=== PATIENT | female | born 1950 ===

== ENCOUNTER 2020-07-09 08:21 | Outpatient (REF) | payer MEDICARE, SELFPAY ==
[2020-07-09 08:52] LABS: MANUAL DIFF FLAG NO
[2020-07-09 08:58] LABS: Basophils Absolute Auto 0.1 X10*3/uL (0.0-0.2); Basophils Percent Auto 0.5 % (0-2); Eosinophils Absolute Auto 0.1 X10*3/uL (0.0-0.4); Eosinophils Percent Auto 0.7 % (0-4); Hematocrit 39.2 % (37-47); Hemoglobin 12.9 g/dl (12.0-16.0); Imm Gran Abs Auto 0.09 X10*3/uL (0.00-0.03); Imm Gran Pct Auto 0.7 % (0.0-0.4); Lymphocytes Absolute Auto 1.2 X10*3/uL (1.2-4.9); Mean Corpuscular HGB Conc 32.9 g/dl (31.0-35.0); Mean Corpuscular Hemoglobin 29.6 pg (27.0-33.0); Mean Corpuscular Volume 89.9 fL (80-98); Mean Platelet Volume 9.3 fL (9.4-12.3); Monocytes Absolute Auto 0.7 X10*3/uL (0.1-1.2); Monocytes Percent Auto 5.2 % (2-11); Neutrophils Absolute Auto 11.4 X10*3/uL (2.0-8.3); Neutrophils Percent Auto 83.9 % (45-73); Platelet Count 329 X10*3/uL (160-400); Red Blood Count 4.36 X10*6/uL (4.20-5.50); Red Cell Distribution Width 14.4 % (11.0-16.0); White Blood Count 13.6 X10*3/uL (4.8-10.8)
[2020-07-09 09:47] LABS: Vitamin D 25-OH Total 31.8 ng/mL (>30)
== END 2020-07-09 08:22 | disposition home or self-care (01) ==
LOC: HO.LAB 08:21
PROVIDERS: PCP Pediatrics; Visit Provider Pediatrics
DX: E78.00 Pure hypercholesterolemia, unspecified (principal); I10 Essential (primary) hypertension; J44.9 Chronic obstructive pulmonary disease, unspecified; F17.291 Nicotine dependence, other tobacco product, in remission
CPT/HCPCS: 36415; 82306; 85025

== ENCOUNTER 2021-04-05 09:55 | Emergency (ER) | payer MEDICARE, SELFPAY ==
--- NOTE | ~2021-04-05 | XR_ITS ---
EXAMINATION: XR CHEST CLINICAL INFORMATION: Weakness and cough. COMPARISON: None TECHNIQUE: Frontal view of the chest was obtained. FINDINGS: The lungs are well-expanded and clear. The heart size and pulmonary vascularity is normal. There is mild dextroscoliosis of mid dorsal spine with spondylosis. XR/XR chest 1V IMPRESSION: Hyperexpanded lungs without acute process.
--- NOTE | ~2021-04-05 | CT_ITS ---
EXAMINATION: CT ANGIOGRAM OF THE CHEST WITH AND WITHOUT CONTRAST (CT PULMONARY ANGIOGRAM FOR PE).. CT renal with and without contrast. CLINICAL INFORMATION: Reason for Exam hematuria . SOB worse with inspiration. COMPARISON: None TECHNIQUE: Prior to contrast administration, noncontrast localization images were obtained. Subsequently, multidetector volumetric imaging was performed from the thoracic inlet to below the diaphragms following the administration of 80 mL Omnipaque 350 intravenous contrast. No contrast reaction reported Sagittal, coronal, and MIP oblique sagittal reformatted images were obtained on the CT workstation, uploaded to PACS, and reviewed. This CT examination was performed using dose optimization techniques as appropriate, variously including the following: *Automated exposure control *Adjustment of mA and/or kV according to patient size (this includes techniques or standardized protocols for targeted exams where dose is matched to indication/reason for exam; i.e. extremities or head) *Use of iterative reconstruction technique Total exam dose-length product 600 mGy-cm FINDINGS: QUALITY OF STUDY/CONTRAST BOLUS: Satisfactory. PULMONARY ARTERIES: No central or segmental pulmonary emboli. THORACIC AORTA: No aneurysm or dissection. There is mild dystrophic calcification. LUNG: There is centrilobular emphysema with no acute pneumonic consolidation a few scattered densities in the right lower lobe. A 7 mm groundglass density right lower lobe anteriorly image 251/15, 7 mm nodule right lower lobe axial image 252/15, 6 mm nodule right lower lobe axial image 258/15:3 mm nodule right middle lobe axial image 285/15:4 mm nodule left lower lobe axial image 314/15. There are linear atelectatic changes anterobasal segment left lower lobe. There is no consolidation. PLEURA: There is minimal bilateral apical pleural thickening. MEDIASTINUM: The thyroid lobes are symmetrical. Central trachea and the bronchi widely patent. Heart size and the great vessels are normal caliber. There is dense mitral valve calcification No evidence of septal bowing or right heart strain. CHEST WALL/AXILLA: No axillary or internal mammary lymphadenopathy. OSSEOUS STRUCTURES: No lytic or sclerotic process seen. UPPER ABDOMEN: No reflux of contrast into the hepatic veins to suggest elevated right heart pressures. CTA RENAL WITHOUT AND WITH CONTRAST. There are no radiopaque gallstones. There is a punctate 2 mm radiopaque calculi upper/ midpole right left kidney axial image 22/7. Liver, biliary tract and gallbladder: The liver is homogeneous in density, normal size, contour with small punctate nonenhancing lesions measuring 5 mm likely small cysts. There is no intrahepatic ductal dilatation. Spleen: There are punctate calcification small cyst in the spleen. There is no splenomegaly. Pancreas: Unremarkable. Adrenal glands: Unremarkable. Kidneys and ureters: Both kidneys nephrograms are normal size, shape and cortical thickness. There is a 1.5 cm upper pole right renal cyst. No enhancing renal mass or hydronephrosis seen. Lymphovascular structures: There are atherosclerotic changes of abdominal aorta without aneurysmal dilatation. The aortic branches are patent. No abnormal size lymph nodes seen. GI tract: There is scattered stool and gas seen in the colon without any significant distention. The small bowel loops are normal caliber. Appendix is not included in the [id number]. No free fluid or free air seen. Abdominal wall: Unremarkable. Osseous structures: There is vacuum disc phenomena and degenerative disc changes L5-S1 disc level. CT/CT angio chest PE protocol Impression: Centrilobular emphysema with multiple nodules in the right lower lobe. No acute pneumonic consolidation or effusion seen. Lingular atelectasis. Recommend CT chest follow-up in 6 months as per Fleischner guidelines. VTE: negative 2 mm nonobstructive radiopaque calculi upper/mid pole left kidney. Nonenhancing 1.5 cm cyst upper pole right kidney There is no enhancing renal mass, cyst or hydronephrosis. Punctate nonenhancing densities in liver likely small cysts.
[2021-04-05 09:59] VITALS: BP 210/84; PULSE 89; RESP 18; TEMP 36.7; O2SAT 92; BMI 20.7
--- NOTE | 2021-04-05 10:06 | ECG_ITS ---
Test Reason : weakness Blood Pressure : / mmHG Vent. Rate : 082 BPM Atrial Rate : 082 BPM P-R Int : 152 ms QRS Dur : 086 ms QT Int : 378 ms P-R-T Axes : 069 065 069 degrees QTc Int : 441 ms Normal sinus rhythm Possible Left atrial enlargement Nonspecific ST abnormality Abnormal ECG When compared with ECG of 20-SEP-2017 15:28, Premature atrial complexes are no longer Present Referred By: Generic ED Physician Electronically Signed By:Mello Jones
[2021-04-05 10:15] LABS: MANUAL DIFF FLAG NO
[2021-04-05 10:17] LABS: Basophils Absolute Auto 0.1 X10*3/uL (0.0-0.2); Basophils Percent Auto 0.5 % (0-2); Eosinophils Absolute Auto 0.2 X10*3/uL (0.0-0.4); Eosinophils Percent Auto 1.5 % (0-4); Hematocrit 41.6 % (37.0-47.0); Hemoglobin 13.8 g/dl (12.0-16.0); Imm Gran Abs Auto 0.05 X10*3/uL (0.00-0.03); Imm Gran Pct Auto 0.5 % (0.0-0.4); Lymphocytes Percent Auto 9.7 % (20-40); Mean Corpuscular HGB Conc 33.2 g/dl (31.0-35.0); Mean Corpuscular Hemoglobin 29.2 pg (27.0-33.0); Mean Corpuscular Volume 87.9 fL (80.0-98.0); Monocytes Percent Auto 9.5 % (2-11); Neutrophils Absolute Auto 8.2 x10*3/uL (2.0-8.3); Neutrophils Percent Auto 78.3 % (45-73); Platelet Count 347 X10*3/uL (160-400); Red Blood Count 4.73 X10*6/uL (4.20-5.50); Red Cell Distribution Width 14.3 % (11.0-16.0); White Blood Count 10.4 X10*3/uL (4.8-10.8)
[2021-04-05 10:40] LABS: Anion Gap 14 (12-20); Blood Urea Nitrogen 12 mg/dL (9-16); Calcium 10.1 mg/dL (8.4-10.2); Carbon Dioxide 32 mmol/L (22-29); Chloride 96 mmol/L (96-108); Creatinine Clr Calc Pharmacy 58.1; Estimated Glomerular Filt Rate > 60; Glucose Random 111 mg/dL (60-115); Sodium 138 mmol/L (135-145)
[2021-04-05 10:41] LABS: Troponin-I High Sensitivity 5.2 ng/L (<3.5-17.0)
--- NOTE | 2021-04-05 11:07 | ED_ITS ---
HPI - General Adult General Chief complaint: Weakness Stated complaint: DIFF BREATHING Time Seen by Provider: 04/05/21 10:44 Source: patient Mode of arrival: ambulatory Limitations: no limitations History of Present Illness HPI narrative: 70-year-old female past medical history significant for COPD, HTN presents to the emergency department with complaints of severe shortness of breath, fatigue, decreased appetite and productive cough x1 month but progressively worsening over the past week. Patient tells me that she has become more short of breath over the past week to the point where she feels fatigued after ambulating to her bathroom which is on the 2nd floor. She tells me that she also feels short of breath of with walking normal distances which is not usual for her. She tells me she is a current daily smoker, does not use oxygen. She is vaccinated against COVID-19. She denies chest pain, fevers, chills, nausea, vomiting, abdominal pain. Patient tells me she has a nebulizer at home but she rarely uses it. Onset (ago): month(s) (1) Severity: severe Pain Consistency: constant Relieving factors: movement Exacerbating factors: immobilization Associated symptoms: cough (productive of thick yellow sputum) Treatments prior to arrival: none Related Data Previous Rx's Medication Instructions Recorded cefuroxime axetil 250 mg tablet 250 mg PO BID 7 Days #14 tab 04/05/21 Allergies Allergy/AdvReac Type Severity Reaction Status Date / Time milk [MILK] Allergy Intermediate DIARRHEA Unverified 01/12/20 15:35 Review of Systems Review of Systems: Constitutional : No Fever, No Chills ENT/Mouth : No sore throat, No Rhinorrhea, No Swallowing Difficulty Eyes: No Eye Pain, No Swelling, No Redness Cardiovascular : No Chest Pain, + SOB, No Orthopnea, no Edema Respiratory : + Cough, + Sputum, No Wheezing, + dyspnea Gastrointestinal : No Nausea, No Vomiting, No Diarrhea, No abdominal Pain, No Hematochezia, No Melena Genitourinary : No Dysuria, No Urinary Frequency, No Hematuria Musculoskeletal : No joint pain, No Myalgias Skin : No Skin Lesions, No rash Neuro : No Weakness, No Numbness, No Dizziness, No Headache Psych : No Anxiety/Panic, No Depression All other systems reviewed and are negative Yes all other systems are reviewed and are negative [facility] Past Medical History Attestation statement: The following information was validated with the patient. Source: old records reviewed and nursing notes reviewed Medical History COPD (chronic obstructive pulmonary disease) HTN (hypertension) Osteoporosis Social History Social History Alcohol intake: unknown Patient Tobacco Use Status: Tobacco use Unknown Use of substances other than those prescribed or required for medical reasons: Unknown Advance Directives: Yes Advance Directives Information Provided: Yes Advance Directives on File: No Physical Exam Vital Signs: Vital Signs: Last Vital Signs Temp 98.1 F 04/05/21 09:59 Pulse 82 04/05/21 16:43 Resp 16 04/05/21 16:43 BP 186/63 H 04/05/21 16:43 Pulse Ox 92 04/05/21 17:02 BMI result Body Mass Index 20.7 Vital signs are stable, however patient noted to be slightly hypertensive, likely secondary to anxiety. Appearance: Alert.? Oriented X3.? No acute distress.? Head: Normocephalic, atraumatic, no step-offs or deformities Eyes: Pupils equal, round and reactive to light.? ENT: Pharynx normal.? Neck: Normal inspection.? Neck supple.? CVS: Normal heart rate and rhythm.? Pulses normal.? Respiratory: No respiratory distress.? + scattered rales, and diminished lung sounds.? Abdomen: Soft and nontender.? Skin: Skin warm and dry.? Normal skin color.? Normal skin turgor.? Extremities: No lower extremity edema.? No calf ttp. 5/5 strength to bilateral upper and lower extremities Back: No midline tenderness, no C-spine tenderness, full range of motion, no CVA tenderness bilaterally Neuro: Oriented X 3.? No motor deficit.? No sensory deficit. Course Reevaluation(s) Reevaluation #1: Chest x-ray shows hyperexpanded lungs, without acute process. Labs show no acute infection, no anemia. BNP is slightly elevated. EKG within normal limits At this time patient will be given a DuoNeb. Reevaluation #2: CT shows emphysema, multiple nodules in the right lower lobe, no consolidation or effusion. It shows lingular atelectasis. Recommendation for age CT chest follow-up in 6 months. 2 mm nonobstructive stone in left kidney. And a 1.5 cm cyst in the upper pole of the right kidney. There is also punctate nonenhancing densities in the liver likely small cysts, all of these findings were discussed with the patient and her son. I have advised them to follow-up with their PCP, and Urology. At this time patient does not want to speak to case management or PT for possible need for home services/short-term rehab. Patient declined this offer and states she just wants to go home. Patient is safe for discharge home, Ceftin 250 mg p.o. b.i.d. for 7 days has been sent to her pharmacy to treat for UTI. I have discussed this case with Dr. Doan who will be seeing patient outpatient for hematuria. Time: 17:06 Reevaluation #3: Patient is ambulatory O2 was 96% for the majority that time, it dropped down to 92% after walking a full lab from the emergency department. Patient is safe for discharge home. Time: 17:07 Medical Decision Making [facility] Narrative Medical decision making narrative: 1100 70-year-old female past medical history of hypertension, COPD presents to the emergency department with shortness of breath progressively worsening x1 week, but has been present for months. Patient also reports associated weakness, productive cough of thick yellow sputum, and anorexia. Patient lives at home by herself. Patient is vaccinated against COVID. Patient is a current daily smoker. Does not use home oxygen. Upon physical examination patient appears well, she is ambulating without any issues. S1-S2 appreciated free of murmurs. Rales are appreciated throughout as well as diminished lung sounds. Abdomen soft nontender nondistended. No focal neuro deficits. No lower extremity edema. Plan is to obtain basic labs, chest x-ray, COVID, EKG. Medical Records Medical records reviewed: Yes I reviewed the patient's medical records. Lab Data Lab results reviewed: Yes I reviewed the patient's lab results. Result diagrams: 04/05/21 10:12 04/05/21 10:12 Labs: Lab Results 04/05/21 04/05/21 04/05/21 Range/Units 10:12 10:12 10:12 WBC 10.4 (4.8-10.8) X10*3/uL RBC 4.73 (4.20-5.50) X10*6/uL Hgb 13.8 (12.0-16.0) g/dl Hct 41.6 (37.0-47.0) % MCV 87.9 (80.0-98.0) fL MCH 29.2 (27.0-33.0) pg MCHC 33.2 (31.0-35.0) g/dl RDW 14.3 (11.0-16.0) % Plt Count 347 (160-400) X10*3/uL MPV 9.0 L (9.4-12.3) fL Immature Gran % (Auto) 0.5 H (0.0-0.4) % Neut % (Auto) 78.3 H (45-73) % Lymph % (Auto) 9.7 L (20-40) % [place] % (Auto) 9.5 (2-11) % Eos % (Auto) 1.5 (0-4) % Baso % (Auto) 0.5 (0-2) % Lymph # (Auto) 1.0 L (1.2-4.9) X10*3/uL [place] # (Auto) 1.0 (0.1-1.2) X10*3/uL Eos # (Auto) 0.2 (0.0-0.4) X10*3/uL Baso # (Auto) 0.1 (0.0-0.2) X10*3/uL Abs Immat Gran (auto) 0.05 H (0.00-0.03) X10*3/uL Absolute Neuts (auto) 8.2 (2.0-8.3) x10*3/uL Absolute Nucleated RBC 0.000 (0.0-0.012) X10*3/uL Nucleated RBC % (auto) 0.0 (0.0-0.2) /100WBC Sodium 138 (135-145) mmol/L Potassium 4.0 (3.3-5.1) mmol/L Chloride 96 (96-108) mmol/L Carbon Dioxide 32 H (22-29) mmol/L Anion Gap 14 (12-20) BUN 12 (9-16) mg/dL Creatinine 0.66 (0.5-1.4) mg/dL Estim Creat Clear Calc 58.1 Estimated GFR > 60 Random Glucose 111 (60-115) mg/dL Calcium 10.1 (8.4-10.2) mg/dL Troponin I High Sens 5.2 (<3.5-17.0) ng/L B-Natriuretic Peptide 169 H (<100) pg/mL Urine Color Urine Appearance Urine pH (5.0-8.0) Ur Specific Hydes (1.005-1.025) Urine Protein (NEG-TRACE) MG/DL Urine Glucose (UA) (NEG) MG/DL Urine Ketones (NEG) MG/DL Urine Blood (NEG) Urine Nitrite (NEG) Ur Leukocyte Esterase (NEG) Urine RBC (0) /HPF Urine WBC (0-4) /HPF Ur Squamous Epith Cells /LPF Urine Bacteria /LPF COVID-19 (MYLES) (Negative) COVID-19 Clin Com 04/05/21 04/05/21 Range/Units 12:18 12:18 WBC (4.8-10.8) X10*3/uL RBC (4.20-5.50) X10*6/uL Hgb (12.0-16.0) g/dl Hct (37.0-47.0) % MCV (80.0-98.0) fL MCH (27.0-33.0) pg MCHC (31.0-35.0) g/dl RDW (11.0-16.0) % Plt Count (160-400) X10*3/uL MPV (9.4-12.3) fL Immature Gran % (Auto) (0.0-0.4) % Neut % (Auto) (45-73) % Lymph % (Auto) (20-40) % [place] % (Auto) (2-11) % Eos % (Auto) (0-4) % Baso % (Auto) (0-2) % Lymph # (Auto) (1.2-4.9) X10*3/uL [place] # (Auto) (0.1-1.2) X10*3/uL Eos # (Auto) (0.0-0.4) X10*3/uL Baso # (Auto) (0.0-0.2) X10*3/uL Abs Immat Gran (auto) (0.00-0.03) X10*3/uL Absolute Neuts (auto) (2.0-8.3) x10*3/uL Absolute Nucleated RBC (0.0-0.012) X10*3/uL Nucleated RBC % (auto) (0.0-0.2) /100WBC Sodium (135-145) mmol/L Potassium (3.3-5.1) mmol/L Chloride (96-108) mmol/L Carbon Dioxide (22-29) mmol/L Anion Gap (12-20) BUN (9-16) mg/dL Creatinine (0.5-1.4) mg/dL Estim Creat Clear Calc Estimated GFR Random Glucose (60-115) mg/dL Calcium (8.4-10.2) mg/dL Troponin I High Sens (<3.5-17.0) ng/L B-Natriuretic Peptide (<100) pg/mL Urine Color RED Urine Appearance CLOUDY Urine pH 7.0 (5.0-8.0) Ur Specific Hydes 1.015 (1.005-1.025) Urine Protein 2+ H (NEG-TRACE) MG/DL Urine Glucose (UA) NEG (NEG) MG/DL Urine Ketones NEG (NEG) MG/DL Urine Blood 3+ H (NEG) Urine Nitrite NEG (NEG) Ur Leukocyte Esterase 2+ H (NEG) Urine RBC TNTC H (0) /HPF Urine WBC 5-9 H (0-4) /HPF Ur Squamous Epith Cells NONE /LPF Urine Bacteria 4+ /LPF COVID-19 (MYLES) Negative (Negative) COVID-19 Clin Com See Note Imaging Data Chest x-ray: Attestation: I personally reviewed and interpreted this imaging study as follows: Radiologist's impression: FINDINGS: The lungs are well-expanded and clear. The heart size and pulmonary vascularity is normal. There is mild dextroscoliosis of mid dorsal spine with spondylosis. XR/XR chest 1V IMPRESSION: Hyperexpanded lungs without acute process. ECG Data Attestation: I personally reviewed and interpreted this ECG as follows: Prior ECG tracings: available for review Interpretation: Ventricular rate of 82, ME normal QRS normal, QT/QTC normal. EKG shows normal sinus rhythm with possible left atrial enlargement, there are some ST depressions noted in the lateral leads. No ST elevations. No acute ischemia. No acute changes when compared to EKG from September 20, 2017. Critical Care Time Critical Care Time Critical Care Time: No Discharge Plan Discharge Clinical Impression: Emphysema lung, Kidney calculi, Lung nodule, Urinary tract infection, Hemat uria, Shortness of breath Patient Disposition: Home, Self-Care Instructions: Kidney Stones (ED), Emphysema (ED), Urinary Tract Infection in Older Adults (ED) Additional Instructions: Take your medications as prescribed. If you are prescribed an antibiotic today it is important that you take it to its entirety, do not skip any doses or stop it early. Please stop smoking, this is making your symptoms worse. Offered you Case Management and Physical therapy to evaluate if you are in need of more services or short-term rehab however you declined this offer. There are nodules in the right lower lobe of the lung, require CT follow up in 6 months Follow-up with your primary care provider this week. Please follow up with Urology. Return to the emergency department with new or worsening symptoms. Such as chest pain, shortness of breath, nausea, vomiting, fevers, chills, abdominal pain. In case of emergency call 911 Prescriptions: New cefuroxime axetil 250 mg tablet 250 mg PO BID 7 Days Qty: 14 RF: 0 Referrals: Lyn French MD [Primary Care Provider] - 2 days Topher Doan MD [Physician] - 2 days
[2021-04-05 11:33] LABS: B Type Natriuretic Peptide 169 pg/mL (<100)
[2021-04-05] MEDS: Albuterol/Iprat 2.5/0.5MG 3 ML AMPUL.NEB INHALE (12:20)
[2021-04-05 12:21] VITALS: PULSE 73; RESP 16; O2SAT 96
[2021-04-05 12:44] LABS: Appearance Urine CLOUDY; Color Urine RED; Glucose Urine UA NEG (NEG); Leukocyte Esterase Urine 2+ (NEG); Nitrite Urine NEG (NEG); Specific Gravity - Urine 1.015 (1.005-1.025); UACC Culture Trigger YES; Urine Blood 3+ (NEG); Urine Ketones NEG (NEG); Urine Protein 2+ MG/DL (NEG-TRACE)
[2021-04-05 12:47] LABS: COVID-19 Test Negative (Negative)
[2021-04-05 12:48] LABS: Bacteria Urine 4+ /LPF; RBC Urine TNTC /HPF (0)
[2021-04-05 12:51] LABS: UACC CULT YES
[2021-04-05] MEDS: iohexoL 350 MG/ML 100 ML INFUS..BTL IV (14:59)
[2021-04-05 16:43] VITALS: BP 186/63; PULSE 82; RESP 16; O2SAT 94
[2021-04-05 17:02] VITALS: O2SAT 92
== END 2021-04-05 17:21 | disposition home or self-care (01) ==
PROVIDERS: Physician Assistant; Emergency Provider Emergency Medicine; PCP Pediatrics
DX: J43.9 Emphysema, unspecified (principal); N20.0 Calculus of kidney; R06.02 Shortness of breath; N39.0 Urinary tract infection, site not specified; R05.9 Cough, unspecified; R31.9 Hematuria, unspecified; I10 Essential (primary) hypertension; Z20.822 Contact with and (suspected) exposure to COVID-19; Z79.899 Other long term (current) drug therapy
CPT/HCPCS: 36415; 71045; 71275; 74178; 80048; 81001; 83880; 84484; 85025; 87086; 87635; 93005; 94640; 99285; Q9967

== ENCOUNTER 2021-04-09 08:44 | Emergency (ER) | payer MEDICARE, SELFPAY ==
[2021-04-09 09:17] VITALS: BP 99/54; PULSE 88; RESP 18; TEMP 36.6; O2SAT 95; BMI 20.7
--- NOTE | 2021-04-09 09:50 | ECG_ITS ---
Test Reason : weakness Blood Pressure : / mmHG Vent. Rate : 080 BPM Atrial Rate : 080 BPM P-R Int : 148 ms QRS Dur : 082 ms QT Int : 384 ms P-R-T Axes : 069 069 076 degrees QTc Int : 442 ms Sinus rhythm with frequent , and consecutive Premature ventricular complexes Nonspecific ST abnormality Abnormal ECG When compared with ECG of 05-APR-2021 12:11, Premature ventricular complexes are now Present Referred By: Tracey White Electronically Signed By:CAREY CRAWLEY MD
--- NOTE | 2021-04-09 09:52 | ED.WEAKNESS ---
HPI - Weakness General Chief complaint: Weakness Stated complaint: UTI Time Seen by Provider: 04/09/21 09:17 Source: patient and family Mode of arrival: wheelchair Limitations: no limitations History of Present Illness HPI Narrative: Patient comes emergency room complaining of weakness. Patient was seen here 4 days ago, diagnosed with a UTI, given cefuroxime p.o.. In her previous visit patient was offered case management/PT eval for possible short-term rehab, but patient and family declined. Today, patient's family is requesting an evaluation as he would like to have the patient sent short-term rehab if the patient does not meet any criteria for admission. Patient denies pain, no chest pain, no shortness of breath. Patient states that she feels very fatigued, denies hematuria or dysuria, no URI symptoms Related Data Home Medications Medication Instructions Recorded Confirmed albuterol sulfate 90 mcg/actuation 2 inh INHALATION Q4H PRN 04/09/21 04/09/21 aerosol inhaler alendronate 70 mg tablet 70 mg PO SA 04/09/21 04/09/21 atorvastatin 40 mg tablet 40 mg PO BEDTIME 04/09/21 04/09/21 cefuroxime axetil 250 mg tablet 1 tab PO BID 04/09/21 04/09/21 fluticasone furoate 200 1 puff PO DAILY 04/09/21 04/09/21 mcg-vilanterol 25 mcg/dose inhalation powder (Breo Ellipta) lisinopril 20 1 tab PO DAILY 04/09/21 04/09/21 mg-hydrochlorothiazide 25 mg tablet naproxen 500 mg tablet 1 tab PO BID PRN 04/09/21 04/09/21 umeclidinium 62.5 mcg/actuation 1 puff PO DAILY 04/09/21 04/09/21 blister powder for inhalation (Incruse Ellipta) Allergies Allergy/AdvReac Type Severity Reaction Status Date / Time milk [MILK] Allergy Intermediate DIARRHEA Unverified 01/12/20 15:35 Review of Systems Review of Systems: Constitutional : No Weight loss, No Fever, No Chills, No Night Sweats, complaining of fatigue, weakness ENT/Mouth : No Hearing loss, No Ear Pain, No Nasal Congestion, No Sinus Pain, No Hoarseness, No sore throat, No Rhinorrhea, No Swallowing Difficulty Eyes: No Eye Pain, No Swelling, No Redness, No Foreign Body, No Discharge, No Vision Changes Cardiovascular : No Chest Pain, No SOB, No Dyspnea on Exertion, No Orthopnea, No Edema, No Palpitations Respiratory : Chronic cough at baseline, No Sputum, No Wheezing, No Smoke Exposure, No Dyspnea Gastrointestinal : No Nausea, No Vomiting, No Diarrhea, No Constipation, No abdominal Pain, No Hematochezia, No Melena Genitourinary : no irregular bleeding, No Dysuria, No Urinary Frequency, No Hematuria, No Urinary Incontinence, No Urgency, No Flank Pain, No Urinary Flow Changes, No Hesitancy Musculoskeletal : No joint pain, No Myalgias, No Joint Swelling Skin : No Skin Lesions, No rash Neuro : No Weakness, No Numbness, No Paresthesias, No Loss of Consciousness, No Dizziness, No Headache Psych : No Anxiety/Panic, No Depression, No SI/HI/AH/VH, No Social Issues, Heme/Lymph: No Bruising, No Bleeding,No Lymphadenopathy Endocrine : No Polyuria, No Polydipsia, No Temperature Intolerance [facility] Past Medical History Medical History COPD (chronic obstructive pulmonary disease) HTN (hypertension) Osteoporosis Social History Social History Alcohol intake: unknown Patient Tobacco Use Status: Tobacco use Unknown Advance Directives: No Advance Directives Information Provided: No Physical Exam Vital Signs: Vital Signs: Last Vital Signs Temp 98.2 F 04/09/21 11:20 Pulse 73 04/09/21 11:20 Resp 18 04/09/21 11:20 BP 139/55 L 04/09/21 11:20 Pulse Ox 95 04/09/21 11:20 BMI result Body Mass Index 20.7 Const: Other: Appearance: Alert. Oriented X3. No acute distress. Seems to be weak Eyes: Pupils equal, round and reactive to light. ENT: Pharynx normal. Neck: Normal inspection. Neck supple. No lymph nodes noted. No crepitus CVS: Normal heart rate and rhythm. Pulses normal. Normal S1 and S2 Respiratory: No respiratory distress. Breath sounds normal. No Wheezing. No rales Abdomen: Soft and nontender. No rigidity. No distention. Skin: Skin warm and dry. Normal skin color. Normal skin turgor. Extremities: No lower extremity edema. No Lacerations. No Rash Neuro: Oriented X 3. No motor deficit. No sensory deficit. Moving all extermities. No slurred speech. Course Course Course Narrative: Patient has mild hyponatremia, mild UTI with +1 esterase. Discussed the patient with our hospitalist, patient is not septic, at this time, in-patient treatment recommended. We will get a Physical therapy and Case Management evaluation. Family wishes to have the patient go to short-term rehab due to deconditioning physician obstervation started at 14:07, vitals stable MDM - Weakness Lab Data Result diagrams: 04/09/21 10:59 04/09/21 10:59 Labs: Lab Results 04/09/21 04/09/21 04/09/21 Range/Units 10:59 10:59 10:59 WBC 11.1 H (4.8-10.8) X10*3/uL RBC 4.51 (4.20-5.50) X10*6/uL Hgb 13.3 (12.0-16.0) g/dl Hct 40.0 (37.0-47.0) % MCV 88.7 (80.0-98.0) fL MCH 29.5 (27.0-33.0) pg MCHC 33.3 (31.0-35.0) g/dl RDW 14.1 (11.0-16.0) % Plt Count 195 D (160-400) X10*3/uL MPV 9.9 (9.4-12.3) fL Immature Gran % (Auto) 0.5 H (0.0-0.4) % Neut % (Auto) 81.8 H (45-73) % Lymph % (Auto) 10.1 L (20-40) % [place] % (Auto) 6.6 (2-11) % Eos % (Auto) 0.6 (0-4) % Baso % (Auto) 0.4 (0-2) % Lymph # (Auto) 1.1 L (1.2-4.9) X10*3/uL [place] # (Auto) 0.7 (0.1-1.2) X10*3/uL Eos # (Auto) 0.1 (0.0-0.4) X10*3/uL Baso # (Auto) 0.0 (0.0-0.2) X10*3/uL Abs Immat Gran (auto) 0.06 H (0.00-0.03) X10*3/uL Absolute Neuts (auto) 9.0 H (2.0-8.3) x10*3/uL Absolute Nucleated RBC 0.000 (0.0-0.012) X10*3/uL Nucleated RBC % (auto) 0.0 (0.0-0.2) /100WBC Smear Tech's Comments VERIFIED Sodium 130 L (135-145) mmol/L Potassium 3.6 (3.3-5.1) mmol/L Chloride 91 L (96-108) mmol/L Carbon Dioxide 25 (22-29) mmol/L Anion Gap 18 (12-20) BUN 11 (9-16) mg/dL Creatinine 0.59 (0.5-1.4) mg/dL Estim Creat Clear Calc 65.0 Estimated GFR > 60 Random Glucose 110 (60-115) mg/dL Lactic Acid (0.5-2.0) mmol/L Calcium 9.6 (8.4-10.2) mg/dL Total Bilirubin 0.5 (0.0-1.0) mg/dL Direct Bilirubin < 0.2 (0.0-0.5) mg/dL AST 25 (5-31) U/L ALT 14 (0-31) U/L Alkaline Phosphatase 101 (39-117) U/L Troponin I High Sens 11.1 D (<3.5-17.0) ng/L Total Protein 6.7 (6.5-8.0) g/dL Albumin 3.8 (3.5-5.0) g/dL Urine Color Urine Appearance Urine pH (5.0-8.0) Ur Specific [place] (1.005-1.025) Urine Protein (NEG-TRACE) MG/DL Urine Glucose (UA) (NEG) MG/DL Urine Ketones (NEG) MG/DL Urine Blood (NEG) Urine Nitrite (NEG) Ur Leukocyte Esterase (NEG) Urine RBC (0) /HPF Urine WBC (0-4) /HPF Ur Squamous Epith Cells /LPF Urine Bacteria /LPF COVID-19 (MYLES) (Negative) COVID-19 Clin Com 04/09/21 04/09/21 04/09/21 Range/Units 10:59 11:16 12:49 WBC (4.8-10.8) X10*3/uL RBC (4.20-5.50) X10*6/uL Hgb (12.0-16.0) g/dl Hct (37.0-47.0) % MCV (80.0-98.0) fL MCH (27.0-33.0) pg MCHC (31.0-35.0) g/dl RDW (11.0-16.0) % Plt Count (160-400) X10*3/uL MPV (9.4-12.3) fL Immature Gran % (Auto) (0.0-0.4) % Neut % (Auto) (45-73) % Lymph % (Auto) (20-40) % [place] % (Auto) (2-11) % Eos % (Auto) (0-4) % Baso % (Auto) (0-2) % Lymph # (Auto) (1.2-4.9) X10*3/uL [place] # (Auto) (0.1-1.2) X10*3/uL Eos # (Auto) (0.0-0.4) X10*3/uL Baso # (Auto) (0.0-0.2) X10*3/uL Abs Immat Gran (auto) (0.00-0.03) X10*3/uL Absolute Neuts (auto) (2.0-8.3) x10*3/uL Absolute Nucleated RBC (0.0-0.012) X10*3/uL Nucleated RBC % (auto) (0.0-0.2) /100WBC Smear Tech's Comments Sodium (135-145) mmol/L Potassium (3.3-5.1) mmol/L Chloride (96-108) mmol/L Carbon Dioxide (22-29) mmol/L Anion Gap (12-20) BUN (9-16) mg/dL Creatinine (0.5-1.4) mg/dL Estim Creat Clear Calc Estimated GFR Random Glucose (60-115) mg/dL Lactic Acid 1.3 (0.5-2.0) mmol/L Calcium (8.4-10.2) mg/dL Total Bilirubin (0.0-1.0) mg/dL Direct Bilirubin (0.0-0.5) mg/dL AST (5-31) U/L ALT (0-31) U/L Alkaline Phosphatase (39-117) U/L Troponin I High Sens (<3.5-17.0) ng/L Total Protein (6.5-8.0) g/dL Albumin (3.5-5.0) g/dL Urine Color RED Urine Appearance CLOUDY Urine pH 6.0 (5.0-8.0) Ur Specific [place] 1.015 (1.005-1.025) Urine Protein 1+ H (NEG-TRACE) MG/DL Urine Glucose (UA) NEG (NEG) MG/DL Urine Ketones NEG (NEG) MG/DL Urine Blood 3+ H (NEG) Urine Nitrite NEG (NEG) Ur Leukocyte Esterase 1+ H (NEG) Urine RBC TNTC H (0) /HPF Urine WBC 10-14 H (0-4) /HPF Ur Squamous Epith Cells TRACE /LPF Urine Bacteria NONE /LPF COVID-19 (MYLES) Negative (Negative) COVID-19 Clin Com See Note Discharge Plan Discharge Clinical Impression: Acute UTI, Generalized weakness Prescriptions: No Action atorvastatin 40 mg tablet 40 mg PO BEDTIME RF: 0 cefuroxime axetil 250 mg tablet 1 tab PO BID RF: 0 alendronate 70 mg tablet 70 mg PO SA RF: 0 lisinopril-hydrochlorothiazide 20-25 mg tablet 1 tab PO DAILY RF: 0 albuterol sulfate 90 mcg/actuation HFA aerosol inhaler 2 inh inhalation Q4H PRN (Reason: Wheezing) RF: 0 naproxen 500 mg tablet 1 tab PO BID PRN (Reason: pain) RF: 0 Incruse Ellipta 62.5 mcg/actuation blister with device 1 puff PO DAILY RF: 0 Breo Ellipta 200-25 mcg/dose blister with device 1 puff PO DAILY RF: 0
[2021-04-09 11:09] LABS: Basophils Percent Auto 0.4 % (0-2); Eosinophils Absolute Auto 0.1 X10*3/uL (0.0-0.4); Eosinophils Percent Auto 0.6 % (0-4); Hemoglobin 13.3 g/dl (12.0-16.0); Imm Gran Abs Auto 0.06 X10*3/uL (0.00-0.03); Imm Gran Pct Auto 0.5 % (0.0-0.4); Lymphocytes Absolute Auto 1.1 X10*3/uL (1.2-4.9); Lymphocytes Percent Auto 10.1 % (20-40); MANUAL DIFF FLAG SCAN; Mean Corpuscular HGB Conc 33.3 g/dl (31.0-35.0); Mean Corpuscular Hemoglobin 29.5 pg (27.0-33.0); Mean Corpuscular Volume 88.7 fL (80.0-98.0); Mean Platelet Volume 9.9 fL (9.4-12.3); Monocytes Absolute Auto 0.7 X10*3/uL (0.1-1.2); Monocytes Percent Auto 6.6 % (2-11); Neutrophils Percent Auto 81.8 % (45-73); PLT CLUMP 1; Red Blood Count 4.51 X10*6/uL (4.20-5.50); Red Cell Distribution Width 14.1 % (11.0-16.0); SCAN SMEAR FLAG 1
[2021-04-09 11:10] LABS: Platelet Count 195 X10*3/uL (160-400); White Blood Count 11.1 X10*3/uL (4.8-10.8)
[2021-04-09 11:20] VITALS: BP 139/55; PULSE 73; RESP 18; TEMP 36.8; O2SAT 95
[2021-04-09 11:22] LABS: COVID-19 Test Negative (Negative)
[2021-04-09 11:26] LABS: SLIDE REVIEW VERIFIED
[2021-04-09 11:28] LABS: Alanine Aminotransferase 14 U/L (0-31); Albumin Level 3.8 g/dL (3.5-5.0); Alkaline Phosphatase 101 U/L (39-117); Anion Gap 18 (12-20); Aspartate Amino Transferase 25 U/L (5-31); Bilirubin Direct < 0.2 mg/dL (0.0-0.5); Bilirubin Total 0.5 mg/dL (0.0-1.0); Blood Urea Nitrogen 11 mg/dL (9-16); Calcium 9.6 mg/dL (8.4-10.2); Carbon Dioxide 25 mmol/L (22-29); Chloride 91 mmol/L (96-108); Estimated Glomerular Filt Rate > 60; Glucose Random 110 mg/dL (60-115); Potassium 3.6 mmol/L (3.3-5.1); Sodium 130 mmol/L (135-145); Total Protein 6.7 g/dL (6.5-8.0)
[2021-04-09 11:31] LABS: Troponin-I High Sensitivity 11.1 ng/L (<3.5-17.0)
[2021-04-09 11:38] LABS: Lactic Acid 1.3 mmol/L (0.5-2.0)
[2021-04-09 13:07] LABS: Appearance Urine CLOUDY; Color Urine RED; Glucose Urine UA NEG (NEG); Leukocyte Esterase Urine 1+ (NEG); Nitrite Urine NEG (NEG); Specific Gravity - Urine 1.015 (1.005-1.025); UACC Culture Trigger YES; Urine Blood 3+ (NEG); Urine Ketones NEG (NEG); Urine Protein 1+ MG/DL (NEG-TRACE)
[2021-04-09 13:10] LABS: RBC Urine TNTC /HPF (0)
[2021-04-09 13:11] LABS: Squamous Epithelial Cell Urine TRACE /LPF
[2021-04-09] MEDS: levoFLOXacin/D5W 500 MG/100 ML PIGGYBACK 100 MG IV (14:04)
--- NOTE | 2021-04-09 14:05 | PHA.MEDREC ---
Pharmacy Consult ? Medication Reconciliation Pharmacy has completed the medication reconciliation. Thanks Dane
--- NOTE | 2021-04-09 14:10 | MHC.CM.ED ---
Received case management consult from Dr White. Patient came to the ER on 04/05 due to weakness. Found to have an UTI. Short term rehab was offered at that time. Patient declined and went home. Patient returned to the ER today due to increased weakness. Patient still has UTI. Physical therapy eval is pending. Met with patient and son Néstor in regards to discharge planning. Patient lives with a roommate, uses a cane for mobility at times and has a home health aide weekly from [facility]. PCP verified. Copy of HCP obtained from [facility]. Patient has received 2 Moderna vaccines. List of facilities provided from [facility] to patient and Néstor, for all facilities within 15 miles of patient's home that are contracted with [facility]. [facility] is first choice. Referral made via [employer]. Continue to monitor for d/c needs.
[2021-04-09 14:28] VITALS: BP 148/55; PULSE 76; RESP 16; TEMP 36.6; O2SAT 95
[2021-04-09 15:30] LABS: Influenza A PCR NEGATIVE (Negative); Influenza B PCR NEGATIVE (Negative); Resp Syncy Virus RNA Qual PCR NEGATIVE (Negative); SARS COV2 PCR INHOUSE NEGATIVE (Negative)
--- NOTE | 2021-04-09 15:46 | MHC.CM.ED ---
[facility] is willing to offer a bed. They are in the process of obtaining insurance auth. Patient and son aware. Continue to monitor for d/c needs.
--- NOTE | 2021-04-09 17:09 | MHC.CM.ED ---
Reyes zaragoza requested contact information for [facility]. Given Aleisha at [facility] [phone]. Auth still pending. Will remain in ED overnight. Expect D/C tomorrow. CM to follow for d/c needs.
--- NOTE | 2021-04-10 00:56 | PC.NURSE ---
pt sleeping comfortably in room will continue to monitor
[2021-04-10 05:49] VITALS: BP 103/62; PULSE 81; RESP 16; TEMP 36.7; O2SAT 94
[2021-04-10 09:01] VITALS: BP 161/63; PULSE 77; RESP 18; O2SAT 94
[2021-04-10] MEDS: Nicotine 21 MG PATCH.TD24 TRANSDERMA (09:03)
--- NOTE | 2021-04-10 09:05 | PC.NURSE ---
pt resting comfortably in the stretcher alert and oriented x3, pt denies any pain at this time, pt is a smoker and smokes about 1/2 pack a day, requested and received nicotine patch. vs stable, pt aware of plan to go to rehab, food diet ordered and awaiting laila
--- NOTE | 2021-04-10 09:56 | MHC.CM.ED ---
Patient remains in ER. Waiting for ins auth so patient can go to [facility] for STR. Continue to monitor for d/c needs.
[2021-04-10 10:06] VITALS: BP 142/69; PULSE 80; RESP 16; O2SAT 94
--- NOTE | 2021-04-10 11:27 | MHC.CM.ED ---
Insurance auth has been obtained by Jodee Rosen. Patient can leave at 1pm. [facility] BLS booked. Med nec with chart. Patient, Fauzia Palm RN and Dr Soto aware. Continue to monitor for d/c needs/
[2021-04-10 12:16] VITALS: BP 129/62; PULSE 95; RESP 18; TEMP 36.5; O2SAT 96
== END 2021-04-10 13:23 | disposition skilled nursing facility (03) ==
PROVIDERS: Emergency Provider Emergency Medicine; PCP Pediatrics
DX: N39.0 Urinary tract infection, site not specified (principal); R53.1 Weakness; Z20.822 Contact with and (suspected) exposure to COVID-19; Z87.440 Personal history of urinary (tract) infections; I10 Essential (primary) hypertension
CPT/HCPCS: 0241U; 36415; 80048; 80076; 81001; 81003; 83605; 84484; 85025; 87040; 87086; 87635; 93005; 96365; 97162; 99285; J1956

== ENCOUNTER → 2021-05-10 13:28 | Outpatient (BNVA) | payer MEDICARE, SELFPAY | PROVIDERS: PCP Pediatrics; Visit Provider Internal Medicine Pulmonary Disease | DX: J44.9 Chronic obstructive pulmonary disease, unspecified (principal); R91.8 Other nonspecific abnormal finding of lung field; Z79.899 Other long term (current) drug therapy | CPT/HCPCS: 94618; 99202 ==

== ENCOUNTER 2021-07-22 07:14 | Outpatient (REF) | payer MEDICARE, SELFPAY ==
--- NOTE | ~2021-07-22 | CT_ITS ---
EXAMINATION: CT CHEST SCREENING CLINICAL INFORMATION: Nicotine dependence. COMPARISON: CTA chest 04/05/2021. TECHNIQUE: Multidetector volumetric CT imaging of the chest is performed without contrast using low dose technique. Additional 2D coronal and sagittal reformatted images and axial 3D maximum intensity projection (MIP) images are generated on the CT workstation. This CT examination was performed using dose optimization techniques as appropriate, variously including the following: *Automated exposure control *Adjustment of mA and/or kV according to patient size (this includes techniques or standardized protocols for targeted exams where dose is matched to indication/reason for exam; i.e. extremities or head) *Use of iterative reconstruction technique DLP: 39 mGy-cm FINDINGS: LUNGS: There is centrilobular emphysema with anterior segment right upper lobe atelectasis. There is a right lower lobe 7 mm nodule axial image 274/6, a 5 mm nodule right lower lobe axial image 277/6, 3 mm nodule right middle lobe axial image 276/6, two 3 mm subpleural nodules left lower lobe axial image 34/4, a 4 mm nodule left lower lobe subpleural-based axial image 338/6. MEDIASTINUM: The thyroid lobes are symmetric and normal. The central trachea and the bronchi widely patent. Heart size and the great vessels are normal caliber. No pericardial effusion seen. There are small shotty lymph nodes in the precarinal space measuring 6 mm. PLEURA: There is no pleural effusion. No pleural mass or thickening. AXILLA: No lymphadenopathy. UPPER ABDOMEN: Visualized liver, adrenal glands, pancreas and gallbladder appears unremarkable. There is a 6 mm hypodensity in the spleen, question cyst. OSSEOUS STRUCTURES: Unremarkable. CT/CT lung screening IMPRESSION: Diffuse emphysema with multiple pulmonary nodules essentially stable. Ground-glass attenuation seen in the previous study has improved. There is atelectatic changes in the anterior segment of the right upper lobe, stable. Atelectatic changes in the lingular segment has improved. ASSESSMENT: Lung-RADS category 2: Benign RECOMMENDATION: Low-dose annual CT chest.
== END 2021-07-22 07:15 | disposition home or self-care (01) ==
LOC: HO.CT 07:14
PROVIDERS: Visit Provider Physician Assistant Medical
DX: F17.210 Nicotine dependence, cigarettes, uncomplicated (principal)
CPT/HCPCS: 71271

== ENCOUNTER 2021-08-01 07:53 | Outpatient (REF) | payer OTHER, SELFPAY ==
--- NOTE | 2021-08-01 10:18 | PFT_ITS ---
INDICATION: Dyspnea. SPIROMETRY: FEV1 to FVC of 65% with an FEV1 of 0.95 L, which is 49% predicted, FVC of 1.47 L, which is 67% predicted. No significant response to bronchodilators noted. Maximum voluntary ventilation 45% predicted. LUNG VOLUMES: Total lung capacity 80% predicted. DIFFUSION CAPACITY: DLCO 37% predicted. COMPARISONS: None available. INTERPRETATION: There is an obstructive ventilatory defect consistent with severe COPD. No significant response to bronchodilators noted. Severe decrease in maximum voluntary ventilation secondary to likely deconditioning. Lung volumes are low normal. No evidence of any hyperinflation or air trapping. The patient does have a severe diffusion impairment likely secondary to emphysema and no other parenchymal lung conditions. Pulmonary vascular conditions should also be considered. Clinical correlation warranted. MD ABHIJEET De Souza/MODNikko / [id number]
== END 2021-08-01 07:54 | disposition home or self-care (01) ==
LOC: HO.RESP 07:53
PROVIDERS: PCP Pediatrics; Visit Provider Internal Medicine Pulmonary Disease
DX: R06.00 Dyspnea, unspecified (principal); J44.9 Chronic obstructive pulmonary disease, unspecified
CPT/HCPCS: 94060; 94727; 94729

== ENCOUNTER 2021-08-27 08:16 | Outpatient (REF) | payer OTHER, SELFPAY ==
--- NOTE | ~2021-08-27 | CT_ITS ---
EXAMINATION: CT CHEST WITHOUT CONTRAST CLINICAL INFORMATION: Follow-up pulmonary nodule. COMPARISON: Previous chest CT, most recent June 2021. TECHNIQUE: Multidetector volumetric CT imaging of the chest was done. Axial MIP volume rendering provided. Sagittal and coronal reformatted images were obtained. This CT examination was performed using dose optimization techniques as appropriate, variously including the following: *Automated exposure control *Adjustment of mA and/or kV according to patient size (this includes techniques or standardized protocols for targeted exams where dose is matched to indication/reason for exam; i.e. extremities or head) *Use of iterative reconstruction technique DLP: 103 mGy-cm. FINDINGS: LUNGS: There is evidence of emphysema. There is biapical pleural parenchymal scarring. There is a new heterogeneous 4 mm right middle lobe nodule axial image 261 series 5 and adjacent focal bronchiectasis or cystic change. There is new increased ground-glass attenuation and increased linear markings seen in the peripheral or subpleural right upper lobe adjacent to the minor fissure, for example axial image 227 series 5. Pulmonary nodules otherwise appear unchanged. Largest pulmonary nodules are a ground-glass attenuation nodule in the right lower lobe measuring 6 x 9 mm axial image 302 series 5., 7 mm right lower lobe nodule axial image 308 series 5, and 6 mm peripheral or subpleural left lower lobe nodule axial image 333 series 5. The 6 x 9 mm ground-glass attenuation right lower lobe nodule may be gradually increasing in size compared to remote older exams and attention on follow-up is recommended. MEDIASTINUM: There is severe atherosclerotic disease. There is dense calcification right brachiocephalic artery. Heart does not appear enlarged. There is mild coronary artery calcification. There is no pericardial effusion. There are no enlarged hilar or mediastinal nodes. PLEURA: There is no pleural effusion. No pleural mass or thickening. AXILLA: No lymphadenopathy. UPPER ABDOMEN: There is a small low-attenuation lesion in the spleen that is stable. There is a small stone in the upper pole of the left kidney. OSSEOUS STRUCTURES: Scoliosis and degenerative changes of the spine. Multiple thoracic vertebral body compression fractures that appear unchanged. CT/CT chest wo con IMPRESSION: Emphysema. New heterogeneous right middle lobe nodule and adjacent focal bronchiectasis or cystic change. New increased interstitial markings and peripheral or subpleural right lower lobe adjacent to the minor fissure. Chest CT follow-up recommended. Otherwise pulmonary nodules are stable. Fleischner guidelines were followed.
== END 2021-08-27 08:17 | disposition home or self-care (01) ==
LOC: HO.CT 08:16
PROVIDERS: PCP Pediatrics; Visit Provider Internal Medicine Pulmonary Disease
DX: R91.8 Other nonspecific abnormal finding of lung field (principal)
CPT/HCPCS: 71250

== ENCOUNTER → 2021-09-09 09:48 | Outpatient (BNVA) | payer OTHER, SELFPAY | PROVIDERS: PCP Pediatrics; Visit Provider Internal Medicine Pulmonary Disease | DX: J44.9 Chronic obstructive pulmonary disease, unspecified (principal); R91.8 Other nonspecific abnormal finding of lung field; R06.00 Dyspnea, unspecified | CPT/HCPCS: 99212 ==

== ENCOUNTER 2022-01-02 17:44 | Inpatient (IN) | payer OTHER, SELFPAY ==
--- NOTE | ~2022-01-02 | XR_ITS ---
EXAMINATION: XR CHEST CLINICAL INFORMATION: Weakness and SOB COMPARISON: CT chest 09/13/2021 TECHNIQUE: Frontal view of the chest was obtained. FINDINGS: The lungs are well-expanded with increased interstitial markings likely chronic changes. No consolidation or pleural effusion seen. The heart size enlarged with prominent vascularity is within normal limits. No bony abnormality seen. XR/XR chest 1V IMPRESSION: No acute cardiopulmonary process seen. Bilateral increased perihilar fine interstitial markings likely chronic changes. Patient has known pulmonary nodules bilaterally on the previous CT chest exam 08/28/2021.
--- NOTE | ~2022-01-02 | CT_ITS ---
EXAMINATION: CT head/brain wo IV con CLINICAL INFORMATION: Reason for Exam weakness, ams COMPARISON: CT head without contrast 06/15/2014 TECHNIQUE: Contiguous axial imaging was performed from the skull base to vertex without intravenous contrast. Sagittal and coronal reformatted images were obtained. This CT examination was performed using dose optimization techniques as appropriate, variously including the following: * Automated exposure control * Adjustment of mA and/or kV according to patient size (this includes techniques or standardized protocols for targeted exams where dose is matched to indication/reason for exam; i.e. extremities or head) Use of iterative reconstruction technique DLP: 586 mGy-cm FINDINGS: No acute osseous or soft tissue abnormality. Fixation hardware along the right anterior maxillary sinus. The mastoid air cells and visualized portions of the paranasal sinuses are well aerated. There is no evidence of acute intracranial hemorrhage or territorial infarction. No abnormal mass effect or midline shift is seen. . No extra-axial fluid collections are identified. No hydrocephalus. Proportional prominence of the ventricles and sulcal spaces is consistent with moderate volume loss. Patchy periventricular and deep white matter hypoattenuation is consistent with moderate small vessel ischemic changes, progressed since 2014. There are new small chronic infarcts in the right superior parietal lobe and right anterior frontal lobe as well as lacunar infarcts involving the centrum semiovale bilaterally. CT/CT head/brain wo IV con IMPRESSION: 1. No acute intracranial abnormality including hemorrhage, mass effect, hydrocephalus, or acute territorial edematous infarction. 2. Progressive moderate white matter microangiopathy, new chronic lacunar infarcts in the centrum semiovale, and new chronic infarcts involving the right superior parietal and anterior frontal lobes since CT from 2014.
--- NOTE | 2022-01-02 17:55 | ECG_ITS ---
Test Reason : Weakness Blood Pressure : / mmHG Vent. Rate : 075 BPM Atrial Rate : 075 BPM P-R Int : 152 ms QRS Dur : 132 ms QT Int : 408 ms P-R-T Axes : 085 006 091 degrees QTc Int : 455 ms Normal sinus rhythm Left bundle branch block Abnormal ECG When compared with ECG of 09-APR-2021 10:07, Premature ventricular complexes are no longer Present Left bundle branch block is now Present Referred By: Sly Strickland Electronically Signed By:ABDELRAHMAN BORREGO
--- NOTE | 2022-01-02 17:57 | ED.GENADULT ---
HPI - General Adult General Chief complaint: Weakness Stated complaint: WEAKNESS Time Seen by Provider: 01/02/22 17:54 Source: patient and EMS Mode of arrival: EMS Limitations: no limitations History of Present Illness HPI narrative: 71-year-old female past medical history significant for COPD, HTN presents to the emergency department with generalized weakness, confusion according to family since Thursday, 5 days ago. According to patient's daughter patient has been having increased confusion, she tells me at baseline patient is a little bit confused however over the past 5 days patient has been far more confused than her baseline. Daughter also notes that patient has been sleeping all day long, has been very fatigued, weak, is having difficulties taking care of herself at home. She reports that patient could not walk therefore patient had to come in by ambulance she tells me she cannot carry this patient in. She reports that this is not patient's baseline. Related Data Home Medications Medication Instructions Recorded Confirmed albuterol sulfate 90 mcg/actuation 2 inh inhalation Q4H PRN Wheezing 04/09/21 04/09/21 aerosol inhaler alendronate 70 mg tablet 70 mg PO SA 04/09/21 04/09/21 atorvastatin 40 mg tablet 40 mg PO BEDTIME 04/09/21 04/09/21 cefuroxime axetil 250 mg tablet 1 tab PO BID 04/09/21 04/09/21 fluticasone furoate 200 1 puff PO DAILY 04/09/21 04/09/21 mcg-vilanterol 25 mcg/dose inhalation powder (Breo Ellipta) lisinopril 20 1 tab PO DAILY 04/09/21 04/09/21 mg-hydrochlorothiazide 25 mg tablet naproxen 500 mg tablet 1 tab PO BID PRN pain 04/09/21 04/09/21 umeclidinium 62.5 mcg/actuation 1 puff PO DAILY 04/09/21 04/09/21 blister powder for inhalation (Incruse Ellipta) Previous Rx's Medication Instructions Recorded ipratropium 0.5 mg-albuterol 3 mg 3 ml inhalation Q4-6H PRN wheezing 05/10/21 (2.5 mg base)/3 mL nebulization 30 days #270 mL soln nicotine 14 mg/24 hr daily 1 patch transdermal DAILY 28 days 05/10/21 transdermal patch #28 ea furosemide 20 mg tablet (Lasix) 10 mg PO QAM 30 days #15 tabs 09/09/21 Allergies Allergy/AdvReac Type Severity Reaction Status Date / Time milk [MILK] Allergy Intermediate DIARRHEA Verified 09/09/21 09:49 Review of Systems Review of Systems: Constitutional : No Weight loss, No Fever, No Chills, + Fatigue, + Malaise ENT/Mouth : No sore throat, No Rhinorrhea Eyes: No Eye Pain, No Swelling, No Redness Cardiovascular : No Chest Pain, + SOB (baseline due to COPD), No Dyspnea on Exertion, No Orthopnea, No Edema, No Palpitations Respiratory : No Cough, No Sputum, No Wheezing Gastrointestinal : No Nausea, No Vomiting, No Diarrhea, No Constipation, No abdominal Pain, No Hematochezia, No Melena Genitourinary : No Dysuria, No Urinary Frequency, No Hematuria, Musculoskeletal : No joint pain, No Myalgias, No Joint Swelling Skin : No Skin Lesions, No rash Neuro : + Weakness,+ confusion, No Numbness, No Dizziness, No Headache Psych : No Anxiety/Panic, No Depression All other systems reviewed and are negative Yes all other systems are reviewed and are negative [facility] Past Medical History Attestation statement: The following information was validated with the patient. Source: old records reviewed and nursing notes reviewed Medical History COPD (chronic obstructive pulmonary disease) HTN (hypertension) Osteoporosis Social History Social History Alcohol intake: unknown Patient Tobacco Use Status: Current everyday Tobacco user Advance Directives: Yes Advance Directives on File: Yes Advance Directives Date on File: 04/09/21 Physical Exam ED Vital Signs: Vital Signs - 24 hr 01/02/22 17:58 Temperature 98.1 F Pulse Rate 82 Respiratory Rate 16 Blood Pressure 150/56 H Pulse Oximetry 93 Oxygen Delivery Method Room Air BMI result Body Mass Index 20.2 VSS Appearance: Alert.? Oriented X3.? No acute distress.? Head: Normocephalic, atraumatic, no step-offs or deformities Eyes: Pupils equal, round and reactive to light.? ENT: Pharynx normal.? Neck: Normal inspection.? Neck supple.? CVS: Normal heart rate and rhythm.? Pulses normal.? Respiratory: No respiratory distress.? Mild, diffuse crackles appreciated bilaterally. Abdomen: Soft and nontender.? Skin: Skin warm and dry.? Normal skin color.? Normal skin turgor.? Extremities: No lower extremity edema.? No calf ttp. 5/5 strength to bilateral upper and lower extremities Back: No midline tenderness, no C-spine tenderness, full range of motion, no CVA tenderness bilaterally Neuro: Oriented X 3.? No motor deficit.? No sensory deficit. CN 2-12 intact Course Reevaluation(s) Reevaluation #1: Patient with slight leukocytosis, and a normocytic anemia, chemistry with no acute electrolyte abnormalities requiring intervention, troponin negative EKG nonischemic, covid negative. CXR not acute findings. Patient's leukocytosis likely secondary to UTI, I do not suspect sepsis. Patient refusing straight cath and tells nursing that she wants to pee on her own. Will continue to wait for urine prior to initiating antibiotics. Time: 19:58 Reevaluation #2: Urine concerning for infection. Antibiotics administered. CT of the head and brain showing progressive moderate white matter microangiopathy and new lacunar infarcts no changes on exam. No focal neuro deficits. Due to the findings on CT, altered mental status, weakness and UTI patient will be admitted to the hospitalist team for further evaluation and treatment. Time: 23:14 Medical Decision Making [facility] Narrative Medical decision making narrative: 18:00 71 y/o F with a PMHx of COPD and HTN presenting with generalized weakness, concern for UTI. PE benign however, global weakness appreciated. Plan to obtain basic labs, UA, CXR, COVID-19 test. Suspect UTI vs. viral syndrome, will rule out pneumonia, electrolyte derangment, low likelihood of PE, ACS due to patient's H&P. Medical Records Medical records reviewed: Yes I reviewed the patient's medical records. Lab Data Result diagrams: 01/02/22 18:17 01/02/22 18:17 Labs: Lab Results 01/02/22 01/02/22 01/02/22 Range/Units 18:17 18:17 18:17 WBC 13.0 H (4.8-10.8) X10*3/uL RBC 3.78 L (4.20-5.50) X10*6/uL Hgb 10.7 L (12.0-16.0) g/dl Hct 32.1 L (37.0-47.0) % MCV 84.9 (80.0-98.0) fL MCH 28.3 (27.0-33.0) pg MCHC 33.3 (31.0-35.0) g/dl RDW 14.6 (11.0-16.0) % Plt Count 382 D (160-400) X10*3/uL MPV 9.4 (9.4-12.3) fL Immature Gran % (Auto) 0.7 H (0.0-0.4) % Neut % (Auto) 76.6 H (45-73) % Lymph % (Auto) 10.0 L (20-40) % [place] % (Auto) 11.3 H (2-11) % Eos % (Auto) 1.1 (0-4) % Baso % (Auto) 0.3 (0-2) % Lymph # (Auto) 1.3 (1.2-4.9) X10*3/uL [place] # (Auto) 1.5 H (0.1-1.2) X10*3/uL Eos # (Auto) 0.1 (0.0-0.4) X10*3/uL Baso # (Auto) 0.0 (0.0-0.2) X10*3/uL Abs Immat Gran (auto) 0.09 H (0.00-0.03) X10*3/uL Absolute Neuts (auto) 9.9 H (2.0-8.3) x10*3/uL Absolute Nucleated RBC 0.000 (0.0-0.012) X10*3/uL Nucleated RBC % (auto) 0.0 (0.0-0.2) /100WBC Sodium 138 (135-145) mmol/L Potassium 3.5 (3.3-5.1) mmol/L Chloride 99 (96-108) mmol/L Carbon Dioxide 26 (22-29) mmol/L Anion Gap 17 (12-20) BUN 18 H D (9-16) mg/dL Creatinine 0.71 (0.5-1.4) mg/dL Estim Creat Clear Calc 53.2 Estimated GFR > 60 Random Glucose 112 (60-115) mg/dL Lactic Acid (0.5-2.0) mmol/L Calcium 9.5 (8.4-10.2) mg/dL Magnesium 1.8 (1.6-2.6) mg/dL Total Bilirubin 0.3 (0.0-1.0) mg/dL AST 15 (5-31) U/L ALT 12 (0-31) U/L Alkaline Phosphatase 117 (39-117) U/L Troponin I High Sens 8.3 (<3.5-17.0) ng/L Total Protein 6.8 (6.5-8.0) g/dL Albumin 4.0 (3.5-5.0) g/dL Urine Color Urine Appearance Urine pH (5.0-9.0) Ur Specific [place] (1.005-1.025) Urine Protein (Neg-Trace) mg/dL Urine Glucose (UA) (Negative) mg/dL Urine Ketones (Negative) mg/dL Urine Blood (Negative) Urine Nitrite (Negative) Ur Leukocyte Esterase (Negative) Urine RBC (0-2) /HPF Urine WBC (0-5) /HPF Ur Squamous Epith Cells (0-2) /HPF Urine Bacteria (None Seen) Hyaline Casts (0-2) /LPF COVID-19 (MYLES) (Negative) COVID-19 Clin Com 01/02/22 01/02/22 01/02/22 Range/Units 18:17 20:14 22:07 WBC (4.8-10.8) X10*3/uL RBC (4.20-5.50) X10*6/uL Hgb (12.0-16.0) g/dl Hct (37.0-47.0) % MCV (80.0-98.0) fL MCH (27.0-33.0) pg MCHC (31.0-35.0) g/dl RDW (11.0-16.0) % Plt Count (160-400) X10*3/uL MPV (9.4-12.3) fL Immature Gran % (Auto) (0.0-0.4) % Neut % (Auto) (45-73) % Lymph % (Auto) (20-40) % [place] % (Auto) (2-11) % Eos % (Auto) (0-4) % Baso % (Auto) (0-2) % Lymph # (Auto) (1.2-4.9) X10*3/uL [place] # (Auto) (0.1-1.2) X10*3/uL Eos # (Auto) (0.0-0.4) X10*3/uL Baso # (Auto) (0.0-0.2) X10*3/uL Abs Immat Gran (auto) (0.00-0.03) X10*3/uL Absolute Neuts (auto) (2.0-8.3) x10*3/uL Absolute Nucleated RBC (0.0-0.012) X10*3/uL Nucleated RBC % (auto) (0.0-0.2) /100WBC Sodium (135-145) mmol/L Potassium (3.3-5.1) mmol/L Chloride (96-108) mmol/L Carbon Dioxide (22-29) mmol/L Anion Gap (12-20) BUN (9-16) mg/dL Creatinine (0.5-1.4) mg/dL Estim Creat Clear Calc Estimated GFR Random Glucose (60-115) mg/dL Lactic Acid 1.9 (0.5-2.0) mmol/L Calcium (8.4-10.2) mg/dL Magnesium (1.6-2.6) mg/dL Total Bilirubin (0.0-1.0) mg/dL AST (5-31) U/L ALT (0-31) U/L Alkaline Phosphatase (39-117) U/L Troponin I High Sens (<3.5-17.0) ng/L Total Protein (6.5-8.0) g/dL Albumin (3.5-5.0) g/dL Urine Color Yellow Urine Appearance Clear Urine pH 6.0 (5.0-9.0) Ur Specific [place] <= 1.005 (1.005-1.025) Urine Protein Negative (Neg-Trace) mg/dL Urine Glucose (UA) Negative (Negative) mg/dL Urine Ketones Negative (Negative) mg/dL Urine Blood Negative (Negative) Urine Nitrite Negative (Negative) Ur Leukocyte Esterase Small (1+) H (Negative) Urine RBC 0-2 (0-2) /HPF Urine WBC 6-10 H (0-5) /HPF Ur Squamous Epith Cells 3-5 (0-2) /HPF Urine Bacteria 4+ (None Seen) Hyaline Casts 0-2 (0-2) /LPF COVID-19 (MYLES) Negative (Negative) COVID-19 Clin Com See Note Critical Care Time Critical Care Time Critical Care Time: No Discharge Plan Discharge Clinical Impression: Weakness, Urinary tract infection, Lacunar infarction Patient Disposition: Admitted As Inpatient Prescriptions: No Action atorvastatin 40 mg tablet 40 mg PO BEDTIME cefuroxime axetil 250 mg tablet 1 tab PO BID alendronate 70 mg tablet 70 mg PO SA lisinopril-hydrochlorothiazide 20-25 mg tablet 1 tab PO DAILY albuterol sulfate 90 mcg/actuation HFA aerosol inhaler 2 inh inhalation Q4H PRN (Reason: Wheezing) naproxen 500 mg tablet 1 tab PO BID PRN (Reason: pain) Incruse Ellipta 62.5 mcg/actuation blister with device 1 puff PO DAILY Breo Ellipta 200-25 mcg/dose blister with device 1 puff PO DAILY ipratropium-albuterol 0.5 mg-3 mg(2.5 mg base)/3 mL solution for nebulization 3 ml inhalation Q4-6H PRN (Reason: wheezing) 30 Days Qty: 270 6RF nicotine 14 mg/24 hr patch 24 hour 1 patch transdermal DAILY 28 Days Qty: 28 1RF furosemide [Lasix] 20 mg tablet 10 mg PO QAM 30 Days Qty: 15 6RF
[2022-01-02 17:58] VITALS: BP 149/88; BP 150/56; PULSE 80; PULSE 82; RESP 16; TEMP 36.7; O2SAT 93; O2SAT 96; BMI 20.2
[2022-01-02 18:33] LABS: MANUAL DIFF FLAG NO
[2022-01-02 18:36] LABS: Basophils Percent Auto 0.3 % (0-2); Eosinophils Absolute Auto 0.1 X10*3/uL (0.0-0.4); Eosinophils Percent Auto 1.1 % (0-4); Hematocrit 32.1 % (37.0-47.0); Hemoglobin 10.7 g/dl (12.0-16.0); Imm Gran Abs Auto 0.09 X10*3/uL (0.00-0.03); Imm Gran Pct Auto 0.7 % (0.0-0.4); Lymphocytes Absolute Auto 1.3 X10*3/uL (1.2-4.9); Mean Corpuscular HGB Conc 33.3 g/dl (31.0-35.0); Mean Corpuscular Hemoglobin 28.3 pg (27.0-33.0); Mean Corpuscular Volume 84.9 fL (80.0-98.0); Mean Platelet Volume 9.4 fL (9.4-12.3); Monocytes Absolute Auto 1.5 X10*3/uL (0.1-1.2); Monocytes Percent Auto 11.3 % (2-11); Neutrophils Absolute Auto 9.9 x10*3/uL (2.0-8.3); Neutrophils Percent Auto 76.6 % (45-73); Platelet Count 382 X10*3/uL (160-400); Red Blood Count 3.78 X10*6/uL (4.20-5.50); Red Cell Distribution Width 14.6 % (11.0-16.0)
[2022-01-02 18:51] LABS: COVID-19 Test Negative (Negative)
[2022-01-02 18:57] LABS: Alanine Aminotransferase 12 U/L (0-31); Alkaline Phosphatase 117 U/L (39-117); Anion Gap 17 (12-20); Aspartate Amino Transferase 15 U/L (5-31); Bilirubin Total 0.3 mg/dL (0.0-1.0); Blood Urea Nitrogen 18 mg/dL (9-16); Calcium 9.5 mg/dL (8.4-10.2); Carbon Dioxide 26 mmol/L (22-29); Chloride 99 mmol/L (96-108); Creatinine Clr Calc Pharmacy 53.2; Estimated Glomerular Filt Rate > 60; Glucose Random 112 mg/dL (60-115); Magnesium 1.8 mg/dL (1.6-2.6); Potassium 3.5 mmol/L (3.3-5.1); Sodium 138 mmol/L (135-145); Total Protein 6.8 g/dL (6.5-8.0)
[2022-01-02 19:01] LABS: Troponin-I High Sensitivity 8.3 ng/L (<3.5-17.0)
[2022-01-02 20:42] LABS: Lactic Acid 1.9 mmol/L (0.5-2.0)
[2022-01-02 22:15] LABS: Appearance Urine Clear; Color Urine Yellow; Glucose Urine UA Negative (Negative); Leukocyte Esterase Urine Small (1+) (Negative); Nitrite Urine Negative (Negative); Specific Gravity - Urine <= 1.005 (1.005-1.025); Urine Blood Negative (Negative); Urine Ketones Negative (Negative); Urine Protein Negative (Neg-Trace)
[2022-01-02 22:46] LABS: Bacteria Urine 4+ (None Seen); Hyaline Casts Urine 0-2 /LPF (0-2); RBC Urine 0-2 /HPF (0-2); UACC Culture Trigger YES
[2022-01-02] MEDS: cefTRIAXone sodium 1 GM in 0.9 % Sodium Chloride 50 ML IV (23:43)
--- NOTE | 2022-01-02 23:44 | PM.IMHP ---
History of Present Illness Date of Service: 01/02/22 Chief Complaint: weakness and confusion 71-year-old female with past medical history of COPD, hypertension who presents to the hospital brought in by her family with concerns of increased weakness and confusion for the past few days. Patient herself is alert, oriented x3, but does report that she has been feeling significantly weak, has had low appetite, chills, has been coughing, and is generally not doing too well for the past 5 days. She does report that she might have forgetfulness but otherwise denies any headache, no change in vision, no weakness numbness or tingling in her extremities. Reports urinary frequency and dysuria with no urgency. Denies any chest pain, no abdominal pain, no nausea or vomiting, no diarrhea constipation, and no lower extremity edema. On arrival to the ED patient hemodynamically stable with no significant abnormal vitals Labs are significant for WBC count of 13, hemoglobin of 10.7, hematocrit 32.1, UA that is positive for leukocyte Estrace, WBC, and trace epithelial cells, Chest x-ray shows no acute cardiopulmonary process, Head CT shows no acute intracranial abnormality but progressive moderate white matter microangiopathy with new chronic lacunar infarcts in the centrum semiovale and new chronic infarct involving the right superior parietal and frontal lobes since 2015 Patient will be admitted for further management Review of Systems Review of Systems: Yes all other systems are reviewed and are negative [facility] Medical History (Updated 01/03/22 @ 06:59 by Dinah Michel MD) COPD (chronic obstructive pulmonary disease) HTN (hypertension) Osteoporosis Family History (Updated 01/03/22 @ 06:55 by Dinah Michel MD) Other No family history of coronary artery disease Surgical History (Updated 01/03/22 @ 06:56 by Dinah Michel MD) No pertinent past surgical history Social History (Updated 01/03/22 @ 06:56 by Dinah Michel MD) Alcohol intake: unknown Patient Tobacco Use Status: Former Tobacco user Use of substances other than those prescribed or required for medical reasons: No Advance Directives: Yes Advance Directives on File: Yes Advance Directives Date on File: 04/09/21 Meds Allergies Allergy/AdvReac Type Severity Reaction Status Date / Time milk [MILK] Allergy Intermediate DIARRHEA Verified 09/09/21 09:49 Active Medications: Current Medications Pharmacy Consult (Consult Rx Perform Med Rec) 1 each MISCELLANE ONCE PRN PRN Reason: Consult order Home Medications Medication Instructions Recorded Confirmed Last Taken Type albuterol sulfate 90 mcg/actuation 2 inh inhalation Q4H PRN Wheezing 04/09/21 01/03/22 Unknown History aerosol inhaler alendronate 70 mg tablet 70 mg PO SA 04/09/21 01/03/22 04/06/21 History atorvastatin 40 mg tablet 40 mg PO BEDTIME 04/09/21 01/03/22 04/08/21 History cefuroxime axetil 250 mg tablet 1 tab PO BID 04/09/21 04/09/21 04/09/21 History fluticasone furoate 200 1 puff PO DAILY 04/09/21 01/03/22 04/09/21 History mcg-vilanterol 25 mcg/dose inhalation powder (Breo Ellipta) lisinopril 20 1 tab PO DAILY 04/09/21 01/03/22 04/09/21 History mg-hydrochlorothiazide 25 mg tablet naproxen 500 mg tablet 1 tab PO BID PRN pain 04/09/21 04/09/21 04/09/21 History umeclidinium 62.5 mcg/actuation 1 puff PO DAILY 04/09/21 01/03/22 04/09/21 History blister powder for inhalation (Incruse Ellipta) amlodipine 10 mg tablet 1 tab PO DAILY 01/03/22 01/03/22 Unknown History aspirin 81 mg tablet,delayed 1 tab PO DAILY 01/03/22 01/03/22 Unknown History release clopidogrel 75 mg tablet 1 tab PO DAILY 01/03/22 01/03/22 Unknown History Physical Exam Vital Signs and Narrative: Vital Signs: Last Vital Signs Temp 98.1 F 01/02/22 17:58 Pulse 82 01/02/22 17:58 Resp 16 01/02/22 17:58 BP 150/56 H 01/02/22 17:58 Pulse Ox 93 01/02/22 17:58 O2 Del Method 01/02/22 17:58 BMI result Body Mass Index 20.2 Const: General: cooperative and no acute distress Orientation/consciousness: patient oriented x3 Eyes: General: appearance normal, both eyes and all related structures Pupils: Equal, round and reactive pupils present Resp: Effort & Inspection: normal respiratory effort Auscultation: clear to auscultation bilaterally Cardio: Rate: regular rate Rhythm: regular rhythm GI: Palpation (GI): Soft to palpation Auscultation: normal bowel sounds Skin: General skin exam: no rashes or lesions noted Neuro: Other: No neurological deficits General: patient oriented x3 Cranial nerves: Yes Equal, round and reactive pupils present Cognition (Neuro): normal cognition Extrem: General: Yes normal to inspection and Yes no pedal edema Results Labs CBC and Chem 7: 01/02/22 18:17 01/02/22 18:17 Labs: Laboratory Results - last 24 hr 01/02/22 01/02/22 01/02/22 18:17 18:17 18:17 MCV 84.9 MCH 28.3 MCHC 33.3 RDW 14.6 Plt Count 382 D MPV 9.4 Immature Gran % (Auto) 0.7 H Neut % (Auto) 76.6 H Lymph % (Auto) 10.0 L [place] % (Auto) 11.3 H Eos % (Auto) 1.1 Baso % (Auto) 0.3 Lymph # (Auto) 1.3 [place] # (Auto) 1.5 H Eos # (Auto) 0.1 Baso # (Auto) 0.0 Abs Immat Gran (auto) 0.09 H Absolute Neuts (auto) 9.9 H Absolute Nucleated RBC 0.000 Nucleated RBC % (auto) 0.0 Anion Gap 17 Estim Creat Clear Calc 53.2 Estimated GFR > 60 Random Glucose 112 Lactic Acid Calcium 9.5 Magnesium 1.8 Total Bilirubin 0.3 AST 15 ALT 12 Alkaline Phosphatase 117 Total Protein 6.8 Albumin 4.0 Urine Color Urine Appearance Urine pH Ur Specific [place] Urine Protein Urine Glucose (UA) Urine Ketones Urine Blood Urine Nitrite Ur Leukocyte Esterase Urine RBC Urine WBC Ur Squamous Epith Cells Urine Bacteria Hyaline Casts COVID-19 (MYLES) Negative COVID-19 Clin Com See Note 01/02/22 01/02/22 20:14 22:07 MCV MCH MCHC RDW Plt Count MPV Immature Gran % (Auto) Neut % (Auto) Lymph % (Auto) [place] % (Auto) Eos % (Auto) Baso % (Auto) Lymph # (Auto) [place] # (Auto) Eos # (Auto) Baso # (Auto) Abs Immat Gran (auto) Absolute Neuts (auto) Absolute Nucleated RBC Nucleated RBC % (auto) Anion Gap Estim Creat Clear Calc Estimated GFR Random Glucose Lactic Acid 1.9 Calcium Magnesium Total Bilirubin AST ALT Alkaline Phosphatase Total Protein Albumin Urine Color Yellow Urine Appearance Clear Urine pH 6.0 Ur Specific [place] <= 1.005 Urine Protein Negative Urine Glucose (UA) Negative Urine Ketones Negative Urine Blood Negative Urine Nitrite Negative Ur Leukocyte Esterase Small (1+) H Urine RBC 0-2 Urine WBC 6-10 H Ur Squamous Epith Cells 3-5 Urine Bacteria 4+ Hyaline Casts 0-2 COVID-19 (MYLES) COVID-19 Clin Com Imaging Radiologist's Impressions: Impressions Chest X-Ray 01/02/22 18:32 IMPRESSION: No acute cardiopulmonary process seen. Bilateral increased perihilar fine interstitial markings likely chronic changes. Patient has known pulmonary nodules bilaterally on the previous CT chest exam 08/28/2021. Head CT 01/02/22 20:31 IMPRESSION: 1. No acute intracranial abnormality including hemorrhage, mass effect, hydrocephalus, or acute territorial edematous infarction. 2. Progressive moderate white matter microangiopathy, new chronic lacunar infarcts in the centrum semiovale, and new chronic infarcts involving the right superior parietal and anterior frontal lobes since CT from 2014. Assessment and Plan (1) Urinary tract infection: Qualifiers: Urinary tract infection type: acute cystitis Hematuria presence: without hematuria Qualified Code(s): N30.00 - Acute cystitis without hematuria Status: Acute (2) Encephalopathy: Status: Acute (3) Lacunar infarction: Status: Acute (4) COPD (chronic obstructive pulmonary disease): Qualifiers: COPD type: emphysema Emphysema type: unspecified Qualified Code(s): J43.9 - Emphysema, unspecified Status: Acute (5) Weakness: Status: Acute Plan 71-year-old female with past medical history of COPD and hypertension presents to the hospital with weakness found to have acute UTI # acute UTI - likely the reason for her weakness and encephalopathy - will treat with IV antibiotic - follow culture # encephalopathy - head CT shows old infarcts but are new from 2014 - acute encephalopathy likely secondary to metabolic reasons due to acute UTI - will treat UTI with IV antibiotic - at this time patient alert and oriented x3 # CVA - not acute, but new from 2014 - patient has no neurological symptoms - will obtain neurology consult for any further recommendation - continue atorvastatin 40 mg as well as home aspirin # hypertension - stable - will continue her home antihypertensives DVT prophylaxis: Heparin subQ Given her encephalopathy, and acute UTI needing IV antibiotics patient will be admitted and will require minimum 2 night hospital stay for further med Quality Stroke Does the patient have a stroke diagnosis?: No VTE Prior VTE?: No VTE Risk Level:: Medical - moderate - high VTE Device Contraindication: Treatment Not Indicated VTE Drug Contraindication: N/A - Med Ordered
[2022-01-03] MEDS: Heparin Sodium,Porcine 5,000 UNIT/ML VIAL 5000 UNIT SUBCUT ×3 (00:16→23:23)
[2022-01-03 00:21] VITALS: BP 165/64; PULSE 86; RESP 18; TEMP 36.9; O2SAT 93
[2022-01-03] MEDS: Lactated Ringers 1,000 ML 80 ML IVCONT ×2 (00:22→13:44)
[2022-01-03 04:00] VITALS: BP 147/60; PULSE 83; RESP 16; TEMP 36.2; O2SAT 96
[2022-01-03 07:01] LABS: MANUAL DIFF FLAG NO
[2022-01-03 07:07] LABS: Hemoglobin 9.9 g/dl (12.0-16.0); Mean Corpuscular Hemoglobin 27.8 pg (27.0-33.0); Mean Corpuscular Volume 84.3 fL (80.0-98.0); Red Blood Count 3.56 X10*6/uL (4.20-5.50); White Blood Count 10.9 X10*3/uL (4.8-10.8)
[2022-01-03 07:08] LABS: Basophils Percent Auto 0.4 % (0-2); Eosinophils Absolute Auto 0.1 X10*3/uL (0.0-0.4); Eosinophils Percent Auto 1.1 % (0-4); Imm Gran Abs Auto 0.05 X10*3/uL (0.00-0.03); Imm Gran Pct Auto 0.5 % (0.0-0.4); Lymphocytes Percent Auto 9.1 % (20-40); Mean Platelet Volume 9.6 fL (9.4-12.3); Monocytes Absolute Auto 1.1 X10*3/uL (0.1-1.2); Monocytes Percent Auto 9.7 % (2-11); Neutrophils Absolute Auto 8.6 x10*3/uL (2.0-8.3); Neutrophils Percent Auto 79.2 % (45-73); Platelet Count 383 X10*3/uL (160-400); Red Cell Distribution Width 14.5 % (11.0-16.0)
[2022-01-03 07:15] VITALS: BP 128/81; PULSE 74; RESP 14
--- NOTE | 2022-01-03 07:34 | PHA.MEDREC ---
Pharmacy Consult ? Medication Reconciliation RN has completed the medication reconciliation, pharmacy reviewed.
[2022-01-03 07:44] LABS: Anion Gap 18 (12-20); Blood Urea Nitrogen 9 mg/dL (9-16); Calcium 8.6 mg/dL (8.4-10.2); Carbon Dioxide 26 mmol/L (22-29); Chloride 102 mmol/L (96-108); Creatinine Clr Calc Pharmacy 71.3; Estimated Glomerular Filt Rate > 60; Glucose Random 105 mg/dL (60-115); Potassium 3.5 mmol/L (3.3-5.1); Sodium 142 mmol/L (135-145)
[2022-01-03] MEDS: Fluticasone/Vilanterol 200/25 BLST.W.DEV 1 PUFF INHALE (08:26)
[2022-01-03] MEDS: Clopidogrel Bisulfate 75 MG TABLET PO (08:42)
[2022-01-03] MEDS: lisinopriL 10 MG TABLET 30 MG PO (08:42)
[2022-01-03] MEDS: Furosemide 20 MG TABLET 10 MG PO (08:42)
[2022-01-03] MEDS: amLODIPine Besylate 10 MG TABLET PO (08:43)
[2022-01-03] MEDS: Aspirin Enteric Coated 81 MG TABLET.DR PO (08:44)
--- NOTE | 2022-01-03 09:49 | PC.NURSE ---
Pt is A&Ox4, LCA, NSR on monitor at this time, ambulatory with steady gait independently. Denies any pain at this time, pt aware of plan for neuro consult today, denies dizziness or weakness at this time, ate breakfast without difficulty. Call bates within reach, awaiting bed assignment. Will continue to monitor.
--- NOTE | 2022-01-03 11:49 | P.CNNE_ITS ---
History of Present Illness Data of Consult Service Date: 01/03/22 Primary Care Provider: Lyn French MD HPI Reason for consult: Confused 71 years old woman with underlying history of COPD was brought to hospital with lethargy confusion and forgetfulness. She said that this was going on for few days but was not sure. There was no focal weakness or difficulty with speaking or language. There was no pain or headache. Review of Systems Review of Systems: No recent cold or flu-like illness diarrhea or start of new medicine [facility] Past Medical History Medical History (Updated 01/03/22 @ 11:51 by Pratima Soliz MD) COPD (chronic obstructive pulmonary disease) HTN (hypertension) Osteoporosis Family History Family History (Updated 01/03/22 @ 06:55 by Dinah Michel MD) Other No family history of coronary artery disease Surgical History Surgical History (Updated 01/03/22 @ 06:56 by Dinah Michel MD) No pertinent past surgical history Social History Social History (Updated 01/03/22 @ 06:56 by Dinah Michel MD) Alcohol intake: unknown Patient Tobacco Use Status: Former Tobacco user Use of substances other than those prescribed or required for medical reasons: No Advance Directives: Yes Advance Directives on File: Yes Advance Directives Date on File: 04/09/21 Meds Allergies Allergy/AdvReac Type Severity Reaction Status Date / Time milk [MILK] Allergy Intermediate DIARRHEA Verified 09/09/21 09:49 Active Medications: Current Medications Acetaminophen (Acetaminophen 325 Mg Tablet) 650 mg PO Q6H PRN PRN Reason: Pain, Mild (Pain Scale 1-3) Albuterol Sulfate (Albuterol Sulfate 90 Mcg 8 Gm Inhaler) 2 puff INHALE Q4H PRN PRN Reason: Wheezing Albuterol/Ipratropium (Albuterol/Iprat 2.5/0.5mg 3 Ml Ampul.Neb) 3 ml INHALE Q4H PRN PRN Reason: wheezing Amlodipine Besylate (Amlodipine Besylate 10 Mg Tablet) 10 mg PO DAILY [facility]; Protocol Last Admin: 01/03/22 08:43 Dose: 10 mg Aspirin (Aspirin Enteric Coated 81 Mg Tablet.) 81 mg PO DAILY [facility] Last Admin: 01/03/22 08:44 Dose: 81 mg Atorvastatin Calcium (Atorvastatin Calcium 40 Mg Tablet) 40 mg PO BEDTIME [facility] Clopidogrel Bisulfate (Clopidogrel Bisulfate 75 Mg Tablet) 75 mg PO DAILY [facility] Last Admin: 01/03/22 08:42 Dose: 75 mg Docusate Sodium (Docusate Sodium 100 Mg Capsule) 100 mg PO DAILY PRN PRN Reason: Constipation Fluticasone/Vilanterol (Fluticasone/Vilanterol 200/25 Blst.W.Dev) 1 puff INHALE DAILY [facility] Last Admin: 01/03/22 08:26 Dose: 1 puff Furosemide (Furosemide 20 Mg Tablet) 10 mg PO DAILY [facility]; Protocol Last Admin: 01/03/22 08:42 Dose: 10 mg Heparin Sodium (Porcine) (Heparin Sodium,Porcine 5,000 Unit/Ml Vial) 5,000 unit SUBCUT Q12H [facility] Last Admin: 01/03/22 00:16 Dose: 5,000 unit Ceftriaxone Sodium 1 gm/ (Sodium Chloride) 50 mls @ 100 mls/hr IV Q24H [facility] Lactated Ringer's (Lr) 1,000 mls @ 80 mls/hr IVCONT .[id number] [facility] Last Admin: 01/03/22 00:22 Dose: 80 mls/hr Lisinopril (Lisinopril 10 Mg Tablet) 30 mg PO DAILY [facility]; Protocol Last Admin: 01/03/22 08:42 Dose: 30 mg Ondansetron HCl (Ondansetron Hcl 4 Mg/2 Ml Vial) 4 mg IVPUSH Q8H PRN PRN Reason: Nausea and Vomiting Pharmacy Consult (Consult Rx Perform Med Rec) 1 each MISCELLANE ONCE PRN PRN Reason: Consult order Sodium Chloride (0.9 % Sodium Chloride Flush 3 Ml Syringe) 3 ml IVFLUSH QSHIFT [facility] Last Admin: 01/03/22 07:36 Dose: Not Given Home Medications Medication Instructions Recorded Confirmed Last Taken Type albuterol sulfate 90 mcg/actuation 2 inh inhalation Q4H PRN Wheezing 04/09/21 01/03/22 Unknown History aerosol inhaler alendronate 70 mg tablet 70 mg PO SA@0900 04/09/21 01/03/22 04/06/21 History atorvastatin 40 mg tablet 40 mg PO BEDTIME 04/09/21 01/03/22 04/08/21 History fluticasone furoate 200 1 puff PO DAILY 1201/03/22 04/09/21 History mcg-vilanterol 25 mcg/dose inhalation powder (Breo Ellipta) umeclidinium 62.5 mcg/actuation 1 puff PO DAILY 04/09/21 01/03/22 04/09/21 History blister powder for inhalation (Incruse Ellipta) amlodipine 10 mg tablet 1 tab PO DAILY 01/03/22 01/03/22 Unknown History aspirin 81 mg tablet,delayed 1 tab PO DAILY 01/03/22 01/03/22 Unknown History release clopidogrel 75 mg tablet 1 tab PO DAILY 01/03/22 01/03/22 Unknown History lisinopril 30 mg tablet 1 tab PO DAILY 01/03/22 01/03/22 Unknown History Physical Exam Vital Signs: Vital Signs: Last Vital Signs Temp 97.2 F 01/03/22 04:00 Pulse 74 01/03/22 07:15 Resp 14 01/03/22 07:15 BP 128/81 01/03/22 07:15 Pulse Ox 96 01/03/22 04:00 O2 Del Method 01/03/22 07:15 BMI result Body Mass Index 20.2 Neuro: Other: She was alert and awake with normal spontaneity of speech fluency comprehension and affect. She had little bit difficulty understanding commands of examination but she was able to follow commands. Face was symmetrical. Visual beauchamp are full to threat. There was no pronator drift. [id number] testing was okay. Deep tendon reflexes were absent with flexor plantars. Affect was normal. Results Labs CBC & Chem 7: 01/03/22 06:00 01/03/22 06:00 Labs: Short CBC 01/02/22 01/03/22 Range/Units 18:17 06:00 WBC 13.0 H 10.9 H (4.8-10.8) X10*3/uL Hgb 10.7 L 9.9 L (12.0-16.0) g/dl Hct 32.1 L 30.0 L (37.0-47.0) % Plt Count 382 D 383 (160-400) X10*3/uL BMP 01/02/22 01/03/22 18:17 06:00 Sodium 138 142 Potassium 3.5 3.5 Chloride 99 102 Carbon Dioxide 26 26 BUN 18 H D 9 Creatinine 0.71 0.53 Calcium 9.5 8.6 D Liver Function 01/02/22 Range/Units 18:17 Total Bilirubin 0.3 (0.0-1.0) mg/dL AST 15 (5-31) U/L ALT 12 (0-31) U/L Alkaline Phosphatase 117 (39-117) U/L Albumin 4.0 (3.5-5.0) g/dL Urine 01/02/22 Range/Units 22:07 Urine Color Yellow Urine Appearance Clear Urine pH 6.0 (5.0-9.0) Ur Specific [place] <= 1.005 (1.005-1.025) Urine Protein Negative (Neg-Trace) mg/dL Urine Glucose (UA) Negative (Negative) mg/dL Head CT revealed moderately severe diffuse cerebral and cerebellar atrophy and moderately severe chronic microvascular ischemic changes. Assessment and Plan (1) Encephalopathy: Status: Acute 71 years old woman with underlying Alzheimer plus vascular dementia with ence phalopathy probably related to mild UTI and electrolyte abnormalities. There is no obvious indication of a focal lesion such as seizure stroke. Mainstay of management is hydration and treatment of UTI. As far as vascular disease is concerned, anti-platelet agent blood pressure control and statin is the main treatment. (2) Multifactorial dementia: Status: Acute Procedures Date of Service Date of Service: 01/03/22
--- NOTE | 2022-01-03 13:37 | HO.PM.IMPN ---
Subjective Subjective Date of Service: 01/03/22 Interval History: the patient was seen and evaluated this morning Laying in bed, feels comfortable Denies any fever, chills or shortness of breath No reported other overnight events. Systemic review: No fever, chills or weakness No chest pain, palpitation No shortness of breath or coughing No abdominal pain, nausea or vomiting No urinary symptoms No any rash or wounds Physical Exam Vital Signs: Vital Signs: Last Vital Signs Temp 97.2 F 01/03/22 04:00 Pulse 74 01/03/22 07:15 Resp 14 01/03/22 07:15 BP 128/81 01/03/22 07:15 Pulse Ox 96 01/03/22 04:00 O2 Del Method 01/03/22 07:15 BMI result Body Mass Index 20.2 Const: Other: Constitutional : Alert, oriented, not in distress Neck : Normal inspection, Supple Cardiovascular : RRR, no JVP, no lower extremity edema Respiratory : fair bilateral air entry, no crackles, wheezes or rhonchi Gastrointestinal: soft, lax, Normal bowel sounds, Non tender Skin : Warm, Dry Neurological : Alert & oriented x3, No focal deficit , CN 2-12 within normal Objective Data Active Medications Acetaminophen (Acetaminophen 325 Mg Tablet) 650 mg PO Q6H PRN PRN Reason: Pain, Mild (Pain Scale 1-3) Albuterol Sulfate (Albuterol Sulfate 90 Mcg 8 Gm Inhaler) 2 puff INHALE Q4H PRN PRN Reason: Wheezing Albuterol/Ipratropium (Albuterol/Iprat 2.5/0.5mg 3 Ml Ampul.Neb) 3 ml INHALE Q4H PRN PRN Reason: wheezing Amlodipine Besylate (Amlodipine Besylate 10 Mg Tablet) 10 mg PO DAILY [facility]; Protocol Last Admin: 01/03/22 08:43 Dose: 10 mg Documented By: SHANI Aspirin (Aspirin Enteric Coated 81 Mg Tablet.) 81 mg PO DAILY [facility] Last Admin: 01/03/22 08:44 Dose: 81 mg Documented By: SHANI Atorvastatin Calcium (Atorvastatin Calcium 40 Mg Tablet) 40 mg PO BEDTIME [facility] Clopidogrel Bisulfate (Clopidogrel Bisulfate 75 Mg Tablet) 75 mg PO DAILY [facility] Last Admin: 01/03/22 08:42 Dose: 75 mg Documented By: SHANI Docusate Sodium (Docusate Sodium 100 Mg Capsule) 100 mg PO DAILY PRN PRN Reason: Constipation Fluticasone/Vilanterol (Fluticasone/Vilanterol 200/25 Blst.W.Dev) 1 puff INHALE DAILY [facility] Last Admin: 01/03/22 08:26 Dose: 1 puff Documented By: BHARATHRICCarol Furosemide (Furosemide 20 Mg Tablet) 10 mg PO DAILY [facility]; Protocol Last Admin: 01/03/22 08:42 Dose: 10 mg Documented By: SHANI Heparin Sodium (Porcine) (Heparin Sodium,Porcine 5,000 Unit/Ml Vial) 5,000 unit SUBCUT Q12H [facility] Last Admin: 01/03/22 00:16 Dose: 5,000 unit Documented By: SUSIE Ceftriaxone Sodium 1 gm/ (Sodium Chloride) 50 mls @ 100 mls/hr IV Q24H [facility] Lactated Ringer's (Lr) 1,000 mls @ 80 mls/hr IVCONT .[id number] [facility] Last Infusion: 01/03/22 13:26 Dose: 0 mls/hr Documented By: FRANKI Lisinopril (Lisinopril 10 Mg Tablet) 30 mg PO DAILY [facility]; Protocol Last Admin: 01/03/22 08:42 Dose: 30 mg Documented By: SHANI Ondansetron HCl (Ondansetron Hcl 4 Mg/2 Ml Vial) 4 mg IVPUSH Q8H PRN PRN Reason: Nausea and Vomiting Pharmacy Consult (Consult Rx Perform Med Rec) 1 each MISCELLANE ONCE PRN PRN Reason: Consult order Sodium Chloride (0.9 % Sodium Chloride Flush 3 Ml Syringe) 3 ml IVFLUSH QSHIFT [facility] Last Admin: 01/03/22 07:36 Dose: Not Given Documented By: SHANI Non-Admin Reason: IV Running Labs CBC & Chem 7: 01/03/22 06:00 01/03/22 06:00 Labs: Laboratory Results - last 24 hr 01/02/22 01/02/22 01/02/22 18:17 18:17 18:17 MCV 84.9 MCH 28.3 MCHC 33.3 RDW 14.6 Plt Count 382 D MPV 9.4 Immature Gran % (Auto) 0.7 H Neut % (Auto) 76.6 H Lymph % (Auto) 10.0 L [place] % (Auto) 11.3 H Eos % (Auto) 1.1 Baso % (Auto) 0.3 Lymph # (Auto) 1.3 [place] # (Auto) 1.5 H Eos # (Auto) 0.1 Baso # (Auto) 0.0 Abs Immat Gran (auto) 0.09 H Absolute Neuts (auto) 9.9 H Absolute Nucleated RBC 0.000 Nucleated RBC % (auto) 0.0 Anion Gap 17 Estim Creat Clear Calc 53.2 Estimated GFR > 60 Random Glucose 112 Lactic Acid Calcium 9.5 Magnesium 1.8 Total Bilirubin 0.3 AST 15 ALT 12 Alkaline Phosphatase 117 Total Protein 6.8 Albumin 4.0 Urine Color Urine Appearance Urine pH Ur Specific [place] Urine Protein Urine Glucose (UA) Urine Ketones Urine Blood Urine Nitrite Ur Leukocyte Esterase Urine RBC Urine WBC Ur Squamous Epith Cells Urine Bacteria Hyaline Casts COVID-19 (MYLES) Negative COVID-19 Clin Com See Note 01/02/22 01/02/22 01/03/22 20:14 22:07 06:00 MCV 84.3 MCH 27.8 MCHC 33.0 RDW 14.5 Plt Count 383 MPV 9.6 Immature Gran % (Auto) 0.5 H Neut % (Auto) 79.2 H Lymph % (Auto) 9.1 L [place] % (Auto) 9.7 Eos % (Auto) 1.1 Baso % (Auto) 0.4 Lymph # (Auto) 1.0 L [place] # (Auto) 1.1 Eos # (Auto) 0.1 Baso # (Auto) 0.0 Abs Immat Gran (auto) 0.05 H Absolute Neuts (auto) 8.6 H Absolute Nucleated RBC 0.000 Nucleated RBC % (auto) 0.0 Anion Gap Estim Creat Clear Calc Estimated GFR Random Glucose Lactic Acid 1.9 Calcium Magnesium Total Bilirubin AST ALT Alkaline Phosphatase Total Protein Albumin Urine Color Yellow Urine Appearance Clear Urine pH 6.0 Ur Specific [place] <= 1.005 Urine Protein Negative Urine Glucose (UA) Negative Urine Ketones Negative Urine Blood Negative Urine Nitrite Negative Ur Leukocyte Esterase Small (1+) H Urine RBC 0-2 Urine WBC 6-10 H Ur Squamous Epith Cells 3-5 Urine Bacteria 4+ Hyaline Casts 0-2 COVID-19 (MYLES) COVID-19 Clin Com 01/03/22 06:00 MCV MCH MCHC RDW Plt Count MPV Immature Gran % (Auto) Neut % (Auto) Lymph % (Auto) [place] % (Auto) Eos % (Auto) Baso % (Auto) Lymph # (Auto) [place] # (Auto) Eos # (Auto) Baso # (Auto) Abs Immat Gran (auto) Absolute Neuts (auto) Absolute Nucleated RBC Nucleated RBC % (auto) Anion Gap 18 Estim Creat Clear Calc 71.3 Estimated GFR > 60 Random Glucose 105 Lactic Acid Calcium 8.6 D Magnesium Total Bilirubin AST ALT Alkaline Phosphatase Total Protein Albumin Urine Color Urine Appearance Urine pH Ur Specific [place] Urine Protein Urine Glucose (UA) Urine Ketones Urine Blood Urine Nitrite Ur Leukocyte Esterase Urine RBC Urine WBC Ur Squamous Epith Cells Urine Bacteria Hyaline Casts COVID-19 (MYLES) COVID-19 Clin Com Assessment and Plan (1) Multifactorial dementia: Status: Acute (2) Encephalopathy: Status: Acute (3) Urinary tract infection: Status: Acute Plan 71-year-old female with past medical history of COPD and hypertension presents to the hospital with weakness found to have acute UTI # acute UTI Possible reason for increased weakness pending urine cultures continue IV antibiotics # toxic metabolic encephalopathy Head CT revealed moderately severe diffuse cerebral and cerebellar atrophy and moderately severe chronic microvascular ischemic changes Seems to be improving Secondary to underlying Alzheimer and vascular dementia worsened with urine infection Treat UTI and control blood pressures # history of CVA no neurological deficits Neurology input appreciated, continue statin, aspirin and blood pressure management continue atorvastatin 40 mg as well as home aspirin # hypertension stable continue her home antihypertensives DVT prophylaxis: Heparin subQ The patient will need overnight hospital stay for treatment of encephalopathy, and acute UTI needing IV antibiotics pending final cultures and safe discharge plan. Quality Stroke Does the patient have a stroke diagnosis?: No VTE Prior VTE?: No VTE Risk Level:: Medical - moderate - high VTE Device Contraindication: Treatment Not Indicated VTE Drug Contraindication: N/A - Med Ordered
[2022-01-03 16:00] VITALS: BP 116/68; PULSE 89; RESP 16; TEMP 36.2; O2SAT 98
[2022-01-03 20:00] VITALS: BP 150/59; PULSE 74; RESP 16; TEMP 36.6; O2SAT 98
[2022-01-03] MEDS: 0.9 % Sodium Chloride Flush 3 ML SYRINGE IVFLUSH (20:41)
[2022-01-03] MEDS: Atorvastatin Calcium 40 MG TABLET PO (20:41)
[2022-01-03] MEDS: cefTRIAXone sodium 1 GM in 0.9 % Sodium Chloride 50 ML IV (23:23)
[2022-01-03 23:39] VITALS: BP 138/60; PULSE 72; RESP 18; O2SAT 98
[2022-01-04 04:00] VITALS: BP 133/70; PULSE 84; RESP 14; O2SAT 98
[2022-01-04] MEDS: Lactated Ringers 1,000 ML 80 ML IVCONT (04:47)
[2022-01-04 07:19] LABS: Hematocrit 31.4 % (37.0-47.0); Hemoglobin 10.2 g/dl (12.0-16.0); Mean Corpuscular HGB Conc 32.5 g/dl (31.0-35.0); Mean Corpuscular Hemoglobin 27.7 pg (27.0-33.0); Mean Corpuscular Volume 85.3 fL (80.0-98.0); Mean Platelet Volume 9.3 fL (9.4-12.3); Platelet Count 418 X10*3/uL (160-400); Red Blood Count 3.68 X10*6/uL (4.20-5.50); Red Cell Distribution Width 14.6 % (11.0-16.0)
[2022-01-04 07:54] LABS: Anion Gap 18 (12-20); Blood Urea Nitrogen 14 mg/dL (9-16); Calcium 9.1 mg/dL (8.4-10.2); Carbon Dioxide 28 mmol/L (22-29); Chloride 99 mmol/L (96-108); Creatinine Clr Calc Pharmacy 66.3; Estimated Glomerular Filt Rate > 60; Glucose Random 93 mg/dL (60-115); Potassium 3.5 mmol/L (3.3-5.1); Sodium 141 mmol/L (135-145)
[2022-01-04 08:44] VITALS: BP 127/51; PULSE 76; RESP 16; O2SAT 96
[2022-01-04] MEDS: Fluticasone/Vilanterol 200/25 BLST.W.DEV 1 PUFF INHALE (09:27)
[2022-01-04 09:31] VITALS: PULSE 82; RESP 17; O2SAT 91
[2022-01-04] MEDS: Furosemide 20 MG TABLET 10 MG PO (09:42)
[2022-01-04] MEDS: Clopidogrel Bisulfate 75 MG TABLET PO (09:42)
[2022-01-04] MEDS: lisinopriL 10 MG TABLET 30 MG PO (09:42)
[2022-01-04] MEDS: Aspirin Enteric Coated 81 MG TABLET.DR PO (09:44)
[2022-01-04] MEDS: amLODIPine Besylate 10 MG TABLET PO (10:00)
--- NOTE | 2022-01-04 10:34 | PM.DS ---
DS: Providers Provider Date of Service: 01/04/22 Date of admission: 01/02/22 23:42 Primary care physician: Lyn French MD Consults: 01/03/22 06:54 Consult to Neurology Routine Consulting Provider: [facility] Reason for consultation: new chronic infarcts seen on head ct Has provider been notified: No DS: Diagnosis Discharge Diagnosis (1) Multifactorial dementia: Status: Acute (2) Encephalopathy: Status: Acute (3) Urinary tract infection: Status: Acute (4) Weakness: Status: Acute DS: Summary Hospital Course Hospital Course: Admission note HPI 71-year-old female with past medical history of COPD, hypertension who presents to the hospital brought in by her family with concerns of increased weakness and confusion for the past few days.? Patient herself is alert, oriented x3, but does report that she has been feeling significantly weak, has had low appetite, chills, has been coughing, and is generally not doing too well for the past 5 days.? She does report that she might have forgetfulness but otherwise denies any headache, no change in vision, no weakness numbness or tingling in her extremities.? Reports urinary frequency and dysuria with no urgency.? Denies any chest pain, no abdominal pain, no nausea or vomiting, no diarrhea constipation, and no lower extremity edema.? On arrival to the ED patient hemodynamically stable with no significant abnormal vitals Labs are significant for WBC count of 13, hemoglobin of 10.7, hematocrit 32.1, UA that is positive for leukocyte Estrace, WBC, and trace epithelial cells, Chest x-ray shows no acute cardiopulmonary process, Head CT shows no acute intracranial abnormality but progressive moderate white matter microangiopathy with new chronic lacunar infarcts in the centrum semiovale and new chronic infarct involving the right superior parietal and frontal lobes since 2015.Patient will be admitted for further management. Hospital course The patient was admitted to the hospital for evaluation of increased weakness and confusion. Found to have an evidence of urine tract infection on urinalysis. Started IV antibiotic of ceftriaxone with improvement of her weakness and mental status and increase her oral intake. Urine culture remain negative. To finish 1 week of antibiotics with addition of Ceftin at time of discharge. Family reported that the patient still having memory issues and mild confusion on occasions. CT scan of the head was consistent with a new chronic infarcts. Evaluated by neurologist who believes her multifocal dementia is a result of Alzheimer plus vascular dementia with encephalopathy probably related to UTI. No evidence of seizure activity noted. Recommended antiplatelet agent and blood pressure control with continuation of statin. Good blood pressure control Continue aspirin, atorvastatin Continue antibiotic for 5 more days To follow-up with Neurology as outpatient Time Spent with Patient Time attestation: Total time spent providing and/or coordinating discharge services: Discharge coordination time: Greater than 30 minutes Quality: Safe Use of Opioids Does Pt have an Active Cancer Diagnosis on the Problem List?: No Quality: Stroke Does the patient have a stroke diagnosis?: No Physical Exam Vital Signs: Vital Signs: Last Vital Signs Temp 97.8 F 01/03/22 20:00 Pulse 82 01/04/22 09:31 Resp 17 01/04/22 09:31 BP 127/51 L 01/04/22 08:44 Pulse Ox 96 01/04/22 08:44 O2 Del Method 01/04/22 08:44 BMI result Body Mass Index 20.2 Const: Other: Constitutional : Alert, interactive, not in distress Neck : Normal inspection, Supple Cardiovascular : RRR, no JVP, no lower extremity edema Respiratory : fair bilateral air entry, no crackles, wheezes or rhonchi Gastrointestinal: soft, lax, Normal bowel sounds, Non tender Skin : Warm, Dry Neurological : Alert & oriented x3, No focal deficit DS: Data Data Completed and Pending Labs on day of discharge: Laboratory Results - last 24 hr 01/04/22 01/04/22 06:13 06:13 WBC 11.0 H RBC 3.68 L Hgb 10.2 L Hct 31.4 L MCV 85.3 MCH 27.7 MCHC 32.5 RDW 14.6 Plt Count 418 H MPV 9.3 L Absolute Nucleated RBC 0.000 Nucleated RBC % (auto) 0.0 Sodium 141 Potassium 3.5 Chloride 99 Carbon Dioxide 28 Anion Gap 18 BUN 14 D Creatinine 0.57 Estim Creat Clear Calc 66.3 Estimated GFR > 60 Random Glucose 93 Calcium 9.1 Preliminary micro results at discharge 01/02/22 20:14 Blood Culture - Preliminary Blood - Venous No growth after 24 hours. 01/02/22 20:14 Blood Culture - Preliminary Blood - Venous No growth after [address] scan - head: Radiologist's impression: ITS Impressions Chest X-Ray 01/02/22 18:32 IMPRESSION: No acute cardiopulmonary process seen. Bilateral increased perihilar fine interstitial markings likely chronic changes. Patient has known pulmonary nodules bilaterally on the previous CT chest exam 08/28/2021. Head CT 01/02/22 20:31 IMPRESSION: 1. No acute intracranial abnormality including hemorrhage, mass effect, hydrocephalus, or acute territorial edematous infarction. 2. Progressive moderate white matter microangiopathy, new chronic lacunar infarcts in the centrum semiovale, and new chronic infarcts involving the right superior parietal and anterior frontal lobes since CT from 2014. Discharge Plan Discharge Patient Disposition: Home, Self-Care Discharge Diagnosis: Urinary tract infection Weakness Referrals: Lyn French MD [Primary Care Provider] - 1 Week Discharge Medications: New cefuroxime axetil 500 mg tablet 500 mg PO BID Qty: 10 0RF Continued atorvastatin 40 mg tablet 40 mg PO BEDTIME alendronate 70 mg tablet 70 mg PO SA@0900 albuterol sulfate 90 mcg/actuation HFA aerosol inhaler 2 inh inhalation Q4H PRN (Reason: Wheezing) Incruse Ellipta 62.5 mcg/actuation blister with device 1 puff PO DAILY fluticasone furoate-vilanterol [Breo Ellipta] 200-25 mcg/dose blister with device 1 puff PO DAILY clopidogrel 75 mg tablet 1 tab PO DAILY amlodipine 10 mg tablet 1 tab PO DAILY aspirin 81 mg tablet,delayed release (DR/EC) 1 tab PO DAILY lisinopril 30 mg tablet 1 tab PO DAILY ipratropium-albuterol 0.5 mg-3 mg(2.5 mg base)/3 mL solution for nebulization 3 ml inhalation Q4-6H PRN (Reason: wheezing) 30 Days Qty: 270 6RF furosemide [Lasix] 20 mg tablet 10 mg PO QAM 30 Days Qty: 15 6RF Discharge Orders: Discharge Order (Routine); Ordered 01/04/22 Ordered By: Radha Miguel Diet: Advance to usual diet Activity on Discharge: As tolerated Stand Alone Forms: Patient Portal Discharge page Care Plan Goals: Read below Health Concerns: Read below Plan of Treatment: Read below Assessment: You were admitted to the hospital for evaluation of weakness and confusion. Found to have an evidence of urine infection treated with IV antibiotics. Evaluated by neurologist for CT scan of the brain showing an evidence of chronic infarcts to the pain who believes that you multifactorial dementia. Good blood pressure control Continue aspirin, atorvastatin Continue antibiotic for 5 more days To follow-up with Neurology as outpatient
--- NOTE | 2022-01-04 11:27 | PC.NURSE ---
Pt alert and oriented to self, time ,place and situation. Dtr at bedside, lungs CTA on auscultation, slight fine crackle to left lower base- clears on cough. No edema noted, skin appears to be intact. Viet CP, SOB. Abd soft and nontender. Denies pain. NSR on tele monitor. Plan for home d/c. Orders placed, IV removed, catheter intact.
== END 2022-01-04 11:56 | disposition home or self-care (01) | DRG 689 ==
LOC: HO.ED 23:15 → HO.EDOVER 23:54
PROVIDERS: Physician Assistant; Admitting Provider Internal Medicine; Emergency Provider Internal Medicine; PCP Pediatrics; Visit Provider Student in an Organized Health Care Education/Training Program
DX: N39.0 Urinary tract infection, site not specified (principal); G92.8 Other toxic encephalopathy; J44.9 Chronic obstructive pulmonary disease, unspecified; I10 Essential (primary) hypertension; G30.9 Alzheimer's disease, unspecified; F02.80 Dementia in other diseases classified elsewhere, unspecified severity, without behavioral disturbance, psychotic disturbance, mood disturbance, and anxiety; D64.9 Anemia, unspecified; F01.50 Vascular dementia, unspecified severity, without behavioral disturbance, psychotic disturbance, mood disturbance, and anxiety; M81.0 Age-related osteoporosis without current pathological fracture; Z20.822 Contact with and (suspected) exposure to COVID-19; Z86.73 Personal history of transient ischemic attack (TIA), and cerebral infarction without residual deficits; Z79.891 Long term (current) use of opiate analgesic; Z79.82 Long term (current) use of aspirin; Z79.51 Long term (current) use of inhaled steroids; Z79.899 Other long term (current) drug therapy
CPT/HCPCS: 36415; 70450; 71045; 80048; 80053; 81001; 83605; 83735; 84484; 85025; 85027; 87040; 87086; 87635; 93005; 99285; J0696

== ENCOUNTER → 2022-01-14 09:04 | Outpatient (BNVA) | payer OTHER, SELFPAY | PROVIDERS: PCP Pediatrics; Visit Provider Internal Medicine Pulmonary Disease | DX: R91.8 Other nonspecific abnormal finding of lung field (principal); J43.9 Emphysema, unspecified; R06.00 Dyspnea, unspecified | CPT/HCPCS: 99212 ==

== ENCOUNTER 2022-01-21 08:30 | Outpatient (REF) | payer OTHER, SELFPAY ==
--- NOTE | ~2022-01-21 | CT_ITS ---
EXAMINATION: CT ANGIOGRAM NECK CLINICAL INFORMATION: Cerebral infarction. COMPARISON: CT head from 01/02/2022. CT chest from 12/09/2019. TECHNIQUE: Initial noncontrast commercial accountant imaging of the neck was performed. Test bolus sequences followed by intravenous administration 70 mL of Omnipaque 350. Helical imaging was performed in the axial plane from the aortic arch to the skull base. The data was processed at the interventional radiology technologist's workstation for generation of MIP sequences. Angled MIPs and volume rendered reformatted images were also generated at an offline 3D workstation. Stenoses are assessed in accordance with NASCET criteria unless otherwise indicated. This CT examination was performed using dose optimization techniques as appropriate, variously including the following: *Automated exposure control. *Adjustment of mA and/or kV according to patient size (this includes techniques or standardized protocols for targeted exams where dose is matched to indication/reason for exam; i.e. extremities or head). *Use of iterative reconstruction technique. DLP: 821 mGy-cm FINDINGS: CT Neck: Multinodular thyroid gland. The largest nodule measures up to 0.9 cm in the right thyroid lobe (no follow-up imaging recommended based on current guidelines at the time of examination). The remaining cervical soft tissues are within normal limits. Moderate multilevel degenerative spondyloarthropathy of the cervical spine. Prior malleable plate and screw fixation of the right orbital floor. Bilateral lens extractions. CT Upper Chest: Moderate underlying centrilobular emphysema. Scattered irregular airspace opacities along with peripheral tree-in-bud opacities in the left upper lobe. The visualized upper mediastinum are within normal limits. Neck CTA: Aortic Arch: Normal contour and caliber with moderate calcific atherosclerotic disease. Classic 3 vessel branching pattern of the aortic arch. Great Vessel Origins: Heavy irregular calcific atherosclerotic disease of the brachiocephalic artery appears to cause moderate to high-grade stenosis; however, quantification is limited due to the degree of irregularity and beam hardening related to dense contrast bolus in the right brachiocephalic vein. Reconstitution of opacification of the right subclavian artery and proximal right common carotid artery. No significant stenosis of the origins of the left common carotid artery or left subclavian artery. Right Common Carotid Artery: As noted above, there is heavy calcific atherosclerotic disease of the right brachiocephalic artery extending to the origin of the right common carotid artery. Endarterectomy changes of the distal common carotid artery and carotid bulb. Cervical Right Internal Carotid Artery: Normal opacification without focal stenosis or occlusion. Left Common Carotid Artery: Multifocal moderate calcific atherosclerotic disease. Heavy irregular calcific atherosclerotic disease of the distal common carotid artery and carotid bulb appears to cause moderate to high-grade stenosis (greater than 80%). However, quantification is limited due to degree of calcific irregularity. Cervical Left Internal Carotid Artery: Reconstitution of the proximal left ICA without additional flow-limiting stenoses. Normal opacification without focal stenosis or occlusion. Cervical Right Vertebral Artery: Co-dominant. Normal opacification without focal stenosis or occlusion. Cervical Left Vertebral Artery: Co-dominant. Normal opacification without focal stenosis or occlusion. Limited evaluation of the intracranial structures is notable for a 0.15 cm saccular aneurysm projecting posteriorly from the proximal A2 segment of the right anterior cerebral artery. No demonstrated additional significant abnormalities of the major intracranial vasculature on limited evaluation. CT/CT angio neck IMPRESSION: 1. 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 There appears to be moderate to severe stenosis of the right brachiocephalic artery associated with this change. However, quantification of stenosis is limited secondary to the bulky irregular nature of calcification. Reconstitution of the proximal right subclavian and common carotid arteries. 2. Similarly, there is heavy, irregular calcific atherosclerotic disease of the distal left common carotid artery and carotid bulb. There appears to be associated greater than 80% stenosis. However, quantification of stenosis is limited secondary to the bulky irregular nature of calcification. 3. Endarterectomy changes of the right carotid bulb. 4. There is a 0.15 cm saccular aneurysm projecting from the proximal A2 segment of the right TOM. 5. Moderate emphysema. Multifocal irregular airspace opacities throughout the left upper lung suggestive of an infectious/inflammatory process. This may be better characterized with dedicated chest imaging.
[2022-01-21] MEDS: iohexoL 350 MG/ML 100 ML INFUS..BTL 70 ML IV (09:10)
== END 2022-01-21 08:31 | disposition home or self-care (01) ==
LOC: HO.CT 08:30
PROVIDERS: PCP Pediatrics; Visit Provider Psychiatry & Neurology Neurology
DX: I63.9 Cerebral infarction, unspecified (principal)
CPT/HCPCS: 70498; Q9967

== ENCOUNTER → 2022-07-04 08:42 | Outpatient (BNVA) | payer OTHER, SELFPAY | PROVIDERS: PCP Pediatrics; Visit Provider Internal Medicine Pulmonary Disease | DX: J43.9 Emphysema, unspecified (principal); R91.8 Other nonspecific abnormal finding of lung field | CPT/HCPCS: 99212 ==

== ENCOUNTER 2022-07-24 10:25 | Outpatient (REF) | payer OTHER, SELFPAY ==
--- NOTE | ~2022-07-24 | CT_ITS ---
EXAMINATION: CT CHEST WITHOUT CONTRAST CLINICAL INFORMATION: Nonspecific abnormal finding of lung beauchamp. COMPARISON: CT chest 01/21/2022. TECHNIQUE: Multidetector volumetric CT imaging of the chest was done. Axial MIP volume rendering provided. Sagittal and coronal reformatted images were obtained. This CT examination was performed using dose optimization techniques as appropriate, variously including the following: *Automated exposure control *Adjustment of mA and/or kV according to patient size (this includes techniques or standardized protocols for targeted exams where dose is matched to indication/reason for exam; i.e. 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 LUNGS: There is centrilobular emphysema without acute pneumonic process. There are scattered pulmonary nodules with largest pulmonary nodule left lower lobe subpleural-based measures 6 mm on axial image 439/7, 3 mm right middle lobe nodule axial image 391/7, 6 mm nodule right lower lobe axial image 391/7, subpleural left upper lobe 3 mm nodule axial image 263, 3 mm nodule left upper lobe adjacent to major fissure image 253/7 and a 2 mm subpleural nodule left lower lobe axial image 363/7. There are focal atelectatic changes right upper lobe. Prominent subpleural interstitial thickening seen. No focal consolidation or mass seen. MEDIASTINUM: Heart size and the great vessels are normal. There is a hypodense nodule left thyroid lobe. The central trachea and the bronchi are widely patent. There are small shotty lymph nodes in the mediastinum measuring 7 mm and less. No pericardial effusion seen. CORONARY ARTERY CALCIFICATION: Mild coronary artery calcifications are present. PLEURA: There is no pleural effusion. No pleural mass or thickening. AXILLA: Small shotty lymph nodes are seen in the axilla with maximum measurement of 6-7 mm. The chest wall is unremarkable. UPPER ABDOMEN: Visualized liver, spleen, pancreas and bilateral adrenal glands are unremarkable. OSSEOUS STRUCTURES: There is a compression deformity T7 vertebra of indeterminate age. CT/CT chest wo IV con IMPRESSION: Diffuse centrilobular emphysema with chronic atelectasis/scarring right middle lobe. There are multiple pulmonary nodules largest measuring 6 mm in bilateral lower lobes. There are some subpleural nodules. There are prominent subpleural interstitial markings but no consolidation. No bronchiectasis. Fleischner guidelines were followed.
== END 2022-07-24 10:26 | disposition home or self-care (01) ==
LOC: HO.CT 10:25
PROVIDERS: PCP Pediatrics; Visit Provider Internal Medicine Pulmonary Disease
DX: R91.8 Other nonspecific abnormal finding of lung field (principal)
CPT/HCPCS: 71250

== ENCOUNTER 2022-08-04 08:47 | Outpatient (REF) | payer OTHER, SELFPAY ==
[2022-08-04 17:07] LABS: Urine Cytology See Pathology rpt
== END 2022-08-04 08:48 | disposition home or self-care (01) ==
LOC: HO.LAB 08:47
PROVIDERS: PCP Pediatrics; Visit Provider Urology
DX: R31.9 Hematuria, unspecified (principal); N39.0 Urinary tract infection, site not specified
CPT/HCPCS: 51701; 51798; 87086; 87088; 87186; 88112; 99202

== ENCOUNTER 2022-09-03 09:14 | Inpatient (IN) | payer OTHER, SELFPAY ==
[2022-09-03] VITALS (11 sets, daily range): BP systolic 94–165; BP diastolic 42–74; PULSE 75–88; RESP 16–27; TEMP 36–36.9; O2SAT 92–98; BMI 26.2; BMI 26.7
--- NOTE | ~2022-09-03 | XR_ITS ---
EXAMINATION: XR CHEST CLINICAL INFORMATION: Weakness COMPARISON: CT chest 07/24/2022 TECHNIQUE: 2 views of the chest were obtained. FINDINGS: Again seen are changes of emphysema with hyperinflation compression fracture involving T7. No other significant abnormality is noted involving the heart, lungs, mediastinum, bony thorax or soft tissues. XR/XR chest 2V IMPRESSION: No acute intrathoracic disease. Emphysema.
--- NOTE | ~2022-09-03 | CT_ITS ---
EXAMINATION: CT HEAD WITHOUT CONTRAST CLINICAL INFORMATION: Confusion and pain. COMPARISON: CT head 01/02/2022 TECHNIQUE: Contiguous axial imaging was performed from the skull base to vertex without intravenous administration of contrast. This CT examination was performed using dose optimization techniques as appropriate, variously including the following: *Automated exposure control *Adjustment of mA and/or kV according to patient size (this includes techniques or standardized protocols for targeted exams where dose is matched to indication/reason for exam; i.e. extremities or head) *Use of iterative reconstruction technique DLP: 568 mGy-cm FINDINGS: There are a few small chronic cortical infarcts involving the right cerebral hemisphere that remain grossly unchanged when compared to prior imaging from 01/02/2022. Scattered chronic small vessel ischemic changes are visualized within the periventricular white matter. Wilson-white matter differentiation is otherwise preserved and there is no evidence of acute territorial infarct. There is no acute hemorrhage or abnormal extra-axial collection. Lateral and third ventricles are normal. No hydrocephalus. The calvarium and skull base are intact. Mastoid air cells and middle ear cavities are well aerated. No active paranasal sinus disease. CT/CT head/brain wo IV con IMPRESSION: There are a few small chronic cortical infarcts involving the right cerebral hemisphere that remain grossly unchanged when compared to prior imaging from 01/02/2022. Scattered chronic small vessel ischemic changes are also visualized within the periventricular white matter. No evidence of acute territorial infarct or hemorrhage.
--- NOTE | 2022-09-03 09:30 | PC.NURSE ---
pt is alert and oriented, skin pale and dry, respirations even and unlabored, ls clear, pt reports feeling a little weakener then usual and came back positive for a uti on a home test but denies urinary symptoms. daughter reports that the pt has hx of dementia but has been more confused then her usual, vs stable at this time
--- NOTE | 2022-09-03 10:07 | ECG_ITS ---
Test Reason : weakness Blood Pressure : / mmHG Vent. Rate : 072 BPM Atrial Rate : 072 BPM P-R Int : 142 ms QRS Dur : 122 ms QT Int : 402 ms P-R-T Axes : 070 010 097 degrees QTc Int : 440 ms Normal sinus rhythm with sinus arrhythmia Left bundle branch block Abnormal ECG When compared with ECG of 02-JAN-2022 19:05, No significant change was found Referred By: Minna Quintana Electronically Signed By:CHRISTIANO HOWELL
--- NOTE | 2022-09-03 10:08 | ED_ITS ---
HPI - Female Genitourinary General Chief complaint: Urogenital-Female Stated complaint: Weakness, poss UTI per EMS Time Seen by Provider: 09/03/22 10:08 Source: patient, family (patient's daughter) and EMS Mode of arrival: EMS Limitations: no limitations and other (patient has dementia at baseline) History of Present Illness HPI Narrative: Patient is a 71 year old assigned female at with a history of recurrent UTIs, plavix use, vascular dementia, and alzheimers presenting to the emergency department today with weakness and persistent confusion. Patient states that she feels more weak lately. Patient's daughter states that the patient has been consistently confused and they have been battling recurrent UTIs for months. Patient denies any dizziness, lightheadedness, abdominal pain, nausea, vomiting, fever, chills, blurry vision, double vision, loss of vision, chest pain, difficulty breathing, shortness of breath, back pain, night sweats, pain with urination, increased urinary frequency, increased urinary urgency, blood in her urine or stool, syncope or a near syncopal episode, recent trauma or falls, bowel incontinence, bladder incontinence, bowel retention, bladder retention, or any other complaints at this time. Patient's daughter states that they recently changed the patient's plavix dose to every other day. Exacerbating factors: none Relieving factors: none Associated symptoms: weakness Related Data Home Medications Medication Instructions Recorded Confirmed albuterol sulfate 90 mcg/actuation 2 inh inhalation Q4H PRN Wheezing 04/09/21 09/03/22 aerosol inhaler alendronate 70 mg tablet 70 mg PO SA@0900 04/09/21 09/03/22 fluticasone furoate 200 1 puff PO BEDTIME 04/09/21 09/03/22 mcg-vilanterol 25 mcg/dose inhalation powder (Breo Ellipta) umeclidinium 62.5 mcg/actuation 1 puff PO DAILY 04/09/21 09/03/22 blister powder for inhalation (Incruse Ellipta) amlodipine 10 mg tablet 1 tab PO DAILY 01/03/22 09/03/22 aspirin 81 mg tablet,delayed 1 tab PO DAILY 01/03/22 09/03/22 release clopidogrel 75 mg tablet 1 tab PO Q OTHER DAY 01/03/22 09/03/22 cholecalciferol (vitamin D3) 50 50 mcg PO BID 08/04/22 09/03/22 mcg (2,000 unit) capsule ferrous sulfate 325 mg (65 mg 325 mg PO BID 08/04/22 09/03/22 iron) tablet (FeroSul) lisinopril 40 mg tablet 40 mg PO DAILY 08/04/22 09/03/22 atorvastatin 40 mg tablet 40 mg PO BID 09/03/22 09/03/22 Previous Rx's Medication Instructions Recorded ipratropium 0.5 mg-albuterol 3 mg 3 ml inhalation Q4-6H PRN wheezing 05/10/21 (2.5 mg base)/3 mL nebulization 30 days #270 mL soln Allergies Allergy/AdvReac Type Severity Reaction Status Date / Time milk [MILK] Allergy Intermediate DIARRHEA Verified 09/03/22 09:25 Review of Systems Constitutional: Constitutional: Reports no additional constitutional complaints, Denies chills, Denies fever(s), Denies night sweats and Reports weakness Eyes: Eyes: Reports no additional eye complaints, Denies blurry vision, Denies change in vision, Denies diplopia, Denies eye discharge, Denies loss of vision and Denies eye pain ENT: Denies dizziness Cardiovascular: Cardiovascular: Reports no additional cardiovascular complaints, Denies chest pain, Denies lightheadedness, Denies Loss of Consciousness and Denies dyspnea Respiratory: Respiratory: Reports no additional respiratory complaints and Denies dyspnea Gastrointestinal: Gastrointestinal: Reports no additional gastrointestinal complaints, Denies abdominal pain, Denies melena, Denies hematochezia, Denies change in bowel habits and Denies change in stool character Genitourinary: Genitourinary: Denies hematuria, Denies urinary frequency, Denies dysuria, Denies urinary incontinence, Denies urinary hesitancy and Denies urinary urgency Musculoskeletal: Musculoskeletal: Reports no additional musculoskeletal complaints, Denies numbness and Denies tingling Neurologic: Reports confusion (chronic for the patient), Denies dizziness, Denies loss of vision, Denies numbness, Denies tingling and Reports weakness Psychiatric: Psychiatric: Reports no additional psychiatric complaints and Reports confusion (chronic for the patient) Endocrine: Endocrine: Reports no additional endocrine complaints Hematologic/Lymphatic: Hematologic/Lymphatic: Reports no additional hematologic/lymphatic complaints Allergic/Immunologic: Allergic/Immunologic: Reports no additional allergic/immunologic complaints PMFSH Past Medical History Attestation statement: The following information was validated with the patient. (all information validated with the patient's daughter) Source: old records reviewed, obtained from family (patient's daughter) and nursing notes reviewed Medical History COPD (chronic obstructive pulmonary disease) HTN (hypertension) Lacunar infarction Multifactorial dementia Osteoporosis Surgical History No pertinent past surgical history Family History Family History Other No family history of coronary artery disease Social History Social History Alcohol intake: unknown Patient Tobacco Use Status: Former Tobacco user Smoked in Last 30 Days: No Use of substances other than those prescribed or required for medical reasons: No Advance Directives: Yes Advance Directives on File: Yes Advance Directives Date on File: 04/09/21 Physical Exam Vital Signs: Vital Signs: Last Vital Signs Temp 98 F 09/03/22 14:08 Pulse 77 09/03/22 14:08 Resp 20 09/03/22 14:08 BP 141/56 H 09/03/22 14:08 Pulse Ox 92 09/03/22 14:08 O2 Del Method Room Air 09/03/22 14:08 BMI result Body Mass Index 26.2 Const: General: confusion (chronic for the patient) Nutritional Appearance: well nourished Orientation/consciousness: patient oriented x3 and confusion (chronic for the patient) Limitations: no limitations HEENT: Head: Yes normal to inspection and Yes atraumatic Ears: hearing grossly normal bilaterally and external ears normal General nose exam: Normal external nose present, no nasal discharge noted and no epistaxis Face and sinus: Yes normal facial exam, No abrasion and No laceration Mouth: Normal oral and palatal mucosa present, no drooling and no muffled voice Eyes: General: appearance normal, both eyes and all related structures Periorbital: periorbital findings normal Eyelids: Yes eyelids normal Conjunctivae: conjunctivae normal Pupils: Equal, round and reactive pupils present EOM: EOMs intact bilaterally Neck: Neck: Yes normal visual inspection, Yes full ROM and Yes no lymphaden opathy Chest: Chest palpation & inspection: normal inspection of the chest Resp: Effort & Inspection: normal respiratory effort Auscultation: clear to auscultation bilaterally and diminished lung sounds Cardio: Rhythm: regular rhythm Heart sounds: S1 normal heart sound present and S2 normal heart sound present GI: Inspection: Yes normal to inspection Palpation (GI): Soft to palpation, not firm, nontender and no guarding Rectal Exam - Female: No tenderness Skin: Other: pale Neuro: General: patient oriented x3 and confusion (chronic for the patient) Cranial nerves: Yes CN's II-XII intact bilaterally and Yes Equal, round and reactive pupils present Cognition (Neuro): normal cognition Motor exam (neuro): 5/5 motor strength present throughout Sensory Exam: Normal double simultaneous stimulation for sensation Coordination: [id number] test normal Extrem: General: Yes normal to inspection, Yes full ROM and Yes capillary refill normal Psych: Appearance: grossly normal Mental Status: mental status grossly normal Affect: normal affect Attitude: cooperative Thought process: Normal thought process present Thought content: Normal thought content present Insight: Good insight present (Psych) Medications Administered Discontinued Medications Generic Name Dose Route Start Last Admin Trade Name Freq PRN Reason Stop Dose Admin Ceftriaxone Sodium 1 gm/ 50 mls @ 100 mls/hr 09/03/22 12:40 09/03/22 13:35 Sodium Chloride IV 09/03/22 13:09 Infused ONCE ONE Infusion Medical Decision Making Medical Decision Making [facility] Narrative: Patient is a 71 year old assigned female at with a history of recurrent UTIs, COPD, vascular dementia, alzheimers, and anti-coagulant use presenting to the emergency department today with weakness and chronic confusion. Patient's physical exam showed a pale and intermittently confused individual. Patient's blood work showed a hgb of 7.7 and a chronic leukocytosis. Patient's urine showed an acute UTI. Patient's EKG was unremarkable. Patient's chest x-ray and head CT showed no acute process. Patient's clinical presentation is not consistent with sepsis (@1400). I spoke with the hospitalist who agreed to admission. I explained my physical exam findings as well as all test results to the patient and the patient's daughter. I answered all questions asked by the patient and the patient's daughter. Patient was given IV antibiotics and a unit of RBCs while in the department. Patient and the patient's daughter verbalized agreement and understanding with this treatment plan and admission. Differential Diagnosis Differential Diagnoses: The differential diagnosis associated with the presentation includes anemia, urinary tract infection Consult Healthcare Provider Management of the patient was discussed with: Hospitalist (agreed to admission) Lab Data MDM Lab Attestation statement: I reviewed the patient's lab results. 09/03/22 10:33 09/03/22 10:33 Labs: Lab Results 09/03/22 09/03/22 09/03/22 Range/Units 10:28 10:28 10:33 WBC 14.1 H (4.8-10.8) X10*3/uL RBC 2.56 L D (4.20-5.50) X10*6/uL Hgb 7.7 L D (12.0-16.0) g/dl Hct 24.8 L D (37.0-47.0) % MCV 96.9 (80.0-98.0) fL MCH 30.1 (27.0-33.0) pg MCHC 31.0 (31.0-35.0) g/dl RDW 17.2 H (11.0-16.0) % Plt Count 332 (160-400) X10*3/uL MPV 9.6 (9.4-12.3) fL Immature Gran % (Auto) 0.9 H (0.0-0.4) % Neut % (Auto) 82.0 H (45-73) % Lymph % (Auto) 7.4 L (20-40) % [place] % (Auto) 8.3 (2-11) % Eos % (Auto) 1.1 (0-4) % Baso % (Auto) 0.3 (0-2) % Lymph # (Auto) 1.0 L (1.2-4.9) X10*3/uL [place] # (Auto) 1.2 (0.1-1.2) X10*3/uL Eos # (Auto) 0.2 (0.0-0.4) X10*3/uL Baso # (Auto) 0.0 (0.0-0.2) X10*3/uL Abs Immat Gran (auto) 0.12 H (0.00-0.03) X10*3/uL Absolute Neuts (auto) 11.5 H (2.0-8.3) x10*3/uL Absolute Nucleated RBC 0.000 (0.0-0.012) X10*3/uL Nucleated RBC % (auto) 0.0 (0.0-0.2) /100WBC Sodium (135-145) mmol/L Potassium (3.3-5.1) mmol/L Chloride (96-108) mmol/L Carbon Dioxide (22-29) mmol/L Anion Gap (12-20) BUN (9-16) mg/dL Creatinine (0.5-1.4) mg/dL Estim Creat Clear Calc Estimated GFR Random Glucose (60-115) mg/dL Calcium (8.4-10.2) mg/dL Magnesium (1.6-2.6) mg/dL Iron (30-160) mcg/dL TIBC (228-428) mcg/dL % Saturation (15-50) % Unsat Iron Binding ug/dL Ferritin (10-250) ng/mL Total Bilirubin (0.0-1.0) mg/dL AST (5-31) U/L ALT (0-31) U/L Alkaline Phosphatase (39-117) U/L Lactate Dehydrogenase (122-220) U/L Troponin I High Sens (<3.5-17.0) ng/L Total Protein (6.5-8.0) g/dL Albumin (3.5-5.0) g/dL Vitamin B12 (200-900) pg/mL Urine Color Yellow Urine Appearance Clear Urine pH 6.0 (5.0-9.0) Ur Specific [place] 1.010 (1.005-1.025) Urine Protein Negative (Neg-Trace) mg/dL Urine Glucose (UA) Negative (Negative) mg/dL Urine Ketones Negative (Negative) mg/dL Urine Blood Negative (Negative) Urine Nitrite Positive H (Negative) Ur Leukocyte Esterase Small (1+) H (Negative) Urine RBC 0-2 (0-2) /HPF Urine WBC 11-20 H (0-5) /HPF Ur Squamous Epith Cells 0-2 (0-2) /HPF Urine Bacteria 4+ (None Seen) Hyaline Casts 0-2 (0-2) /LPF COVID-19 (MYLES) Negative (Negative) COVID-19 Clin Com See Note Blood Type Antibody Screen Crossmatch 0509/03/22 09/03/22 Range/Units 10:33 10:33 12:31 WBC (4.8-10.8) X10*3/uL RBC (4.20-5.50) X10*6/uL Hgb (12.0-16.0) g/dl Hct (37.0-47.0) % MCV (80.0-98.0) fL MCH (27.0-33.0) pg MCHC (31.0-35.0) g/dl RDW (11.0-16.0) % Plt Count (160-400) X10*3/uL MPV (9.4-12.3) fL Immature Gran % (Auto) (0.0-0.4) % Neut % (Auto) (45-73) % Lymph % (Auto) (20-40) % [place] % (Auto) (2-11) % Eos % (Auto) (0-4) % Baso % (Auto) (0-2) % Lymph # (Auto) (1.2-4.9) X10*3/uL [place] # (Auto) (0.1-1.2) X10*3/uL Eos # (Auto) (0.0-0.4) X10*3/uL Baso # (Auto) (0.0-0.2) X10*3/uL Abs Immat Gran (auto) (0.00-0.03) X10*3/uL Absolute Neuts (auto) (2.0-8.3) x10*3/uL Absolute Nucleated RBC (0.0-0.012) X10*3/uL Nucleated RBC % (auto) (0.0-0.2) /100WBC Sodium 141 (135-145) mmol/L Potassium 4.5 D (3.3-5.1) mmol/L Chloride 106 (96-108) mmol/L Carbon Dioxide 28 (22-29) mmol/L Anion Gap 12 (12-20) BUN 13 (9-16) mg/dL Creatinine 0.62 (0.5-1.4) mg/dL Estim Creat Clear Calc 68.7 Estimated GFR > 60 Random Glucose 112 (60-115) mg/dL Calcium 9.4 (8.4-10.2) mg/dL Magnesium 1.6 (1.6-2.6) mg/dL Iron 66 (30-160) mcg/dL TIBC 290 (228-428) mcg/dL % Saturation 23 (15-50) % Unsat Iron Binding 224 ug/dL Ferritin 50 (10-250) ng/mL Total Bilirubin 0.3 (0.0-1.0) mg/dL AST 16 (5-31) U/L ALT 16 (0-31) U/L Alkaline Phosphatase 98 (39-117) U/L Lactate Dehydrogenase 197 (122-220) U/L Troponin I High Sens < 2.7 (<3.5-17.0) ng/L Total Protein 5.8 L (6.5-8.0) g/dL Albumin 3.8 (3.5-5.0) g/dL Vitamin B12 304 (200-900) pg/mL Urine Color Urine Appearance Urine pH (5.0-9.0) Ur Specific [place] (1.005-1.025) Urine Protein (Neg-Trace) mg/dL Urine Glucose (UA) (Negative) mg/dL Urine Ketones (Negative) mg/dL Urine Blood (Negative) Urine Nitrite (Negative) Ur Leukocyte Esterase (Negative) Urine RBC (0-2) /HPF Urine WBC (0-5) /HPF Ur Squamous Epith Cells (0-2) /HPF Urine Bacteria (None Seen) Hyaline Casts (0-2) /LPF COVID-19 (MYLES) (Negative) COVID-19 Clin Com Blood Type Antibody Screen Crossmatch 09/03/22 Range/Units 13:47 WBC (4.8-10.8) X10*3/uL RBC (4.20-5.50) X10*6/uL Hgb (12.0-16.0) g/dl Hct (37.0-47.0) % MCV (80.0-98.0) fL MCH (27.0-33.0) pg MCHC (31.0-35.0) g/dl RDW (11.0-16.0) % Plt Count (160-400) X10*3/uL MPV (9.4-12.3) fL Immature Gran % (Auto) (0.0-0.4) % Neut % (Auto) (45-73) % Lymph % (Auto) (20-40) % [place] % (Auto) (2-11) % Eos % (Auto) (0-4) % Baso % (Auto) (0-2) % Lymph # (Auto) (1.2-4.9) X10*3/uL [place] # (Auto) (0.1-1.2) X10*3/uL Eos # (Auto) (0.0-0.4) X10*3/uL Baso # (Auto) (0.0-0.2) X10*3/uL Abs Immat Gran (auto) (0.00-0.03) X10*3/uL Absolute Neuts (auto) (2.0-8.3) x10*3/uL Absolute Nucleated RBC (0.0-0.012) X10*3/uL Nucleated RBC % (auto) (0.0-0.2) /100WBC Sodium (135-145) mmol/L Potassium (3.3-5.1) mmol/L Chloride (96-108) mmol/L Carbon Dioxide (22-29) mmol/L Anion Gap (12-20) BUN (9-16) mg/dL Creatinine (0.5-1.4) mg/dL Estim Creat Clear Calc Estimated GFR Random Glucose (60-115) mg/dL Calcium (8.4-10.2) mg/dL Magnesium (1.6-2.6) mg/dL Iron (30-160) mcg/dL TIBC (228-428) mcg/dL % Saturation (15-50) % Unsat Iron Binding ug/dL Ferritin (10-250) ng/mL Total Bilirubin (0.0-1.0) mg/dL AST (5-31) U/L ALT (0-31) U/L Alkaline Phosphatase (39-117) U/L Lactate Dehydrogenase (122-220) U/L Troponin I High Sens (<3.5-17.0) ng/L Total Protein (6.5-8.0) g/dL Albumin (3.5-5.0) g/dL Vitamin B12 (200-900) pg/mL Urine Color Urine Appearance Urine pH (5.0-9.0) Ur Specific [place] (1.005-1.025) Urine Protein (Neg-Trace) mg/dL Urine Glucose (UA) (Negative) mg/dL Urine Ketones (Negative) mg/dL Urine Blood (Negative) Urine Nitrite (Negative) Ur Leukocyte Esterase (Negative) Urine RBC (0-2) /HPF Urine WBC (0-5) /HPF Ur Squamous Epith Cells (0-2) /HPF Urine Bacteria (None Seen) Hyaline Casts (0-2) /LPF COVID-19 (MYLES) (Negative) COVID-19 Clin Com Blood Type O Positive Antibody Screen NEGATIVE Crossmatch See Detail Independent Interpretation I performed an independent interpretation of an: EKG, Plain X-Ray and CT Scan Interpretation: Vent. Rate: 072 BPM ? ? Atrial Rate: 072 BPM P-R Int: 142 ms? QRS Dur: 122 ms QT Int: 402 ms ? ? ? P-R-T Axes: 070 010 097 degrees QTc Int: 440 ms ? Normal sinus rhythm with sinus arrhythmia Left bundle branch block Abnormal ECG When compared with ECG of 02-JAN-2022 19:05, No significant change was found DD/ [id number] My interpretation is in agreement with the radiologist's impression of this imaging study. EXAMINATION: XR CHEST CLINICAL INFORMATION: Weakness COMPARISON: CT chest 07/24/2022 TECHNIQUE: 2 views of the chest were obtained. FINDINGS: Again seen are changes of emphysema with hyperinflation compression fracture involving T7. No other significant abnormality is noted involving the heart, lungs, mediastinum, bony thorax or soft tissues. XR/XR chest 2V IMPRESSION: No acute intrathoracic disease. Emphysema. ? Dictated By: Demond Fonseca MD Signed By: Electronically signed by Demond Fonseca MD 09/03/22 1143 EXAMINATION: CT HEAD WITHOUT CONTRAST CLINICAL INFORMATION: Confusion and pain.? COMPARISON: CT head 01/02/2022 TECHNIQUE: Contiguous axial imaging was performed from the skull base to vertex without intravenous administration of contrast. This CT examination was performed using dose optimization techniques as appropriate, variously including the following: *Automated exposure control *Adjustment of mA and/or kV according to patient size (this includes techniques or standardized protocols for targeted exams where dose is matched to indication/reason for exam; i.e. extremities or head) *Use of iterative reconstruction technique DLP: 568 mGy-cm FINDINGS: There are a few small chronic cortical infarcts involving the right cerebral hemisphere that remain grossly unchanged when compared to prior imaging from 01/02/2022. Scattered chronic small vessel ischemic changes are visualized within the periventricular white matter. Wilson-white matter differentiation is otherwise preserved and there is no evidence of acute territorial infarct. There is no acute hemorrhage or abnormal extra-axial collection. Lateral and third ventricles are normal. No hydrocephalus. The calvarium and skull base are intact. Mastoid air cells and middle ear cavities are well aerated. No active paranasal sinus disease. ? CT/CT head/brain wo IV con IMPRESSION: There are a few small chronic cortical infarcts involving the right cerebral hemisphere that remain grossly unchanged when compared to prior imaging from 01/02/2022. Scattered chronic small vessel ischemic changes are also visualized within the periventricular white matter. No evidence of acute territorial infarct or hemorrhage. Dictated By: Mu Tavarez MD Signed By: Electronically signed by Mu Tavarez MD 09/03/22 1120 Independent Historian Clinical information obtained from an independent historian. History obtained from or confirmed by: EMS and Other (patient's daughter) Critical Care Time Critical Care Time Critical Care Time: Yes Total Critical Care Time: 45 Attestation: I spent 45 minutes of Critical Care Time with this patient. This does not include time spent on separately reported billable procedures. Discharge Plan Discharge Clinical Impression: Recurrent UTI, Symptomatic anemia Patient Disposition: Admitted As Inpatient Interventions: Admission Worksheet (ED) Last Done: 09/03/22 15:02
[2022-09-03 10:38] LABS: MANUAL DIFF FLAG NO
[2022-09-03 10:43] LABS: Appearance Urine Clear; Color Urine Yellow; Glucose Urine UA Negative (Negative); Leukocyte Esterase Urine Small (1+) (Negative); Nitrite Urine Positive (Negative); UMIC TRIGGER UACC YES; Urine Blood Negative (Negative); Urine Ketones Negative (Negative); Urine Protein Negative (Neg-Trace)
[2022-09-03 10:48] LABS: Bacteria Urine 4+ (None Seen); Hyaline Casts Urine 0-2 /LPF (0-2); RBC Urine 0-2 /HPF (0-2); Squamous Epithelial Cell Urine 0-2 /HPF (0-2); UACC Culture Trigger YES
[2022-09-03 10:52] LABS: Hemoglobin 7.7 g/dl (12.0-16.0); Mean Corpuscular Volume 96.9 fL (80.0-98.0); Red Cell Distribution Width 17.2 % (11.0-16.0)
[2022-09-03 10:56] LABS: Basophils Percent Auto 0.3 % (0-2); Eosinophils Absolute Auto 0.2 X10*3/uL (0.0-0.4); Eosinophils Percent Auto 1.1 % (0-4); Hematocrit 24.8 % (37.0-47.0); Imm Gran Abs Auto 0.12 X10*3/uL (0.00-0.03); Imm Gran Pct Auto 0.9 % (0.0-0.4); Lymphocytes Percent Auto 7.4 % (20-40); Mean Corpuscular Hemoglobin 30.1 pg (27.0-33.0); Mean Platelet Volume 9.6 fL (9.4-12.3); Monocytes Absolute Auto 1.2 X10*3/uL (0.1-1.2); Monocytes Percent Auto 8.3 % (2-11); Neutrophils Absolute Auto 11.5 x10*3/uL (2.0-8.3); Platelet Count 332 X10*3/uL (160-400); Red Blood Count 2.56 X10*6/uL (4.20-5.50)
[2022-09-03 10:58] LABS: COVID-19 Test Negative (Negative); IDNOW Serial# BCCEAD1C
[2022-09-03 10:59] LABS: Alanine Aminotransferase 16 U/L (0-31); Albumin Level 3.8 g/dL (3.5-5.0); Alkaline Phosphatase 98 U/L (39-117); Anion Gap 12 (12-20); Aspartate Amino Transferase 16 U/L (5-31); Bilirubin Total 0.3 mg/dL (0.0-1.0); Blood Urea Nitrogen 13 mg/dL (9-16); Calcium 9.4 mg/dL (8.4-10.2); Carbon Dioxide 28 mmol/L (22-29); Chloride 106 mmol/L (96-108); Creatinine Clr Calc Pharmacy 68.7; Estimated Glomerular Filt Rate > 60; Glucose Random 112 mg/dL (60-115); Magnesium 1.6 mg/dL (1.6-2.6); Potassium 4.5 mmol/L (3.3-5.1); Sodium 141 mmol/L (135-145); Total Protein 5.8 g/dL (6.5-8.0); White Blood Count 14.1 X10*3/uL (4.8-10.8)
[2022-09-03 11:08] LABS: Troponin-I High Sensitivity < 2.7 ng/L (<3.5-17.0)
[2022-09-03] MEDS: cefTRIAXone sodium 1 GM in 0.9 % Sodium Chloride 50 ML IV (13:02)
[2022-09-03 13:24] LABS: Vitamin B12 304 pg/mL (200-900)
--- NOTE | 2022-09-03 13:32 | PHA.MEDREC ---
Pharmacy Consult ? Medication Reconciliation Pharmacy has completed the medication reconciliation. Daughter with patient at bedside. Both daughter and pt able to confirm doses and medications. Daughter noted she is on high dose statin (atorvastatin 40mg BID) due to recent stroke. Plavix was also recently changed to every other day.
--- NOTE | 2022-09-03 13:45 | P.HPHOSP_ITS ---
History of Present Illness Date of Service: 09/03/22 Attending physician on admission: Aroldo Rishabhamerico Chief Complaint: fatigue, weakness 71-year-old female with history of COPD, hypertension, osteoporosis, recurrent UTI, unspecified dementia, and history of stroke on Plavix presents to the ED earlier today with her daughter for evaluation of fatigue and weakness. According to the daughter, the patient has had recurrent UTI ongoing for about 4 months and has been following with Dr. Santiago, her only symptoms being fatigue and weakness. Last months had positive urine culture growing Klebsiella and was treated with bactrim which she completed. She has been treated with four courses of antibitoics in last 4 months for UTI. No fevers, chills, nausea, vomiting, abdominal pain, flank pain, dysuria, hematuria, increased urinary frequency, or urgency. On arrival, vitals within normal limits. Leukocytosis of 14.1. H/H 7.7/24.8% (05/05/22 from [facility] H/H 11.8/37.5%). MCV normal. Iron studies within normal limits, LDH normal, vitamin B12 level normal. Patient denies any melena, hematochezia, easy bruising, epistaxis, vaginal bleeding, hematuria. Renal function normal, electrolyte levels normal. UA with 1+ leukocytes, nitrate positive, negative blood, positive urinary sediment, 4+ bacteria. In the ED, treated with IV ceftriaxone Review of Systems Review of Systems: General: No fevers, malaise, unintentional weight loss. +fatigue, +generalized weaknes HEENT: No blurred vision, diplopia. No sore throat, nasal congestion, rhinorrhea, sinus pain, ear pain Cardiovascular: No chest pain, palpitations, or leg edema Respiratory: No shortness of breath, wheezing, cough GI: No abdominal pain, nausea, vomiting, diarrhea, constipation, melena, hematochezia : No dysuria, hematuria, increased urinary frequency, decreased urinary output MSK: No myalgia, back pain Neuro: No headaches, weakness, paresthesias Skin: No rashes or lesions [facility] Medical History COPD (chronic obstructive pulmonary disease) HTN (hypertension) Lacunar infarction Multifactorial dementia Osteoporosis Family History Other No family history of coronary artery disease Surgical History No pertinent past surgical history Social History Alcohol intake: unknown Patient Tobacco Use Status: Former Tobacco user Smoked in Last 30 Days: No Use of substances other than those prescribed or required for medical reasons: No Advance Directives: Yes Advance Directives on File: Yes Advance Directives Date on File: 04/09/21 Meds Allergies Allergy/AdvReac Type Severity Reaction Status Date / Time milk [MILK] Allergy Intermediate DIARRHEA Verified 09/03/22 09:25 Active Medications: Current Medications Acetaminophen (Acetaminophen 325 Mg Tablet) 650 mg PO Q6H PRN PRN Reason: Pain, Mild (Pain Scale 1-3) Albuterol Sulfate (Albuterol Sulfate 90 Mcg 8 Gm Inhaler) 2 puff INHALE Q4H PRN PRN Reason: Wheezing Docusate Sodium (Docusate Sodium 100 Mg Capsule) 100 mg PO DAILY PRN PRN Reason: Constipation Ondansetron HCl (Ondansetron Hcl 4 Mg/2 Ml Vial) 4 mg IVPUSH Q8H PRN PRN Reason: Nausea and Vomiting Pharmacy Consult (Consult Rx Perform Med Rec) 1 each MISCELLANE ONCE PRN PRN Reason: Consult order Sodium Chloride (0.9 % Sodium Chloride Flush 3 Ml Syringe) 3 ml IVFLUSH [facility] Medications Medication Instructions Recorded Confirmed Last Taken Type albuterol sulfate 90 mcg/actuation 2 inh inhalation Q4H PRN Wheezing 04/09/21 09/03/22 Unknown History aerosol inhaler alendronate 70 mg tablet 70 mg PO SA@0900 04/09/21 09/03/22 08/30/22 History fluticasone furoate 200 1 puff PO BEDTIME 04/09/21 09/03/22 04/09/21 History mcg-vilanterol 25 mcg/dose inhalation powder (Breo Ellipta) umeclidinium 62.5 mcg/actuation 1 puff PO DAILY 04/09/21 09/03/22 09/03/22 History blister powder for inhalation (Incruse Ellipta) amlodipine 10 mg tablet 1 tab PO DAILY 01/03/22 09/03/22 09/03/22 History aspirin 81 mg tablet,delayed 1 tab PO DAILY 01/03/22 09/03/22 09/03/22 History release clopidogrel 75 mg tablet 1 tab PO Q OTHER DAY 01/03/22 09/03/22 09/03/22 History cholecalciferol (vitamin D3) 50 50 mcg PO BID 08/04/22 09/03/22 09/03/22 History mcg (2,000 unit) capsule ferrous sulfate 325 mg (65 mg 325 mg PO BID 08/04/22 09/03/22 09/03/22 History iron) tablet (FeroSul) lisinopril 40 mg tablet 40 mg PO DAILY 08/04/22 09/03/22 09/03/22 History atorvastatin 40 mg tablet 40 mg PO BID 09/03/22 09/03/22 09/03/22 History Physical Exam Vital Signs and Narrative: Vital Signs: Last Vital Signs Temp 98.0 F 09/03/22 12:51 Pulse 78 09/03/22 12:51 Resp 27 H 09/03/22 12:51 BP 94/70 09/03/22 12:51 Pulse Ox 94 09/03/22 12:51 O2 Del Method Room Air 09/03/22 12:51 BMI result Body Mass Index 26.2 Constitutional - Awake and Alert, No apparent distress, pallor Eyes - PERRLA, EOMI Cardiovascular - S1S2, RRR, No edema Respiratory - Normal lung expansion, Normal respiratory effort, No respiratory distress, CTA bilaterally Gastrointestinal - NT / ND; +BS; No rebound or guarding Extremities - no calf tenderness bilaterally, no swelling Skin - Warm/Dry Neurological - Alert & oriented x3, CN II-XII in tact, 5/5 strength BUE and BLE Psychological - Appropriate affect Results Labs 09/03/22 10:33 09/03/22 10:33 Labs: Laboratory Results - last 24 hr 09/03/22 09/03/22 09/03/22 10:28 10:28 10:33 MCV 96.9 MCH 30.1 MCHC 31.0 RDW 17.2 H Plt Count 332 MPV 9.6 Immature Gran % (Auto) 0.9 H Neut % (Auto) 82.0 H Lymph % (Auto) 7.4 L [place] % (Auto) 8.3 Eos % (Auto) 1.1 Baso % (Auto) 0.3 Lymph # (Auto) 1.0 L [place] # (Auto) 1.2 Eos # (Auto) 0.2 Baso # (Auto) 0.0 Abs Immat Gran (auto) 0.12 H Absolute Neuts (auto) 11.5 H Absolute Nucleated RBC 0.000 Nucleated RBC % (auto) 0.0 Anion Gap Estim Creat Clear Calc Estimated GFR Random Glucose Calcium Magnesium Total Bilirubin AST ALT Alkaline Phosphatase Troponin I High Sens Total Protein Albumin Vitamin B12 Urine Color Yellow Urine Appearance Clear Urine pH 6.0 Ur Specific [place] 1.010 Urine Protein Negative Urine Glucose (UA) Negative Urine Ketones Negative Urine Blood Negative Urine Nitrite Positive H Ur Leukocyte Esterase Small (1+) H Urine RBC 0-2 Urine WBC 11-20 H Ur Squamous Epith Cells 0-2 Urine Bacteria 4+ Hyaline Casts 0-2 COVID-19 (MYLES) Negative COVID-19 Clin Com See Note Crossmatch 09/03/22 09/03/22 09/03/22 10:33 10:33 12:31 MCV MCH MCHC RDW Plt Count MPV Immature Gran % (Auto) Neut % (Auto) Lymph % (Auto) [place] % (Auto) Eos % (Auto) Baso % (Auto) Lymph # (Auto) [place] # (Auto) Eos # (Auto) Baso # (Auto) Abs Immat Gran (auto) Absolute Neuts (auto) Absolute Nucleated RBC Nucleated RBC % (auto) Anion Gap 12 Estim Creat Clear Calc 68.7 Estimated GFR > 60 Random Glucose 112 Calcium 9.4 Magnesium 1.6 Total Bilirubin 0.3 AST 16 ALT 16 Alkaline Phosphatase 98 Troponin I High Sens < 2.7 Total Protein 5.8 L Albumin 3.8 Vitamin B12 304 Urine Color Urine Appearance Urine pH Ur Specific [place] Urine Protein Urine Glucose (UA) Urine Ketones Urine Blood Urine Nitrite Ur Leukocyte Esterase Urine RBC Urine WBC Ur Squamous Epith Cells Urine Bacteria Hyaline Casts COVID-19 (MYLES) COVID-19 Clin Com Crossmatch 09/03/22 12:31 MCV MCH MCHC RDW Plt Count MPV Immature Gran % (Auto) Neut % (Auto) Lymph % (Auto) [place] % (Auto) Eos % (Auto) Baso % (Auto) Lymph # (Auto) [place] # (Auto) Eos # (Auto) Baso # (Auto) Abs Immat Gran (auto) Absolute Neuts (auto) Absolute Nucleated RBC Nucleated RBC % (auto) Anion Gap Estim Creat Clear Calc Estimated GFR Random Glucose Calcium Magnesium Total Bilirubin AST ALT Alkaline Phosphatase Troponin I High Sens Total Protein Albumin Vitamin B12 Urine Color Urine Appearance Urine pH Ur Specific [place] Urine Protein Urine Glucose (UA) Urine Ketones Urine Blood Urine Nitrite Ur Leukocyte Esterase Urine RBC Urine WBC Ur Squamous Epith Cells Urine Bacteria Hyaline Casts COVID-19 (MYLES) COVID-19 Clin Com Crossmatch See Detail Imaging Radiologist's Impressions: Impressions Head CT 09/03/22 10:44 IMPRESSION: There are a few small chronic cortical infarcts involving the right cerebral hemisphere that remain grossly unchanged when compared to prior imaging from 01/02/2022. Scattered chronic small vessel ischemic changes are also visualized within the periventricular white matter. No evidence of acute territorial infarct or hemorrhage. Chest X-Ray 09/03/22 10:51 IMPRESSION: No acute intrathoracic disease. Emphysema. Assessment and Plan (1) Recurrent UTI: Status: Acute (2) Symptomatic anemia: Status: Acute Plan 71-year-old female with history of COPD, hypertension, osteoporosis, recurrent UTI, unspecified dementia, and history of stroke on Plavix to be admitted for UTI #Acute UTI -failed outpt antibiotics, hx recurrent UTI -IV ceftriaxone (initiated 09/03) -No sepsis -follow UC/BC #Acute symptomatic normocytic anemia -unspecified type -Iron studies, LDH, vitamin B12 normal. Folic acid level pending -denies any bleeding. Stool occult blood pending -transfused 1 unit in ED -will likely need outpatient hematology follow-up -monitor on telemetry # COPD -without acute exacerbation -continue home inhalers, albuterol p.r.n. # HTN-reasonably controlled -cotninue home meds #Unspecified dementia -mentation baseline DVT prophylaxis- SCPs for now until GI bleed ruled out Full code Patient requires inpatient stay at least 2 midnights for management of acute UTI having failed outpatient antibiotics requiring IV antibiotics Time Spent With Patient Time: Total time managing care of this patient today ____ minutes. Quality Stroke Does the patient have a stroke diagnosis?: No VTE Prior VTE?: No VTE Risk Level:: Medical - moderate - high VTE Device Contraindication: N/A - Device Ordered VTE Drug Contraindication: Treatment Not Indicated
[2022-09-03 13:55] LABS: Iron 66 mcg/dL (30-160); Lactate Dehydrogenase 197 U/L (122-220); Percent Iron Saturation 23 % (15-50); Total Iron Binding Capacity 290 mcg/dL (228-428); Unsaturated Iron Binding 224 ug/dL
[2022-09-03 14:06] LABS: Ferritin 50 ng/mL (10-250)
--- NOTE | 2022-09-03 15:01 | PC.NURSE ---
report given to Jacquelyn strong
[2022-09-03 15:37] LABS: Folate 6.8 ng/mL (> or = 4.0)
[2022-09-03] MEDS: Atorvastatin Calcium 40 MG TABLET PO (20:15)
[2022-09-03] MEDS: Cholecalciferol (Vitamin D3) 25 MCG TABLET 50 MCG PO (20:15)
[2022-09-03] MEDS: Ferrous Sulfate 324 MG TABLET.DR PO (20:15)
--- NOTE | 2022-09-04 02:12 | PC.NURSE ---
Pt seen on bed alert and oriented with on going RBC transfusion, no complaints presented, VS WNL, transfusion completed at 1934, no post BT reaction noted ,vitals remained WNL, needs met, use of callbell encouraged.
[2022-09-04 04:00] VITALS: BP 126/70; PULSE 62; RESP 16; TEMP 36; O2SAT 97
[2022-09-04 06:28] LABS: MANUAL DIFF FLAG NO
[2022-09-04 06:35] LABS: Basophils Percent Auto 0.3 % (0-2); Eosinophils Absolute Auto 0.3 X10*3/uL (0.0-0.4); Eosinophils Percent Auto 2.2 % (0-4); Hematocrit 29.9 % (37.0-47.0); Hemoglobin 9.4 g/dl (12.0-16.0); Imm Gran Abs Auto 0.13 X10*3/uL (0.00-0.03); Imm Gran Pct Auto 1.1 % (0.0-0.4); Lymphocytes Absolute Auto 1.2 X10*3/uL (1.2-4.9); Lymphocytes Percent Auto 10.4 % (20-40); Mean Corpuscular HGB Conc 31.4 g/dl (31.0-35.0); Mean Corpuscular Hemoglobin 29.8 pg (27.0-33.0); Mean Corpuscular Volume 94.9 fL (80.0-98.0); Mean Platelet Volume 9.8 fL (9.4-12.3); Monocytes Absolute Auto 0.8 X10*3/uL (0.1-1.2); Monocytes Percent Auto 7.2 % (2-11); NRBC Pct Auto 0.3 /100WBC (0.0-0.2); Neutrophils Percent Auto 78.8 % (45-73); Platelet Count 318 X10*3/uL (160-400); Red Blood Count 3.15 X10*6/uL (4.20-5.50); Red Cell Distribution Width 17.3 % (11.0-16.0); White Blood Count 11.5 X10*3/uL (4.8-10.8)
[2022-09-04 06:55] LABS: Anion Gap 11 (12-20); Blood Urea Nitrogen 12 mg/dL (9-16); Calcium 9.1 mg/dL (8.4-10.2); Carbon Dioxide 28 mmol/L (22-29); Chloride 109 mmol/L (96-108); Creatinine Clr Calc Pharmacy 79.5; Estimated Glomerular Filt Rate > 60; Glucose Random 86 mg/dL (60-115); Potassium 4.7 mmol/L (3.3-5.1); Sodium 143 mmol/L (135-145)
[2022-09-04 07:39] VITALS: BP 140/84; PULSE 82; RESP 16; TEMP 37; O2SAT 94
[2022-09-04] MEDS: lisinopriL 40 MG TABLET PO (08:10)
[2022-09-04] MEDS: 0.9 % Sodium Chloride Flush 3 ML SYRINGE IVFLUSH (08:10)
[2022-09-04] MEDS: Ferrous Sulfate 324 MG TABLET.DR PO (08:10)
[2022-09-04] MEDS: Atorvastatin Calcium 40 MG TABLET PO (08:10)
[2022-09-04] MEDS: Cholecalciferol (Vitamin D3) 25 MCG TABLET 50 MCG PO (08:10)
[2022-09-04] MEDS: amLODIPine Besylate 10 MG TABLET PO (08:10)
--- NOTE | 2022-09-04 08:52 | P.DS_ITS ---
DS: Providers Provider Date of Service: 09/04/22 Date of admission: 09/03/22 14:34 Primary care physician: Unknown Physician DS: Diagnosis Discharge Diagnosis (1) Recurrent UTI: Status: Acute (2) Symptomatic anemia: Status: Acute DS: Summary Hospital Course Hospital Course: from initial hpi: 71-year-old female with history of COPD, hypertension, osteoporosis, recurrent UTI, unspecified dementia, and history of stroke on Plavix presents to the ED earlier today with her daughter for evaluation of fatigue and weakness.? According to the daughter, the patient has had recurrent UTI ongoing for about 4 months and has been following with Dr. Santiago, her only symptoms being fatigue and weakness. Last months had positive urine culture growing Klebsiella and was treated with bactrim which she completed. She has been treated with four courses of antibitoics in last 4 months for UTI.? No fevers, chills, nausea, vomiting, abdominal pain, flank pain, dysuria, hematuria, increased urinary frequency, or urgency.? On arrival, vitals within normal limits.? Leukocytosis of 14.1.? H/H 7.7/24.8% (05/05/22 from [facility] H/H 11.8/37.5%).? MCV normal.? Iron studies within normal limits, LDH normal, vitamin B12 level normal.? Patient denies any melena, hematochezia, easy bruising, epistaxis, vaginal bleeding, hematuria.? Renal function normal, electrolyte levels normal.? UA with 1+ leukocytes, nitrate positive, negative blood, positive urinary sediment, 4+ bacteria.? In the ED, treated with IV ceftriaxone hospital course: Patient was admitted for weakness due to acute urinary tract infection and symptomatic normocytic anemia. For her UTI she should with IV ceftriaxone, cultures are pending, she is feeling much better will be transitioned to p.o. Ceftin and antibiotics should be adjusted accordingly based on urine culture results. For her anemia iron studies, LDH, B12, folic acid were within normal limits. She was transfused 1 unit and hemoglobin improved appropriately. She will be referred to Hematology as outpatient. For COPD she remained stable on home inhalers. For hypertension she was continued on amlodipine. For history of CVA she will continue on Plavix, statin. For osteoporosis she will continue on alendronate. Patient is feeling much better will be discharged home. Time Spent with Patient Time attestation: Total time managing care of this patient today ____ minutes. Discharge coordination time: Greater than 30 minutes Quality: Safe Use of Opioids Does Pt have an Active Cancer Diagnosis on the Problem List?: No Quality: Stroke Does the patient have a stroke diagnosis?: No Physical Exam Vital Signs: Vital Signs: Last Vital Signs Temp 98.6 F 09/04/22 07:39 Pulse 82 09/04/22 07:39 Resp 16 09/04/22 07:39 BP 140/84 H 09/04/22 07:39 Pulse Ox 94 09/04/22 07:39 O2 Del Method Room Air 09/04/22 07:39 BMI result Body Mass Index 26.7 General: AO X 3, no acute distress Resp: CTA bilateral, no accessory muscles used CVS: S1,S2,RRR GI: soft, non tender, non distended Neuro: motor grossly intact, alert Psych: appropriate affect, appropriate insight DS: Data Data Completed and Pending Labs on day of discharge: Laboratory Results - last 24 hr 09/03/22 09/03/22 09/03/22 10:28 10:28 10:33 WBC 14.1 H RBC 2.56 L D Hgb 7.7 L D Hct 24.8 L D MCV 96.9 MCH 30.1 MCHC 31.0 RDW 17.2 H Plt Count 332 MPV 9.6 Immature Gran % (Auto) 0.9 H Neut % (Auto) 82.0 H Lymph % (Auto) 7.4 L [place] % (Auto) 8.3 Eos % (Auto) 1.1 Baso % (Auto) 0.3 Lymph # (Auto) 1.0 L [place] # (Auto) 1.2 Eos # (Auto) 0.2 Baso # (Auto) 0.0 Abs Immat Gran (auto) 0.12 H Absolute Neuts (auto) 11.5 H Absolute Nucleated RBC 0.000 Nucleated RBC % (auto) 0.0 Sodium Potassium Chloride Carbon Dioxide Anion Gap BUN Creatinine Estim Creat Clear Calc Estimated GFR Random Glucose Calcium Magnesium Iron TIBC % Saturation Unsat Iron Binding Ferritin Total Bilirubin AST ALT Alkaline Phosphatase Lactate Dehydrogenase Troponin I High Sens Total Protein Albumin Vitamin B12 Folate Urine Color Yellow Urine Appearance Clear Urine pH 6.0 Ur Specific [place] 1.010 Urine Protein Negative Urine Glucose (UA) Negative Urine Ketones Negative Urine Blood Negative Urine Nitrite Positive H Ur Leukocyte Esterase Small (1+) H Urine RBC 0-2 Urine WBC 11-20 H Ur Squamous Epith Cells 0-2 Urine Bacteria 4+ Hyaline Casts 0-2 COVID-19 (MYLES) Negative COVID-19 Clin Com See Note Blood Type Antibody Screen Crossmatch 09/03/22 09/03/22 09/03/22 10:33 10:33 12:31 WBC RBC Hgb Hct MCV MCH MCHC RDW Plt Count MPV Immature Gran % (Auto) Neut % (Auto) Lymph % (Auto) [place] % (Auto) Eos % (Auto) Baso % (Auto) Lymph # (Auto) [place] # (Auto) Eos # (Auto) Baso # (Auto) Abs Immat Gran (auto) Absolute Neuts (auto) Absolute Nucleated RBC Nucleated RBC % (auto) Sodium 141 Potassium 4.5 D Chloride 106 Carbon Dioxide 28 Anion Gap 12 BUN 13 Creatinine 0.62 Estim Creat Clear Calc 68.7 Estimated GFR > 60 Random Glucose 112 Calcium 9.4 Magnesium 1.6 Iron 66 TIBC 290 % Saturation 23 Unsat Iron Binding 224 Ferritin 50 Total Bilirubin 0.3 AST 16 ALT 16 Alkaline Phosphatase 98 Lactate Dehydrogenase 197 Troponin I High Sens < 2.7 Total Protein 5.8 L Albumin 3.8 Vitamin B12 304 Folate 6.8 Urine Color Urine Appearance Urine pH Ur Specific [place] Urine Protein Urine Glucose (UA) Urine Ketones Urine Blood Urine Nitrite Ur Leukocyte Esterase Urine RBC Urine WBC Ur Squamous Epith Cells Urine Bacteria Hyaline Casts COVID-19 (MYLES) COVID-19 Clin Com Blood Type Antibody Screen Crossmatch 09/03/22 09/04/22 09/04/22 13:47 05:19 05:19 WBC 11.5 H RBC 3.15 L D Hgb 9.4 L D Hct 29.9 L D MCV 94.9 MCH 29.8 MCHC 31.4 RDW 17.3 H Plt Count 318 MPV 9.8 Immature Gran % (Auto) 1.1 H Neut % (Auto) 78.8 H Lymph % (Auto) 10.4 L [place] % (Auto) 7.2 Eos % (Auto) 2.2 Baso % (Auto) 0.3 Lymph # (Auto) 1.2 [place] # (Auto) 0.8 Eos # (Auto) 0.3 Baso # (Auto) 0.0 Abs Immat Gran (auto) 0.13 H Absolute Neuts (auto) 9.0 H Absolute Nucleated RBC 0.030 H Nucleated RBC % (auto) 0.3 H Sodium 143 Potassium 4.7 Chloride 109 H Carbon Dioxide 28 Anion Gap 11 L BUN 12 Creatinine 0.54 Estim Creat Clear Calc 79.5 Estimated GFR > 60 Random Glucose 86 Calcium 9.1 Magnesium Iron TIBC % Saturation Unsat Iron Binding Ferritin Total Bilirubin AST ALT Alkaline Phosphatase Lactate Dehydrogenase Troponin I High Sens Total Protein Albumin Vitamin B12 Folate Urine Color Urine Appearance Urine pH Ur Specific [place] Urine Protein Urine Glucose (UA) Urine Ketones Urine Blood Urine Nitrite Ur Leukocyte Esterase Urine RBC Urine WBC Ur Squamous Epith Cells Urine Bacteria Hyaline Casts COVID-19 (MYLES) COVID-19 Clin Com Blood Type O Positive Antibody Screen NEGATIVE Crossmatch See Detail Discharge Plan Discharge Anticipated Discharge Date/Time: 09/04/22 08:49 Patient Disposition: Home Health Service Discharge Diagnosis: anemia, uti Referrals: Roseanna Gonzales MD [Physician] - 1 Week (anemia) Physician,Danielle J [Primary Care Provider] - 1 Week Discharge Medications: New cefuroxime axetil 250 mg tablet 250 mg PO Q12H Qty: 10 0RF Continued alendronate 70 mg tablet 70 mg PO SA@0900 albuterol sulfate 90 mcg/actuation HFA aerosol inhaler 2 inh inhalation Q4H PRN (Reason: Wheezing) Incruse Ellipta 62.5 mcg/actuation blister with device 1 puff PO DAILY fluticasone furoate-vilanterol [Breo Ellipta] 200-25 mcg/dose blister with device 1 puff PO BEDTIME clopidogrel 75 mg tablet 1 tab PO Q OTHER DAY amlodipine 10 mg tablet 1 tab PO DAILY aspirin 81 mg tablet,delayed release (DR/EC) 1 tab PO DAILY atorvastatin 40 mg tablet 40 mg PO BID lisinopril 40 mg tablet 40 mg PO DAILY ferrous sulfate [FeroSul] 325 mg (65 mg iron) tablet 325 mg PO BID cholecalciferol (vitamin D3) 50 mcg (2,000 unit) capsule 50 mcg PO BID ipratropium-albuterol 0.5 mg-3 mg(2.5 mg base)/3 mL solution for nebulization 3 ml inhalation Q4-6H PRN (Reason: wheezing) 30 Days Qty: 270 6RF Discharge Orders: Discharge Order (Routine); Ordered 09/04/22 Ordered By: Aroldo Casarez Diet: Advance to usual diet Activity on Discharge: As tolerated Stand Alone Forms: Patient Portal Discharge page Care Plan Goals: recovery Health Concerns: anemia, uti Plan of Treatment: ceftin, hematology follow up Assessment: see above
--- NOTE | 2022-09-04 09:28 | W.MHC.F2F ---
Service Date Service Date: 09/04/22 Encounter Date of encounter: 09/04/22 Reasons for Services Signs and symptoms assessed: weakness Reason for [facility]: medication management, medication treatment and teach disease management Homebound: Leaving the home is medically contraindicated at this time without the asist of a device and/or another person due th the listed conditions above and below. Reason homebound: unsteady gait / fall risk Certification: Based on the above findings, I certify that this patient is confined to the home and needs intermittent [facility] care, physical therapy and/or speech therapy, or continues to need occupational therapy. The patient is under my care, and I have initiated the establishment of the plan of care. The patient will be followed by a physician who will periodically review the plan of care. Time Spent With Patient Time: Total time managing care of this patient today ____ minutes.
--- NOTE | 2022-09-04 10:32 | MHC.CM.PN ---
Addendum entered by Justina Govea 09/04/22 11:01: [facility] HAS ACCEPTED REFERRAL AND [facility] AT [facility] HAS PROVIDED INSURANCE AUTH Original Note: PT REPORTS SHE LIVES ALONE AND HAS MOW AND A JEWELRY MAKER THAT ASSISTS WITH CLEANING. COOKING, SHOPPING, AND RIDES SHE SAYS SHE HAS A TUB BENCH, GRAB BARS, TOILET RISER, CANE, WALKER, AND ROLLATOR HER HCP IS ON FILE SHE IS COVID VAX AND BOOSTED PCP: SWEETIE BRUCE IMM DELIVERED PT WILL DC HOME TODAY WITH RESUMPTION OF SERVICES AND [facility] REFERRALS OUT CM SPOKE WITH PTS DAUGHTER, RAMON [phone] WHO REPORTS HER , WHO IS ALSO THE PTS JEWELRY MAKER, WILL BE IN TO TRANSPORT PT
== END 2022-09-04 11:25 | disposition home health service (06) | DRG 690 ==
LOC: HO.ED 10:08 → HO.EDOVER 13:47 → HO.S3 14:03
PROVIDERS: Physician Assistant Medical; Admitting Provider Physician Assistant; Emergency Provider Emergency Medicine Emergency Medical Services; PCP Pediatrics; Visit Provider Internal Medicine
DX: N39.0 Urinary tract infection, site not specified (principal); G30.9 Alzheimer's disease, unspecified; F02.80 Dementia in other diseases classified elsewhere, unspecified severity, without behavioral disturbance, psychotic disturbance, mood disturbance, and anxiety; F01.50 Vascular dementia, unspecified severity, without behavioral disturbance, psychotic disturbance, mood disturbance, and anxiety; Z87.891 Personal history of nicotine dependence; M81.0 Age-related osteoporosis without current pathological fracture; Z86.73 Personal history of transient ischemic attack (TIA), and cerebral infarction without residual deficits; J44.9 Chronic obstructive pulmonary disease, unspecified; D64.9 Anemia, unspecified; Z20.822 Contact with and (suspected) exposure to COVID-19; Z87.440 Personal history of urinary (tract) infections; Z79.02 Long term (current) use of antithrombotics/antiplatelets; Z79.82 Long term (current) use of aspirin; Z79.899 Other long term (current) drug therapy
CPT/HCPCS: 36415; 70450; 71046; 80048; 80053; 81001; 82607; 82728; 82746; 83540; 83615; 83735; 84484; 85025; 86850; 86900; 86901; 86923; 87086; 87088; 87186; 87635; 93005; 99285; J0696; P9016

== ENCOUNTER → 2022-09-24 09:45 | Outpatient (BNV) | payer OTHER, SELFPAY | PROVIDERS: PCP Pediatrics; Visit Provider Internal Medicine | DX: C34.11 Malignant neoplasm of upper lobe, right bronchus or lung (principal); C79.51 Secondary malignant neoplasm of bone | CPT/HCPCS: 99204; 99212; 99213; 99214; 99215 ==

== ENCOUNTER 2022-10-01 07:45 | Outpatient (REF) | payer OTHER, SELFPAY ==
--- NOTE | ~2022-10-01 | CT_ITS ---
EXAMINATION: CT ABDOMEN AND PELVIS WITHOUT AND WITH CONTRAST CLINICAL INFORMATION: Hematuria COMPARISON: Previous CT of the kidneys March 2021 TECHNIQUE: Multidetector volumetric imaging was performed of the abdomen and pelvis before and after the IV administration of 85 mL of Omnipaque 350 intravenous contrast. Sagittal and coronal reformatted images were obtained on the technologist's workstation. This CT examination was performed using dose optimization techniques as appropriate, variously including the following: *Automated exposure control *Adjustment of mA and/or kV according to patient size (this includes techniques or standardized protocols for targeted exams where dose is matched to indication/reason for exam; i.e. extremities or head) *Use of iterative reconstruction technique DLP: 470 mGy-cm FINDINGS: LUNG BASES: 4 mm peripheral left lower lobe nodule axial image 5 series 8 is stable. LIVER, GALLBLADDER, AND BILIARY TREE: The liver is normal in size, shape, and attenuation. Small stable calcification in the right lobe. Small peripheral 5 x 10 mm low-attenuation lesion in the peripheral posterior segment of the right lobe axial image 25 series 8 probably representing a cyst. Normal gallbladder. No biliary duct dilatation. PANCREAS: Unremarkable SPLEEN: Stable small calcifications and subcentimeter low-attenuation lesion probably representing a cyst. ADRENAL GLANDS: Unremarkable KIDNEYS AND URETERS: Small 3 mm stone in the upper pole of the left kidney. 1.5 x 2 cm cyst in the upper pole of the right kidney. The kidneys are otherwise normal. No hydronephrosis. The collecting systems are normal. Both ureters are slightly dilated down to the bladder. No focal stricture is seen. There is diffusely wall irregularity of both ureters question of small filling defects seen in both ureters, for example coronal reconstructed image 60 and both ureters and coronal reconstructed image 50 in the left distal ureter. Process such as malacoplakia should be considered. Correlation with retrograde exam and urinalysis recommended. BLADDER: Unremarkable GASTROINTESTINAL TRACT: Diverticulosis of the colon. No evidence of diverticulitis. Duodenal diverticulum adjacent to the head of the pancreas. The small and large bowel are otherwise unremarkable. The appendix is unremarkable. ABDOMINAL WALL: No significant hernia is appreciated. LYMPH NODES: Normal VASCULAR: Severe atherosclerotic disease. No aneurysm. PELVIC VISCERA: Unremarkable OSSEOUS STRUCTURES: Degenerative changes of the spine and hip joints. Mild old-appearing L3 vertebral body compression fracture. CT/CT abdomen pelvis wo/w IV con IMPRESSION: Mild bilateral ureteral dilatation. Diffuse irregularity of the kumar of both ureters and question small filling defects. Diffuse process such as malacoplakia should be considered. No focal mass or stricture is seen. Correlation with retrograde exam recommended. Small left renal stone. Mild diverticulosis of the colon. Other stable left lower lobe, liver and spleen findings. Fleischner guidelines were followed.
[2022-10-01] MEDS: iohexoL 350 MG/ML 100 ML INFUS..BTL 85 ML IV (08:19)
== END 2022-10-01 07:46 | disposition home or self-care (01) ==
LOC: HO.CT 07:45
PROVIDERS: PCP Pediatrics; Visit Provider Urology
DX: R31.9 Hematuria, unspecified (principal)
CPT/HCPCS: 74178; Q9967

== ENCOUNTER 2022-10-06 11:09 | Outpatient (REF) | payer OTHER, SELFPAY | END 2022-10-06 11:10 | disposition home or self-care (01) | LOC: HO.LAB 11:09 | PROVIDERS: PCP Pediatrics; Visit Provider Urology | DX: N39.0 Urinary tract infection, site not specified (principal); N32.89 Other specified disorders of bladder; N20.0 Calculus of kidney; R19.7 Diarrhea, unspecified; Z79.899 Other long term (current) drug therapy | CPT/HCPCS: 52000; 88121; 99212 ==

== ENCOUNTER → 2022-11-12 13:47 | Outpatient (BNVA) | payer OTHER, SELFPAY | PROVIDERS: PCP Pediatrics; Visit Provider Nurse Practitioner Family ==

== ENCOUNTER 2022-11-17 07:20 | Day surgery (SDC) | payer OTHER, SELFPAY ==
--- NOTE | 2022-11-14 14:03 | HO.ANESPROP2 ---
Documented by User: Jennifer Patton NP 11/14/22 14:04 HPI - Anesthesia Eval Consult details Narrative: 72yo F for Upper Endoscopy and Colonoscopy [facility] Active Problems Active Problems: All Active Problems (Updated 11/12/22 @ 19:16 by Marilyn Hayes [facility]) Anemia (Acute) Bladder wall thickening (Acute) Complicated UTI (urinary tract infection) (Acute) Normocytic anemia (Chronic) Symptomatic anemia (Acute) Recurrent UTI (Acute) COPD (chronic obstructive pulmonary disease) (Acute) Dyspnea on exertion (Acute) Pulmonary nodules (Acute) Past Medical History Medical History (Updated 11/12/22 @ 19:16 by Marilyn Hayes [facility]) Anemia COPD (chronic obstructive pulmonary disease) HTN (hypertension) Lacunar infarction Multifactorial dementia Osteoporosis Family History Family History Other No family history of coronary artery disease Surgical History Surgical History No pertinent past surgical history Social History Social History Household Members: None Housing: Apartment Do you presently have visiting nurse or other home services: No Alcohol intake: unknown Patient Tobacco Use Status: Former Tobacco user e-Cigarette/Vaping Use: Former Use Second Hand Smoke Exposure: No Advance Directives: No Advance Directives Information Provided: Yes Advance Directives Date on File: 04/09/21 service: No Current occupational status: retired Meds Allergies Allergy/AdvReac Type Severity Reaction Status Date / Time milk [MILK] Allergy Intermediate DIARRHEA Verified 11/12/22 14:06 Home Medications Medication Instructions Recorded Confirmed Last Taken Type albuterol sulfate 90 mcg/actuation 2 inh inhalation Q4H PRN Wheezing 04/09/21 10/29/22 Unknown History aerosol inhaler alendronate 70 mg tablet 70 mg PO SA@0900 04/09/21 10/29/22 08/30/22 History fluticasone furoate 200 1 puff PO BEDTIME 04/09/21 10/29/22 04/09/21 History mcg-vilanterol 25 mcg/dose inhalation powder (Breo Ellipta) umeclidinium 62.5 mcg/actuation 1 puff PO DAILY 1210/29/22 09/03/22 History blister powder for inhalation (Incruse Ellipta) amlodipine 10 mg tablet 1 tab PO DAILY 01/03/22 10/29/22 09/03/22 History aspirin 81 mg tablet,delayed 1 tab PO DAILY 01/03/22 10/29/22 09/03/22 History release clopidogrel 75 mg tablet 1 tab PO Q OTHER DAY 01/03/22 10/29/22 09/03/22 History cholecalciferol (vitamin D3) 50 50 mcg PO BID 08/04/22 10/29/22 09/03/22 History mcg (2,000 unit) capsule ferrous sulfate 325 mg (65 mg 325 mg PO BID 08/04/22 10/29/22 09/03/22 History iron) tablet (FeroSul) lisinopril 40 mg tablet 40 mg PO DAILY 08/04/22 10/29/22 09/03/22 History atorvastatin 40 mg tablet 40 mg PO BID 09/03/22 10/29/22 09/03/22 History Exam Exam Date and Time: November 14, 2022 1403 Pertinent Lab Results Pertinent Lab Results: Laboratory Tests 09/04/22 10/29/22 05:19 08:30 WBC 10.1 Hgb 10.5 L Hct 34.1 L Plt Count 319 Sodium 143 Potassium 4.7 Chloride 109 H Carbon Dioxide 28 BUN 12 Creatinine 0.54 Narrative Narrative: EKG 08/2022 Vent. Rate : 072 BPM ? ? Atrial Rate : 072 BPM ?? P-R Int : 142 ms? QRS Dur : 122 ms ? ? QT Int : 402 ms ? ? ? P-R-T Axes : 070 010 097 degrees ?? QTc Int : 440 ms ? Normal sinus rhythm with sinus arrhythmia Left bundle branch block Abnormal ECG When compared with ECG of 02-JAN-2022 19:05, No significant change was found Assessment and Plan Assessment Anesthesia Assessment: Chart Reviewed Documented by User: Ben Haile MD 11/17/22 07:37 [facility] Past Medical History Medical History (Updated 11/12/22 @ 19:16 by Marilyn Hayes [facility]) Anemia COPD (chronic obstructive pulmonary disease) HTN (hypertension) Lacunar infarction Multifactorial dementia Osteoporosis Family History Family History Other No family history of coronary artery disease Family history of problems with anesthesia: No Surgical History Surgical History No pertinent past surgical history History of Problems with Anesthesia: No Social History Social History Household Members: None Housing: Apartment Do you presently have visiting nurse or other home services: No Alcohol intake: unknown Patient Tobacco Use Status: Former Tobacco user e-Cigarette/Vaping Use: Former Use Second Hand Smoke Exposure: No Advance Directives: No Advance Directives Information Provided: Yes Advance Directives Date on File: 04/09/21 service: No Current occupational status: retired Meds Allergies Allergy/AdvReac Type Severity Reaction Status Date / Time milk [MILK] Allergy Intermediate DIARRHEA Verified 11/12/22 14:06 Home Medications Medication Instructions Recorded Confirmed Last Taken Type albuterol sulfate 90 mcg/actuation 2 inh inhalation Q4H PRN Wheezing 04/09/21 10/29/22 Unknown History aerosol inhaler alendronate 70 mg tablet 70 mg PO SA@0900 04/09/21 10/29/22 08/30/22 History fluticasone furoate 200 1 puff PO BEDTIME 04/09/21 10/29/22 04/09/21 History mcg-vilanterol 25 mcg/dose inhalation powder (Breo Ellipta) umeclidinium 62.5 mcg/actuation 1 puff PO DAILY 04/09/21 10/29/22 09/03/22 History blister powder for inhalation (Incruse Ellipta) amlodipine 10 mg tablet 1 tab PO DAILY 01/03/22 10/29/22 09/03/22 History aspirin 81 mg tablet,delayed 1 tab PO DAILY 01/03/22 10/29/22 09/03/22 History release clopidogrel 75 mg tablet 1 tab PO Q OTHER DAY 01/03/22 10/29/22 09/03/22 History cholecalciferol (vitamin D3) 50 50 mcg PO BID 08/04/22 10/29/22 09/03/22 History mcg (2,000 unit) capsule ferrous sulfate 325 mg (65 mg 325 mg PO BID 08/04/22 10/29/22 09/03/22 History iron) tablet (FeroSul) lisinopril 40 mg tablet 40 mg PO DAILY 08/04/22 10/29/22 09/03/22 History atorvastatin 40 mg tablet 40 mg PO BID 09/03/22 10/29/22 09/03/22 History Exam Airway Mallampati Class: II TM Dist: >3cm Neck ROM: Limited Heart: rrr Lungs: diminished bs Assessment and Plan Assessment Anesthesia Assessment: Anesthesia Plan Discussed Final Anesthetic Review Family History of Problems with Anesthesia: No History of Problems with Anesthesia: No NPO: Yes ASA Class: IV Final Preanesthetic Review: No Changes in Pt Med Stat, Meds/Allgs Chart Reviewed, Consent Obtained/Reviewed and Anes Risks/Benef Reviewed Patient Risk: High Procedure Risk: Intermediate Anesthetic Plan Anesthetic Plan: MAC: and Agree w/ Assess. and Plan Disposition: Standard PACU
--- NOTE | 2022-11-17 08:28 | MHC.SHP ---
Pre-Procedural Eval Section A Date of Service: 11/17/22 The patient is an INPATIENT: No Changes since office visit: Yes Patient answered all questions; No Cold of Flu in the past 2 weeks, No New Medical Problems and No Changes in Medication The History & Physical has been completed within 30 days and I have reviewed it.: Yes Section B Chief Complaint: Anemia, unspecified, Encounter for screening Allergies: Allergies Allergy/AdvReac Type Severity Reaction Status Date / Time milk [MILK] Allergy Intermediate DIARRHEA Verified 11/12/22 14:06 Plan I have reviewed the history and physical and performed a pertinent physical examination on my patient. No changes have occurred unless specified. Time Spent With Patient Time: Total time managing care of this patient today ____ minutes.
[2022-11-17 08:46] VITALS: BMI 26.6
[2022-11-17 09:09] VITALS: BP 152/54; PULSE 71; RESP 16; TEMP 36.9; O2SAT 97
--- NOTE | 2022-11-17 09:23 | ECG_ITS ---
Test Reason : PREOP Blood Pressure : / mmHG Vent. Rate : 071 BPM Atrial Rate : 071 BPM P-R Int : 160 ms QRS Dur : 126 ms QT Int : 436 ms P-R-T Axes : 070 -15 092 degrees QTc Int : 473 ms Normal sinus rhythm Left bundle branch block Abnormal ECG When compared with ECG of 03-SEP-2022 10:56, No significant change was found Referred By: Caren Roe Electronically Signed By:CAREY CRAWLEY MD
--- NOTE | 2022-11-17 09:46 | PC.NURSE ---
MD BURRIS AWARE FO PATIENT NEEDING AN ENEMA. LEFT LATERAL POSITION [facility]IZABETH WELL. AWARE OG PLAN OF CARE.
--- NOTE | 2022-11-17 09:52 | PC.NURSE ---
CLEAR OUTPUT AFTER ENEMA
[2022-11-17] MEDS: Lactated Ringers 1,000 ML 100 ML IVCONT (10:01)
--- NOTE | 2022-11-17 10:05 | P.OP_ITS ---
Operative Note Operative Note Date of Service: 11/17/22 Narrative: FLEXIBLE TRANSORAL UPPER GASTROINTESTINAL ENDOSCOPY WITH BIOPSIES AND COLONOSCOPY TILL CECUM WITH SNARE POLYPECTOMY, SUBMUCOSAL INJECTION AND HEMOCLIP PLACEMENT Pre-op diagnosis: Screening, anemia Post-op diagnosis: esophagitis, gastritis, gastric ulcer, colon polyps, cecal AVM, diverticulosis,? Endoscopist:? Liat Kimball MD Anesthesia:?MAC UPPER ENDOSCOPY Consent: Indications for the procedure and potential complications of bleeding, perforation, reaction to medications and missed diagnosis were discussed with the patient and informed consent was obtained. Instrument: Olympus GIF H 190 mid size upper endoscope Monitoring: Vital signs and clinical assessment, continuous EKG monitoring, Pulse oximetry, Carbon Dioxide monitoring and blood pressure monitoring were done throughout the procedure. Procedure: The patient was placed in the left lateral decubitis position and pre-procedure medications were administered and a bite block was placed. The endoscope was inserted into the mouth and advanced under direct vision to the third part of duodenum. A careful inspection was made as the upper endoscope was withdrawn including a retroflexed examination of the proximal stomach; Findings and interventions are described below. Findings: Larynx: Normal Esophagus: GE junction at 36 cms. Focal esophagitis at GE junction with a single 1 cms erosion. No Gamble's. Stomach: A 6-7 mm superficial ulcer in the antrum - biopsied. Mild gastric erythema. Biopsies were obtained. Grade 2 flap valve on retroflexed examination of the cardia. Duodenum: Normal bulb and descending duodenum. biopsies were obtained from 3rd part of the duodenum to check for celiac sprue Intervention: Biopsies as noted above COLONOSCOPY PROCEDURE NOTE Consent: Indications for the procedure and potential complications of bleeding, perforation, reaction to medications and missed diagnosis were discussed with the patient and informed consent was obtained. Instrument: Olympus PCF H 190 L variable stiffness pediatric colonoscope Monitoring: Vital signs and clinical assessment, intermittent blood pressure monitoring, continuous EKG monitoring, Pulse oximetry and Carbon Dioxide monitoring were done throughout the procedure. Colon withdrawl time was 25 minutes. Procedure: The patient was placed in the left lateral decubitis position and pre-procedure medications were administered. After a digital rectal examination of the ano-rectum, the video colonoscope was inserted into the rectum and advanced through the colon to the cecum. The colonoscope was slowly withdrawn in a retrograde panoramic fashion and the colon mucosa was carefully examined including a retroflexed view of the rectum. Findings and interventions are described below. Procedure Difficulty: : Without difficulty Findings: Terminal Ileum: Not evaluated Cecum: A 2.5 x 3 cms flat polyp - raised with 6 cc of [place] and removed piecemeal with a hot snare. Margin of the polypectomy site was treated with APC and closed with 1 hemoclip A 7-8 mm non-bleeding AVM - ablated with APC. Ascending Colon: Normal Transverse Colon: Normal Descending Colon: Normal Sigmoid Colon: Moderate diverticulosis Rectum: A 10-12 mm sessile polyp - removed with a hot snare. Ano-rectum: Normal Colon preparation: Good after some irrigation Impression and Post Procedure Diagnosis: Endoscopy Findings: ESOPHAGUS: Focal esophagitis at GE junction with a single 1 cms erosion. No Gamble's. STOMACH: A 6-7 mm superficial ulcer in the antrum - biopsied. Mild gastric erythema. Biopsies were obtained. DUODENUM: Normal - biopsies obtained to check for celiac sprue. Colonoscopy Findings: One large and one medium sized polyps removed Moderate diverticulosis seen in the sigmoid colon Plan: Await pathology results Patient has an appointment on 12/10/22 in the [facility] with Marilyn Hayes FNP- [facility] . Repeat Colonoscopy interval based on path results - in 1 year to check polypectomy site if cecal polyp is adenomatous and 10 years if polyps are hyperplastic. Above findings were reviewed with the patient and colon polyps and PUD handouts were given in the discharge area Patient advised to start Famotidine 20 mg twice daily for esophagitis and small gastric ulcer.
[2022-11-17 11:05] VITALS: BP 93/43; PULSE 96; RESP 16; TEMP 36.8; O2SAT 100
[2022-11-17 11:12] VITALS: BP 92/39; PULSE 94; RESP 21; O2SAT 97
[2022-11-17 11:23] VITALS: BP 112/55; PULSE 85; RESP 21; TEMP 36.8; O2SAT 97
== END 2022-11-17 12:13 | disposition home or self-care (01) ==
PROVIDERS: PCP Pediatrics; Visit Provider Internal Medicine Gastroenterology
PROC: (CPT 45380; principal; 2022-11-17 09:20)
DX: Z12.11 Encounter for screening for malignant neoplasm of colon (principal); D12.0 Benign neoplasm of cecum; K62.1 Rectal polyp; K20.90 Esophagitis, unspecified without bleeding; K29.70 Gastritis, unspecified, without bleeding; K25.9 Gastric ulcer, unspecified as acute or chronic, without hemorrhage or perforation; Q27.33 Arteriovenous malformation of digestive system vessel; K57.30 Diverticulosis of large intestine without perforation or abscess without bleeding; D64.9 Anemia, unspecified; I10 Essential (primary) hypertension; J44.9 Chronic obstructive pulmonary disease, unspecified; F01.50 Vascular dementia, unspecified severity, without behavioral disturbance, psychotic disturbance, mood disturbance, and anxiety; Z87.891 Personal history of nicotine dependence; Z87.440 Personal history of urinary (tract) infections; Z79.82 Long term (current) use of aspirin; Z79.899 Other long term (current) drug therapy
CPT/HCPCS: 45380; 45385; 43239; 88305; 88342; 93005; J2370; J2371

== ENCOUNTER → 2022-11-17 07:20 | Outpatient (BNV) | payer OTHER, SELFPAY | PROVIDERS: PCP Pediatrics; Visit Provider Internal Medicine Gastroenterology | DX: Z12.11 Encounter for screening for malignant neoplasm of colon (principal); K29.90 Gastroduodenitis, unspecified, without bleeding; K29.70 Gastritis, unspecified, without bleeding; Q27.33 Arteriovenous malformation of digestive system vessel; K25.9 Gastric ulcer, unspecified as acute or chronic, without hemorrhage or perforation; K57.30 Diverticulosis of large intestine without perforation or abscess without bleeding; D12.0 Benign neoplasm of cecum; D12.8 Benign neoplasm of rectum | CPT/HCPCS: 43239; 45381; 45385; 45388 ==

== ENCOUNTER → 2022-11-17 09:23 | Outpatient (BNV) | payer OTHER, SELFPAY | PROVIDERS: PCP Pediatrics; Visit Provider Internal Medicine Cardiovascular Disease | DX: Z01.810 Encounter for preprocedural cardiovascular examination (principal) | CPT/HCPCS: 93010 ==

== ENCOUNTER 2022-12-04 10:51 | Outpatient (REF) | payer OTHER, SELFPAY | END 2022-12-04 10:52 | disposition home or self-care (01) | LOC: HO.LAB 10:51 | PROVIDERS: PCP Pediatrics; Visit Provider Urology | DX: N39.0 Urinary tract infection, site not specified (principal); N20.0 Calculus of kidney; N32.89 Other specified disorders of bladder; N18.30 Chronic kidney disease, stage 3 unspecified; Z87.448 Personal history of other diseases of urinary system | CPT/HCPCS: 87086; 99212 ==

== ENCOUNTER 2022-12-04 10:51 | Outpatient (AMB) | payer OTHER, SELFPAY ==
--- NOTE | 2022-12-04 07:27 | A.OFFVIS_ITS ---
Intake Intake Visit Reasons: 8w follow up Intake Note: Patient presents today for a 8 week follow-up Recurrent UTI's: Meds- None Allergies to Antibiotic- No Known Allergies Blood Thinner- Aspirin Manager Nursing Home Required: No Accompanied by: Self / Same As Patient Allergies milk [MILK] Allergy (Intermediate, Verified 12/04/22 11:00) DIARRHEA HPI HPI Comments History of Present Illness Details Clarissa is a 71-year old female who presents to the office for recurrent UTI's. 12/04/2022-- Clarissa is a 72-year-old female who presents today to the office for a follow up on recurrent urinary tract infections. She is here with her son. She was last seen on 10/06/2022 and had office cysto performed which noted Significant bladder wall thickening, Diverticuli and Cellule changes. No bladder lesions visualized.?Patient has had recurrent ur inary tract infections. Her last culture was done on 09/03/2022 which showed positive corynebacterium and Klebsiella. She denies constipation. Her son states she has had some cognifive changes and he is concerned she may have another UTI. Review of chart:? OV--08/04/2022--Clarissa is a 71-year old female who presents to the office as a new patient evaluation for recurrent UTIs. Patient is here with her son in [facility].? States having recurrent UTI within a week of the previous one. The patient was admitted for UTI in March 2021 and developed a stroke. Since that time she has had frequent episodes of UTI symptoms.? Denies constipation and denies urine leakage. Occasional diarrhoea she states is due to dietary habits. (lactose intolerant) Evaluation: Bladder scan 66 mL. ? UA leuks 2+, blood trace Renal CT scan results reviewed--04/05/21--? 2 mm left kidney stone and a nonenhancing 1.5 cm cyst. Urine culture results reviewed?01/02/2022--? > 100,000 cfu/ml mixed bacterial sam. Plan: Complicated UTI. Abd/pelvis CAT scan was ordered. Urine for culture and cytology was ordered. Sched Cysto OV-10/06/22-- The patient denies urinary leakage and does not uses a pad. CAT scan results reviewed-- 10/01/22--notes some mild bilateral ureteral dilation with diffuse irregularity of the kumar of both ureters. Differential dig include malacoplakia and there is left renal stone a 3 mm in the upper pole and a 1.5 x 2 cm cyst in the upper pole of the right kidney. Urine culture results reviewed-- collected 09/03/22-- Positive for Klebsiella ozaenae and Corynebacterium species. Evaluation today-- Blood: negative, leukocytes: negative. Cystoscopy findings-- 10/06/22-Significant bladder wall thickening, Diverticuli and Cellule changes. No bladder lesions visualized.? Plan: Repeat urine culture was ordered. urine Bladder cancer FISH test. Empirically Bactrim DS for 10 days was ordered. Discussed to consume OTC probiotics while on Abx. Follow-up after 8 weeks. 12/04/22- Evaluation- UA - leuk 2+ Plan: 10/01/22 CT B/L hydro with diffuse irregularity of both ureters left renal stone FU repeat CAT scan was ordered. Urine culture was ordered. We will start on antibiotic, ceftin bid. [facility] Medical History Anemia BBB (bundle branch block) COPD (chronic obstructive pulmonary disease) DVT (deep venous thrombosis) HTN (hypertension) Lacunar infarction Multifactorial dementia Osteoporosis Surgical History History of esophagogastroduodenoscopy (EGD) Hx of colonoscopy No pertinent past surgical history Family History Other No family history of coronary artery disease Social History Household Members: None Housing: Apartment Do you presently have visiting nurse or other home services: No Alcohol intake: unknown Patient Tobacco Use Status: Former Tobacco user e-Cigarette/Vaping Use: Former Use Second Hand Smoke Exposure: No Advance Directives Date on File: 04/09/21 service: No Current occupational status: retired Review of Systems Const All systems reviewed & are unremarkable except as noted in HPI and below Reports no additional complaints Eyes Reports no additional complaints ENT Reports no additional complaints Card Denies dyspnea Resp Denies cough and Denies dyspnea GI Reports no additional complaints Reports no additional complaints Musc Reports no additional complaints Skin/Breast Denies rash and Denies unusual bruising Neuro Reports no additional complaints Psych Reports no additional complaints Endo Reports no additional complaints Negro/Lymph Reports no additional complaints Aller/Immun Reports no additional complaints Physical Exam Const General: cooperative, healthy appearing and no acute distress Orientation/consciousness: patient oriented x3 HEENT Head: Yes normal to inspection, Yes normocephalic and Yes atraumatic Eyes Conjunctivae: conjunctivae normal Neck Neck: Yes normal visual inspection and Yes trachea midline Chest Chest palpation & inspection: normal inspection of the chest Resp Effort & Inspection: normal respiratory effort Cardio Rate: regular rate GI Inspection: Yes normal to inspection Neuro General: patient oriented x3 Psych Appearance: grossly normal Results AMB Urinalysis, Automated UA Leukoctes 500 Evy/uL Last Edit by ZO Frankel on 12/04/22 11:33 UA Nitrite Negative Last Edit by ZO Frankel on 12/04/22 11:33 UA Urobilinogen 0.2 mg/dL Last Edit by ZO Frankel on 12/04/22 11:3 3 UA Protein 0 mg/dL Last Edit by ZO Frankel on 12/04/22 11:33 UA pH 6.0 Last Edit by ZO Frankel on 12/04/22 11:33 UA Blood 10 Dennis/uL Last Edit by Casey Dodson George on 12/04/22 11:33 UA Specific [place] 1.010 Last Edit by ZO Frankel on 12/04/22 11: 33 UA Ketone Negative Last Edit by ZO Frankel on 12/04/22 11:33 UA Bilirubin 0 mg/dL Last Edit by ZO Frankel on 12/04/22 11:33 UA Glucose 0 mg/dL Last Edit by Casey Dodson George on 12/04/22 11:33 Results Reviewed Results Reviewed: Laboratory Last Values Urine pH (Auto) 6.0 12/04/22 11:01 Specific [place] (Auto) 1.010 12/04/22 11:01 Urine Protein (Auto) 0 mg/dL 12/04/22 11:01 Glucose (UA)(Auto) 0 mg/dL 12/04/22 11:01 Urine Ketones (Auto) Negative 12/04/22 11:01 Urine Blood (Auto) 10 Dennis/uL 12/04/22 11:01 Urine Nitrite (Auto) Negative 12/04/22 11:01 Urine Bilirubin (Auto) 0 mg/dL 12/04/22 11:01 Urine Urobilinogen (Auto) 0.2 mg/dL 12/04/22 11:01 Leukocyte Esterase (Auto) 500 Evy/uL 12/04/22 11:01 Date of Service: 10/01/22 Procedure(s): CT abdomen pelvis wo/w IV con EXAMINATION: CT ABDOMEN AND PELVIS WITHOUT AND WITH CONTRAST? CLINICAL INFORMATION: Hematuria? COMPARISON: Previous CT of the kidneys March 2021 FINDINGS: LUNG BASES: 4 mm peripheral left lower lobe nodule axial image 5 series 8 is stable.? LIVER, GALLBLADDER, AND BILIARY TREE: The liver is normal in size, shape, and attenuation. Small stable calcification in the right lobe. Small peripheral 5 x 10 mm low-attenuation lesion in the peripheral posterior segment of the right lobe axial image 25 series 8 probably representing a cyst. Normal gallbladder. No biliary duct dilatation. PANCREAS: Unremarkable? SPLEEN: Stable small calcifications and subcentimeter low-attenuation lesion probably representing a cyst.? ADRENAL GLANDS: Unremarkable? KIDNEYS AND URETERS: Small 3 mm stone in the upper pole of the left kidney. 1.5 x 2 cm cyst in the upper pole of the right kidney. The kidneys are otherwise normal. No hydronephrosis. The collecting systems are normal. Both ureters are slightly dilated down to the bladder. No focal stricture is seen. There is diffusely wall irregularity of both ureters question of small filling defects seen in both ureters, for example coronal reconstructed image 60 and both ureters and coronal reconstructed image 50 in the left distal ureter. Process such as malacoplakia should be considered. Correlation with retrograde exam and urinalysis recommended. BLADDER: Unremarkable? GASTROINTESTINAL TRACT: Diverticulosis of the colon. No evidence of diverticulitis. Duodenal diverticulum adjacent to the head of the pancreas. The small and large bowel are otherwise unremarkable. The appendix is unremarkable.? ABDOMINAL WALL: No significant hernia is appreciated.? LYMPH NODES: Normal VASCULAR: Severe atherosclerotic disease. No aneurysm. PELVIC VISCERA: Unremarkable? OSSEOUS STRUCTURES: Degenerative changes of the spine and hip joints. Mild old-appearing L3 vertebral body compression fracture. IMPRESSION: Mild bilateral ureteral dilatation. Diffuse irregularity of the kumar of both ureters and question small filling defects. Diffuse process such as malacoplakia should be considered. No focal mass or stricture is seen. Correlation with retrograde exam recommended. Small left renal stone. Mild diverticulosis of the colon. Other stable left lower lobe, liver and spleen findings. Fleischner guidelines were followed. Urine Culture Final 09/06/22 Organism 1 Klebsiella ozaenae Quant > 100,000 cfu/mL Organism 2 Corynebacterium species Quant 10,000 to 50,000 cfu/mL Sus N/A Susceptibility not routinely performed on this isolate. [facility] RX --------- --- Ampicillin >=32 R Ceftriaxone <=0.25 S Gentamicin <=1 S Levofloxacin >=8 R Nitrofurantoin >=512 R Trimethoprim/Sulfamethoxazole <=20 S Assessment & Plan Assessment & Plan (1) Complicated UTI (urinary tract infection): Code(s): N39.0 - Urinary tract infection, site not specified (2) Kidney calculi: Code(s): N20.0 - Calculus of kidney (3) Bladder wall thickening: Code(s): N32.89 - Other specified disorders of bladder (4) H/O pyelonephritis: Code(s): Z87.448 - Personal history of other diseases of urinary system (5) Hydronephrosis: Code(s): N13.30 - Unspecified hydronephrosis Orders: Orders CT urogram 12/04/22 N39.0 - Urinary tract infection, site not specified, N12 - Tubulo-interstitial nephritis, not specified as acute or chronic Urine Culture 12/04/22 N39.0 - Urinary tract infection, site not specified AMB Urinalysis Automated 12/04/22 Z13.9 - Encounter for screening, unspecified AMB Post Void Residual by ultrasound 12/04/22 N39.8 - Other specified disorders of urinary system Medications: New cefuroxime axetil 500 mg PO BID 14 tabs 0RF 7 days Patient Instructions: The patient had an opportunity to ask questions regarding treatment plan. All questions were answered. Imaging, Laboratory studies and physical exam results were discussed and reviewed in detail. No major barriers to understanding were identified. The patient expressed understanding and agreement with the above treatment plan.? ? ? The patient is aware they should contact our office by phone for worsening of their current condition or the appearance of new symptoms. Compliance is encouraged with any medications and followup testing that is ordered.? ? ? It is a privilege to be allowed the opportunity to participate in the urologic care of your patient. If you have any questions or concerns regarding treatment for the above conditions please do not hesitate to contact me. The office telephone contact is [phone].? ? ? This note is constructed in part using voice recognition software. While every effort has been made to ensure accuracy cafeteria or lunchroom checker errors may have been included.? ? ? Yours sincerely,? ? ? Narciso Aguilera MD? Coding Level of Care Code Est Pt Level 4 (39843) Diagnoses Complicated UTI (urinary tract infection) N39.0 Kidney calculi N20.0 Bladder wall thickening N32.89 H/O pyelonephritis Z87.448 Hydronephrosis N13.30
== END 2022-12-04 11:53 | disposition home or self-care (01) ==
PROVIDERS: PCP Pediatrics; Visit Provider Urology
DX: N39.0 Urinary tract infection, site not specified (principal); N20.0 Calculus of kidney; N32.89 Other specified disorders of bladder; Z87.448 Personal history of other diseases of urinary system; N13.30 Unspecified hydronephrosis
CPT/HCPCS: 99214

== ENCOUNTER 2022-12-10 13:12 | Outpatient (AMB) | payer OTHER, SELFPAY ==
--- NOTE | 2022-12-10 13:26 | A.OFFVIS_ITS ---
Intake Vital Signs 12/10/22 13:35 Height 5 ft 1 in Weight 141 lb 1.533 oz BMI 26.7 BP 167/72 H Blood Pressure Location Lt brachial Position Sitting Pulse 79 Intake Visit Reasons: s/p egd/colon- Jigar Intake Note: Clarissa presents in office as a est.patient for a post-op for EGD /COLO pt got it done 11.17.22 PT CC: pt reports having RLQP, diarrhea pt denies any other GI Issues Digital Account Supervisor Required: No Accompanied by: Daughter Allergies milk [MILK] Allergy (Intermediate, Verified 12/04/22 11:00) DIARRHEA HPI s/p egd/colon- Jigar HPI Details LAST VISIT: Anemia On p.o. iron. Patient seen Hematology. Never had a colonoscopy in the past. Patient will go for upper endoscopy and colonoscopy. Screen for colon cancer Patient denies any GI, cardiac or respiratory symptoms.? Denies any issues with anesthesia in the past.? Denies any history of sleep apnea.? No history infectious diseases in the past or present.? On Plavix and aspirin. Should stop taking Plavix 5 days before the procedure.? No family or personal history of colon cancer or polyps.? Patient denies melena, hematochezia, unintentional weight loss or ribbon like stools.? Discussed at length the pre-procedure,? prep, diet & medications as well as what to expect prior, during and after the procedure.?? Stressed the importance of good bowel prep. ?Recommended the use of Vaseline or Calmoseptine OTC & baby wipes with bowel movements to promote comfort.? ?Patient verbalizes understanding and agrees to plan of care.? She was given the opportunity to ask questions and all questions answered.? We will see her after the procedure.? COLONOSCOPY AND UPPER ENDOSCOPY Findings: Larynx:? Normal Esophagus:?GE junction at 36 cms.? Focal esophagitis at GE junction with a single 1 cms erosion. No Gamble's. Stomach:?A 6-7 mm superficial ulcer in the antrum - biopsied. Mild gastric erythema. Biopsies were obtained. Grade 2 flap? valve on retroflexed examination of the cardia. Duodenum:?Normal bulb and descending duodenum. ?biopsies were obtained from 3rd part of the duodenum to check for celiac sprue Intervention:?Biopsies as noted above COLONOSCOPY PROCEDURE NOTE Consent:?Indications for the procedure and potential complications of bleeding, perforation, reaction to medications and missed diagnosis were discussed with the patient and informed consent was obtained. Instrument:?Olympus PCF H 190 L variable stiffness pediatric colonoscope Monitoring:?Vital signs and clinical assessment, intermittent blood pressure monitoring, continuous EKG monitoring, Pulse oximetry and Carbon Dioxide monitoring were done throughout the procedure. Colon withdrawl time was 25 minutes. Procedure:?The patient was placed in the left lateral decubitis position and pre-procedure medications were administered. After a digital rectal examination of the ano-rectum, the video colonoscope was inserted into the rectum and advanced through the colon to the cecum. The colonoscope was slowly withdrawn in a retrograde panoramic fashion and the colon mucosa was carefully examined including a retroflexed view of the rectum. Findings and interventions are described below. Procedure Difficulty:?: Without difficulty Findings: Terminal Ileum: Not evaluated Cecum:? A 2.5 x 3 cms flat polyp - raised with 6 cc of [place] and removed? piecemeal with a hot snare. ?Margin of the polypectomy site was? treated with APC and closed with 1 hemoclip A 7-8 mm non-bleeding AVM - ablated with APC. Ascending Colon:??Normal Transverse Colon:??Normal Descending Colon:? Normal Sigmoid Colon:??Moderate diverticulosis Rectum:??A 10-12 mm sessile polyp - removed with a hot snare. Ano-rectum:??Normal Colon preparation:? Good? after some irrigation Impression and Post Procedure Diagnosis: Endoscopy Findings: ESOPHAGUS: Focal esophagitis at GE junction with a single 1 cms erosion. No Gamble's. STOMACH: A 6-7 mm superficial ulcer in the antrum - biopsied. Mild gastric erythema. Biopsies were obtained. DUODENUM:? Normal - biopsies obtained to check for celiac sprue. Colonoscopy Findings: One large and one medium sized polyps removed Moderate diverticulosis seen in the sigmoid colon Plan: Repeat Colonoscopy interval based on path results - in 1 year to check kendall ypectomy site if cecal polyp is adenomatous and 10 years if polyps are hyperplastic. Above findings were reviewed with the patient and colon polyps and PUD handouts were given in the discharge area Patient advised to start Famotidine 20 mg twice daily for esophagitis and small gastric ulcer. PATHOLOGY RESULTS: Diagnosis A.? Small bowel, biopsy:? Small bowel mucosa with preserved villi and no specific change; no evidence of celiac disease. B.? Gastric antrum, biopsy:? Gastric antral mucosa with focal minimal chronic inactive inflammation; negative for H pylori, intestinal metaplasia and dysplasia. C.? Gastric ulcer, biopsy:? Erosive gastritis with minimal chronic inactive inflammation; negative for H pylori, intestinal metaplasia and dysplasia. D.? Colon, cecal polyp:? Tubular adenoma; negative for high-grade dysplasia or carcinoma. E.? Colon, rectal polyp:? Hyperplastic polyp. ? PFSH Medical History (Updated 12/30/22 @ 21:04 by Marilyn Hayes, [facility]) Anemia BBB (bundle branch block) COPD (chronic obstructive pulmonary disease) DVT (deep venous thrombosis) Gastritis HTN (hypertension) Lacunar infarction Multifactorial dementia Osteoporosis Tubular adenoma Surgical History History of esophagogastroduodenoscopy (EGD) Hx of colonoscopy No pertinent past surgical history Family History Other No family history of coronary artery disease Social History Household Members: None Housing: Apartment Do you presently have visiting nurse or other home services: No Alcohol intake: unknown Patient Tobacco Use Status: Former Tobacco user e-Cigarette/Vaping Use: Former Use Second Hand Smoke Exposure: No Advance Directives Date on File: 04/09/21 service: No Current occupational status: retired Review of Systems Const Denies weight gain and Denies weight loss ENT Reports no additional complaints, Denies dysphagia and Denies odynophagia Card Reports no additional complaints Resp Reports no additional complaints GI Reports abdominal pain (RLQ), Denies belching, Denies melena, Reports bloating, Denies change in bowel habits, Denies dysphagia, Denies excessive flatus, Denies dyspepsia, Reports heartburn, Denies diarrhea, Denies loose stools, Denies nausea, Denies odynophagia and Denies vomiting Reports no additional complaints Musc Reports no additional complaints Neuro Reports no additional complaints Psych Reports no additional complaints Endo Reports no additional complaints Physical Exam Vital Signs: Last Vital Signs Pulse 79 12/10/22 13:35 BP 167/72 H 12/10/22 13:35 BMI result Body Mass Index 26.7 Const General: healthy appearing, no acute distress and well developed Nutritional Appearance: well nourished Orientation/consciousness: patient oriented x3 HEENT Head: Yes normal to inspection, Yes normocephalic and Yes atraumatic Face and sinus: Yes normal facial exam Mouth: Normal oral and palatal mucosa present Throat: Yes posterior oropharynx normal, Yes tonsils normal and Yes uvula midline Eyes General: appearance normal, both eyes and all related structures Neck Neck: Yes normal visual inspection, Yes full ROM and Yes trachea midline Thyroid: Thyroid normal Resp Effort & Inspection: normal respiratory effort, able to speak in complete sentences, no tracheal deviation and symmetric chest movement Auscultation: clear to auscultation bilaterally Cardio Rate: regular rate Heart sounds: S1 normal heart sound present and S2 normal heart sound present GI Inspection: Yes normal to inspection and No distended Palpation (GI): Soft to palpation, not firm, nontender and No hepatosplenomegaly present Auscultation: normal bowel sounds General: Yes no CVA tenderness Back/Spine/Pelvis Back: no CVA tenderness Skin General skin exam: elasticity normal, turgor normal and dry skin Neuro General: patient oriented x3 Psych Appearance: grossly normal Mental Status: mental status grossly normal Speech and movement: Normal speech and movement present Assessment & Plan Assessment & Plan (1) Status post colonoscopy: Code(s): Z98.890 - Other specified postprocedural states Plan: Patient denies any ill effects from the prep, anesthesia or procedure itself. Tubular adenoma found in cecum, recommendation was made for patient to return for colorectal screening in 1 year to recheck polypectomy site. (2) Gastritis: Code(s): K29.70 - Gastritis, unspecified, without bleeding Plan: Erosive gastritis found. Patient can continue taking famotidine twice a day. Patient was encouraged to avoid dietary triggers as well as NSAIDs. (3) Tubular adenoma: Code(s): D36.9 - Benign neoplasm, unspecified site Plan: Tubular adenoma found in the cecum. Patient will return in 1 year is structural defect any size. Patient denies any melena, hematochezia, unintentional weight loss or ribbon like stools. I will see patient in 4 months, sooner on as needed basis. Will discussed with patient possibility of her getting off Fosamax due to irritation. Patient will be sent for upper endoscopy is same time when she goes for colonoscopy. Patient is agreeable to this plan and verbalizes understanding of instructions. She was given the opportunity to ask questions and all questions answered. Thank you for allowing me to participate in her care Medications: Changed From famotidine 20 mg PO .bid 30 days 60 tabs 3RF K20.90 - Esophagitis, unspecified without bleeding To famotidine 20 mg PO BID 60 tabs 3RF 30 days K20.90 - Esophagitis, unspecified without bleeding Coding Level of Care Code Est Pt Level 4 (27766) Diagnoses Status post colonoscopy Z98.890 Gastritis K29.70 Tubular adenoma D36.9 Time Spent (min) 35 Comment 20 minutes spent with patient and additional 15 minutes spent reviewing her records
[2022-12-10 13:35] VITALS: BP 167/72; PULSE 79; BMI 26.7
== END 2022-12-10 14:11 | disposition home or self-care (01) ==
PROVIDERS: PCP Pediatrics; Visit Provider Nurse Practitioner Family
DX: Z98.890 Other specified postprocedural states (principal); K29.70 Gastritis, unspecified, without bleeding; D36.9 Benign neoplasm, unspecified site
CPT/HCPCS: 99214

== ENCOUNTER → 2022-12-10 13:12 | Outpatient (BNVA) | payer OTHER, SELFPAY | PROVIDERS: PCP Pediatrics; Visit Provider Nurse Practitioner Family | DX: K29.70 Gastritis, unspecified, without bleeding (principal); D36.9 Benign neoplasm, unspecified site; Z98.890 Other specified postprocedural states | CPT/HCPCS: 99212 ==

== ENCOUNTER 2023-01-26 09:17 | Outpatient (REF) | payer OTHER, SELFPAY ==
--- NOTE | ~2023-01-26 | CT_ITS ---
EXAMINATION: CT ABDOMEN AND PELVIS WITHOUT AND WITH CONTRAST CLINICAL INFORMATION: Urinary tract infection. COMPARISON: Prior CT examinations of the abdomen and pelvis, most recently 10/06/2022. TECHNIQUE: Noncontrast CT of the abdomen and pelvis is performed followed by split bolus contrast-enhanced images using 85 mL Omnipaque 350 contrast.? Postcontrast imaging is performed during the combined nephrogram and excretion phase. Sagittal and coronal reformatted images were obtained on the technologist's workstation for both the precontrast and postcontrast phases. This CT examination was performed using dose optimization techniques as appropriate, variously including the following: *Automated exposure control *Adjustment of mA and/or kV according to patient size (this includes techniques or standardized protocols for targeted exams where dose is matched to indication/reason for exam; i.e. extremities or head) *Use of iterative reconstruction technique DLP: 502 mGy-cm FINDINGS: LUNG BASES: The visualized lung bases are unremarkable. There are coarse mitral annular calcifications. LIVER, GALLBLADDER, AND BILIARY TREE: The liver is normal in size, shape, and attenuation. A benign, calcified granuloma is redemonstrated within the right hepatic lobe. Within the bilateral hepatic lobes, there are 4 stable low-attenuation probable cysts or benign hemangiomas, too small to fully characterize with CT. These are similar to prior CT examinations including 04/05/2021, and they are of doubtful clinical significance. No new focal hepatic lesion or biliary ductal dilatation is present. The gallbladder is unremarkable, with no evidence of radiopaque gallstones, gallbladder wall thickening or obvious pericholecystic inflammatory change. PANCREAS: Unremarkable. SPLEEN: A small benign, calcified granuloma and tiny low-attenuation probable cysts are redemonstrated. No acute or suspicious finding. ADRENAL GLANDS: Unremarkable. KIDNEYS AND URETERS: The kidneys are normal in size, shape, and attenuation. No bilateral hydronephroureter or urinary calculus is seen. There is again nodularity of the bilateral urinary collecting structures, particularly the renal pelves and ureters. No perinephric stranding. BLADDER: Unremarkable. GASTROINTESTINAL TRACT: There is moderate diverticulosis, without acute diverticulitis. No bowel obstruction, free intraperitoneal air or abscess is seen. There is no focal bowel wall thickening. The vermiform appendix is unremarkable. ABDOMINAL WALL: No significant hernia is appreciated. LYMPH NODES: Normal. VASCULAR: There is diffuse aortoiliac atherosclerotic calcification. No abdominal aortic aneurysm or dissection is seen. PELVIC VISCERA: The uterus and adnexa are unremarkable. OSSEUS STRUCTURES: There is a mild L3 upper endplate compression deformity, stable from 10/01/2022. At L5-S1, there is marked degenerative disc disease, with vacuum disc phenomenon. No acute or aggressive osseous finding is noted. CT/CT urogram IMPRESSION: 1. No urinary calculus or obstruction is seen. There is again diffuse nodularity of the urinary collecting structures, raising the possibility of etiologies including ureteritis cystica, malacoplakia, leukoplakia and Mckeon-Dawood syndrome. A multifocal transitional cell carcinoma is a less likely differential possibility. Recommend Urology evaluation and management, with consideration for cystoscopy/ureteroscopy. 2. There is moderate diverticulosis, without acute diverticulitis. 3. A stable mild L3 upper endplate compression fracture is seen. There is marked degenerative disc disease at L5-S1. No acute or aggressive osseous finding is noted.
[2023-01-26] MEDS: iohexoL 350 MG/ML 75 ML INFUS..BTL 85 ML IV (10:26)
[2023-01-27 08:27] LABS: Creatinine POC 0.5 mg/dL (0.5-1.4); GFR POC > 60
== END 2023-01-26 09:18 | disposition home or self-care (01) ==
LOC: HO.CT 09:17
PROVIDERS: PCP Pediatrics; Visit Provider Urology
DX: N39.0 Urinary tract infection, site not specified (principal); N12 Tubulo-interstitial nephritis, not specified as acute or chronic
CPT/HCPCS: 74178; 82565; Q9967

== ENCOUNTER 2023-02-09 10:15 | Outpatient (AMB) | payer OTHER, SELFPAY ==
--- NOTE | 2023-02-09 10:16 | A.OFFVIS_ITS ---
Intake Intake Visit Reasons: 2m/CT Intake Note: Patient presents today via phone for a follow-up on Recurrent UTI's, CT Scan Results: CT Completed on 01/26/2023 Meds- None Allergies to Antibiotic- No Known Allergies Blood Thinner- Aspirin Round Up Ring Hand Required: No Accompanied by: Son Allergies milk [MILK] Allergy (Intermediate, Verified 02/09/23 10:17) DIARRHEA Medication List - Last Reconciled 02/09/23 by Narciso Aguilera MD albuterol sulfate 90 mcg/actuation 2 inhalations inhalation Q4H PRN alendronate 70 mg PO SA@0900 amlodipine 1 tab PO DAILY aspirin 1 tab PO DAILY atorvastatin 40 mg PO BID cephalexin 250 mg PO DAILY cholecalciferol (vitamin D3) 50 mcg PO BID clopidogrel 1 tab PO Q OTHER DAY famotidine 20 mg PO BID 30 days ferrous sulfate (FeroSul) 325 mg PO BID fluticasone furoate-vilanterol 200-25 mcg/dose (Breo Ellipta) 1 puff PO BEDTIME ipratropium-albuterol 0.5 mg-3 mg(2.5 mg base)/3 mL 3 mL inhalation Q4-6H PRN 30 days lisinopril 40 mg PO DAILY umeclidinium 62.5 mcg/actuation (Incruse Ellipta) 1 puff PO DAILY HPI HPI Comments History of Present Illness Details Clarissa is a 72-year-old female who presents today via Tele-health visit for a follow-up. 02/09/23? She is followed today for CT results. She was last seen by me on 12/04/22 for bladder wall thickening, recurrent UTI's, and inflammatory changes in the upper tracts. Urine culture was ordered and she was empirically started on Ceftin. Urine c/s came back >100,000 mixed bacteria. I reviewed the urogram CT results from 01/26/2023 revealed No urinary calculus or obstruction is seen. There is again diffuse nodularity of the urinary collecting structures. Previous Left 3mm kidney stone not visualized, no hydronephrosis. In discussion with the patient and her son was also present during the visit. She states that since she completed the Ceftin 500 mg BID for seven day, she has not had any urinary tract infection symptoms including any changes in the mental status. Review of charts: Last visit: 12/04/2022--Evaluation- UA - leuk 2+ 10/06/2022 - office cysto performed whic h noted Significant bladder wall thickening, Diverticuli and Cellule changes. No bladder lesions visualized. Urine culture was done on 09/03/2022 - showed positive corynebacterium and Klebsiella. 02/09/23: Plan: Will start a low dose antibiotic suppressive therapy; keflex 250 mg daily. Follow-up in 6 months; renal US prior. [facility] Medical History Tubular adenoma Gastritis BBB (bundle branch block) DVT (deep venous thrombosis) Anemia Multifactorial dementia Lacunar infarction Osteoporosis HTN (hypertension) COPD (chronic obstructive pulmonary disease) Surgical History History of esophagogastroduodenoscopy (EGD) Hx of colonoscopy No pertinent past surgical history Family History Other No family history of coronary artery disease Social History Household Members: None Housing: Apartment Do you presently have visiting nurse or other home services: No Alcohol intake: unknown Patient Tobacco Use Status: Former Tobacco user e-Cigarette/Vaping Use: Former Use Second Hand Smoke Exposure: No Advance Directives Date on File: 04/09/21 service: No Current occupational status: retired Review of Systems Const All systems reviewed & are unremarkable except as noted in HPI and below Reports no additional complaints Eyes Reports no additional complaints ENT Reports no additional complaints Card Denies dyspnea Resp Denies cough and Denies dyspnea GI Reports no additional complaints Reports no additional complaints Musc Reports no additional complaints Skin/Breast Denies rash and Denies unusual bruising Neuro Reports no additional complaints Psych Reports no additional complaints Endo Reports no additional complaints Negro/Lymph Reports no additional complaints Aller/Immun Reports no additional complaints Results Reviewed Results Reviewed: Date of Service: 01/26/23 EXAMINATION: CT ABDOMEN AND PELVIS WITHOUT AND WITH CONTRAST?? CLINICAL INFORMATION: Urinary tract infection.?? COMPARISON: Prior CT examinations of the abdomen and pelvis, most recently 10/06/2022.? ?? FINDINGS: LUNG BASES: The visualized lung bases are unremarkable. There are coarse mitral annular calcifications. LIVER, GALLBLADDER, AND BILIARY TREE: The liver is normal in size, shape, and attenuation. A benign, calcified granuloma is redemonstrated within the right hepatic lobe. Within the bilateral hepatic lobes, there are 4 stable low-attenuation probable cysts or benign hemangiomas, too small to fully characterize with CT. These are similar to prior CT examinations including 04/05/2021, and they are of doubtful clinical significance. No new focal hepatic lesion or biliary ductal dilatation is present. The gallbladder is unremarkable, with no evidence of radiopaque gallstones, gallbladder wall thickening or obvious pericholecystic inflammatory change.?? PANCREAS: Unremarkable.?? SPLEEN: A small benign, calcified granuloma and tiny low-attenuation probable cysts are redemonstrated. No acute or suspicious finding.?? ADRENAL GLANDS: Unremarkable.?? KIDNEYS AND URETERS: The kidneys are normal in size, shape, and attenuation. No bilateral hydronephroureter or urinary calculus is seen. There is again nodularity of the bilateral urinary collecting structures, particularly the renal pelves and ureters. No perinephric stranding.? ? BLADDER: Unremarkable.?? GASTROINTESTINAL TRACT: There is moderate diverticulosis, without acute diverticulitis. No bowel obstruction, free intraperitoneal air or abscess is seen. There is no focal bowel wall thickening. The vermiform appendix is unremarkable.?? ABDOMINAL WALL: No significant hernia is appreciated.?? LYMPH NODES: Normal. VASCULAR: There is diffuse aortoiliac atherosclerotic calcification. No abdominal aortic aneurysm or dissection is seen. PELVIC VISCERA: The uterus and adnexa are unremarkable.?? OSSEUS STRUCTURES: There is a mild L3 upper endplate compression deformity, stable from 10/01/2022. At L5-S1, there is marked degenerative disc disease, with vacuum disc phenomenon. No acute or aggressive osseous finding is noted.?? IMPRESSION: 1. No urinary calculus or obstruction is seen. There is again diffuse nodularity of the urinary collecting structures, raising the possibility of etiologies including ureteritis cystica, malacoplakia, leukoplakia and Mckeon-Dawood syndrome. A multifocal transitional cell carcinoma is a less likely differential possibility. Recommend Urology evaluation and management, with consideration for cystoscopy/ureteroscopy. ? 2. There is moderate diverticulosis, without acute diverticulitis. 3. A stable mild L3 upper endplate compression fracture is seen. There is marked degenerative disc disease at L5-S1. No acute or aggressive osseous finding is noted. Assessment & Plan Assessment & Plan (1) Complicated UTI (urinary tract infection): Code(s): N39.0 - Urinary tract infection, site not specified (2) Kidney calculi: Code(s): N20.0 - Calculus of kidney (3) Bladder wall thickening: Code(s): N32.89 - Other specified disorders of bladder (4) H/O pyelonephritis: Code(s): Z87.448 - Personal history of other diseases of urinary system Plan Will start a low dose antibiotic suppressive therapy; keflex 250 mg daily. Follow-up in 6 months; renal US prior. Medications: New cephalexin 250 mg PO DAILY 90 caps 1RF recurrent UTI's Patient Instructions: The patient had an opportunity to ask questions regarding treatment plan. All questions were answered. Imaging, Laboratory studies and physical exam results were discussed and reviewed in detail. No major barriers to understanding were identified. The patient expressed understanding and agreement with the above treatment plan.? ? ? The patient is aware they should contact our office by phone for worsening of their current condition or the appearance of new symptoms. Compliance is encouraged with any medications and followup testing that is ordered.? ? ? It is a privilege to be allowed the opportunity to participate in the urologic care of your patient. If you have any questions or concerns regarding treatment for the above conditions please do not hesitate to contact me. The office telephone contact is [phone].? ? ? This note is constructed in part using voice recognition software. While every effort has been made to ensure accuracy flat bed knitter errors may have been included.? ? ? Yours sincerely,? ? ? Narciso Aguilera MD? Telehealth Telehealth Location of provider rendering services: practice address Location of patient: address on file Patient Identification confirmed using: Name, : Yes Telehealth method: voice only Patient verbally consented to treatment: Yes Patient verbally consented to billing insurance company: Yes Patient informed of any privacy concerns related to visit: Yes Minutes spent on Phone/Video with Pt.: 20 Coding Level of Care Code Tele Est Pt Level 4 (57956) Diagnoses Complicated UTI (urinary tract infection) N39.0 Kidney calculi N20.0 Bladder wall thickening N32.89 H/O pyelonephritis Z87.448
== END 2023-02-09 11:22 | disposition home or self-care (01) ==
LOC: HO.HUSH 10:15
PROVIDERS: PCP Pediatrics; Visit Provider Urology
DX: N39.0 Urinary tract infection, site not specified (principal); N20.0 Calculus of kidney; N32.89 Other specified disorders of bladder; Z87.448 Personal history of other diseases of urinary system
CPT/HCPCS: 99442

== ENCOUNTER → 2023-02-09 10:15 | Outpatient (BNVA) | payer OTHER, SELFPAY | PROVIDERS: PCP Pediatrics; Visit Provider Urology ==

== ENCOUNTER 2023-03-11 09:58 | Outpatient (AMB) | payer OTHER, SELFPAY ==
--- NOTE | 2023-03-11 10:05 | A.OFFVIS_ITS ---
Intake Vital Signs 03/11/23 10:07 Height 5 ft 1 in Weight 136 lb 10.986 oz BMI 25.8 Intake Visit Reasons: 4 month fu Intake Note: Clarissa presents in the office as a 4 month follow up. CC: She states that she is not having any concerns today. Allergies milk [MILK] Allergy (Intermediate, Verified 03/11/23 10:08) DIARRHEA HPI 4 month fu HPI Details LAST VISIT: Status post colonoscopy Patient denies any ill effects from the prep, anesthesia or procedure itself. Tubular adenoma found in cecum, recommendation was made for patient to return for colorectal screening in 1 year to recheck polypectomy site. Gastritis Erosive gastritis found. Patient can continue taking famotidine twice a day. Patient was encouraged to avoid dietary triggers as well as NSAIDs. Tubular adenoma Tubular adenoma found in the cecum. Patient will return in 1 year is structural defect any size. Patient denies any melena, hematochezia, unintentional weight loss or ribbon like stools. I will see patient in 4 months, sooner on as needed basis. Will discussed with patient possibility of her getting off Fosamax due to irritation. Patient will be sent for upper endoscopy is same time when she goes for colonoscopy. Patient is agreeable to this plan and verbalizes understanding of instructions. She was given the opportunity to ask questions and all questions answered. ? Thank you for allowing me to participate in her care Plan Medications Changed From famotidine 20 mg PO .bid 30 days 60 tabs 3RF K20.90 - Esophagitis, unspecified without bleeding To famotidine 20 mg PO BID 60 tabs 3RF 30 days K20.90 - Esophagitis, unspecified without bleeding TODAY'S VISIT: Patient is here today for follow-up. Patient is accompanied by her son. Patient reports that she has been feeling well, denies any melena, hematochezia, unintentional weight loss or ribbon like stools. Patient denies any dyspepsia, dysphagia or odynophagia. Currently patient is taking famotidine twice a day and needs refills. Patient will be due to go for colonoscopy in October. Patient had large polyp that will need surveillance due to biopsy showing tubular adenoma. Patient denies any abdominal pain or discomfort. Patient reports to be feeling fairly well, denies any other GI concerning symptoms. [facility] Medical History Tubular adenoma Gastritis BBB (bundle branch block) DVT (deep venous thrombosis) Anemia Multifactorial dementia Lacunar infarction Osteoporosis HTN (hypertension) COPD (chronic obstructive pulmonary disease) Surgical History History of esophagogastroduodenoscopy (EGD) Hx of colonoscopy No pertinent past surgical history Family History Other No family history of coronary artery disease Household Members: None Housing: Apartment Do you presently have visiting nurse or other home services: No Alcohol intake: unknown Patient Tobacco Use Status: Former Tobacco user e-Cigarette/Vaping Use: Former Use Second Hand Smoke Exposure: No Advance Directives Date on File: 04/09/21 service: No Current occupational status: retired Review of Systems Const Denies weight gain and Denies weight loss ENT Reports no additional complaints, Denies dysphagia and Denies odynophagia Card Reports no additional complaints Resp Reports no additional complaints GI Denies abdominal pain, Denies belching, Denies melena, Denies bloating, Denies change in bowel habits, Denies dysphagia, Denies excessive flatus, Denies dyspepsia, Denies heartburn, Denies diarrhea, Denies loose stools, Denies nausea, Denies odynophagia and Denies vomiting Musc Reports no additional complaints Neuro Reports no additional complaints Psych Reports no additional complaints Endo Reports no additional complaints Physical Exam Vital Signs: BMI result Body Mass Index 25.8 Const General: healthy appearing, no acute distress and well developed Nutritional Appearance: well nourished Orientation/consciousness: patient oriented x3 HEENT Head: Yes normal to inspection, Yes normocephalic and Yes atraumatic Face and sinus: Yes normal facial exam Mouth: Normal oral and palatal mucosa present Throat: Yes posterior oropharynx normal, Yes tonsils normal and Yes uvula midline Eyes General: appearance normal, both eyes and all related structures Neck Neck: Yes normal visual inspection, Yes full ROM and Yes trachea midline Thyroid: Thyroid normal Resp Effort & Inspection: normal respiratory effort, able to speak in complete sentences, no tracheal deviation and symmetric chest movement Auscultation: clear to auscultation bilaterally Cardio Jugular venous distension: no JVD Rate: regular rate Heart sounds: S1 normal heart sound present and S2 normal heart sound present GI Inspection: Yes normal to inspection and No distended Palpation (GI): Soft to palpation, not firm, nontender and No hepatosplenomegaly present Auscultation: normal bowel sounds General: Yes no CVA tenderness Back/Spine/Pelvis Back: no CVA tenderness Skin General skin exam: elasticity normal, turgor normal and dry skin Neuro General: patient oriented x3 Psych Appearance: grossly normal Mental Status: mental status grossly normal Affect: normal affect Assessment & Plan Assessment & Plan (1) Gastritis: Code(s): K29.70 - Gastritis, unspecified, without bleeding Qualifiers: Gastritis type: other gastritis Chronicity: chronic Gastritis bleeding: without bleeding Qualified Code(s): K29.50 - Unspecified chronic gastritis without bleeding (2) Esophagitis: Code(s): K20.90 - Esophagitis, unspecified without bleeding Plan Patient will continue famotidine twice a day. Discussed with patient avoiding dietary triggers in late night snacking. Patient will return to the office in 6 months, sooner on as needed basis. Patient will be due to go for colonoscopy after October of 2023. Both patient and her son are agreeable to plan of care and verbalizes understanding of instructions. There were given the opportunity to ask questions and all questions answered. Thank you for allowing me to participate in her care Medications: New Bifidobacterium infantis (Align) 4 mg PO QDAY 90 caps 3RF Refilled famotidine 20 mg PO BID 60 tabs 3RF 30 days K20.90 - Esophagitis, unspecified without bleeding Coding Level of Care Code Est Pt Level 3 (38759) Diagnoses Other chronic gastritis without hemorrhage K29.50 Gastritis type: other gastritis Chronicity: chronic Gastritis bleeding: without bleeding Esophagitis K20.90 Time Spent (min) 25 Comment 15 minutes spent with patient and additional 10 minutes spent reviewing her records
[2023-03-11 10:07] VITALS: BMI 25.8
== END 2023-03-11 10:47 | disposition home or self-care (01) ==
PROVIDERS: PCP Pediatrics; Visit Provider Nurse Practitioner Family
DX: K29.50 Unspecified chronic gastritis without bleeding (principal); K20.90 Esophagitis, unspecified without bleeding
CPT/HCPCS: 99213

== ENCOUNTER → 2023-03-11 09:58 | Outpatient (BNVA) | payer OTHER, SELFPAY | PROVIDERS: PCP Pediatrics; Visit Provider Nurse Practitioner Family | DX: K29.50 Unspecified chronic gastritis without bleeding (principal); K20.90 Esophagitis, unspecified without bleeding | CPT/HCPCS: 99212 ==

== ENCOUNTER 2023-05-14 12:27 | Emergency (ER) | payer OTHER, SELFPAY ==
[2023-05-14] VITALS (8 sets, daily range): BP systolic 130–149; BP diastolic 61–94; PULSE 82–101; RESP 16–18; TEMP 36.2–36.9; O2SAT 92–95; BMI 27.7
--- NOTE | ~2023-05-14 | CT_ITS ---
EXAMINATION: CT CHEST WITHOUT CONTRAST CLINICAL INFORMATION: Right-sided pleural effusion after fall COMPARISON: CT chest 07/24/2022, CT urogram 01/26/2023, CT abdomen pelvis 10/01/2022 TECHNIQUE: Multidetector volumetric CT imaging of the chest was done. Axial MIP volume rendering provided. Sagittal and coronal reformatted images were obtained. This CT examination was performed using dose optimization techniques as appropriate, variously including the following: *Automated exposure control *Adjustment of mA and/or kV according to patient size (this includes techniques or standardized protocols for targeted exams where dose is matched to indication/reason for exam; i.e. extremities or head) *Use of iterative reconstruction technique DLP: 204 mGy-cm FINDINGS: LUNGS AND PLEURA: Emphysematous changes are present. A small to moderate-sized right pleural effusion is present along with right middle lobe and right lower lobe atelectasis/collapse. The effusion measures slightly higher than water density at 20 to 25 Hounsfield units and could have a component of hemorrhage. Multiple pulmonary nodular densities are seen including: * Right upper lobe 8 mm (5:93) * 2 adjacent left upper lobe 4 mm nodules (5:147) * 3 mm lingular nodule (5:184) * 4 mm lingular nodule (5:250) * 3 mm subpleural left lower lobe nodule (5:252) * 5 mm left lower lobe subpleural nodule (5:309) These are all essentially unchanged when compared to 07/24/2022 study. Foster images of all have been saved. MEDIASTINUM: The thyroid is enlarged. Some nodular densities are present in the anterior trachea, possibly mucous (for example 5:54). Some mediastinal lymph nodes are present which are increased in size when compared to the prior study. For example, a right pretracheal lymph node had measured 6 mm in short axis dimension and now measures 1.3 cm (3:17 compare prior 3:24). A preaortic anterior mediastinal lymph node had measured 0.3 cm and now measures 0.9 cm (3:17 compare prior 3:24). There are multiple small right anterior paracardiac lymph nodes seen which were not noted previously. A tiny pericardial effusion is again noted. CORONARY ARTERY CALCIFICATION: None visualized on this study. AXILLA: No lymphadenopathy. UPPER ABDOMEN: There is a 1.7 cm hypodensity seen in the right lobe of the liver that was not present previously (3:44) there is partial visualization of an additional 0.9 cm hepatic hypodensity not seen previously (3:55). There is a 5 mm right lobe of the liver hypodensity seen which was seen previously (3:47 compare prior 8:14). There is a subcapsular calcified granuloma seen present previously (3:4 3) Splenic hypodensities are again seen. The adrenal glands appear normal. OSSEOUS STRUCTURES: Unremarkable. CT/CT chest wo IV con IMPRESSION: 1. Small to moderate-sized right pleural effusion with right middle lobe and right lower lobe atelectasis/collapse. Hemorrhage could be playing a part) is slightly increased in attenuation. No rib fractures are seen. 2. Multiple pulmonary nodules are present, the largest measuring 8 mm in the right upper lobe. These are unchanged when compared to 07/24/2022. 3. Mediastinal lymph nodes have increased in size when compared to the prior study. 4. New hepatic hypodensities. MRI is recommended for further evaluation to exclude metastatic disease. 5. Other incidental findings as described above. Fleischner guidelines were followed.
--- NOTE | ~2023-05-14 | CT_ITS ---
EXAMINATION: CT brain and CT cervical spine without contrast. CLINICAL INDICATIONS: Fall on Coumadin. Neck pain. COMPARISON: CT brain 09/03/2022. TECHNIQUE: 5 mm thin axial and reformatted 2 mm thin sagittal and coronal images of brain were obtained. Subsequently axial 3 mm thin and reformatted 2 mm thin sagittal and coronal images of cervical spine were obtained. DLP [id number]. FINDINGS: Brain: There is no acute intra-axial, extra-axial bleed, masses or midline shift. There is no acute infarct in evolution. There is old right frontal parafalcine and old infarct unchanged to previous study. The borwning to white matter difference is maintained. The lateral ventricles are symmetrical but enlarged bone windows reveal no calvarial abnormality. There is no scalp soft tissue abnormality. Bilateral paranasal sinuses and mastoid air cells. Cervical spine: On sagittal reconstructed images there is mild straightening of cervical lordosis. The vertebral heights and alignment is normal. There is grade 1 anterolisthesis C3 over C4 and C4-C5. The craniovertebral junction and the C1-C2 alignment is normal. No visible acute fracture, dislocation or subluxation seen. The craniovertebral junction and the C1-C2 alignment is normal. There is moderate bilateral C3-4, moderate bilateral C4-5 facet joint arthropathy and hypertrophy there is posterior spondylosis C4-5 disc level. There is surgical grant in bilateral neck from previous intervention. There is a small to moderate right pleural effusion. CT/CT head/brain wo IV con IMPRESSION: No acute intracranial process seen. Grade 1 anterolisthesis C3 over C4 and C4 over C5. There is no acute fracture or dislocation. There is moderate right pleural effusion.
--- NOTE | ~2023-05-14 | XR_ITS ---
EXAMINATION: XR KNEE, RIGHT CLINICAL INFORMATION: Right knee pain COMPARISON: None available. TECHNIQUE: Four views of the right knee. FINDINGS: No fracture or joint effusion. Alignment is anatomic. Joint spaces are maintained. Marked vascular calcifications are seen. No abnormal soft tissue calcification. XR/XR knee RT 4V IMPRESSION: 1. No evidence of an acute injury. 2. Marked vascular calcifications.
--- NOTE | ~2023-05-14 | CT_ITS ---
EXAMINATION: CT brain and CT cervical spine without contrast. CLINICAL INDICATIONS: Fall on Coumadin. Neck pain. COMPARISON: CT brain 09/03/2022. TECHNIQUE: 5 mm thin axial and reformatted 2 mm thin sagittal and coronal images of brain were obtained. Subsequently axial 3 mm thin and reformatted 2 mm thin sagittal and coronal images of cervical spine were obtained. DLP 1260. FINDINGS: Brain: There is no acute intra-axial, extra-axial bleed, masses or midline shift. There is no acute infarct in evolution. There is old right frontal parafalcine and old infarct unchanged to previous study. The browning to white matter difference is maintained. The lateral ventricles are symmetrical but enlarged bone windows reveal no calvarial abnormality. There is no scalp soft tissue abnormality. Bilateral paranasal sinuses and mastoid air cells. Cervical spine: On sagittal reconstructed images there is mild straightening of cervical lordosis. The vertebral heights and alignment is normal. There is grade 1 anterolisthesis C3 over C4 and C4-C5. The craniovertebral junction and the C1-C2 alignment is normal. No visible acute fracture, dislocation or subluxation seen. The craniovertebral junction and the C1-C2 alignment is normal. There is moderate bilateral C3-4, moderate bilateral C4-5 facet joint arthropathy and hypertrophy there is posterior spondylosis C4-5 disc level. There is surgical grant in bilateral neck from previous intervention. There is a small to moderate right pleural effusion. CT/CT cervical spine wo IV con IMPRESSION: No acute intracranial process seen. Grade 1 anterolisthesis C3 over C4 and C4 over C5. There is no acute fracture or dislocation. There is moderate right pleural effusion.
--- NOTE | ~2023-05-14 | CT_ITS ---
EXAMINATION: CT of the right lower leg with contrast INDICATION: t knee pain s/p fall COMPARISON: Radiograph dated 05/14/2023 TECHNIQUE: Multidetector volumetric imaging was obtained through the right tibia and fibula following intravenous administration of 85 mL Omnipaque 350. Multiplanar reformatted images in coronal and sagittal orientations were submitted. This CT examination was performed using dose optimization techniques as appropriate, variously including the following: *Automated exposure control *Adjustment of mA and/or kV according to patient size (this includes techniques or standardized protocols for targeted exams where dose is matched to indication/reason for exam; i.e. extremities or head) *Use of iterative reconstruction technique DLP: 1260 mGy-cm FINDINGS: Wound is suspected in the skin at the anteromedial aspect of the tibial plateau, measuring approximately 4.5 x 3 cm in area. There is abnormal contour of the surrounding soft tissues with possible additional extension of the wound laterally and inferiorly. There is surrounding subcutaneous fat stranding, most pronounced in the prepatellar and superficial infrapatellar soft tissues. No appreciable peripheral enhancing fluid collections are identified. The fat stranding does not extend deep to the superficial fascia overlying the calf musculature. There is mild generalized atrophy and fatty replacement of the calf musculature. Distally, there is subtle is edema and mild soft tissue swelling at the calf more circumferentially. No fluid collections are identified. No significant surfacing is gas. No appreciable deep fluid collections are findings of fasciitis. Intramuscular fascial planes are unremarkable. Bones are osteopenic. Chondrocalcinosis is present at the knee joint. No acute osseous findings at the knee. No joint effusion or Tracy's cyst. No CT findings of osteomyelitis are identified at the tibia and fibula no fractures or stress reactions. There is chondrocalcinosis at the talocrural joint. Talocrural joint otherwise appears well-preserved. No effusion. CT/CT lower leg RT w IV con IMPRESSION: 1. Wound at the anteromedial aspect of the tibial plateau. Surrounding subcutaneous fat stranding may correspond to soft tissue swelling or cellulitis. No abscess. No CT findings of osteomyelitis. 2. Mild circumferential soft tissue swelling in the distal calf. No deep fluid collections or findings of fasciitis. 3. Chondrocalcinosis at the knee and talocrural joints. No fractures.
--- NOTE | ~2023-05-14 | XR_ITS ---
EXAMINATION: XR CHEST CLINICAL INFORMATION: post pleural tap COMPARISON: CT chest May 09, 2023. Chest x-ray September 03, 2022 TECHNIQUE: Frontal portable view of the chest was obtained. 9:27 PM FINDINGS: No pneumothorax. Dense right lung base due to basilar atelectasis and right pleural effusion. Left lung normally aerated. No pulmonary vascular congestion. XR/XR chest 1V IMPRESSION: No pneumothorax. Dense right lung base due to atelectasis and right pleural effusion.
--- NOTE | 2023-05-14 12:39 | ED.GENADULT ---
HPI - General Adult General Chief complaint: Fall Stated complaint: AMS FROM LONG TERM,?UTI PER EMS Time Seen by Provider: 05/14/23 12:35 Source: EMS Mode of arrival: EMS Limitations: no limitations History of Present Illness HPI narrative: 72 yr old female with a past medical history of COPD, anemia, pulmonary nodules, HLD, GERD, HTN, afib & DVT on Coumadin, tubular adenoma presenting status post fall. Patient reports she fell after tripping over an exercise machine. She endorses a head strike but denies LOC, dizziness or vision changes. Additionally, she fell onto her right knee and it is painful. Denies numbness, tingling, cp, sob, headache, vision changes, dizziness, weakness, preceding sx to fall ( CP, sob, dizziness) GCS-15, NIHSS-0 Related Data Home Medications Medication Instructions Recorded Confirmed albuterol sulfate 90 mcg/actuation 2 inh inhalation Q4H PRN Wheezing 04/09/21 02/09/23 aerosol inhaler alendronate 70 mg tablet 70 mg PO SA@0900 04/09/21 02/09/23 fluticasone furoate 200 1 puff PO BEDTIME 04/09/21 02/09/23 mcg-vilanterol 25 mcg/dose inhalation powder (Breo Ellipta) umeclidinium 62.5 mcg/actuation 1 puff PO DAILY 04/09/21 02/09/23 blister powder for inhalation (Incruse Ellipta) amlodipine 10 mg tablet 1 tab PO DAILY 01/03/22 02/09/23 aspirin 81 mg tablet,delayed 1 tab PO DAILY 01/03/22 02/09/23 release clopidogrel 75 mg tablet 1 tab PO Q OTHER DAY 01/03/22 02/09/23 cholecalciferol (vitamin D3) 50 50 mcg PO BID 08/04/22 02/09/23 mcg (2,000 unit) capsule ferrous sulfate 325 mg (65 mg 325 mg PO BID 08/04/22 02/09/23 iron) tablet (FeroSul) lisinopril 40 mg tablet 40 mg PO DAILY 08/04/22 02/09/23 atorvastatin 40 mg tablet 40 mg PO BID 09/03/22 02/09/23 cephalexin 250 mg capsule 250 mg PO DAILY recurrent UTI's 03/11/23 geriatric [id number] 1 tab PO DAILY 03/11/23 Previous Rx's Medication Instructions Recorded ipratropium 0.5 mg-albuterol 3 mg 3 ml inhalation Q4-6H PRN wheezing 05/10/21 (2.5 mg base)/3 mL nebulization 30 days #270 mL soln Bifidobacterium infantis 4 mg 4 mg PO QDAY #90 caps 03/11/23 capsule (Align) famotidine 20 mg tablet 20 mg PO BID 30 days #60 tabs 03/11/23 Allergies Allergy/AdvReac Type Severity Reaction Status Date / Time milk [MILK] Allergy Intermediate DIARRHEA Verified 03/11/23 10:08 Review of Systems Review of Systems: Constitutional : No Weight loss, No Fever, No Chills, No Fatigue, No Malaise ENT/Mouth : No sore throat, No Rhinorrhea Eyes: No Eye Pain, No Swelling, No Redness Cardiovascular : No Chest Pain, No SOB, No Dyspnea on Exertion, No Orthopnea, No Edema, No Palpitations Respiratory : No Cough, No Sputum, No Wheezing Gastrointestinal : No Nausea, No Vomiting, No Diarrhea, No Constipation, No abdominal Pain, No Hematochezia, No Melena Genitourinary : No Dysuria, No Urinary Frequency, No Hematuria, Musculoskeletal : No joint pain, No Myalgias, No Joint Swelling Skin : No Skin Lesions, No rash Neuro : No Weakness, No Numbness, No Dizziness, No Headache Psych : No Anxiety/Panic, No Depression Heme/Lymph: No Bruising, No Bleeding,No Lymphadenopathy Endocrine : No Polyuria, No Polydipsia All other systems reviewed and are negative Yes all other systems are reviewed and are negative PMFSH Past Medical History Attestation statement: The following information was validated with the patient. Source: old records reviewed and nursing notes reviewed Onset Date is defined in the Problem List Problems that require an onset date and time if occurred within 24 hrs of arrival to the ED Aortic Dissection and Rupture; Neurologic impairment; Cardiopulmonary Arrest; Endotracheal Intubation; Insertion or Replacement of Mechanical Circulatory Assist Device Medical History Tubular adenoma Gastritis BBB (bundle branch block) DVT (deep venous thrombosis) Anemia Multifactorial dementia Lacunar infarction Osteoporosis HTN (hypertension) COPD (chronic obstructive pulmonary disease) Surgical History History of esophagogastroduodenoscopy (EGD) Hx of colonoscopy No pertinent past surgical history Family History Family History Other No family history of coronary artery disease Social History Social History Household Members: None Housing: Apartment Do you presently have visiting nurse or other home services: No Alcohol intake: current Alcohol intake frequency: does not drink Patient Tobacco Use Status: Former Tobacco user Smoked in Last 30 Days: No e-Cigarette/Vaping Use: Former Use Second Hand Smoke Exposure: No Use of substances other than those prescribed or required for medical reasons: No Advance Directives: Yes Advance Directives on File: Yes Advance Directives Date on File: 04/09/21 service: No Current occupational status: retired Physical Exam ED Vital Signs: Vital Signs - 24 hr 05/14/23 12:39 05/14/23 12:41 05/14/23 12:41 Temperature 98.4 F Pulse Rate 82 85 Respiratory Rate 16 Blood Pressure 149/61 H Pulse Oximetry 92 95 95 Oxygen Delivery Method Room Air Room Air Oxygen Flow Rate 05/14/23 14:00 05/14/23 16:00 05/14/23 17:44 Temperature 97.1 F Pulse Rate 89 Respiratory Rate 16 16 16 Blood Pressure 140/62 H Pulse Oximetry 93 Oxygen Delivery Method Room Air Oxygen Flow Rate 05/14/23 21:30 05/14/23 21:59 05/15/23 00:44 Temperature 97.7 F 98.2 F Pulse Rate 101 H 87 82 Respiratory Rate 16 18 22 H Blood Pressure 143/63 H 156/60 H Pulse Oximetry 92 97 Oxygen Delivery Method Room Air Room Air Nasal Cannula Oxygen Flow Rate 2 BMI result Body Mass Index 27.7 vss Appearance: Alert.? Oriented X3.? No acute distress.? Head: Normocephalic, atraumatic, no step-offs or deformities Eyes: Pupils equal, round and reactive to light.? Neck: Normal inspection.? Neck supple.? CVS: Normal heart rate and rhythm.? Pulses normal.? Respiratory: No respiratory distress.? Breath sounds normal.? Abdomen: Soft and nontender.? Skin: Skin warm and dry.? Normal skin color.? Normal skin turgor.? Extremities: No lower extremity edema.? No calf ttp. 5/5 strength to bilateral upper and lower extremities Full ROM to b/l knees R knee w/ significant bruisiding and contusion. 2+ DP,at, popliteal pulses. Back: No midline tenderness, no C-spine tenderness, full range of motion, no CVA tenderness bilaterally Neuro: Oriented X 3.? No motor deficit.? No sensory deficit. CN 2-12 intact Course Course Course Narrative: Discuss this case with my attending who recommends Harshal wrap, ortho and PCP follow-up if needed. Agrees with my diagnosis and treatment plan. Reevaluation(s) Reevaluation #1: CBC wnl. Chemistry unremarkable. Trop and EKG pending. Xray knee no evidence of acute injury. Marked vascular calcifications. CT head/ cervical spine and ct of lower extreity pending. Confirmed w/ patients PCP not on coumadin Time: 16:13 Reevaluation #2: Wound at the anterior medial distal aspect of tibial plateau. Surrounding subcutaneous fat stranding. Mild circumferential soft tissue swelling in the distal calf no deep fluid collections or fasciitis. Costal calcinosis at the knee and talocrural joints. No fractures. Ct cervical spine grade 1 anterolisthesisis no acute ich. Moderate right pleural effusion no shortness of breath or traumatic injuries on exam, patient is saturating 100% on room air. She has not on Coumadin correction from initial HPI patient is on Plavix and clopidogrel. CT chest ordered after speaking to my attending about pleural effusion noted on ct Sign out to Jerod BOYER Time: 16:42 Reevaluation #3: Patient left the ED before chest CT scan results came back. Chest CT shows hemorrhage. Patient's number was called and spoke with her daughter. She was near daughter. They were informed for patient to return back to the ED immediately due to concerning CT scan showing hemorrhage in lungs and she will need chest tube. Daughter states she will bring patient back to the ER. Time: 19:53 Additional Reevaluation(s): Patient has signed consent for possible chest tube versus pigtail versus thoracocentesis. Dr. Ronquillo performed bedside diagnositc thoracocentesis and there was no blood just clear serosanguous fluid withtout any pus. Ultrasound was than used for thoracocentesis and 825ml was drainged. Sample sent. Consultations Consultation #1: Patient is on aspirin and Plavix, pharmacy states patient is not on Coumadin. Patient's CBC with leukocytosis, likely reactive secondary to acute trauma/fall. Chemistry no acute findings requiring intervention.Coags unremarkable again unlikely patient is on Coumadin. X-ray no evidence of an acute injury. Marked vascular calcifications. CT head, cervical spine and lower extremity pending. Time: 16:01 Consultation #2: Pleural white blood cell count only 2.4. Rest of results can be follow-up with patient's primary care provider who she states is affiliated with [facility]. Patient waited for daughter to fiber picker at 03:30 for discharge. Time: 02:05 Medications Administered Discontinued Medications Generic Name Dose Route Start Last Admin Trade Name Freq PRN Reason Stop Dose Admin Iohexol 100 ml 05/14/23 14:59 05/14/23 14:59 Iohexol 350 Mg/Ml 100 Ml Infus..Btl IV 05/14/23 15:00 85 ml ONCE ONE Administration Lidocaine HCl 5 ml 05/14/23 20:44 05/14/23 21:02 Lidocaine Hcl 1 % Mpf 5 Ml Vial INFILTRATI 05/14/23 20:45 5 ml ONCE ONE Administration Lidocaine HCl 5 ml 05/14/23 20:44 05/14/23 21:02 Lidocaine Hcl 1 % Mpf 5 Ml Vial INFILTRATI 05/14/23 20:45 5 ml ONCE ONE Administration Morphine Sulfate 15 mg 05/14/23 16:13 05/14/23 16:27 Morphine Sulfate Immed Release 15 Mg Tablet PO 05/14/23 16:14 15 mg ONCE ONE Administration Procedures Procedure Narrative Procedure Narrative: Right thoracentesis: Using aseptic technique patient had a diagnostic and therapeutic thoracentesis of the right side 800 cc of yellowish color fluid was drained sent further analysis patient repeat x-rays showed expanded lung Medical Decision Making Medical Decision Making MDM Narrative: 72 yr old female with a past medical history of COPD, anemia, pulmonary nodules, HLD, GERD, HTN, DVT, tubular adenoma presenting status post fall w/ right knee PE significant for hematoma inferior to the right knee with edema. Full ROM and 5/5 strength of the right knee. Most likely hematoma secondary to mechanical fall. Unlikely LE fracture, dislocation, neurovascular compromise, threat to limb. Unlikely traumatic injury to head, neck, chest, abdomen or pelvis. I do not suspect stroke, posterior stroke. Plan at this time imaging labs. Differential Diagnosis Differential Diagnoses: The differential diagnosis associated with the presentation includes Most likely hematoma secondary to mechanical fall. Unlikely LE fracture, dislocation, neurovascular compromise, threat to limb. Unlikely traumatic injury to head, neck, chest, abdomen or pelvis. I do not suspect stroke, posterior stroke. Admission/Observation Consideration of admission/observation: Escalation of care including admission/observation considered Lab Data MDM Lab Attestation statement: I reviewed the patient's lab results. CBC significant for leukocytosis 12.5 with a shift PT and INR unremarkable CMP significant for an elevated alk tiffany 141 05/14/23 12:52 05/14/23 12:52 Labs: Lab Results 05/14/23 05/14/23 Range/Units 12:52 22:13 WBC 12.5 H (4.8-10.8) X10*3/uL RBC 4.47 (4.20-5.50) X10*6/uL Hgb 12.5 (12.0-16.0) g/dl Hct 39.4 (37.0-47.0) % MCV 88.1 (80.0-98.0) fL MCH 28.0 (27.0-33.0) pg MCHC 31.7 (31.0-35.0) g/dl RDW 15.3 (11.0-16.0) % Plt Count 310 (160-400) X10*3/uL MPV 9.1 L (9.4-12.3) fL Immature Gran % (Auto) 0.3 (0.0-0.4) % Neut % (Auto) 83.4 H (45-73) % Lymph % (Auto) 6.6 L (20-40) % [place] % (Auto) 7.1 (2-11) % Eos % (Auto) 2.3 (0-4) % Baso % (Auto) 0.3 (0-2) % Lymph # (Auto) 0.8 L (1.2-4.9) X10*3/uL [place] # (Auto) 0.9 (0.1-1.2) X10*3/uL Eos # (Auto) 0.3 (0.0-0.4) X10*3/uL Baso # (Auto) 0.0 (0.0-0.2) X10*3/uL Abs Immat Gran (auto) 0.04 H (0.00-0.03) X10*3/uL Absolute Neuts (auto) 10.4 H (2.0-8.3) x10*3/uL Absolute Nucleated RBC 0.000 (0.0-0.012) X10*3/uL Nucleated RBC % (auto) 0.0 (0.0-0.2) /100WBC PT 11.4 (11.1-13.3) SEC INR 0.9 (0.9-1.1) Sodium 142 (135-145) mmol/L Potassium 3.8 (3.3-5.1) mmol/L Chloride 106 (96-108) mmol/L Carbon Dioxide 25 (22-29) mmol/L Anion Gap 15 (12-20) BUN 16 (9-16) mg/dL Creatinine 0.72 (0.5-1.4) mg/dL Estim Creat Clear Calc 59.8 Estimated GFR > 60 Random Glucose 102 (60-115) mg/dL Calcium 9.6 (8.4-10.2) mg/dL Total Bilirubin 0.3 (0.0-1.0) mg/dL AST 20 (5-31) U/L ALT 19 (0-31) U/L Alkaline Phosphatase 141 H (39-117) U/L Total Creatine Kinase 71 (26-140) U/L Troponin I High Sens < 2.7 (<3.5-17.0) ng/L Total Protein 6.9 (6.5-8.0) g/dL Albumin 3.9 (3.5-5.0) g/dL Pleural WBC 2.498 X10*3/uL Pleural RBC 0.005 X10*6/uL Pleural Neutrophils 3 % Pleural Lymphocytes 74 % Pleural Monocytes 3 % Pleural Other Cells 20 % Independent Interpretation I performed an independent interpretation of an: Plain X-Ray (XR/XR knee RT 4V IMPRESSION: 1. No evidence of an acute injury. 2. Marked vascular calcifications. ) Radiology Impression Discussion of test interpretation with radiology: I have reviewed the radiologist's reading. Radiologist Impression: XR/XR knee RT 4V IMPRESSION: 1. No evidence of an acute injury. 2. Marked vascular calcifications. Independent Historian Clinical information obtained from an independent historian. History obtained from or confirmed by: EMS External Record Review External record reviewed: Inpatient record and Outpatient record Critical Care Time Critical Care Time Critical Care Time: Yes Total Critical Care Time: 35 Attestation: I attest to this time spent taking care of the patient, obtaining history, physical, reviewing labs, imaging, speaking to my attending, speaking to specialist. Discharge Plan Discharge Clinical Impression: Contusion of knee, Fall, Concussion, Pleural effusion Patient Disposition: Home, Self-Care Instructions: Concussion (ED), Contusion in Adults (ED), Fall Prevention (ED) Additional Instructions: Take your medications as prescribed. If you were prescribed antibiotics today, it is important that you take your medication to their entirety, do not skip any doses, do not finish them early. Follow-up with your primary care provider this week. Return to the emergency department with new or worsening symptoms. Such as fevers, chills, chest pain, shortness of breath, nausea, vomiting, dizziness, headache, vision changes, lethargy In case of emergency call 911'. Your primary care provider will be able to follow-up with pleural fluid samples that were sent. Wear HARSHAL wrap as instructed not to tight Look out for signs and symptoms of compartment syndrome as discussed: inability to feel leg, severe pain, numbness and tingling, discoloration, inability to feel temperature. CT/CT lower leg RT w IV con IMPRESSION: 1. Wound at the anteromedial aspect of the tibial plateau. Surrounding subcutaneous fat stranding may correspond to soft tissue swelling or cellulitis. No abscess. No CT findings of osteomyelitis. 2. Mild circumferential soft tissue swelling in the distal calf. No deep fluid collections or findings of fasciitis. 3. Chondrocalcinosis at the knee and talocrural joints. No fractures. Prescriptions: No Action alendronate 70 mg tablet 70 mg PO SA@0900 albuterol sulfate 90 mcg/actuation HFA aerosol inhaler 2 inh inhalation Q4H PRN (Reason: Wheezing) Incruse Ellipta 62.5 mcg/actuation blister with device 1 puff PO DAILY fluticasone furoate-vilanterol [Breo Ellipta] 200-25 mcg/dose blister with device 1 puff PO BEDTIME clopidogrel 75 mg tablet 1 tab PO Q OTHER DAY Hold Instructions: Resume on 11/23/22. Resume Plavix on 11/23/22 amlodipine 10 mg tablet 1 tab PO DAILY aspirin 81 mg tablet,delayed release (DR/EC) 1 tab PO DAILY atorvastatin 40 mg tablet 40 mg PO BID lisinopril 40 mg tablet 40 mg PO DAILY ferrous sulfate [FeroSul] 325 mg (65 mg iron) tablet 325 mg PO BID cholecalciferol (vitamin D3) 50 mcg (2,000 unit) capsule 50 mcg PO BID ipratropium-albuterol 0.5 mg-3 mg(2.5 mg base)/3 mL solution for nebulization 3 ml inhalation Q4-6H PRN (Reason: wheezing) 30 Days Qty: 270 6RF cephalexin 250 mg capsule 250 mg PO DAILY geriatric [id number] Tablet 1 tab PO DAILY famotidine 20 mg tablet 20 mg PO BID 30 Days Qty: 60 3RF Align 4 mg capsule 4 mg PO QDAY Qty: 90 3RF Referrals: [facility] [place] [facility] [Provider Group] - 2 days Lyn French MD [Primary Care Provider] - 2 days Print Language: Syriac
--- NOTE | 2023-05-14 12:53 | PC.NURSE ---
MARY ANNE bandage applied to right knee hematoma. Family at bedside at this time, pt and family updated on plan of care.
[2023-05-14 12:56] LABS: MANUAL DIFF FLAG NO
[2023-05-14 12:58] LABS: Basophils Percent Auto 0.3 % (0-2); Eosinophils Absolute Auto 0.3 X10*3/uL (0.0-0.4); Eosinophils Percent Auto 2.3 % (0-4); Hematocrit 39.4 % (37.0-47.0); Hemoglobin 12.5 g/dl (12.0-16.0); Imm Gran Abs Auto 0.04 X10*3/uL (0.00-0.03); Imm Gran Pct Auto 0.3 % (0.0-0.4); Lymphocytes Absolute Auto 0.8 X10*3/uL (1.2-4.9); Lymphocytes Percent Auto 6.6 % (20-40); Mean Corpuscular HGB Conc 31.7 g/dl (31.0-35.0); Mean Corpuscular Volume 88.1 fL (80.0-98.0); Mean Platelet Volume 9.1 fL (9.4-12.3); Monocytes Absolute Auto 0.9 X10*3/uL (0.1-1.2); Monocytes Percent Auto 7.1 % (2-11); Neutrophils Absolute Auto 10.4 x10*3/uL (2.0-8.3); Neutrophils Percent Auto 83.4 % (45-73); Platelet Count 310 X10*3/uL (160-400); Red Blood Count 4.47 X10*6/uL (4.20-5.50); Red Cell Distribution Width 15.3 % (11.0-16.0); White Blood Count 12.5 X10*3/uL (4.8-10.8)
[2023-05-14 13:03] LABS: INTERNATIONAL NORM RATIO 0.9 (0.9-1.1); Prothrombin Time 11.4 SEC (11.1-13.3)
[2023-05-14 13:12] LABS: Alanine Aminotransferase 19 U/L (0-31); Albumin Level 3.9 g/dL (3.5-5.0); Alkaline Phosphatase 141 U/L (39-117); Anion Gap 15 (12-20); Aspartate Amino Transferase 20 U/L (5-31); Bilirubin Total 0.3 mg/dL (0.0-1.0); Blood Urea Nitrogen 16 mg/dL (9-16); Calcium 9.6 mg/dL (8.4-10.2); Carbon Dioxide 25 mmol/L (22-29); Chloride 106 mmol/L (96-108); Creatinine Clr Calc Pharmacy 59.8; Estimated Glomerular Filt Rate > 60; Glucose Random 102 mg/dL (60-115); Potassium 3.8 mmol/L (3.3-5.1); Sodium 142 mmol/L (135-145); Total Protein 6.9 g/dL (6.5-8.0)
--- NOTE | 2023-05-14 14:40 | PC.NURSE ---
iv placed, ct notified.
[2023-05-14] MEDS: iohexoL 350 MG/ML 100 ML INFUS..BTL IV (14:59)
--- NOTE | 2023-05-14 15:59 | ECG_ITS ---
Test Reason : fall Blood Pressure : / mmHG Vent. Rate : 090 BPM Atrial Rate : 090 BPM P-R Int : 168 ms QRS Dur : 122 ms QT Int : 388 ms P-R-T Axes : 081 -13 102 degrees QTc Int : 474 ms Normal sinus rhythm Left bundle branch block Abnormal ECG When compared with ECG of 17-NOV-2022 09:20, No significant change was found Referred By: Sly Strickland Electronically Signed By:CHRISTIANO HOWELL
[2023-05-14] MEDS: Morphine Sulfate Immed Release 15 MG TABLET PO (16:27)
[2023-05-14 16:39] LABS: Troponin-I High Sensitivity < 2.7 ng/L (<3.5-17.0)
--- NOTE | 2023-05-14 19:18 | PC.NURSE ---
Removed pt IV per request stating that she wants to leave. Pt family visibly upset and reports that they have been waiting all day and want to leave so she can sleep. Educated on importance of staying however pt and pt family report they want to leave and will follow up with provider tomorrow. Provider made aware
--- NOTE | 2023-05-14 20:17 | PC.NURSE ---
pt called back by provider due to CT results, pt returned back in room
[2023-05-14] MEDS: Lidocaine HCl 1 % MPF 5 ML VIAL INFILTRATI ×2 (21:02)
[2023-05-14 22:30] LABS: MN% 98.2 %; PMN% 1.8 %; RBC Pleural Fluid 0.005 X10*6/uL; WBC Pleural Fluid 2.498 X10*3/uL
[2023-05-14 23:11] LABS: Lymphocytes Pleural Fluid 74 %; Neutrophils Pleural Fluid 3 %
[2023-05-14 23:12] LABS: BF Shift QC OK YES; Monocytes Pleural Fluid 3 %; Other Cells Plerual Fl 20 %
[2023-05-15 00:44] VITALS: BP 156/60; PULSE 82; RESP 22; TEMP 36.8; O2SAT 97
[2023-05-15 03:46] VITALS: BP 134/57; PULSE 73; RESP 20; TEMP 36.8; O2SAT 95
[2023-05-15 04:15] LABS: Albumin Pleural Fluid 2.9 GM/DL
[2023-05-15 06:11] VITALS: BP 150/57; PULSE 76; RESP 19; TEMP 37.1; O2SAT 96
--- NOTE | 2023-05-15 06:39 | PC.NURSE ---
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
== END 2023-05-15 07:18 | disposition home or self-care (01) ==
PROVIDERS: Internal Medicine; Physician Assistant; Emergency Provider Emergency Medicine; PCP Pediatrics
DX: S06.0X0A Concussion without loss of consciousness, initial encounter (principal); S80.01XA Contusion of right knee, initial encounter; R60.0 Localized edema; M25.561 Pain in right knee; J90 Pleural effusion, not elsewhere classified; I10 Essential (primary) hypertension; I48.91 Unspecified atrial fibrillation; R51.9 Headache, unspecified; M54.2 Cervicalgia; R42 Dizziness and giddiness; R07.89 Other chest pain; M54.6 Pain in thoracic spine; R40.2410 Glasgow coma scale score 13-15, unspecified time; W01.10XA Fall on same level from slipping, tripping and stumbling with subsequent striking against unspecified object, initial encounter; Y99.9 Unspecified external cause status; Y93.9 Activity, unspecified; Y92.9 Unspecified place or not applicable; Z87.891 Personal history of nicotine dependence; Z79.899 Other long term (current) drug therapy; Z79.01 Long term (current) use of anticoagulants; Z86.73 Personal history of transient ischemic attack (TIA), and cerebral infarction without residual deficits
CPT/HCPCS: 32554; 36415; 70450; 71045; 71250; 72125; 73564; 73701; 80053; 82042; 82550; 84484; 85025; 85610; 87070; 87073; 87205; 88112; 88305; 88341; 88342; 89051; 93005; 99285; Q9967

== ENCOUNTER → 2023-05-14 15:59 | Outpatient (BNV) | payer OTHER, SELFPAY | PROVIDERS: Emergency Provider Emergency Medicine; PCP Pediatrics; Visit Provider Internal Medicine | DX: R94.31 Abnormal electrocardiogram [ECG] [EKG] (principal) | CPT/HCPCS: 93010 ==

== ENCOUNTER 2023-05-27 14:11 | Inpatient (IN) | payer OTHER, SELFPAY ==
--- NOTE | ~2023-05-27 | XR_ITS ---
EXAMINATION: XR CHEST CLINICAL INFORMATION: Status post chest tube. Pleurodesis for right-sided pleural effusion. COMPARISON: Chest radiograph dated 05/29/2023. TECHNIQUE: Frontal view of the chest was obtained. FINDINGS: Redemonstration of a right basilar pigtail catheter. No significant pleural effusion. Patchy right basilar probable atelectasis. No significant pneumothorax. Stable cardiomediastinal silhouette. XR/XR chest 1V IMPRESSION: Right basilar pigtail catheter without significant pleural effusion. Patchy right basilar probable atelectasis. No significant pneumothorax.
--- NOTE | ~2023-05-27 | XR_ITS ---
EXAMINATION: XR CHEST CLINICAL INFORMATION: Follow-up pleural effusion status-post thoracostomy tube. COMPARISON: Prior chest radiograph, most recently 05/28/2023; CT chest dated 05/14/2023. TECHNIQUE: Frontal view of the chest was obtained. FINDINGS: The heart, great vessels, pulmonary vasculature and mediastinum are stable. The heart size is least top normal. There is atherosclerotic calcification of the aortic knob. There is pulmonary vascular congestion, without overt pulmonary edema. The patient's right thoracostomy tube remains in stable position, with pigtail coiled at the posterior right base. No definite effusion is seen. No pneumothorax is seen. There is no acute osseous abnormality. XR/XR chest 1V IMPRESSION: 1. The patient's right thoracostomy tube is unchanged in position. No right pleural effusion or pneumothorax is presently seen. 2. There is pulmonary vascular congestion, without overt pulmonary edema.
--- NOTE | ~2023-05-27 | XR_ITS ---
EXAMINATION: XR CHEST CLINICAL INFORMATION: Recent thoracentesis. COMPARISON: Chest 05/14/2023 TECHNIQUE: 2 views of the chest were obtained. FINDINGS: Since 05/14/2023 exam there is slight increase in the right pleural effusion likely moderate size with underlying right lower lobe atelectasis. There is no left-sided pleural effusion. The entire left lung and the right upper lung is expanded and clear. There is no pneumothorax. Heart size is enlarged. Pulmonary vascularity is normal. No gross bony abnormality seen. XR/XR chest 2V IMPRESSION: 1. Slight increase in right pleural effusion likely moderate in size with underlying right lower lobe atelectasis. 2. No pneumothorax seen. 3. Mild cardiomegaly.
--- NOTE | ~2023-05-27 | XR_ITS ---
EXAMINATION: XR CHEST CLINICAL INFORMATION: Right chest tube for pleural effusion. COMPARISON: 05/27/2023 TECHNIQUE: Chest, AP view FINDINGS: EKG wires overlie the chest. Lungs are adequately expanded. There appears to be trace residual right pleural effusion after pleural drainage catheter placement. No overt pneumothorax. The ill-defined opacity in the medial right lower lobe is likely from atelectasis. Cardiac silhouette is mildly enlarged. Pulmonary vascular pattern is normal. Atherosclerotic calcification of the aorta. No acute osseous abnormality. Several surgical clips are seen within the lower neck. XR/XR chest 1V IMPRESSION: There appears to be trace residual pleural fluid after the drainage catheter placement. This represents significant improvement compared to 05/27/2023.
--- NOTE | ~2023-05-27 | CT_ITS ---
EXAMINATION: CT head/brain wo IV con CLINICAL INFORMATION: Reason for Exam confusion COMPARISON: CT head 05/14/2023 TECHNIQUE: Contiguous axial imaging was performed from the skull base to vertex without intravenous contrast. Sagittal and coronal reformatted images were obtained. This CT examination was performed using dose optimization techniques as appropriate, variously including the following: * Automated exposure control * Adjustment of mA and/or kV according to patient size (this includes techniques or standardized protocols for targeted exams where dose is matched to indication/reason for exam; i.e. extremities or head) Use of iterative reconstruction technique DLP: 634 mGy-cm FINDINGS: There is no evidence of acute intracranial hemorrhage. No mass-effect or ventricular shift is noted. Redemonstrated encephalomalacia/gliosis in the right anterior frontal lobe and right anterior parietal lobe. Generalized cerebral volume loss with associated ventricular and sulcal prominence.Periventricular and subcortical white matter hypodensity is nonspecific but likely represents chronic microvascular ischemic change. Intracranial atherosclerotic calcification is noted. No depressed calvarial fracture. Partially visualized fixation hardware along the right inferior orbital wall. Bilateral intraocular lens replacements. The visualized paranasal sinuses are well-aerated with trace scattered mucosal thickening. Soft tissue in the external auditory canals, likely cerumen. The mastoid air cells are clear. CT/CT head/brain wo IV con IMPRESSION: No acute intracranial hemorrhage or territorial loss of browning-white differentiation. Chronic encephalomalacia/gliosis in the right frontal and parietal lobes.
--- NOTE | ~2023-05-27 | US_ITS ---
PROCEDURE: Ultrasound-guided chest tube placement HISTORY: Right pleural effusion SPECIMEN: A specimen was appropriately labeled and sent to the laboratory as requested ACCESS: 5 fr Yueh needle/catheter MEDICATIONS: 10 mL 1% lidocaine TECHNIQUE/FINDINGS: Appropriate preprocedural clinical history and imaging studies were reviewed. The patient was brought to the department and placed in the seated position. Ultrasound images of the right thorax were obtained to localize a moderate pleural effusion. Permanent ultrasound images were saved. The risks and benefits and possible complications were discussed with the patient and consent form was signed. An area of the patient's right back was prepped and draped in the usual sterile fashion. 10 mL of 1% lidocaine was used to obtain local anesthesia of the skin and deeper tissues. A 5 gauge hypodermic needle was introduced to sample pleural fluid and demonstrate a safe access route. A 5 Persian Yueh catheter was then used to access the pleural cavity. A 0.035 guidewire was then placed through the catheter and into the chest. The access site was then dilated. A 10 fr locking catheter was then advanced over the wire and into the chest cavity. The wire was removed and the catheter was secured to the skin with a single suture and a sterile dressing was applied over the site. The catheter was then connected to a close chest drainage system. The patient tolerated the procedure well. There were no immediate complications US/US drain thoracentesis Impression: Ultrasound-guided right chest tube placement yielding yellow fluid. This procedures performed by Mauri Sr PA-C and supervised by Dr. Blake.
--- NOTE | ~2023-05-27 | XR_ITS ---
EXAMINATION: XR CHEST CLINICAL INFORMATION: Follow-up chest tube removal. COMPARISON: 05/31/2023 TECHNIQUE: Frontal view of the chest was obtained. FINDINGS: Interval removal of right basilar pigtail catheter. The lungs are moderately expanded. No focal consolidation. No significant pleural effusion or sizable pneumothorax. Cardiac silhouette is unchanged. XR/XR chest 1V IMPRESSION: Interval removal of right basilar pigtail catheter. No significant pleural effusion or sizable pneumothorax.
[2023-05-27 14:27] VITALS: BP 163/72; PULSE 88; O2SAT 97
[2023-05-27 14:34] VITALS: BP 167/55; PULSE 91; RESP 22; TEMP 36.6; O2SAT 94; BMI 30.6
--- NOTE | 2023-05-27 14:39 | ECG_ITS ---
Test Reason : SOB Blood Pressure : / mmHG Vent. Rate : 088 BPM Atrial Rate : 088 BPM P-R Int : 148 ms QRS Dur : 122 ms QT Int : 388 ms P-R-T Axes : 068 020 107 degrees QTc Int : 469 ms Sinus rhythm with occasional Premature ventricular complexes Left bundle branch block Abnormal ECG When compared with ECG of 14-MAY-2023 16:25, Premature ventricular complexes are now Present Referred By: Generic ED Physician Electronically Signed By:CAREY CRAWLEY MD
[2023-05-27 15:07] LABS: MANUAL DIFF FLAG NO
[2023-05-27 15:08] LABS: Basophils Absolute Auto 0.1 X10*3/uL (0.0-0.2); Basophils Percent Auto 0.4 % (0-2); Eosinophils Absolute Auto 0.3 X10*3/uL (0.0-0.4); Eosinophils Percent Auto 1.9 % (0-4); Hematocrit 39.2 % (37.0-47.0); Hemoglobin 12.7 g/dl (12.0-16.0); Imm Gran Abs Auto 0.05 X10*3/uL (0.00-0.03); Imm Gran Pct Auto 0.4 % (0.0-0.4); Lymphocytes Absolute Auto 0.7 X10*3/uL (1.2-4.9); Lymphocytes Percent Auto 5.1 % (20-40); Mean Corpuscular HGB Conc 32.4 g/dl (31.0-35.0); Mean Corpuscular Hemoglobin 28.4 pg (27.0-33.0); Mean Corpuscular Volume 87.7 fL (80.0-98.0); Mean Platelet Volume 9.2 fL (9.4-12.3); Monocytes Absolute Auto 0.8 X10*3/uL (0.1-1.2); Monocytes Percent Auto 5.7 % (2-11); Neutrophils Absolute Auto 11.4 x10*3/uL (2.0-8.3); Neutrophils Percent Auto 86.5 % (45-73); Platelet Count 347 X10*3/uL (160-400); Red Blood Count 4.47 X10*6/uL (4.20-5.50); White Blood Count 13.1 X10*3/uL (4.8-10.8)
[2023-05-27 15:39] LABS: Alanine Aminotransferase 18 U/L (0-31); Albumin Level 3.9 g/dL (3.5-5.0); Alkaline Phosphatase 132 U/L (39-117); Anion Gap 15 (12-20); Aspartate Amino Transferase 21 U/L (5-31); Bilirubin Total 0.2 mg/dL (0.0-1.0); Blood Urea Nitrogen 19 mg/dL (9-16); Calcium 9.8 mg/dL (8.4-10.2); Carbon Dioxide 21 mmol/L (22-29); Chloride 104 mmol/L (96-108); Creatinine Clr Calc Pharmacy 44.7; Estimated Glomerular Filt Rate > 60; Glucose Random 110 mg/dL (60-115); Potassium 4.1 mmol/L (3.3-5.1); Sodium 136 mmol/L (135-145); Total Protein 6.8 g/dL (6.5-8.0)
--- NOTE | 2023-05-27 16:25 | ED.SOB ---
HPI - SOB/Dyspnea General Chief Complaint: Upper Respiratory Symptoms Stated Complaint: PLURAL EFFUSION 05/14 INCREASE SOB, WEAKNESS Time Seen by Provider: 05/27/23 16:07 Source: patient and family Mode of arrival: EMS History of Present Illness HPI Narrative: 2-year-old female, smoker, COPD, comes in with increasing shortness of breath since yesterday denies being on any home oxygen and reports that on 05/14 she had fluid removed from her long and when asked if she had cancer of the family provided additional information stating that that was being worked up at present. Patient otherwise denies any fever, chills, new cough, chest pain/palpitations, GI or symptoms. Related Data Home Medications Medication Instructions Recorded Confirmed albuterol sulfate 90 mcg/actuation 2 inh inhalation Q4H PRN Wheezing 04/09/21 02/09/23 aerosol inhaler alendronate 70 mg tablet 70 mg PO SA@0900 04/09/21 02/09/23 fluticasone furoate 200 1 puff PO BEDTIME 04/09/21 02/09/23 mcg-vilanterol 25 mcg/dose inhalation powder (Breo Ellipta) umeclidinium 62.5 mcg/actuation 1 puff PO DAILY 04/09/21 02/09/23 blister powder for inhalation (Incruse Ellipta) amlodipine 10 mg tablet 1 tab PO DAILY 01/03/22 02/09/23 aspirin 81 mg tablet,delayed 1 tab PO DAILY 01/03/22 02/09/23 release clopidogrel 75 mg tablet 1 tab PO Q OTHER DAY 01/03/22 02/09/23 cholecalciferol (vitamin D3) 50 50 mcg PO BID 08/04/22 02/09/23 mcg (2,000 unit) capsule ferrous sulfate 325 mg (65 mg 325 mg PO BID 08/04/22 02/09/23 iron) tablet (FeroSul) lisinopril 40 mg tablet 40 mg PO DAILY 08/04/22 02/09/23 atorvastatin 40 mg tablet 40 mg PO BID 09/03/22 02/09/23 cephalexin 250 mg capsule 250 mg PO DAILY recurrent UTI's 03/11/23 geriatric [id number] 1 tab PO DAILY 03/11/23 Previous Rx's Medication Instructions Recorded ipratropium 0.5 mg-albuterol 3 mg 3 ml inhalation Q4-6H PRN wheezing 05/10/21 (2.5 mg base)/3 mL nebulization 30 days #270 mL soln Bifidobacterium infantis 4 mg 4 mg PO QDAY #90 caps 03/11/23 capsule (Align) famotidine 20 mg tablet 20 mg PO BID 30 days #60 tabs 03/11/23 Allergies Allergy/AdvReac Type Severity Reaction Status Date / Time milk [MILK] Allergy Intermediate DIARRHEA Verified 03/11/23 10:08 Review of Systems Review of Systems: Pertinent positives and negatives as stated in [facility] Past Medical History Source: nursing notes reviewed Medical History Tubular adenoma Gastritis BBB (bundle branch block) DVT (deep venous thrombosis) Anemia Multifactorial dementia Lacunar infarction Osteoporosis HTN (hypertension) COPD (chronic obstructive pulmonary disease) Surgical History History of esophagogastroduodenoscopy (EGD) Hx of colonoscopy No pertinent past surgical history Family History Family History Other No family history of coronary artery disease Social History Social History Household Members: None Housing: Apartment Do you presently have visiting nurse or other home services: No Alcohol intake: current Alcohol intake frequency: does not drink Patient Tobacco Use Status: Former Tobacco user e-Cigarette/Vaping Use: Former Use Second Hand Smoke Exposure: No Advance Directives: Yes Advance Directives on File: Yes Advance Directives Date on File: 04/09/21 service: No Current occupational status: retired Physical Exam Vital Signs: Vital Signs: Last Vital Signs Temp 98.0 F 05/27/23 18:08 Pulse 85 05/27/23 18:08 Resp 22 H 05/27/23 18:08 BP 141/57 H 05/27/23 18:08 Pulse Ox 98 05/27/23 18:08 O2 Del Method Room Air 05/27/23 18:08 BMI result Body Mass Index 30.6 VITAL SIGNS: Reviewed. GENERAL: Well developed, well nourished, in no acute distress. HEAD: Normocephalic/atraumatic EYES: PERRLA, EOMI EARS: Ext canals without abnormality NOSE: Nares patent bilateral OROPHARYNX: no oral lesions noted, posterior pharynx clear NECK: Supple, no adenopathy LUNGS: Decreased breath sounds at the right base, tachypnea is present. SpO2<87> on room air and then place supplemental 2 L nasal cannula with good response and an increase in oxygenation to 94%. CARDIOVASCULAR: Regular rate and rhythm without noted murmurs, no JVD or lower extremity edema. ABDOMEN: Soft, non-tender, non-distended with bowel sounds. MUSCULOSKELETAL: No tenderness, deformities, or effusions noted on gross inspection. EXTREMITIES: No cyanosis, clubbing or edema. SKIN: Inspection of the skin reveals no rashes NEUROLOGIC: Alert and oriented x 3. Strength and sensation to light touch were grossly intact x 4. Medical Decision Making Medical Decision Making [facility] Narrative: 72-year-old female with history and clinical presentation, DDX: Suspect recurrence right pleural effusion contributing to acute respiratory failure and requiring supplemental oxygen. I do not think that this is an exacerbation of underlying chronic obstructive lung disease. I reviewed all investigations and hematologic indices demonstrates a chronically stable non infectious leukocytosis, patient is afebrile and has no other complaints that would suggest infectious etiology. In addition, there is no evidence of anemia or thrombocytopenia. Chemistry indices do not demonstrate an SANTA and there is no electrolyte or liver enzyme derangements. Chest x-ray significant for suspected pleural effusion being identified as moderate in size. This prompted my review of the pathology report from the prior thoracentesis which demonstrate adenocarcinoma that is consistent with pulmonary origin. 1925: I discussed the pathology report with the patient as well as remaining results and the proposed plan as well as her admission and she understands and is agreeable. I also discussed the case with the inpatient hospitalist who accepts admission. Differential Diagnosis Differential Diagnoses: The differential diagnosis associated with the presentation includes Please see the discussion above Admission/Observation Consideration of admission/observation: Escalation of care including admission/observation considered Please see the discussion above Consult Healthcare Provider Management of the patient was discussed with: Hospitalist Please see the discussion above Lab Data [facility] Lab Attestation statement: I reviewed the patient's lab results. Please see the discussion above 05/27/23 15:03 05/27/23 15:03 Labs: Lab Results 05/27/23 Range/Units 15:03 WBC 13.1 H (4.8-10.8) X10*3/uL RBC 4.47 (4.20-5.50) X10*6/uL Hgb 12.7 (12.0-16.0) g/dl Hct 39.2 (37.0-47.0) % MCV 87.7 (80.0-98.0) fL MCH 28.4 (27.0-33.0) pg MCHC 32.4 (31.0-35.0) g/dl RDW 15.0 (11.0-16.0) % Plt Count 347 (160-400) X10*3/uL MPV 9.2 L (9.4-12.3) fL Immature Gran % (Auto) 0.4 (0.0-0.4) % Neut % (Auto) 86.5 H (45-73) % Lymph % (Auto) 5.1 L (20-40) % [place] % (Auto) 5.7 (2-11) % Eos % (Auto) 1.9 (0-4) % Baso % (Auto) 0.4 (0-2) % Lymph # (Auto) 0.7 L (1.2-4.9) X10*3/uL [place] # (Auto) 0.8 (0.1-1.2) X10*3/uL Eos # (Auto) 0.3 (0.0-0.4) X10*3/uL Baso # (Auto) 0.1 (0.0-0.2) X10*3/uL Abs Immat Gran (auto) 0.05 H (0.00-0.03) X10*3/uL Absolute Neuts (auto) 11.4 H (2.0-8.3) x10*3/uL Absolute Nucleated RBC 0.000 (0.0-0.012) X10*3/uL Nucleated RBC % (auto) 0.0 (0.0-0.2) /100WBC Sodium 136 (135-145) mmol/L Potassium 4.1 (3.3-5.1) mmol/L Chloride 104 (96-108) mmol/L Carbon Dioxide 21 L (22-29) mmol/L Anion Gap 15 (12-20) BUN 19 H (9-16) mg/dL Creatinine 0.85 (0.5-1.4) mg/dL Estim Creat Clear Calc 44.7 Estimated GFR > 60 Random Glucose 110 (60-115) mg/dL Calcium 9.8 (8.4-10.2) mg/dL Total Bilirubin 0.2 (0.0-1.0) mg/dL AST 21 (5-31) U/L ALT 18 (0-31) U/L Alkaline Phosphatase 132 H (39-117) U/L Total Protein 6.8 (6.5-8.0) g/dL Albumin 3.9 (3.5-5.0) g/dL Radiology Impression Discussion of test interpretation with radiology: I have reviewed the radiologist's reading. Radiologist Impression: Please see the discussion above External Record Review External record reviewed: Outpatient record, Prior outpatient labs, Prior outpatient radiology and Other Pathology report Chronic Conditions COPD Critical Care Time Critical Care Time Critical Care Time: Yes Total Critical Care Time: 60 Attestation: I personally attest to this time spent taking care of the patient. Discharge Plan Discharge Clinical Impression: Pleural effusion, right, Lung cancer, Hypoxemia Patient Disposition: Admitted As Inpatient Prescriptions: No Action alendronate 70 mg tablet 70 mg PO SA@0900 albuterol sulfate 90 mcg/actuation HFA aerosol inhaler 2 inh inhalation Q4H PRN (Reason: Wheezing) Incruse Ellipta 62.5 mcg/actuation blister with device 1 puff PO DAILY fluticasone furoate-vilanterol [Breo Ellipta] 200-25 mcg/dose blister with device 1 puff PO BEDTIME clopidogrel 75 mg tablet 1 tab PO Q OTHER DAY Hold Instructions: Resume on 11/23/22. Resume Plavix on 11/23/22 amlodipine 10 mg tablet 1 tab PO DAILY aspirin 81 mg tablet,delayed release (DR/EC) 1 tab PO DAILY atorvastatin 40 mg tablet 40 mg PO BID lisinopril 40 mg tablet 40 mg PO DAILY ferrous sulfate [FeroSul] 325 mg (65 mg iron) tablet 325 mg PO BID cholecalciferol (vitamin D3) 50 mcg (2,000 unit) capsule 50 mcg PO BID ipratropium-albuterol 0.5 mg-3 mg(2.5 mg base)/3 mL solution for nebulization 3 ml inhalation Q4-6H PRN (Reason: wheezing) 30 Days Qty: 270 6RF cephalexin 250 mg capsule 250 mg PO DAILY geriatric [id number] Tablet 1 tab PO DAILY famotidine 20 mg tablet 20 mg PO BID 30 Days Qty: 60 3RF Align 4 mg capsule 4 mg PO QDAY Qty: 90 3RF
[2023-05-27 18:08] VITALS: BP 141/57; PULSE 85; RESP 22; TEMP 36.7; O2SAT 98
[2023-05-27 19:41] VITALS: O2SAT 96
--- NOTE | 2023-05-27 20:56 | P.HPHOSP_ITS ---
History of Present Illness Date of Service: 05/27/23 Attending physician on admission: Chiara Weinstein Chief Complaint: sob 72-year-old female with history of left bundle branch block, hypertension, COPD, lacunar infarction, unspecified dementia, and osteoporosis as well as newly diagnosed adenocarcinoma of the lung presented to the ED earlier today at the recommendation of her son for evaluation of dyspnea. The patient underwent thoracentesis due to right pleural effusion on 05/14 with associated dyspnea. She reports that about 1 day after the procedure, redeveloped dyspnea both at rest and with exertion. No associated lightheadedness, palpitations, chest pain. No recent illness. No known history of congestive heart failure. Pathology report did reveal a new adenocarcinoma of the lung. She was unaware of this diagnosis until arrival at the ED today. Patient arrived to the ED on supplemental O2 and has been maintaining oximetry 94-96% on 2 L supplemental O2. There is slight tachypnea. Vitals otherwise stable. There is a leukocytosis of 13.1. Renal function baseline, electrolyte levels normal except CO2 of 21. CXR shows slight increase in right pleural effusion likely moderate in size with underlying right lower lobe atelectasis. Review of Systems 2 Review of Systems: General: No fevers, malaise, unintentional weight loss HEENT: No blurred vision, diplopia. No sore throat, nasal congestion, rhinorrhea, sinus pain, ear pain Cardiovascular: No chest pain, palpitations, or leg edema Respiratory: +dyspnea. No wheezing, cough GI: No abdominal pain, nausea, vomiting, diarrhea, constipation, melena, hematochezia : No dysuria, hematuria, increased urinary frequency, decreased urinary output MSK: No myalgia, back pain Neuro: No headaches, weakness, paresthesias Skin: No rashes or lesions [facility] Medical History Tubular adenoma Gastritis BBB (bundle branch block) DVT (deep venous thrombosis) Anemia Multifactorial dementia Lacunar infarction Osteoporosis HTN (hypertension) COPD (chronic obstructive pulmonary disease) Family History Other No family history of coronary artery disease Surgical History History of esophagogastroduodenoscopy (EGD) Hx of colonoscopy No pertinent past surgical history Social History Household Members: None Housing: Apartment Do you presently have visiting nurse or other home services: No Alcohol intake: current Alcohol intake frequency: does not drink Patient Tobacco Use Status: Former Tobacco user Smoked in Last 30 Days: No e-Cigarette/Vaping Use: Former Use Second Hand Smoke Exposure: No Use of substances other than those prescribed or required for medical reasons: No Advance Directives: Yes Advance Directives on File: Yes Advance Directives Date on File: 04/09/21 service: No Current occupational status: retired Meds Allergies Allergy/AdvReac Type Severity Reaction Status Date / Time milk [MILK] Allergy Intermediate DIARRHEA Verified 03/11/23 10:08 Home Medications Medication Instructions Recorded Confirmed Last Taken Type alendronate 70 mg tablet 70 mg PO SA@0900 04/09/21 05/27/23 05/27/23 History fluticasone furoate 200 1 puff PO BEDTIME 04/09/21 05/27/23 05/27/23 History mcg-vilanterol 25 mcg/dose inhalation powder (Breo Ellipta) umeclidinium 62.5 mcg/actuation 1 puff PO DAILY 04/09/21 05/27/23 05/27/23 History blister powder for inhalation (Incruse Ellipta) amlodipine 10 mg tablet 1 tab PO DAILY 01/03/22 05/27/23 05/27/23 History aspirin 81 mg tablet,delayed 1 tab PO DAILY 01/03/22 05/27/23 05/27/23 History release clopidogrel 75 mg tablet 1 tab PO Q OTHER DAY 01/03/22 05/27/23 05/27/23 History cholecalciferol (vitamin D3) 50 50 mcg PO BID 08/04/22 05/27/23 05/27/23 History mcg (2,000 unit) capsule ferrous sulfate 325 mg (65 mg 325 mg PO Q48H 08/04/22 05/27/23 05/27/23 History iron) tablet (FeroSul) lisinopril 40 mg tablet 40 mg PO DAILY 08/04/22 05/27/23 05/27/23 History atorvastatin 40 mg tablet 80 mg PO BEDTIME 05/02/1605/27/23 05/27/23 History cephalexin 250 mg capsule 250 mg PO DAILY recurrent UTI's 03/11/23 05/27/23 05/27/23 History famotidine 20 mg tablet 20 mg PO BID@0630,1630 05/27/23 05/27/23 05/27/23 History Physical Exam 2 Vital Signs and Narrative: Vital Signs: Last Vital Signs Temp 98.0 F 05/27/23 18:08 Pulse 85 05/27/23 18:08 Resp 22 H 05/27/23 18:08 BP 141/57 H 05/27/23 18:08 Pulse Ox 96 05/27/23 19:41 O2 Del Method Nasal Cannula 05/27/23 19:41 Oxygen Flow Rate 2 05/27/23 19:41 BMI result Body Mass Index 30.6 Constitutional - Awake and Alert, No apparent distress Eyes - PERRLA, EOMI Cardiovascular - S1S2, RRR, No edema Respiratory - Normal lung expansion, Normal respiratory effort, No respiratory distress, absent lung sounds RLL, otherwise CTA Gastrointestinal - NT / ND; +BS; No rebound or guarding Extremities - no calf tenderness bilaterally, no swelling Skin - Warm/Dry Neurological - Alert & oriented x3 Psychological - Appropriate affect Results Labs 05/27/23 15:03 05/27/23 15:03 Labs: Laboratory Results - last 24 hr 05/27/23 15:03 MCV 87.7 MCH 28.4 MCHC 32.4 RDW 15.0 Plt Count 347 MPV 9.2 L Immature Gran % (Auto) 0.4 Neut % (Auto) 86.5 H Lymph % (Auto) 5.1 L [place] % (Auto) 5.7 Eos % (Auto) 1.9 Baso % (Auto) 0.4 Lymph # (Auto) 0.7 L [place] # (Auto) 0.8 Eos # (Auto) 0.3 Baso # (Auto) 0.1 Abs Immat Gran (auto) 0.05 H Absolute Neuts (auto) 11.4 H Absolute Nucleated RBC 0.000 Nucleated RBC % (auto) 0.0 Anion Gap 15 Estim Creat Clear Calc 44.7 Estimated GFR > 60 Random Glucose 110 Calcium 9.8 Total Bilirubin 0.2 AST 21 ALT 18 Alkaline Phosphatase 132 H Total Protein 6.8 Albumin 3.9 Imaging Radiologist's Impressions: Impressions Chest X-Ray 05/27/23 16:50 IMPRESSION: 1. Slight increase in right pleural effusion likely moderate in size with underlying right lower lobe atelectasis. 2. No pneumothorax seen. 3. Mild cardiomegaly. Assessment and Plan (1) Hypoxemia: Status: Acute (2) Lung cancer: Status: Acute (3) Pleural effusion, right: Status: Acute Plan 72-year-old female with history of left bundle branch block, hypertension, COPD, lacunar infarction, unspecified dementia, and osteoporosis who is a former smoker with 47 pack year history (quit 2 years ago) admitted for further management of R sided malignant pleural effusion with acute hypoxemic respiratory failure. # acute hypoxemic respiratory failure secondary to recurrent right-sided malignant pleural effusion -CXR shows reaccumulation of moderate sized right pleural effusion with H/O thoracentesis on 05/14 with pathology report showing new adenocarcinoma with pulmonary origin -continue supplemental O2 to maintain oximetry >92%, wean as tolerated -IR thorcentesis, NPO after midnight -Thoaracic surgery consult -oncology consult #HTN -bp reasonably controlled -continue lisinopril, amlodipine #HLD -statin #PAD -plavix #Unspecified dementia -mentation baseline #COPD - no acute exacerbation -continue maintenance inhalers, albuterol p.r.n. DVT prophylaxis- SCPs, change to subcut lovenox post procedure Full code Due to acute hypoxemic respiratory failure secondary to recurrent right-sided malignant pleural effusion patient will require inpatient hospitalization for at least 2 midnights for expert consultation with thoracentesis as well as supplemental oxygen titration Quality Stroke Does the patient have a stroke diagnosis?: No VTE Prior VTE?: No VTE Risk Level:: Medical - moderate - high VTE Device Contraindication: Treatment Not Indicated VTE Drug Contraindication: N/A - Med Ordered
--- NOTE | 2023-05-27 21:49 | PHA.MEDREC ---
Pharmacy Consult ? Medication Reconciliation Pharmacy has completed the medication reconciliation. Confirmed medication with patient and patients daughter over phone
[2023-05-27 22:47] VITALS: BP 123/42; PULSE 93; RESP 20; TEMP 36.4; O2SAT 96
[2023-05-28] VITALS (8 sets, daily range): BP systolic 100–153; BP diastolic 54–94; PULSE 73–99; RESP 16–20; TEMP 36.3–36.6; O2SAT 92–96
[2023-05-28 05:58] LABS: MANUAL DIFF FLAG NO
[2023-05-28 06:02] LABS: Basophils Percent Auto 0.3 % (0-2); Eosinophils Absolute Auto 0.2 X10*3/uL (0.0-0.4); Eosinophils Percent Auto 1.4 % (0-4); Hemoglobin 12.1 g/dl (12.0-16.0); Imm Gran Abs Auto 0.05 X10*3/uL (0.00-0.03); Imm Gran Pct Auto 0.4 % (0.0-0.4); Lymphocytes Absolute Auto 0.6 X10*3/uL (1.2-4.9); Lymphocytes Percent Auto 5.3 % (20-40); Mean Corpuscular HGB Conc 31.8 g/dl (31.0-35.0); Mean Platelet Volume 9.4 fL (9.4-12.3); Monocytes Absolute Auto 0.6 X10*3/uL (0.1-1.2); Monocytes Percent Auto 5.4 % (2-11); Neutrophils Percent Auto 87.2 % (45-73); Platelet Count 323 X10*3/uL (160-400); Red Blood Count 4.32 X10*6/uL (4.20-5.50); White Blood Count 11.5 X10*3/uL (4.8-10.8)
[2023-05-28 06:14] LABS: Anion Gap 15 (12-20); Blood Urea Nitrogen 14 mg/dL (9-16); Calcium 9.3 mg/dL (8.4-10.2); Carbon Dioxide 23 mmol/L (22-29); Chloride 105 mmol/L (96-108); Creatinine Clr Calc Pharmacy 52.8; Estimated Glomerular Filt Rate > 60; Glucose Random 106 mg/dL (60-115); Potassium 4.9 mmol/L (3.3-5.1); Sodium 138 mmol/L (135-145)
[2023-05-28] MEDS: Ferrous Sulfate 324 MG TABLET.DR PO (07:59)
[2023-05-28] MEDS: 0.9 % Sodium Chloride Flush 3 ML SYRINGE IVFLUSH ×3 (07:59→20:48)
[2023-05-28] MEDS: lisinopriL 40 MG TABLET PO (07:59)
[2023-05-28] MEDS: amLODIPine Besylate 10 MG TABLET PO (07:59)
--- NOTE | 2023-05-28 08:37 | HO.THORCON_ITS ---
Documented by User: Julieta Nguyen PA-C 05/28/23 09:56 History of Present Illness Consult details Consult date: 05/28/23 Narrative: 72-year-old female with history of left bundle branch block, hypertension, COPD, CVAs, dementia, and newly diagnosed adenocarcinoma of the lung presented to the ED earlier today at the recommendation of her son for evaluation of shortness of breath. The patient was seen in the ED on 05/14 after a fall and head strike and was incidentally found to have right pleural effusion on cervical spine CT. Chest CT therefore ordered which showed multiple pulmonary nodular densities of both the right and left lung and concern for hemothorax. Bedside thoracentesis was performed in the ED with close to a liter of pleural fluid drained. Pleural fluid was positive for adenocarcinoma, consistent with pulmonary origin. She was unaware of the diagnosis however her PCP had arranged for thoracic surgery appointment regarding her pulmonary nodules and adenoCA. She reports that she has generally been feeling unwell since the drainage with fatigue and shortness of breath. Her son therefore called her PCP who recommended she be evaluated in the ED. She denies fever, chills, lightheadedness, palpitations, chest pain, abdominal pain, nausea, vomiting, diarrhea. She denies recent illnesses or sick contacts. Work up in the ED included CBC, BMP, LFTs which was significant for a leukocytosis of 13.1. CXR shows slight increase in right pleural effusion with underlying right lower lobe atelectasis. Thoracic surgery was therefore consulted. She has a 40+ pack-year smoking history. She had known prior pulmonary nodules and was followed by the lung cancer screening program. Review of Systems 2 Constitutional: Constitutional: Denies chills, Denies fever(s) and Reports malaise ENT: Denies dizziness Cardiovascular: Cardiovascular: Denies chest pain and Denies palpitations Respiratory: Respiratory: Reports as per HPI and Reports cough Gastrointestinal: Gastrointestinal: Denies abdominal pain, Denies diarrhea, Denies nausea and Denies vomiting Integumentary/Breasts: Skin/Breast: Denies rash Neurologic: Denies dizziness Endocrine: Endocrine: Denies palpitations [facility] Past Medical History Medical History (Updated 05/28/23 @ 09:56 by Julieta Nguyen PA-C) Tubular adenoma Gastritis BBB (bundle branch block) DVT (deep venous thrombosis) Anemia Multifactorial dementia Lacunar infarction Osteoporosis HTN (hypertension) COPD (chronic obstructive pulmonary disease) Family History Family History Other No family history of coronary artery disease Surgical History Surgical History (Updated 05/28/23 @ 09:00 by Julieta Nguyen PA-C) History of carotid endarterectomy History of esophagogastroduodenoscopy (EGD) Hx of colonoscopy No pertinent past surgical history Social History Social History Household Members: None Housing: Assisted Living Facility Housing Other:: [place] Do you presently have visiting nurse or other home services: No Alcohol intake: current Alcohol intake frequency: does not drink Patient Tobacco Use Status: Former Tobacco user Quit Date: 2 years ago Cigarette Packs Per Day: 1 Cigarettes Per Day: 20.0 Years Smoked: 54 e-Cigarette/Vaping Use: Former Use Second Hand Smoke Exposure: No Advance Directives Date on File: 04/09/21 service: No Current occupational status: retired [email or web address] Allergies Allergy/AdvReac Type Severity Reaction Status Date / Time milk [MILK] Allergy Intermediate DIARRHEA Verified 03/11/23 10:08 Active Medications: Current Medications Acetaminophen (Acetaminophen 325 Mg Tablet) 650 mg PO Q6H PRN PRN Reason: Pain, Mild (Pain Scale 1-3) Albuterol/Ipratropium (Albuterol/Iprat 2.5/0.5mg 3 Ml Ampul.Neb) 3 ml INHALE Q4H PRN PRN Reason: wheezing Amlodipine Besylate (Amlodipine Besylate 10 Mg Tablet) 10 mg PO DAILY [facility]; Protocol Last Admin: 05/28/23 07:59 Dose: 10 mg Atorvastatin Calcium (Atorvastatin Calcium 80 Mg Tablet) 80 mg PO BEDTIME [facility] Famotidine (Famotidine 20 Mg Tablet) 20 mg PO BID@0630,1630 [facility] Ferrous Sulfate (Ferrous Sulfate 324 Mg Tablet.) 324 mg PO Q48H HAR[facility] Last Admin: 05/28/23 07:59 Dose: 324 mg Fluticasone/Vilanterol (Fluticasone/Vilanterol 200/25 Blst.W.Dev) 1 puff INHALE BEDTIME [facility] Lisinopril (Lisinopril 40 Mg Tablet) 40 mg PO DAILY [facility]; Protocol Last Admin: 05/28/23 07:59 Dose: 40 mg Ondansetron HCl (Ondansetron Hcl 4 Mg/2 Ml Vial) 4 mg IVPUSH Q8H PRN PRN Reason: Nausea and Vomiting Senna (Sennosides 8.6 Mg Tablet) 17.2 mg PO BEDTIME PRN PRN Reason: Constipation Sodium Chloride (0.9 % Sodium Chloride Flush 3 Ml Syringe) 3 ml IVFLUSH QSHIFT [facility] Last Admin: 05/28/23 07:59 Dose: 3 ml Tiotropium [place] (Tiotropium [place] 2.5 Mcg 1 Puff/2.5 Mcg Mist.Inhal) 2 puff INHALE DAILY [facility] Vitamin D (Cholecalciferol (Vitamin D3) 25 Mcg Tablet) 50 mcg PO BID [facility] Last Admin: 05/28/23 07:59 Dose: Not Given Home Medications Medication Instructions Recorded Confirmed Last Taken Type alendronate 70 mg tablet 70 mg PO SA@0900 04/09/21 05/27/23 05/27/23 History fluticasone furoate 200 1 puff PO BEDTIME 04/09/21 05/27/23 05/27/23 History mcg-vilanterol 25 mcg/dose inhalation powder (Breo Ellipta) umeclidinium 62.5 mcg/actuation 1 puff PO DAILY 04/09/21 05/27/23 05/27/23 History blister powder for inhalation (Incruse Ellipta) amlodipine 10 mg tablet 1 tab PO DAILY 01/03/22 05/27/23 05/27/23 History aspirin 81 mg tablet,delayed 1 tab PO DAILY 01/03/22 05/27/23 05/27/23 History release clopidogrel 75 mg tablet 1 tab PO Q OTHER DAY 01/03/22 05/27/23 05/27/23 History cholecalciferol (vitamin D3) 50 50 mcg PO BID 08/04/22 05/27/23 05/27/23 History mcg (2,000 unit) capsule ferrous sulfate 325 mg (65 mg 325 mg PO Q48H 08/04/22 05/27/23 05/27/23 History iron) tablet (FeroSul) lisinopril 40 mg tablet 40 mg PO DAILY 08/04/22 05/27/23 05/27/23 History atorvastatin 40 mg tablet 80 mg PO BEDTIME 09/03/22 05/27/23 05/27/23 History cephalexin 250 mg capsule 250 mg PO DAILY recurrent UTI's 03/11/23 05/27/23 05/27/23 History famotidine 20 mg tablet 20 mg PO BID@0630,1630 05/27/23 05/27/23 05/27/23 History Physical Exam 2 Vital Signs: Vital Signs: Last Vital Signs Temp 97.9 F 05/28/23 08:26 Pulse 94 05/28/23 08:26 Resp 18 05/28/23 08:26 BP 145/59 H 05/28/23 08:26 Pulse Ox 95 05/28/23 08:26 O2 Del Method Room Air 05/28/23 08:26 O2 Flow Rate 1.5 05/28/23 08:16 Oxygen Flow Rate 2 05/27/23 19:41 BMI result Body Mass Index 30.6 Const: General: comfortable, no acute distress and alert O rientation/consciousness: patient oriented x3 Resp: Effort & Inspection: normal respiratory effort, able to speak in complete sentences and no respiratory distress Auscultation: breath sounds absent (RLL) Skin: General skin exam: no rashes or lesions noted Neuro: General: patient oriented x3 and moves all extremities Extrem: General: Yes no clubbing, cyanosis or edema Results Labs 05/28/23 05:32 05/28/23 05:32 Labs: Abnormal lab results 05/27/23 05/28/23 Range/Units 15:03 05:32 WBC 13.1 H 11.5 H (4.8-10.8) X10*3/uL MPV 9.2 L (9.4-12.3) fL Neut % (Auto) 86.5 H 87.2 H (45-73) % Lymph % (Auto) 5.1 L 5.3 L (20-40) % Lymph # (Auto) 0.7 L 0.6 L (1.2-4.9) X10*3/uL Abs Immat Gran (auto) 0.05 H 0.05 H (0.00-0.03) X10*3/uL Absolute Neuts (auto) 11.4 H 10.0 H (2.0-8.3) x10*3/uL Carbon Dioxide 21 L (22-29) mmol/L BUN 19 H (9-16) mg/dL Alkaline Phosphatase 132 H (39-117) U/L Short CBC 05/27/23 05/28/23 Range/Units 15:03 05:32 WBC 13.1 H 11.5 H (4.8-10.8) X10*3/uL Hgb 12.7 12.1 (12.0-16.0) g/dl Hct 39.2 38.0 (37.0-47.0) % Plt Count 347 323 (160-400) X10*3/uL BMP 05/27/23 05/28/23 15:03 05:32 Sodium 136 138 Potassium 4.1 4.9 Chloride 104 105 Carbon Dioxide 21 L 23 BUN 19 H 14 Creatinine 0.85 0.72 Calcium 9.8 9.3 Liver Function 05/27/23 Range/Units 15:03 Total Bilirubin 0.2 (0.0-1.0) mg/dL AST 21 (5-31) U/L ALT 18 (0-31) U/L Alkaline Phosphatase 132 H (39-117) U/L Albumin 3.9 (3.5-5.0) g/dL All other labs normal. Imaging Chest x-ray: report reviewed and image reviewed CT scan - chest: report reviewed and image reviewed Assessment and Plan (1) Recurrent pleural effusion on right: Status: Acute (2) Lung cancer: Qualifiers: Lung location: unspecified part of lung Status: Acute Plan 72 year old female with multiple medical comorbidities including COPD, 40+ pack year history with recent history of right pleural effusion s/p thoracentesis and new diagnosis of lung adenocarcinoma. She now presents for worsening dyspnea and was found to have recurrent right malignant pleural effusion. Given the recurrence, it was recommended to proceed with chest tube placement and then pleurodesis with doxycycline once the effusion resolves to help prevent recurrence. If this fails, the next step could be pleurx catheter placement. The patient is comfortable with the plan. Recommend hematology/oncology consult for further work up and treatment of the lung CA. Procedures Date of Service Date of Service: 05/28/23 Documented by User: Gil Sullivan MD 05/28/23 11:18 PMFSH Past Medical History Medical History (Updated 05/28/23 @ 09:56 by Julieta Nguyen PA-C) Tubular adenoma Gastritis BBB (bundle branch block) DVT (deep venous thrombosis) Anemia Multifactorial dementia Lacunar infarction Osteoporosis HTN (hypertension) COPD (chronic obstructive pulmonary disease) Family History Family History Other No family history of coronary artery disease Surgical History Surgical History (Updated 05/28/23 @ 09:00 by Julieta Nguyen PA-C) History of carotid endarterectomy History of esophagogastroduodenoscopy (EGD) Hx of colonoscopy No pertinent past surgical history Social History Social History Household Members: None Housing: Assisted Living Facility Housing Other:: [place] Do you presently have visiting nurse or other home services: No Alcohol intake: current Alcohol intake frequency: does not drink Patient Tobacco Use Status: Former Tobacco user Quit Date: 2 years ago Cigarette Packs Per Day: 1 Cigarettes Per Day: 20.0 Years Smoked: 54 e-Cigarette/Vaping Use: Former Use Second Hand Smoke Exposure: No Advance Directives Date on File: 04/09/21 service: No Current occupational status: retired Meds Allergies Allergy/AdvReac Type Severity Reaction Status Date / Time milk [MILK] Allergy Intermediate DIARRHEA Verified 03/11/23 10:08 Home Medications Medication Instructions Recorded Confirmed Last Taken Type alendronate 70 mg tablet 70 mg PO SA@0900 04/09/21 05/27/23 05/27/23 History fluticasone furoate 200 1 puff PO BEDTIME 04/09/21 05/27/23 05/27/23 History mcg-vilanterol 25 mcg/dose inhalation powder (Breo Ellipta) umeclidinium 62.5 mcg/actuation 1 puff PO DAILY 04/09/21 05/27/23 05/27/23 History blister powder for inhalation (Incruse Ellipta) amlodipine 10 mg tablet 1 tab PO DAILY 01/03/22 05/27/2324 History aspirin 81 mg tablet,delayed 1 tab PO DAILY 01/03/22 05/27/23 05/27/23 History release clopidogrel 75 mg tablet 1 tab PO Q OTHER DAY 01/03/22 05/27/23 05/27/23 History cholecalciferol (vitamin D3) 50 50 mcg PO BID 08/04/22 05/27/23 05/27/23 History mcg (2,000 unit) capsule ferrous sulfate 325 mg (65 mg 325 mg PO Q48H 08/04/22 05/27/23 05/27/23 History iron) tablet (FeroSul) lisinopril 40 mg tablet 40 mg PO DAILY 08/04/22 05/27/23 05/27/23 History atorvastatin 40 mg tablet 80 mg PO BEDTIME 09/03/22 05/27/23 05/27/23 History cephalexin 250 mg capsule 250 mg PO DAILY recurrent UTI's 03/11/23 05/27/23 05/27/23 History famotidine 20 mg tablet 20 mg PO BID@0630,1630 05/27/23 05/27/23 05/27/23 History Results Labs 05/28/23 05:32 05/28/23 05:32 Assessment and Plan (1) Recurrent pleural effusion on right: Status: Acute Patient with shortness of breath, known malignant pleural effusion Chest tube done on the right side for the effusion by IR Shortness of breath seems better Patient asking for pain medications for the chest tube Possible pleurodesis versus PleurX catheter down the line Seen and examined independently (2) Lung cancer: Qualifiers: Lung location: unspecified part of lung Status: Acute Procedures Date of Service Date of Service: 05/28/23
--- NOTE | 2023-05-28 08:50 | MHC.CM.PN ---
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 PT REPORTS SHE NO LONGER HAS MOW SHE DID NOT LIKE THE MEALS. PT'S GOAL FOR DC IS HOME, PT IS OPEN TO NEW [facility] IF RECOMMENDED. PT VERIFIES PCP AND HCP IS CORRECT, COVID VAXED AND BOOSTED.
--- NOTE | 2023-05-28 09:00 | PC.NURSE ---
Patient off of floor for procedure at this time.
[2023-05-28] MEDS: Lidocaine HCl 1 % MPF 5 ML VIAL SUBCUT (10:38)
--- NOTE | 2023-05-28 10:40 | PC.NURSE ---
Patient back to unit at this time.
[2023-05-28] MEDS: Tiotropium Bromide 2.5 mcg 1 PUFF/2.5 MCG MIST.INHAL 2 PUFF INHALE (11:01)
[2023-05-28] MEDS: Morphine Sulfate 2 MG/ML CARTRIDGE IVPUSH ×2 (11:20→20:58)
[2023-05-28] MEDS: ondansetron HCL 4 MG/2 ML VIAL IVPUSH (11:20)
--- NOTE | 2023-05-28 11:36 | P.PNIM_ITS ---
Subjective Subjective Date of Service: 05/28/23 Interval History: f/u sob d/t recurrent p effusion Physical Exam 2 Vital Signs: Vital Signs: Last Vital Signs Temp 97.9 F 05/28/23 08:26 Pulse 94 05/28/23 08:26 Resp 18 05/28/23 08:26 BP 145/59 H 05/28/23 08:26 Pulse Ox 95 05/28/23 08:26 O2 Del Method Room Air 05/28/23 08:26 O2 Flow Rate 1.5 05/28/23 08:16 Oxygen Flow Rate 2 05/27/23 19:41 BMI result Body Mass Index 30.6 General: AO X 3, no acute distress Resp: dimished bs on right side CVS: S1,S2,RRR GI: +BS, NT, no distention Skin: No rash Neuro: motor grossly intact Psych: appropriate affect Objective Data Active Medications Acetaminophen (Acetaminophen 325 Mg Tablet) 650 mg PO Q6H PRN PRN Reason: Pain, Mild (Pain Scale 1-3) Albuterol/Ipratropium (Albuterol/Iprat 2.5/0.5mg 3 Ml Ampul.Neb) 3 ml INHALE Q4H PRN PRN Reason: wheezing Amlodipine Besylate (Amlodipine Besylate 10 Mg Tablet) 10 mg PO DAILY [facility]; Protocol Last Admin: 05/28/23 07:59 Dose: 10 mg Documented By: LEBRON Atorvastatin Calcium (Atorvastatin Calcium 80 Mg Tablet) 80 mg PO BEDTIME [facility] Famotidine (Famotidine 20 Mg Tablet) 20 mg PO BID@0630,1630 [facility] Ferrous Sulfate (Ferrous Sulfate 324 Mg Tablet.) 324 mg PO Q48H [facility] Last Admin: 05/28/23 07:59 Dose: 324 mg Documented By: LEBRON Fluticasone/Vilanterol (Fluticasone/Vilanterol 200/25 Blst.W.Dev) 1 puff INHALE BEDTIME [facility] Lisinopril (Lisinopril 40 Mg Tablet) 40 mg PO DAILY [facility]; Protocol Last Admin: 05/28/23 07:59 Dose: 40 mg Documented By: LEBRON Morphine Sulfate (Morphine Sulfate 2 Mg/Ml Cartridge) 2 mg IVPUSH Q6H PRN; Protocol PRN Reason: Pain, Severe (Pain Scale 7-10) Last Admin: 05/28/23 11:20 Dose: 2 mg Documented By: LEBRON Ondansetron HCl (Ondansetron Hcl 4 Mg/2 Ml Vial) 4 mg IVPUSH Q8H PRN PRN Reason: Nausea and Vomiting Last Admin: 05/28/23 11:20 Dose: 4 mg Documented By: LEBRON Oxycodone HCl (Oxycodone Hcl Immed Release 5 Mg Tablet) 10 mg PO Q4H PRN PRN Reason: Pain, Moderate(Pain Scale 4-6) Senna (Sennosides 8.6 Mg Tablet) 17.2 mg PO BEDTIME PRN PRN Reason: Constipation Sodium Chloride (0.9 % Sodium Chloride Flush 3 Ml Syringe) 3 ml IVFLUSH QSHIFT [facility] Last Admin: 05/28/23 07:59 Dose: 3 ml Documented By: LEBRON Tiotropium [place] (Tiotropium [place] 2.5 Mcg 1 Puff/2.5 Mcg Mist.Inhal) 2 puff INHALE DAILY [facility] Last Admin: 05/28/23 11:01 Dose: 2 puff Documented By: KIMMIE Vitamin D (Cholecalciferol (Vitamin D3) 25 Mcg Tablet) 50 mcg PO BID [facility] Last Admin: 05/28/23 07:59 Dose: Not Given Documented By: LEBRON Non-Admin Reason: NPO Labs 05/28/23 05:32 05/28/23 05:32 Labs: Laboratory Results - last 24 hr 05/27/23 05/28/23 15:03 05:32 MCV 87.7 88.0 MCH 28.4 28.0 MCHC 32.4 31.8 RDW 15.0 15.0 Plt Count 347 323 MPV 9.2 L 9.4 Immature Gran % (Auto) 0.4 0.4 Neut % (Auto) 86.5 H 87.2 H Lymph % (Auto) 5.1 L 5.3 L [place] % (Auto) 5.7 5.4 Eos % (Auto) 1.9 1.4 Baso % (Auto) 0.4 0.3 Lymph # (Auto) 0.7 L 0.6 L [place] # (Auto) 0.8 0.6 Eos # (Auto) 0.3 0.2 Baso # (Auto) 0.1 0.0 Abs Immat Gran (auto) 0.05 H 0.05 H Absolute Neuts (auto) 11.4 H 10.0 H Absolute Nucleated RBC 0.000 0.000 Nucleated RBC % (auto) 0.0 0.0 Anion Gap 15 15 Estim Creat Clear Calc 44.7 52.8 Estimated GFR > 60 > 60 Random Glucose 110 106 Calcium 9.8 9.3 Total Bilirubin 0.2 AST 21 ALT 18 Alkaline Phosphatase 132 H Total Protein 6.8 Albumin 3.9 Assessment and Plan (1) Lung cancer: Status: Acute (2) Hypoxemia: Status: Acute (3) Pleural effusion, right: Status: Acute Plan 72-year-old female with history of left bundle branch block, hypertension, COPD, lacunar infarction, unspecified dementia, and osteoporosis who is a former smoker with 47 pack year history (quit 2 years ago) admitted for further management of R sided malignant pleural effusion with acute hypoxemic respiratory failure. # acute hypoxemic respiratory failure secondary to recurrent right-sided malignant pleural effusion -chest tube inserted today -oncology consult for permanent recommendation #HTN -bp reasonably controlled -continue lisinopril, amlodipine #HLD -statin #PAD -plavix #Unspecified dementia -mentation baseline #COPD - no acute exacerbation -continue maintenance inhalers, albuterol p.r.n. DVT prophylaxis- SCPs, change to subcut lovenox post procedure Full code need for inpt: symptomatic P. effusion s/p chest tube Quality Stroke Does the patient have a stroke diagnosis?: No VTE Prior VTE?: No VTE Risk Level:: Medical - moderate - high VTE Device Contraindication: Treatment Not Indicated VTE Drug Contraindication: N/A - Med Ordered
[2023-05-28 11:55] LABS: MN% 95.6 %; PMN% 4.4 %; RBC Pleural Fluid 0.005 X10*6/uL; WBC Pleural Fluid 2.403 X10*3/uL
[2023-05-28] MEDS: oxyCODONE HCl Immed Release 5 MG TABLET 10 MG PO (12:08)
[2023-05-28 13:56] LABS: BF Shift QC OK YES; Lymphocytes Pleural Fluid 52 %; Monocytes Pleural Fluid 3 %; Neutrophils Pleural Fluid 4 %; Other Cells Plerual Fl 41 %
[2023-05-28] MEDS: Famotidine 20 MG TABLET PO (15:26)
[2023-05-28] MEDS: Cholecalciferol (Vitamin D3) 25 MCG TABLET 50 MCG PO (20:48)
[2023-05-28] MEDS: Atorvastatin Calcium 80 MG TABLET PO (20:48)
[2023-05-28] MEDS: Fluticasone/Vilanterol 200/25 BLST.W.DEV 1 PUFF INHALE (22:19)
[2023-05-29] VITALS (9 sets, daily range): BP systolic 96–134; BP diastolic 51–62; PULSE 70–105; RESP 16–20; TEMP 36.3–36.9; O2SAT 88–99
[2023-05-29] MEDS: Famotidine 20 MG TABLET PO ×2 (05:58→16:48)
--- NOTE | 2023-05-29 07:15 | PM.HEMONCCN ---
Subjective - Subjective Chief complaint: Shortness of breath Patient: known to practice within the last 3 years Consult date: 05/29/23 Primary Care Provider: Lyn French MD Medical Summary: Diagnosis: Lung adenocarcinoma 04/2023 HPI - Consult Narrative Reason for consult: Lung cancer Narrative: Clarissa Walsh is a 72 year old female who presented to emergency department with complaints of dyspnea on exertion. She was recently diagnosed with lung cancer in April 2023 when she presented to ED after a fall. Chest x-ray showed right pleural effusion, further evaluation with CT chest revealed small to moderate size right pleural effusion with right middle lobe and right lower lobe atelectasis/collapse. Multiple pulmonary nodules largest measuring 8 mm in the right upper lobe. Mediastinal lymph nodes increased in size compared to prior study as well as new hepatic hypodensities suspicious for metastatic disease. This was compared to prior CT chest performed in June 2022, stable enlarged thyroid gland was also noted. Her past medical history significant for COPD, left bundle branch block, hypertension and osteoporosis as well as anemia. She had therapeutic and diagnostic thoracentesis performed on 05/14/2023 which revealed adenocarcinoma consistent with lung primary. She has now a right chest tube placed. Review of Systems - Constitutional Reports fatigue, Reports lack of energy, Denies night sweats, Denies weight loss - Cardiovascular Reports no additional cardiovascular complaints, Reports chest pain - Respiratory Reports no additional respiratory complaints, Denies cough, Reports dyspnea - Gastrointestinal Reports no additional gastrointestinal complaints - Neurologic Denies dizziness PMFSH Medical History: Medical History (Last Reviewed 05/27/23 @ 21:01 by RUBEN Candelario) Anemia BBB (bundle branch block) COPD (chronic obstructive pulmonary disease) DVT (deep venous thrombosis) Gastritis HTN (hypertension) Lacunar infarction Multifactorial dementia Osteoporosis Tubular adenoma Family History: Family History (Last Reviewed 05/27/23 @ 21:01 by RUBEN Candelario) Other No family history of coronary artery disease Surgical History: Surgical History (Last Updated 05/28/23 @ 09:00 by Julieta Nguyen PA-C) History of carotid endarterectomy History of esophagogastroduodenoscopy (EGD) Hx of colonoscopy No pertinent past surgical history Social History: Social History (Last Reviewed 05/27/23 @ 21:01 by RUBEN Candelario) Living Situation History: Household Members: None Housing: Assisted Living Facility Housing Other:: [place] Do you presently have visiting nurse or other home services: No Tobacco History: Patient Tobacco Use Status: Former Tobacco user Cigarette Packs Per Day: 1 Years Smoked: 54 Smoke Quit Date: 2 years ago e-Cigarette/Vaping Use: Former Use Second Hand Smoke Exposure: No Advance Directives: Advance Directives Date on File: 04/09/21 Occupation Assessmet: service: No Current occupational status: retired Home Medications and Allergies Current Medications: Current Medications Acetaminophen (Acetaminophen 325 Mg Tablet) 650 mg PO Q6H PRN PRN Reason: Pain, Mild (Pain Scale 1-3) Albuterol/Ipratropium (Albuterol/Iprat 2.5/0.5mg 3 Ml Ampul.Neb) 3 ml INHALE Q4H PRN PRN Reason: wheezing Amlodipine Besylate (Amlodipine Besylate 10 Mg Tablet) 10 mg PO DAILY [facility]; Protocol Last Admin: 05/28/23 07:59 Dose: 10 mg Atorvastatin Calcium (Atorvastatin Calcium 80 Mg Tablet) 80 mg PO BEDTIME [facility] Last Admin: 05/28/23 20:48 Dose: 80 mg Famotidine (Famotidine 20 Mg Tablet) 20 mg PO BID@0630,1630 [facility] Last Admin: 05/29/23 05:58 Dose: 20 mg Ferrous Sulfate (Ferrous Sulfate 324 Mg Tablet.Dr) 324 mg PO Q48H [facility] Last Admin: 05/28/23 07:59 Dose: 324 mg Fluticasone/Vilanterol (Fluticasone/Vilanterol 200/25 Blst.W.Dev) 1 puff INHALE BEDTIME [facility] Last Admin: 05/28/23 22:19 Dose: 1 puff Lisinopril (Lisinopril 40 Mg Tablet) 40 mg PO DAILY [facility]; Protocol Last Admin: 05/28/23 07:59 Dose: 40 mg Morphine Sulfate (Morphine Sulfate 2 Mg/Ml Cartridge) 2 mg IVPUSH Q6H PRN; Protocol PRN Reason: Pain, Severe (Pain Scale 7-10) Last Admin: 05/28/23 20:58 Dose: 2 mg Ondansetron HCl (Ondansetron Hcl 4 Mg/2 Ml Vial) 4 mg IVPUSH Q8H PRN PRN Reason: Nausea and Vomiting Last Admin: 05/28/23 11:20 Dose: 4 mg Oxycodone HCl (Oxycodone Hcl Immed Release 5 Mg Tablet) 10 mg PO Q4H PRN PRN Reason: Pain, Moderate(Pain Scale 4-6) Last Admin: 05/28/23 12:08 Dose: 10 mg Senna (Sennosides 8.6 Mg Tablet) 17.2 mg PO BEDTIME PRN PRN Reason: Constipation Sodium Chloride (0.9 % Sodium Chloride Flush 3 Ml Syringe) 3 ml IVFLUSH QSHIFT [facility] Last Admin: 05/28/23 20:48 Dose: 3 ml Tiotropium [place] (Tiotropium [place] 2.5 Mcg 1 Puff/2.5 Mcg Mist.Inhal) 2 puff INHALE DAILY [facility] Last Admin: 05/28/23 11:01 Dose: 2 puff Vitamin D (Cholecalciferol (Vitamin D3) 25 Mcg Tablet) 50 mcg PO BID [facility] Last Admin: 05/28/23 20:48 Dose: 50 mcg Home Medications Medication Instructions Recorded Confirmed Type alendronate 70 mg tablet 70 mg PO SA@0900 04/09/21 05/27/23 History fluticasone furoate 200 1 puff PO BEDTIME 04/09/21 05/27/23 History mcg-vilanterol 25 mcg/dose inhalation powder (Breo Ellipta) umeclidinium 62.5 mcg/actuation 1 puff PO DAILY 04/09/21 05/27/23 History blister powder for inhalation (Incruse Ellipta) amlodipine 10 mg tablet 1 tab PO DAILY 01/03/22 05/27/23 History aspirin 81 mg tablet,delayed 1 tab PO DAILY 01/03/22 05/27/23 History release clopidogrel 75 mg tablet 1 tab PO Q OTHER DAY 01/03/22 05/27/23 History cholecalciferol (vitamin D3) 50 50 mcg PO BID 08/04/22 05/27/23 History mcg (2,000 unit) capsule ferrous sulfate 325 mg (65 mg 325 mg PO Q48H 08/04/22 05/27/23 History iron) tablet (FeroSul) lisinopril 40 mg tablet 40 mg PO DAILY 08/04/22 05/27/23 History atorvastatin 40 mg tablet 80 mg PO BEDTIME 09/03/22 05/27/23 History cephalexin 250 mg capsule 250 mg PO DAILY recurrent UTI's 03/11/23 05/27/23 History famotidine 20 mg tablet 20 mg PO BID@0630,1630 05/27/23 05/27/23 History Allergies Allergy/AdvReac Type Severity Reaction Status Date / Time milk [MILK] Allergy Intermediate DIARRHEA Verified 03/11/23 10:08 Physical Exam Vital signs: Vital Signs Temp 97.3 F 05/29/23 02:57 Pulse 70 05/29/23 02:57 Resp 18 05/29/23 02:57 BP 134/62 05/29/23 02:57 Pulse Ox 93 05/29/23 02:57 O2 Del Method Nasal Cannula 05/29/23 02:57 O2 Flow Rate 2 05/29/23 02:57 Intake & Output 05/28/23 05/29/23 05/29/23 18:59 06:59 18:59 Intake Total 380 / 700 320 / 700 Output Total 50 / 50 Balance 380 / 650 270 / 650 Intake: Intake, Oral Amount 380 / 700 320 / 700 Output: Output, Chest Tube Drainage 50 / 50 Amount Right Posterior Chest 50 / 50 Other: Meal Refused No NPO No Breakfast % Eaten 0% Lunch % Eaten 0% Number of Unmeasured Voids 2 Urine Bedside Commode Bedside Commode Urine Color Yellow Yellow Last Bowel Movement 05/27/23 05/27/23 Weight 64.1 kg - Constitutional Present: no acute distress - Routine HEENT Exam Eye: Present: normal appearance - Routine Neck Exam Present: supple. Absent: lymphadenopathy - Routine Respiratory Exam Present: CTAB - Routine Cardiovascular Exam Cardiovascular: Present: S1, S2 - Routine Abdominal Exam Present: soft - Routine Extremities Exam Absent: calf tenderness Hem/Onc Consult Result - Labs CBC & Chem 7: 05/28/23 05:32 05/28/23 05:32 Assessment and Plan Patient Active problem list reviewed?: Yes (1) Lung cancer Status: Acute Assessment and plan: 1. This is a 72-year-old woman diagnosed with metastatic lung adenocarcinoma in April 2023. She presented with right malignant effusion, pleural fluid cytology revealed adenocarcinoma consistent with lung primary. IHC positive for MOC31, CK7 and TTF1. Negative for CK20, CDX2, GATA3 and PAX8. Tumor cells in cell block insufficient for molecular studies. CEA elevated at 17.5 NG/mL LDH 268/L. She presented with recurrent malignant effusion for which she underwent drainage by chest tube and pleurodesis. I discussed above diagnosis of advanced or stage IV lung cancer with patient and her daughter Rufina by telephone. She will need further workup including PET scan and repeat pleural fluid evaluation for possible NGS testing. If pleural fluid is inadequate, tissue biopsy would be considered. CT chest performed on 05/14/2023 showed multiple subcentimeter lung nodule in addition to moderate-sized right pleural effusion. There is a 1.7 cm hypodensity seen in the right lobe of liver and 0.9 cm hepatic hypodensity not seen previously. If 1 of these lesions is PET avid, biopsy of this can be considered. Depending on molecular studies, further recommendations about systemic/palliative therapy will be made. I thank you for this referral. Patient be seen in clinic upon discharge. - Time Spent With Patient Time Spent with Patient (in minutes): 25
[2023-05-29] MEDS: Tiotropium Bromide 2.5 mcg 1 PUFF/2.5 MCG MIST.INHAL 2 PUFF INHALE (07:53)
[2023-05-29] MEDS: Morphine Sulfate 2 MG/ML CARTRIDGE IVPUSH (09:26)
[2023-05-29] MEDS: 0.9 % Sodium Chloride Flush 3 ML SYRINGE IVFLUSH ×3 (09:27→20:53)
[2023-05-29] MEDS: Cholecalciferol (Vitamin D3) 25 MCG TABLET 50 MCG PO ×2 (09:27→20:49)
[2023-05-29] MEDS: amLODIPine Besylate 10 MG TABLET PO (09:27)
[2023-05-29] MEDS: lisinopriL 40 MG TABLET PO (09:27)
--- NOTE | 2023-05-29 09:39 | PM.PNTS ---
Subjective Subjective Date of Service: 05/29/23 <Julieta Nguyen PA-C - Last Filed: 05/29/23 09:56> 05/29/23 <Gil Sullivan MD - Last Filed: 05/29/23 13:00> Interval history: Feels much better overall. Shortness of breath improved. Less pain at chest tube site. <Julieta Nguyen PA-C - Last Filed: 05/29/23 09:56> Physical Exam Vital Signs: Vital Signs: Last Vital Signs Temp 98.4 F 05/29/23 07:24 Pulse 105 H 05/29/23 07:58 Resp 20 05/29/23 07:58 BP 123/54 L 05/29/23 07:24 Pulse Ox 93 05/29/23 08:48 O2 Del Method Nasal Cannula 05/29/23 08:48 O2 Flow Rate 2 05/29/23 08:48 Oxygen Flow Rate 2 05/27/23 19:41 BMI result Body Mass Index 30.6 <Julieta Nguyen PA-C - Last Filed: 05/29/23 09:56> Const: General: comfortable, no acute distress and alert <Julieta Nguyen PA-C - Last Filed: 05/29/23 09:56> Orientation/consciousness: patient oriented x3 <MERLIN Yanez Last Filed: 05/29/23 09:56> Chest: Other: right posteroir inferior chest tube in place, serosanguineous drainage in pleurvac <Julieta Nguyen PA-C - Last Filed: 05/29/23 09:56> Resp: Effort & Inspection: normal respiratory effort <Julieta Nguyen PA-C - Last Filed: 05/29/23 09:56> Skin: General skin exam: no rashes or lesions noted <MERLIN Yanez Last Filed: 05/29/23 09:56> Neuro: General: patient oriented x3 <MERLIN Yanez Last Filed: 05/29/23 09:56> Procedures Date of Service Date of Service: 05/29/23 <MERLIN Yanez Last Filed: 05/29/23 09:56> 05/29/23 <Gil Sullivan MD - Last Filed: 05/29/23 13:00> Progress Note: A&P Assessment and plan (1) Recurrent pleural effusion on right: Status: Acute <Julieta Nguyen PA-C - Last Filed: 05/29/23 09:56> Assessment and Plan: pt for pleurodesis explained plan to pt - she seems to understand seen and examined independently <Gil Sullivan MD - Last Filed: 05/29/23 13:00> (2) Lung cancer: Status: Acute <Julieta Nguyen PA-C - Last Filed: 05/29/23 09:56> Assessment and Plan: S/p chest tube for recurrent right pleural effusion. Symptomatically improved. AM CXR much improved, 50cc serosanguineous output from chest tube overnight. Will plan for pleurodesis with doxycycline today. Hopefully this prevents recurrence until chemotherapy initiated. If not, pleurx catheter may be next step. Discussed with patient and daughter. OOB/ambulation and IS use encouraged. <Julieta Nguyen PA-C - Last Filed: 05/29/23 09:56> Time Spent With Patient Time: Total time managing care of this patient today ____ minutes. <Julieta Nguyen PA-C - Last Filed: 05/29/23 09:56> Quality Stroke Does the patient have a stroke diagnosis?: No <Julieta Nguyen PA-C - Last Filed: 05/29/23 09:56> VTE Prior VTE?: No <Julieta Nguyen PA-C - Last Filed: 05/29/23 09:56> VTE Risk Level:: Medical - moderate - high <Julieta Nguyen PA-C - Last Filed: 05/29/23 09:56> VTE Device Contraindication: Treatment Not Indicated <Julieta Nguyen PA-C - Last Filed: 05/29/23 09:56> VTE Drug Contraindication: N/A - Med Ordered <Julieta Nguyen PA-C - Last Filed: 05/29/23 09:56>
[2023-05-29 09:52] LABS: HBS Num1 0.66 mIU/mL (0-7.99); HBc Num1 0.06 S/CO (0.00-0.79); HBsAGNum1 0.26 S/CO (0.00-0.99); Hepatitis B Core Antibody Nonreactive (Nonreactive); Hepatitis B Surface Antigen Negative (Negative); ~Hepatitis B Surface Antibody NONREACTIVE (Nonreactive)
[2023-05-29 10:08] LABS: Lactate Dehydrogenase 268 U/L (122-220)
--- NOTE | 2023-05-29 10:31 | HO.PM.IMPN ---
Subjective Subjective Date of Service: 05/29/23 Interval History: f/u sob d/t recurrent p effusion, s/p thoracentes with pig tail cath yesterday, she has some pain at the tube site, no sob Physical Exam Vital Signs: Vital Signs: Last Vital Signs Temp 98.4 F 05/29/23 07:24 Pulse 105 H 05/29/23 07:58 Resp 20 05/29/23 07:58 BP 123/54 L 05/29/23 07:24 Pulse Ox 93 05/29/23 08:48 O2 Del Method Nasal Cannula 05/29/23 08:48 O2 Flow Rate 2 05/29/23 08:48 Oxygen Flow Rate 2 05/27/23 19:41 BMI result Body Mass Index 30.6 General: AO X 3, no acute distress Resp: dimished bs on right side, right chest tube in place CVS: S1,S2,RRR GI: +BS, NT, no distention Skin: No rash Neuro: motor grossly intact Psych: appropriate affect Objective Data Active Medications Acetaminophen (Acetaminophen 325 Mg Tablet) 650 mg PO Q6H PRN PRN Reason: Pain, Mild (Pain Scale 1-3) Albuterol/Ipratropium (Albuterol/Iprat 2.5/0.5mg 3 Ml Ampul.Neb) 3 ml INHALE Q4H PRN PRN Reason: wheezing Amlodipine Besylate (Amlodipine Besylate 10 Mg Tablet) 10 mg PO DAILY [facility]; Protocol Last Admin: 05/29/23 09:27 Dose: 10 mg Documented By: VICKY Atorvastatin Calcium (Atorvastatin Calcium 80 Mg Tablet) 80 mg PO BEDTIME [facility] Last Admin: 05/28/23 20:48 Dose: 80 mg Documented By: CHELSEA Famotidine (Famotidine 20 Mg Tablet) 20 mg PO BID@0630,1630 [facility] Last Admin: 05/29/23 05:58 Dose: 20 mg Documented By: CHELSEA Ferrous Sulfate (Ferrous Sulfate 324 Mg Tablet.) 324 mg PO Q48H [facility] Last Admin: 05/28/23 07:59 Dose: 324 mg Documented By: LEBRON Fluticasone/Vilanterol (Fluticasone/Vilanterol 200/25 Blst.W.Dev) 1 puff INHALE BEDTIME [facility] Last Admin: 05/28/23 22:19 Dose: 1 puff Documented By: DAVI Lisinopril (Lisinopril 40 Mg Tablet) 40 mg PO DAILY [facility]; Protocol Last Admin: 05/29/23 09:27 Dose: 40 mg Documented By: VICKY Morphine Sulfate (Morphine Sulfate 2 Mg/Ml Cartridge) 2 mg IVPUSH Q6H PRN; Protocol PRN Reason: Pain, Severe (Pain Scale 7-10) Last Admin: 05/29/23 09:26 Dose: 2 mg Documented By: VICKY Ondansetron HCl (Ondansetron Hcl 4 Mg/2 Ml Vial) 4 mg IVPUSH Q8H PRN PRN Reason: Nausea and Vomiting Last Admin: 05/28/23 11:20 Dose: 4 mg Documented By: LEBRON Oxycodone HCl (Oxycodone Hcl Immed Release 5 Mg Tablet) 10 mg PO Q4H PRN PRN Reason: Pain, Moderate(Pain Scale 4-6) Last Admin: 05/28/23 12:08 Dose: 10 mg Documented By: LEBRON Senna (Sennosides 8.6 Mg Tablet) 17.2 mg PO BEDTIME PRN PRN Reason: Constipation Sodium Chloride (0.9 % Sodium Chloride Flush 3 Ml Syringe) 3 ml IVFLUSH QSHIFT [facility] Last Admin: 05/29/23 09:27 Dose: 3 ml Documented By: VICKY Tiotropium [place] (Tiotropium [place] 2.5 Mcg 1 Puff/2.5 Mcg Mist.Inhal) 2 puff INHALE DAILY [facility] Last Admin: 05/29/23 07:53 Dose: 2 puff Documented By: SERGIO Vitamin D (Cholecalciferol (Vitamin D3) 25 Mcg Tablet) 50 mcg PO BID [facility] Last Admin: 05/29/23 09:27 Dose: 50 mcg Documented By: VICKY Labs 05/28/23 05:32 05/28/23 05:32 Labs: Laboratory Results - last 24 hr 05/28/23 05/29/23 10:06 08:26 Hold Purple Top SEE NOTE Lactate Dehydrogenase 268 H Carcinoembryonic Ag 17.50 Pleural WBC 2.403 Pleural RBC 0.005 Pleural Neutrophils 4 Pleural Lymphocytes 52 Pleural Monocytes 3 Pleural Other Cells 41 Microbiology Microbiology Results: Microbiology 05/28/23 10:06 Gram Stain - Final Thoracentesis Fluid Anaerobic Culture - Preliminary No growth to date. Body Fluid Culture - Preliminary No growth to date. Assessment and Plan (1) Lung cancer: Status: Acute (2) Hypoxemia: Status: Acute (3) Pleural effusion, right: Status: Acute Plan 72-year-old female with history of left bundle branch block, hypertension, COPD, lacunar infarction, unspecified dementia, and osteoporosis who is a former smoker with 47 pack year history (quit 2 years ago) admitted for further management of R sided malignant pleural effusion with acute hypoxemic respiratory failure. # acute hypoxemic respiratory failure secondary to recurrent right-sided malignant pleural effusion -chest tube inserted 05/28, for pleurodesis with doxycyline today by CT surgery -oncology consult pending #HTN, continue lisinopril, norvasc #HLD -statin #PAD -plavix after procedure #Unspecified dementia -mentation baseline #COPD - no acute exacerbation -continue maintenance inhalers, albuterol p.r.n. DVT prophylaxis- SCPs, add sub cut heparin Full code need for inpt: symptomatic P. effusion s/p chest tube and now needs pleurodesis Quality Stroke Does the patient have a stroke diagnosis?: No VTE Prior VTE?: No VTE Risk Level:: Medical - moderate - high VTE Device Contraindication: Treatment Not Indicated VTE Drug Contraindication: N/A - Med Ordered
[2023-05-29] MEDS: Morphine Sulfate 4 MG/ML CARTRIDGE 3 MG IVPUSH (12:00)
[2023-05-29] MEDS: Doxycycline Hyclate 400 MG in Syringe 60 ML 60 MG INTRAPLEUR (12:08)
[2023-05-29] MEDS: Lidocaine HCl 1 % MPF 30 ML VIAL INTRAPLEUR (12:08)
--- NOTE | 2023-05-29 12:19 | PM.EVENT ---
Event Note Date of Service: 05/29/23 Event Note: 30cc 1% lidocaine followed by 60cc doxycycline administered through R chest tube and then chest tube reattached to pleur-vac. Patient tolerated well. Chest tube was then clamped for 1hr and now is unclamped. Cont chest tube to water seal for 2-3 days to allow to drain. PRN analgesics ordered, IS use encouraged. Patient understands plan. Will order f/u CXR for Thursday. Time Spent With Patient Time: Total time managing care of this patient today ____ minutes.
[2023-05-29] MEDS: Acetaminophen 1,000 MG/100 ML PIGGYBACK 400 MG IV (12:32)
--- NOTE | 2023-05-29 12:33 | MHC.CM.PN ---
EMR reviewed and per MD rounds, pt is not medically cleared for D/C due to management of pleural effusion, chest tube in place. CM will continue to follow.
[2023-05-29] MEDS: Fluticasone/Vilanterol 200/25 BLST.W.DEV 1 PUFF INHALE (19:29)
[2023-05-29] MEDS: Heparin Sodium,Porcine 5,000 UNIT/ML VIAL 5000 UNIT SUBCUT (20:49)
[2023-05-29] MEDS: Atorvastatin Calcium 80 MG TABLET PO (20:49)
[2023-05-30] VITALS (8 sets, daily range): BP systolic 73–111; BP diastolic 36–56; PULSE 74–91; RESP 16–20; TEMP 36.1–36.4; O2SAT 87–97
[2023-05-30] MEDS: Famotidine 20 MG TABLET PO ×2 (06:07→16:40)
[2023-05-30] MEDS: oxyCODONE HCl Immed Release 5 MG TABLET 10 MG PO ×2 (06:07→11:03)
[2023-05-30 07:35] LABS: Hematocrit 35.1 % (37.0-47.0); Hemoglobin 11.1 g/dl (12.0-16.0); Mean Corpuscular HGB Conc 31.6 g/dl (31.0-35.0); Mean Corpuscular Hemoglobin 28.4 pg (27.0-33.0); Mean Corpuscular Volume 89.8 fL (80.0-98.0); Mean Platelet Volume 9.6 fL (9.4-12.3); Platelet Count 330 X10*3/uL (160-400); Red Blood Count 3.91 X10*6/uL (4.20-5.50); Red Cell Distribution Width 15.6 % (11.0-16.0); White Blood Count 14.6 X10*3/uL (4.8-10.8)
[2023-05-30] MEDS: Tiotropium Bromide 2.5 mcg 1 PUFF/2.5 MCG MIST.INHAL 2 PUFF INHALE (07:50)
[2023-05-30] MEDS: Clopidogrel Bisulfate 75 MG TABLET PO (08:04)
[2023-05-30] MEDS: Cholecalciferol (Vitamin D3) 25 MCG TABLET 50 MCG PO ×2 (08:04→21:49)
[2023-05-30] MEDS: Acetaminophen 325 MG TABLET 650 MG PO (08:04)
[2023-05-30] MEDS: 0.9 % Sodium Chloride Flush 3 ML SYRINGE IVFLUSH ×3 (08:05→21:53)
[2023-05-30] MEDS: Ferrous Sulfate 324 MG TABLET.DR PO (08:05)
[2023-05-30] MEDS: Aspirin Enteric Coated 81 MG TABLET.DR PO (08:05)
[2023-05-30] MEDS: Heparin Sodium,Porcine 5,000 UNIT/ML VIAL 5000 UNIT SUBCUT ×2 (08:06→21:52)
[2023-05-30 08:20] LABS: Anion Gap 16 (12-20); Blood Urea Nitrogen 42 mg/dL (9-16); Calcium 9.3 mg/dL (8.4-10.2); Carbon Dioxide 21 mmol/L (22-29); Chloride 102 mmol/L (96-108); Glucose Random 92 mg/dL (60-115); Potassium 4.7 mmol/L (3.3-5.1); Sodium 134 mmol/L (135-145)
--- NOTE | 2023-05-30 08:21 | P.PNIM_ITS ---
Subjective Subjective Date of Service: 05/30/23 Interval History: f/u sob d/t recurrent p effusion, s/p thoracentes with pig tail cath yesterday, she has some pain at the tube site, no sob Physical Exam 2 Vital Signs: Vital Signs: Last Vital Signs Temp 97.4 F 05/30/23 07:50 Pulse 77 05/30/23 07:56 Resp 20 05/30/23 07:56 BP 95/51 L 05/30/23 07:50 Pulse Ox 93 05/30/23 07:50 O2 Del Method Nasal Cannula 05/30/23 07:50 O2 Flow Rate 2 05/30/23 07:50 Oxygen Flow Rate 2 05/27/23 19:41 BMI result Body Mass Index 30.6 Objective Data Active Medications Acetaminophen (Acetaminophen 325 Mg Tablet) 650 mg PO Q6H PRN PRN Reason: Pain, Mild (Pain Scale 1-3) Last Admin: 05/30/23 08:04 Dose: 650 mg Documented By: TIFFANY Albuterol/Ipratropium (Albuterol/Iprat 2.5/0.5mg 3 Ml Ampul.Neb) 3 ml INHALE Q4H PRN PRN Reason: wheezing Amlodipine Besylate (Amlodipine Besylate 10 Mg Tablet) 10 mg PO DAILY [facility]; Protocol Last Admin: 05/29/23 09:27 Dose: 10 mg Documented By: VICKY Aspirin (Aspirin Enteric Coated 81 Mg Tablet.) 81 mg PO DAILY [facility] [place] Last Admin: 05/30/23 08:05 Dose: 81 mg Documented By: TIFFANY Atorvastatin Calcium (Atorvastatin Calcium 80 Mg Tablet) 80 mg PO BEDTIME [facility] Last Admin: 05/29/23 20:49 Dose: 80 mg Documented By: RUDDY Clopidogrel Bisulfate (Clopidogrel Bisulfate 75 Mg Tablet) 75 mg PO Q48H [facility] Last Admin: 05/30/23 08:04 Dose: 75 mg Documented By: TIFFANY Famotidine (Famotidine 20 Mg Tablet) 20 mg PO BID@0630,1630 [facility] [place] Last Admin: 05/30/23 06:07 Dose: 20 mg Documented By: SUNDAY Ferrous Sulfate (Ferrous Sulfate 324 Mg Tablet.) 324 mg PO Q48H [facility] [place] Last Admin: 05/30/23 08:05 Dose: 324 mg Documented By: TIFFANY Fluticasone/Vilanterol (Fluticasone/Vilanterol 200/25 Blst.W.Dev) 1 puff INHALE BEDTIME [facility] [place] Last Admin: 05/29/23 19:29 Dose: 1 puff Documented By: RODNEY Heparin Sodium (Porcine) (Heparin Sodium,Porcine 5,000 Unit/Ml Vial) 5,000 unit SUBCUT BID [facility] [place] Last Admin: 05/30/23 08:06 Dose: 5,000 unit Documented By: TIFFANY Lisinopril (Lisinopril 40 Mg Tablet) 40 mg PO DAILY [facility] [place]; Protocol Last Admin: 05/29/23 09:27 Dose: 40 mg Documented By: VICKY Morphine Sulfate (Morphine Sulfate 2 Mg/Ml Cartridge) 4 mg IVPUSH Q4H PRN; Protocol PRN Reason: Pain, Severe (Pain Scale 7-10) Ondansetron HCl (Ondansetron Hcl 4 Mg/2 Ml Vial) 4 mg IVPUSH Q8H PRN PRN Reason: Nausea and Vomiting Last Admin: 05/28/23 11:20 Dose: 4 mg Documented By: NHI-CORTES Oxycodone HCl (Oxycodone Hcl Immed Release 5 Mg Tablet) 10 mg PO Q4H PRN PRN Reason: Pain, Moderate(Pain Scale 4-6) Last Admin: 05/30/23 06:07 Dose: 10 mg Documented By: SUNDAY Senna (Sennosides 8.6 Mg Tablet) 17.2 mg PO BEDTIME PRN PRN Reason: Constipation Sodium Chloride (0.9 % Sodium Chloride Flush 3 Ml Syringe) 3 ml IVFLUSH QSHIFT [facility] [place] Last Admin: 05/30/23 08:05 Dose: 3 ml Documented By: TIFFANY Tiotropium [place] (Tiotropium [place] 2.5 Mcg 1 Puff/2.5 Mcg Mist.Inhal) 2 puff INHALE DAILY [facility] [place] Last Admin: 05/30/23 07:50 Dose: 2 puff Documented By: EFFIE Vitamin D (Cholecalciferol (Vitamin D3) 25 Mcg Tablet) 50 mcg PO BID [facility] [place] Last Admin: 05/30/23 08:04 Dose: 50 mcg Documented By: TIFFANY Labs 05/30/23 07:23 05/30/23 07:23 Labs: Laboratory Results - last 24 hr 05/29/23 05/30/23 08:26 07:23 MCV 89.8 MCH 28.4 MCHC 31.6 RDW 15.6 Plt Count 330 MPV 9.6 Absolute Nucleated RBC 0.000 Nucleated RBC % (auto) 0.0 Hold Purple Top SEE NOTE Anion Gap 16 Random Glucose 92 Calcium 9.3 Lactate Dehydrogenase 268 H Carcinoembryonic Ag 17.50 Hep Bs Antigen Negative Hep Bs Antibody NONREACTIVE Hep B Core Total Ab Nonreactive Microbiology Microbiology Results: Microbiology 05/28/23 10:06 Gram Stain - Final Thoracentesis Fluid Anaerobic Culture - Preliminary No growth to date. Body Fluid Culture - Final No growth after 2 days Assessment and Plan (1) Lung cancer: Status: Acute (2) Hypoxemia: Status: Acute (3) Pleural effusion, right: Status: Acute Plan 72-year-old female with history of left bundle branch block, hypertension, COPD, lacunar infarction, unspecified dementia, and osteoporosis who is a former smoker with 47 pack year history (quit 2 years ago) admitted for further management of R sided malignant pleural effusion with acute hypoxemic respiratory failure. # acute hypoxemic respiratory failure secondary to recurrent right-sided malignant pleural effusion -chest tube inserted 05/28, pleurodesis with doxycyline 05/[address] surgery -oncology to follow up #HTN, BP on lower side. Hold lisinopril, norvasc #HLD -statin #PAD--resume Plavix and ASA #Unspecified dementia -mentation baseline #COPD - no acute exacerbation -continue maintenance inhalers, albuterol p.r.n. DVT prophylaxis- SCPs, heparin Full code need for inpt: symptomatic P. effusion s/p chest tube and now needs pleurodesis PT eval before dc Quality Stroke Does the patient have a stroke diagnosis?: No VTE Prior VTE?: No VTE Risk Level:: Medical - moderate - high VTE Device Contraindication: Treatment Not Indicated VTE Drug Contraindication: N/A - Med Ordered
[2023-05-30 08:31] LABS: Creatinine Clr Calc Pharmacy 11.1; Estimated Glomerular Filt Rate 13
[2023-05-30] MEDS: ondansetron HCL 4 MG/2 ML VIAL IVPUSH (12:49)
[2023-05-30] MEDS: Fluticasone/Vilanterol 200/25 BLST.W.DEV 1 PUFF INHALE (19:44)
[2023-05-30] MEDS: Atorvastatin Calcium 80 MG TABLET PO (21:49)
[2023-05-31] VITALS (7 sets, daily range): BP systolic 106–138; BP diastolic 52–62; PULSE 72–90; RESP 18; TEMP 36–36.6; O2SAT 91–96
[2023-05-31] MEDS: Famotidine 20 MG TABLET PO ×2 (05:53→15:50)
[2023-05-31] MEDS: Tiotropium Bromide 2.5 mcg 1 PUFF/2.5 MCG MIST.INHAL 2 PUFF INHALE (07:32)
[2023-05-31] MEDS: Aspirin Enteric Coated 81 MG TABLET.DR PO (08:02)
[2023-05-31] MEDS: Cholecalciferol (Vitamin D3) 25 MCG TABLET 50 MCG PO ×2 (08:02→21:37)
[2023-05-31] MEDS: 0.9 % Sodium Chloride Flush 3 ML SYRINGE IVFLUSH ×3 (08:02→21:46)
[2023-05-31] MEDS: Heparin Sodium,Porcine 5,000 UNIT/ML VIAL 5000 UNIT SUBCUT ×2 (08:02→21:46)
--- NOTE | 2023-05-31 08:31 | P.PNIM_ITS ---
Subjective Subjective Date of Service: 05/31/23 Interval History: f/u sob d/t recurrent p effusion, s/p thoracentes with pig tail cath yesterday. No sob, no chest pain, overall feels better Physical Exam 2 Vital Signs: Vital Signs: Last Vital Signs Temp 97.8 F 05/31/23 07:42 Pulse 72 05/31/23 07:42 Resp 18 05/31/23 07:42 BP 106/52 L 05/31/23 07:42 Pulse Ox 94 05/31/23 07:42 O2 Del Method Nasal Cannula 05/31/23 07:42 O2 Flow Rate 2 05/31/23 07:42 Oxygen Flow Rate 2 05/27/23 19:41 BMI result Body Mass Index 30.6 General: AO X 3, no acute distress Resp: CTA bilateral, right chest tube in place with minimal output CVS: S1,S2,RRR GI: +BS, NT, no distention Skin: No rash Neuro: motor grossly intact Psych: appropriate affect Objective Data Active Medications Acetaminophen (Acetaminophen 325 Mg Tablet) 650 mg PO Q6H PRN PRN Reason: Pain, Mild (Pain Scale 1-3) Last Admin: 05/30/23 08:04 Dose: 650 mg Documented By: TIFFANY Albuterol/Ipratropium (Albuterol/Iprat 2.5/0.5mg 3 Ml Ampul.Neb) 3 ml INHALE Q4H PRN PRN Reason: wheezing Amlodipine Besylate (Amlodipine Besylate 10 Mg Tablet) 10 mg PO DAILY [facility]; Protocol Last Admin: 05/31/23 07:51 Dose: Not Given Documented By: KIA Non-Admin Reason: hold Aspirin (Aspirin Enteric Coated 81 Mg Tablet.) 81 mg PO DAILY [facility] Last Admin: 05/31/23 08:02 Dose: 81 mg Documented By: KIA Atorvastatin Calcium (Atorvastatin Calcium 80 Mg Tablet) 80 mg PO BEDTIME [facility] Last Admin: 05/30/23 21:49 Dose: 80 mg Documented By: JEANETTE Clopidogrel Bisulfate (Clopidogrel Bisulfate 75 Mg Tablet) 75 mg PO Q48H [facility] Last Admin: 05/30/23 08:04 Dose: 75 mg Documented By: TIFFANY Famotidine (Famotidine 20 Mg Tablet) 20 mg PO BID@0630,1630 [facility] Last Admin: 05/31/23 05:53 Dose: 20 mg Documented By: JEANETTE Ferrous Sulfate (Ferrous Sulfate 324 Mg Tablet.) 324 mg PO Q48H [facility] Last Admin: 05/30/23 08:05 Dose: 324 mg Documented By: TIFFANY Fluticasone/Vilanterol (Fluticasone/Vilanterol 200/25 Blst.W.Dev) 1 puff INHALE BEDTIME [facility] Last Admin: 05/30/23 19:44 Dose: 1 puff Documented By: NIRALI Heparin Sodium (Porcine) (Heparin Sodium,Porcine 5,000 Unit/Ml Vial) 5,000 unit SUBCUT BID [facility] Last Admin: 05/31/23 08:02 Dose: 5,000 unit Documented By: KIA Lisinopril (Lisinopril 40 Mg Tablet) 40 mg PO DAILY [facility]; Protocol Last Admin: 05/31/23 07:51 Dose: Not Given Documented By: KIA Non-Admin Reason: MD hold Morphine Sulfate (Morphine Sulfate 2 Mg/Ml Cartridge) 4 mg IVPUSH Q4H PRN; Protocol PRN Reason: Pain, Severe (Pain Scale 7-10) Ondansetron HCl (Ondansetron Hcl 4 Mg/2 Ml Vial) 4 mg IVPUSH Q8H PRN PRN Reason: Nausea and Vomiting Last Admin: 05/30/23 12:49 Dose: 4 mg Documented By: STEFANY Oxycodone HCl (Oxycodone Hcl Immed Release 5 Mg Tablet) 10 mg PO Q4H PRN PRN Reason: Pain, Moderate(Pain Scale 4-6) Last Admin: 05/30/23 11:03 Dose: 10 mg Documented By: TIFFANY Senna (Sennosides 8.6 Mg Tablet) 17.2 mg PO BEDTIME PRN PRN Reason: Constipation Sodium Chloride (0.9 % Sodium Chloride Flush 3 Ml Syringe) 3 ml IVFLUSH QSHIFT [facility] Last Admin: 05/31/23 08:02 Dose: 3 ml Documented By: KIA Tiotropium [place] (Tiotropium [place] 2.5 Mcg 1 Puff/2.5 Mcg Mist.Inhal) 2 puff INHALE DAILY [facility] Last Admin: 05/31/23 07:32 Dose: 2 puff Documented By: EFFIE Vitamin D (Cholecalciferol (Vitamin D3) 25 Mcg Tablet) 50 mcg PO BID [facility] Last Admin: 05/31/23 08:02 Dose: 50 mcg Documented By: KIA Labs 05/30/23 07:23 05/30/23 07:23 Labs: Laboratory Results - last 24 hr 05/30/23 07:23 Estim Creat Clear Calc 11.1 Estimated GFR 13 Microbiology Microbiology Results: Microbiology 05/28/23 10:06 Gram Stain - Final Thoracentesis Fluid Anaerobic Culture - Preliminary No growth to date. Body Fluid Culture - Final No growth after 2 days Assessment and Plan (1) Lung cancer: Status: Acute (2) Pleural effusion, right: Status: Acute Plan 72-year-old female with history of left bundle branch block, hypertension, COPD, lacunar infarction, unspecified dementia, and osteoporosis who is a former smoker with 47 pack year history (quit 2 years ago) admitted for further management of R sided malignant pleural effusion with acute hypoxemic respiratory failure. # acute hypoxemic respiratory failure secondary to recurrent right-sided malignant pleural effusion -chest tube inserted 05/28, pleurodesis with doxycyline [address] surgery, minimal output in chest tube, CXR this AM -oncology to following #HTN, BP on lower side. Hold lisinopril, norvasc #HLD -statin #PAD--resume Plavix and ASA #Unspecified dementia -mentation baseline #COPD - no acute exacerbation -continue maintenance inhalers, albuterol p.r.n. DVT prophylaxis- SCPs, heparin Full code need for inpt: symptomatic P. effusion s/p chest tube and now needs pleurodesis PT eval before dc, out of bed to chair, discussed with pat and daughter at the bedside Quality Stroke Does the patient have a stroke diagnosis?: No VTE Prior VTE?: No VTE Risk Level:: Medical - moderate - high VTE Device Contraindication: Treatment Not Indicated VTE Drug Contraindication: N/A - Med Ordered
--- NOTE | 2023-05-31 11:51 | PM.HEMONCPN ---
Medical Summary - Medical Summary Date of Service: 05/31/23 Primary Care Provider: Lyn French MD Medical Summary: Diagnosis: Lung adenocarcinoma 04/2023 Interval History Interval history: Clarissa Walsh is a 72 year old female who presented to emergency department with complaints of dyspnea on exertion. She was recently diagnosed with lung cancer in April 2023 when she presented to ED after a fall. Chest x-ray showed right pleural effusion, further evaluation with CT chest revealed small to moderate size right pleural effusion with right middle lobe and right lower lobe atelectasis/collapse. Multiple pulmonary nodules largest measuring 8 mm in the right upper lobe. Mediastinal lymph nodes increased in size compared to prior study as well as new hepatic hypodensities suspicious for metastatic disease. This was compared to prior CT chest performed in June 2022, stable enlarged thyroid gland was also noted. Her past medical history significant for COPD, left bundle branch block, hypertension and osteoporosis as well as anemia. She had therapeutic and diagnostic thoracentesis performed on 05/14/2023 which revealed adenocarcinoma consistent with lung primary. She has now a right chest tube placed. She reports she may be discharged tomorrow. Please have Dr. Gonzales see her first. Review of Systems - Eyes Reports other - ENT Reports hoarseness - Cardiovascular Reports fast heart rate - Respiratory Reports pain with cough - Gastrointestinal Reports excessive passing of gas - Musculoskeletal Reports muscle weakness PMFSH Medical History: Medical History (Last Reviewed 05/27/23 @ 21:01 by RUBEN Candelario) Anemia BBB (bundle branch block) COPD (chronic obstructive pulmonary disease) DVT (deep venous thrombosis) Gastritis HTN (hypertension) Lacunar infarction Multifactorial dementia Osteoporosis Tubular adenoma Family History: Family History (Last Reviewed 05/27/23 @ 21:01 by RUBEN Candelario) Other No family history of coronary artery disease Surgical History: Surgical History (Last Updated 05/28/23 @ 09:00 by Julieta Nguyen PA-C) History of carotid endarterectomy History of esophagogastroduodenoscopy (EGD) Hx of colonoscopy No pertinent past surgical history Social History: Social History (Last Reviewed 05/27/23 @ 21:01 by RUBEN Candelario) Living Situation History: Household Members: None Housing: Assisted Living Facility Housing Other:: [facility] Do you presently have visiting nurse or other home services: No Tobacco History: Patient Tobacco Use Status: Former Tobacco user Cigarette Packs Per Day: 1 Years Smoked: 54 Smoke Quit Date: 2 years ago e-Cigarette/Vaping Use: Former Use Second Hand Smoke Exposure: No Advance Directives: Advance Directives Date on File: 04/09/21 Occupation Assessmet: service: No Current occupational status: retired Home Medications and Allergies Current Medications: Current Medications Acetaminophen (Acetaminophen 325 Mg Tablet) 650 mg PO Q6H PRN PRN Reason: Pain, Mild (Pain Scale 1-3) Last Admin: 05/30/23 08:04 Dose: 650 mg Albuterol/Ipratropium (Albuterol/Iprat 2.5/0.5mg 3 Ml Ampul.Neb) 3 ml INHALE Q4H PRN PRN Reason: wheezing Amlodipine Besylate (Amlodipine Besylate 10 Mg Tablet) 10 mg PO DAILY [facility]; Protocol Last Admin: 05/31/23 07:51 Dose: Not Given Aspirin (Aspirin Enteric Coated 81 Mg Tablet.) 81 mg PO DAILY [facility] Last Admin: 05/31/23 08:02 Dose: 81 mg Atorvastatin Calcium (Atorvastatin Calcium 80 Mg Tablet) 80 mg PO BEDTIME [facility] Last Admin: 05/30/23 21:49 Dose: 80 mg Clopidogrel Bisulfate (Clopidogrel Bisulfate 75 Mg Tablet) 75 mg PO Q48H [facility] Last Admin: 05/30/23 08:04 Dose: 75 mg Famotidine (Famotidine 20 Mg Tablet) 20 mg PO BID@0630,1630 [facility] Last Admin: 05/31/23 05:53 Dose: 20 mg Ferrous Sulfate (Ferrous Sulfate 324 Mg Tablet.) 324 mg PO Q48H [facility] Last Admin: 05/30/23 08:05 Dose: 324 mg Fluticasone/Vilanterol (Fluticasone/Vilanterol 200/25 Blst.W.Dev) 1 puff INHALE BEDTIME [facility] Last Admin: 05/30/23 19:44 Dose: 1 puff Heparin Sodium (Porcine) (Heparin Sodium,Porcine 5,000 Unit/Ml Vial) 5,000 unit SUBCUT BID [facility] Last Admin: 05/31/23 08:02 Dose: 5,000 unit Lisinopril (Lisinopril 40 Mg Tablet) 40 mg PO DAILY [facility]; Protocol Last Admin: 05/31/23 07:51 Dose: Not Given Morphine Sulfate (Morphine Sulfate 2 Mg/Ml Cartridge) 4 mg IVPUSH Q4H PRN; Protocol PRN Reason: Pain, Severe (Pain Scale 7-10) Ondansetron HCl (Ondansetron Hcl 4 Mg/2 Ml Vial) 4 mg IVPUSH Q8H PRN PRN Reason: Nausea and Vomiting Last Admin: 05/30/23 12:49 Dose: 4 mg Oxycodone HCl (Oxycodone Hcl Immed Release 5 Mg Tablet) 10 mg PO Q4H PRN PRN Reason: Pain, Moderate(Pain Scale 4-6) Last Admin: 05/30/23 11:03 Dose: 10 mg Senna (Sennosides 8.6 Mg Tablet) 17.2 mg PO BEDTIME PRN PRN Reason: Constipation Sodium Chloride (0.9 % Sodium Chloride Flush 3 Ml Syringe) 3 ml IVFLUSH QSHIFT [facility] Last Admin: 05/31/23 08:02 Dose: 3 ml Tiotropium [place] (Tiotropium [place] 2.5 Mcg 1 Puff/2.5 Mcg Mist.Inhal) 2 puff INHALE DAILY [facility] Last Admin: 05/31/23 07:32 Dose: 2 puff Vitamin D (Cholecalciferol (Vitamin D3) 25 Mcg Tablet) 50 mcg PO BID [facility] Last Admin: 05/31/23 08:02 Dose: 50 mcg Home Medications Medication Instructions Recorded Confirmed Type alendronate 70 mg tablet 70 mg PO SA@0900 04/09/21 05/27/23 History fluticasone furoate 200 1 puff PO BEDTIME 04/09/21 05/27/23 History mcg-vilanterol 25 mcg/dose inhalation powder (Breo Ellipta) umeclidinium 62.5 mcg/actuation 1 puff PO DAILY 04/09/21 05/27/23 History blister powder for inhalation (Incruse Ellipta) amlodipine 10 mg tablet 1 tab PO DAILY 01/03/22 05/27/23 History aspirin 81 mg tablet,delayed 1 tab PO DAILY 01/03/22 05/27/23 History release clopidogrel 75 mg tablet 1 tab PO Q OTHER DAY 01/03/22 05/27/23 History cholecalciferol (vitamin D3) 50 50 mcg PO BID 08/04/22 05/27/23 History mcg (2,000 unit) capsule ferrous sulfate 325 mg (65 mg 325 mg PO Q48H 08/04/22 05/27/23 History iron) tablet (FeroSul) lisinopril 40 mg tablet 40 mg PO DAILY 08/04/22 05/27/23 History atorvastatin 40 mg tablet 80 mg PO BEDTIME 09/03/22 05/27/23 History cephalexin 250 mg capsule 250 mg PO DAILY recurrent UTI's 03/11/23 05/27/23 History famotidine 20 mg tablet 20 mg PO BID@0630,1630 05/27/23 05/27/23 History Allergies Allergy/AdvReac Type Severity Reaction Status Date / Time milk [MILK] Allergy Intermediate DIARRHEA Verified 03/11/23 10:08 Exam Vital signs: Vital Signs Temp 97.8 F 05/31/23 07:42 Pulse 72 05/31/23 07:42 Resp 18 05/31/23 07:42 BP 106/52 L 05/31/23 07:42 Pulse Ox 94 05/31/23 07:42 O2 Del Method Nasal Cannula 05/31/23 07:42 O2 Flow Rate 2 05/31/23 07:42 Intake & Output 05/30/23 05/31/23 05/31/23 18:59 06:59 18:59 Intake Total 800 / 800 Balance 800 / 800 Intake: Intake, Oral Amount 800 / 800 Other: Breakfast % Eaten 75% Lunch % Eaten 75% Number of Unmeasured Voids 3 1 Urine Bedside Commode Bedside Commode Urine Color Yellow Last Bowel Movement 05/27/23 05/29/23 Weight 64.1 kg BMI result Body Mass Index 30.6 - Constitutional Present: no acute distress - Routine HEENT Exam Head: Present: atraumatic Eye: Present: normal appearance - Routine Neck Exam Present: full ROM - Routine Chest/Breast/Axilla Exam Chest wall: Present: tenderness - Routine Respiratory Exam Present: CTAB, wheezes - Routine Cardiovascular Exam Cardiovascular: Present: RRR, S1, S2 - Routine Abdominal Exam Present: diminished bowel sounds, soft - Routine Extremities Exam Absent: calf tenderness Data - Labs CBC & Chem 7: 05/30/23 07:23 05/30/23 07:23 Labs: Laboratory Last Values WBC 14.6 X10*3/uL (4.8-10.8) H 05/30/23 07:23 RBC 3.91 X10*6/uL (4.20-5.50) L 05/30/23 07:23 Hgb 11.1 g/dl (12.0-16.0) L 05/30/23 07:23 Hct 35.1 % (37.0-47.0) L 05/30/23 07:23 MCV 89.8 fL (80.0-98.0) 05/30/23 07:23 MCH 28.4 pg (27.0-33.0) 05/30/23 07:23 MCHC 31.6 g/dl (31.0-35.0) 05/30/23 07:23 RDW 15.6 % (11.0-16.0) 05/30/23 07:23 Plt Count 330 X10*3/uL (160-400) 05/30/23 07:23 MPV 9.6 fL (9.4-12.3) 05/30/23 07:23 Immature Gran % (Auto) 0.4 % (0.0-0.4) 05/28/23 05:32 Neut % (Auto) 87.2 % (45-73) H 05/28/23 05:32 Lymph % (Auto) 5.3 % (20-40) L 05/28/23 05:32 [place] % (Auto) 5.4 % (2-11) 05/28/23 05:32 Eos % (Auto) 1.4 % (0-4) 05/28/23 05:32 Baso % (Auto) 0.3 % (0-2) 05/28/23 05:32 Lymph # (Auto) 0.6 X10*3/uL (1.2-4.9) L 05/28/23 05:32 [place] # (Auto) 0.6 X10*3/uL (0.1-1.2) 05/28/23 05:32 Eos # (Auto) 0.2 X10*3/uL (0.0-0.4) 05/28/23 05:32 Baso # (Auto) 0.0 X10*3/uL (0.0-0.2) 05/28/23 05:32 Abs Immat Gran (auto) 0.05 X10*3/uL (0.00-0.03) H 05/28/23 05:32 Absolute Neuts (auto) 10.0 x10*3/uL (2.0-8.3) H 05/28/23 05:32 Absolute Nucleated RBC 0.000 X10*3/uL (0.0-0.012) 05/30/23 07:23 Nucleated RBC % (auto) 0.0 /100WBC (0.0-0.2) 05/30/23 07:23 Hold Purple Top SEE NOTE 05/29/23 08:26 Sodium 134 mmol/L (135-145) L 05/30/23 07:23 Potassium 4.7 mmol/L (3.3-5.1) 05/30/23 07:23 Chloride 102 mmol/L (96-108) 05/30/23 07:23 Carbon Dioxide 21 mmol/L (22-29) L 05/30/23 07:23 Anion Gap 16 (12-20) 05/30/23 07:23 BUN 42 mg/dL (9-16) H 05/30/23 07:23 Creatinine 3.44 mg/dL (0.5-1.4) H 05/30/23 07:23 Estim Creat Clear Calc 11.1 05/30/23 07:23 Estimated GFR 13 05/30/23 07:23 Random Glucose 92 mg/dL (60-115) 05/30/23 07:23 Calcium 9.3 mg/dL (8.4-10.2) 05/30/23 07:23 Total Bilirubin 0.2 mg/dL (0.0-1.0) 05/27/23 15:03 AST 21 U/L (5-31) 05/27/23 15:03 ALT 18 U/L (0-31) 05/27/23 15:03 Alkaline Phosphatase 132 U/L (39-117) H 05/27/23 15:03 Lactate Dehydrogenase 268 U/L (122-220) H 05/29/23 08:26 Total Protein 6.8 g/dL (6.5-8.0) 05/27/23 15:03 Albumin 3.9 g/dL (3.5-5.0) 05/27/23 15:03 Carcinoembryonic Ag 17.50 ng/mL 05/29/23 08:26 Pleural WBC 2.403 X10*3/uL 05/28/23 10:06 Pleural RBC 0.005 X10*6/uL 05/28/23 10:06 Pleural Neutrophils 4 % 05/28/23 10:06 Pleural Lymphocytes 52 % 05/28/23 10:06 Pleural Monocytes 3 % 05/28/23 10:06 Pleural Other Cells 41 % 05/28/23 10:06 Hep Bs Antigen Negative (Negative) 05/29/23 08:26 Hep Bs Antibody NONREACTIVE (Nonreactive) 05/29/23 08:26 Hep B Core Total Ab Nonreactive (Nonreactive) 05/29/23 08:26 - Imaging Radiologist's impression: ITS Impressions Chest X-Ray 05/27/23 16:50 IMPRESSION: 1. Slight increase in right pleural effusion likely moderate in size with underlying right lower lobe atelectasis. 2. No pneumothorax seen. 3. Mild cardiomegaly. Thoracentesis/Paracentesis US 05/28/23 10:20 Impression: Ultrasound-guided right chest tube placement yielding yellow fluid. This procedures performed by Mauri Sr PA-C and supervised by Dr. Blake. Chest X-Ray 05/28/23 14:55 IMPRESSION: There appears to be trace residual pleural fluid after the drainage catheter placement. This represents significant improvement compared to 05/27/2023. Chest X-Ray 05/29/23 06:01 IMPRESSION: 1. The patient's right thoracostomy tube is unchanged in position. No right pleural effusion or pneumothorax is presently seen. 2. There is pulmonary vascular congestion, without overt pulmonary edema. Chest X-Ray 05/31/23 06:15 IMPRESSION: Right basilar pigtail catheter without significant pleural effusion. Patchy right basilar probable atelectasis. No significant pneumothorax. Assessment and Plan Patient Active problem list reviewed?: Yes (1) Lung cancer Status: Acute Assessment and plan: 1. This is a 72-year-old woman diagnosed with metastatic lung adenocarcinoma in April 2023. She presented with right malignant effusion, pleural fluid cytology revealed adenocarcinoma consistent with lung primary. IHC positive for MOC31, CK7 and TTF1. Negative for CK20, CDX2, GATA3 and PAX8. Tumor cells in cell block insufficient for molecular studies. CEA elevated at 17.5 NG/mL LDH 268/L. She presented with recurrent malignant effusion for which she underwent drainage by chest tube and pleurodesis. I discussed above diagnosis of advanced or stage IV lung cancer with patient and her daughter Rufina by telephone. She will need further workup including PET scan and repeat pleural fluid evaluation for possible NGS testing. If pleural fluid is inadequate, tissue biopsy would be considered. CT chest performed on 05/14/2023 showed multiple subcentimeter lung nodule in addition to moderate-sized right pleural effusion. There is a 1.7 cm hypodensity seen in the right lobe of liver and 0.9 cm hepatic hypodensity not seen previously. If 1 of these lesions is PET avid, biopsy of this can be considered. Depending on molecular studies, further recommendations about systemic/palliative therapy will be made. I thank you for this referral. Patient be seen in clinic upon discharge. She remains stable with the chest tube in place. - Time Spent With Patient Time Spent with Patient (in minutes): 15
--- NOTE | 2023-05-31 18:14 | PC.NURSE ---
Patient has had minimal urine output today, was able to urinate small unmeasured amount into the commode. Patient bladder scanned post void showing 200 mls, encouraged patient to try and urinate on commode again but patient refused. Will continue to monitor urine output, call bates within reach.
[2023-05-31] MEDS: Fluticasone/Vilanterol 200/25 BLST.W.DEV 1 PUFF INHALE (19:12)
[2023-05-31] MEDS: Atorvastatin Calcium 80 MG TABLET PO (21:48)
[2023-06-01] VITALS (8 sets, daily range): BP systolic 100–139; BP diastolic 40–63; PULSE 63–84; RESP 16–20; TEMP 36.2–36.9; O2SAT 91–96
[2023-06-01] MEDS: Tiotropium Bromide 2.5 mcg 1 PUFF/2.5 MCG MIST.INHAL 2 PUFF INHALE (07:45)
[2023-06-01] MEDS: Heparin Sodium,Porcine 5,000 UNIT/ML VIAL 5000 UNIT SUBCUT ×2 (07:51→20:38)
[2023-06-01] MEDS: Cholecalciferol (Vitamin D3) 25 MCG TABLET 50 MCG PO ×2 (07:52→20:38)
[2023-06-01] MEDS: Aspirin Enteric Coated 81 MG TABLET.DR PO (07:52)
[2023-06-01] MEDS: Clopidogrel Bisulfate 75 MG TABLET PO (07:52)
[2023-06-01] MEDS: 0.9 % Sodium Chloride Flush 3 ML SYRINGE IVFLUSH (07:52)
[2023-06-01] MEDS: Famotidine 20 MG TABLET PO (07:52)
[2023-06-01] MEDS: Ferrous Sulfate 324 MG TABLET.DR PO (07:52)
--- NOTE | 2023-06-01 10:16 | P.PNIM_ITS ---
Subjective Subjective Date of Service: 06/01/23 Interval History: f/u sob d/t recurrent p effusion, s/p thoracentes with pig tail cath yesterday. No sob, no chest pain, overall feels better Physical Exam 2 Vital Signs: Vital Signs: Last Vital Signs Temp 97.9 F 06/01/23 07:02 Pulse 70 06/01/23 07:48 Resp 17 06/01/23 07:48 BP 100/40 L 06/01/23 07:02 Pulse Ox 94 06/01/23 07:02 O2 Del Method Nasal Cannula 06/01/23 07:02 O2 Flow Rate 2 06/01/23 07:02 Oxygen Flow Rate 2 05/27/23 19:41 BMI result Body Mass Index 30.6 Objective Data Active Medications Acetaminophen (Acetaminophen 325 Mg Tablet) 650 mg PO Q6H PRN PRN Reason: Pain, Mild (Pain Scale 1-3) Last Admin: 05/30/23 08:04 Dose: 650 mg Documented By: TIFFANY Albuterol/Ipratropium (Albuterol/Iprat 2.5/0.5mg 3 Ml Ampul.Neb) 3 ml INHALE Q4H PRN PRN Reason: wheezing Aspirin (Aspirin Enteric Coated 81 Mg Tablet.) 81 mg PO DAILY [facility] Last Admin: 06/01/23 07:52 Dose: 81 mg Documented By: KIA Atorvastatin Calcium (Atorvastatin Calcium 80 Mg Tablet) 80 mg PO BEDTIME [facility] Last Admin: 05/31/23 21:48 Dose: 80 mg Documented By: MAGALI Clopidogrel Bisulfate (Clopidogrel Bisulfate 75 Mg Tablet) 75 mg PO Q48H [facility] Last Admin: 06/01/23 07:52 Dose: 75 mg Documented By: KIA Famotidine (Famotidine 20 Mg Tablet) 10 mg PO DAILY [facility] Ferrous Sulfate (Ferrous Sulfate 324 Mg Tablet.) 324 mg PO Q48H [facility] Last Admin: 06/01/23 07:52 Dose: 324 mg Documented By: KIA Fluticasone/Vilanterol (Fluticasone/Vilanterol 200/25 Blst.W.Dev) 1 puff INHALE BEDTIME [facility] Last Admin: 05/31/23 19:12 Dose: 1 puff Documented By: HO.WOJTASS Heparin Sodium (Porcine) (Heparin Sodium,Porcine 5,000 Unit/Ml Vial) 5,000 unit SUBCUT BID [facility] Last Admin: 06/01/23 07:51 Dose: 5,000 unit Documented By: KIA Sodium Chloride (Ns) 1,000 mls @ 125 mls/hr IVCONT .Q8H [facility] Morphine Sulfate (Morphine Sulfate 2 Mg/Ml Cartridge) 4 mg IVPUSH Q4H PRN; Protocol PRN Reason: Pain, Severe (Pain Scale 7-10) Ondansetron HCl (Ondansetron Hcl 4 Mg/2 Ml Vial) 4 mg IVPUSH Q8H PRN PRN Reason: Nausea and Vomiting Last Admin: 05/30/23 12:49 Dose: 4 mg Documented By: STEFANY Oxycodone HCl (Oxycodone Hcl Immed Release 5 Mg Tablet) 5 mg PO Q4H PRN PRN Reason: Pain, Moderate(Pain Scale 4-6) Senna (Sennosides 8.6 Mg Tablet) 17.2 mg PO BEDTIME PRN PRN Reason: Constipation Sodium Chloride (0.9 % Sodium Chloride Flush 3 Ml Syringe) 3 ml IVFLUSH QSHIFT [facility] Last Admin: 06/01/23 07:52 Dose: 3 ml Documented By: KIA Tiotropium [place] (Tiotropium [place] 2.5 Mcg 1 Puff/2.5 Mcg Mist.Inhal) 2 puff INHALE DAILY [facility] Last Admin: 06/01/23 07:45 Dose: 2 puff Documented By: BERNIE Vitamin D (Cholecalciferol (Vitamin D3) 25 Mcg Tablet) 50 mcg PO BID [facility] Last Admin: 06/01/23 07:52 Dose: 50 mcg Documented By: KIA Labs 05/30/23 07:23 05/30/23 07:23 Microbiology Microbiology Results: Microbiology 05/28/23 10:06 Gram Stain - Final Thoracentesis Fluid Anaerobic Culture - Preliminary No growth to date. Body Fluid Culture - Final No growth after 2 days Assessment and Plan (1) Lung cancer: Status: Acute (2) Pleural effusion, right: Status: Acute Plan 72-year-old female with history of left bundle branch block, hypertension, COPD, lacunar infarction, unspecified dementia, and osteoporosis who is a former smoker with 47 pack year history (quit 2 years ago) admitted for further management of R sided malignant pleural effusion with acute hypoxemic respiratory failure. # acute hypoxemic respiratory failure secondary to recurrent right-sided malignant pleural effusion -chest tube inserted 05/28, pleurodesis with doxycyline 05/[address] surgery, minimal output in chest tube, CXR this AM -oncology to following #HTN, BP on lower side. Hold lisinopril, norvasc #SANTA--d/t renal hypoperfusion from hypotension, BP meds have been on hold #HLD -statin #PAD--resume Plavix and ASA #Unspecified dementia -mentation baseline #COPD - no acute exacerbation -continue maintenance inhalers, albuterol p.r.n. DVT prophylaxis- SCPs, heparin Full code need for inpt: symptomatic P. effusion s/p chest tube and now needs pleurodesis, Santa requiring IVF PT eval before dc, out of bed to chair, discussed with pat and daughter at the bedside Quality Stroke Does the patient have a stroke diagnosis?: No VTE Prior VTE?: No VTE Risk Level:: Medical - moderate - high VTE Device Contraindication: Treatment Not Indicated VTE Drug Contraindication: N/A - Med Ordered
[2023-06-01] MEDS: 0.9 % Sodium Chloride 1,000 ML 125 ML IVCONT ×2 (10:40→20:46)
[2023-06-01 10:41] LABS: Anion Gap 19 (12-20); Blood Urea Nitrogen 73 mg/dL (9-16); Calcium 9.1 mg/dL (8.4-10.2); Carbon Dioxide 19 mmol/L (22-29); Chloride 100 mmol/L (96-108); Creatinine Clr Calc Pharmacy 11.3; Estimated Glomerular Filt Rate 13; Glucose Random 85 mg/dL (60-115); Sodium 133 mmol/L (135-145)
--- NOTE | 2023-06-01 11:14 | PM.PNTS ---
Subjective Subjective Date of Service: 06/01/23 Interval history: Feels better, denies shortness of breath. Nervous about chest tube being removed. Physical Exam Vital Signs: Vital Signs: Last Vital Signs Temp 97.5 F 06/01/23 10:58 Pulse 67 06/01/23 10:58 Resp 18 06/01/23 10:58 BP 100/53 L 06/01/23 10:58 Pulse Ox 94 06/01/23 10:58 O2 Del Method Nasal Cannula 06/01/23 10:58 O2 Flow Rate 2 06/01/23 10:58 Oxygen Flow Rate 2 05/27/23 19:41 BMI result Body Mass Index 30.6 Const: General: comfortable, no acute distress and alert Orientation/consciousness: patient oriented x3 Chest: Other: R chest tube in place, serosanguineous drainage in pleurvac Resp: Effort & Inspection: normal respiratory effort Skin: General skin exam: no rashes or lesions noted Neuro: General: patient oriented x3 and moves all extremities Procedures Date of Service Date of Service: 06/01/23 Progress Note: A&P Assessment and plan (1) Recurrent pleural effusion on right: Status: Acute (2) Lung cancer: Status: Acute Plan Recurrent right malignant effusion, s/p chest tube placement on 05/28/23, pleurodesis with doxycycline on 05/29. Chest tube output has decreased and is minimal. F/u CXR yesterday showed no significant effusion. Chest tube removed uneventfully this morning. F/u CXR this am reviewed. Cont dressing changes to chest tube site every other day with xeroform and dry sterile sponge and tape. Can f/u in office in 1 week. Patient and daughter comfortable with plan. Heme/onc following. Time Spent With Patient Time: Total time managing care of this patient today ____ minutes. Quality Stroke Does the patient have a stroke diagnosis?: No VTE Prior VTE?: No VTE Risk Level:: Medical - moderate - high VTE Device Contraindication: Treatment Not Indicated VTE Drug Contraindication: N/A - Med Ordered
--- NOTE | 2023-06-01 11:36 | MHC.CM.PN ---
EMR reviewed and per MD rounds, pt is not medically cleared for D/C due to management of SANTA, and PT eval pending to assist w/ D/C dispo. CM will continue to follow.
--- NOTE | 2023-06-01 12:55 | PM.HEMONCPN ---
Medical Summary - Medical Summary Date of Service: 06/01/23 Chief complaint: Fatigue Primary Care Provider: Lyn French MD Medical Summary: Diagnosis: Lung adenocarcinoma 04/2023 Interval History Interval history: Clarissa Walsh is a 72 year old female who presented to emergency department with complaints of dyspnea on exertion. She was recently diagnosed with lung cancer in April 2023 when she presented to ED after a fall. Chest x-ray showed right pleural effusion, further evaluation with CT chest revealed small to moderate size right pleural effusion with right middle lobe and right lower lobe atelectasis/collapse. Multiple pulmonary nodules largest measuring 8 mm in the right upper lobe. Mediastinal lymph nodes increased in size compared to prior study as well as new hepatic hypodensities suspicious for metastatic disease. This was compared to prior CT chest performed in June 2022, stable enlarged thyroid gland was also noted. Her past medical history significant for COPD, left bundle branch block, hypertension and osteoporosis as well as anemia. She had therapeutic and diagnostic thoracentesis performed on 05/14/2023 which revealed adenocarcinoma consistent with lung primary. She has had chest tube removed today. She feels tired. Review of Systems - Constitutional Reports as per HPI, Reports lack of energy, Reports malaise, Reports poor appetite - Neurologic Denies dizziness PMFSH Medical History: Medical History (Last Reviewed 05/27/23 @ 21:01 by RUBEN Candelario) Anemia BBB (bundle branch block) COPD (chronic obstructive pulmonary disease) DVT (deep venous thrombosis) Gastritis HTN (hypertension) Lacunar infarction Multifactorial dementia Osteoporosis Tubular adenoma Family History: Family History (Last Reviewed 05/27/23 @ 21:01 by RUBEN Candelario) Other No family history of coronary artery disease Surgical History: Surgical History (Last Updated 05/28/23 @ 09:00 by Julieta Nguyen PA-C) History of carotid endarterectomy History of esophagogastroduodenoscopy (EGD) Hx of colonoscopy No pertinent past surgical history Social History: Social History (Last Reviewed 05/27/23 @ 21:01 by RUBEN Candelario) Living Situation History: Household Members: None Housing: Assisted Living Facility Housing Other:: [facility] Do you presently have visiting nurse or other home services: No Tobacco History: Patient Tobacco Use Status: Former Tobacco user Cigarette Packs Per Day: 1 Years Smoked: 54 Smoke Quit Date: 2 years ago e-Cigarette/Vaping Use: Former Use Second Hand Smoke Exposure: No Advance Directives: Advance Directives Date on File: 04/09/21 Occupation Assessmet: service: No Current occupational status: retired Home Medications and Allergies Current Medications: Current Medications Acetaminophen (Acetaminophen 325 Mg Tablet) 650 mg PO Q6H PRN PRN Reason: Pain, Mild (Pain Scale 1-3) Last Admin: 05/30/23 08:04 Dose: 650 mg Albuterol/Ipratropium (Albuterol/Iprat 2.5/0.5mg 3 Ml Ampul.Neb) 3 ml INHALE Q4H PRN PRN Reason: wheezing Aspirin (Aspirin Enteric Coated 81 Mg Tablet.) 81 mg PO DAILY [facility] Last Admin: 06/01/23 07:52 Dose: 81 mg Atorvastatin Calcium (Atorvastatin Calcium 80 Mg Tablet) 80 mg PO BEDTIME [facility] Last Admin: 05/31/23 21:48 Dose: 80 mg Clopidogrel Bisulfate (Clopidogrel Bisulfate 75 Mg Tablet) 75 mg PO Q48H [facility] Last Admin: 06/01/23 07:52 Dose: 75 mg Famotidine (Famotidine 20 Mg Tablet) 10 mg PO DAILY [facility] Ferrous Sulfate (Ferrous Sulfate 324 Mg Tablet.) 324 mg PO Q48H [facility] Last Admin: 06/01/23 07:52 Dose: 324 mg Fluticasone/Vilanterol (Fluticasone/Vilanterol 200/25 Blst.W.Dev) 1 puff INHALE BEDTIME [facility] Last Admin: 05/31/23 19:12 Dose: 1 puff Heparin Sodium (Porcine) (Heparin Sodium,Porcine 5,000 Unit/Ml Vial) 5,000 unit SUBCUT BID [facility] Last Admin: 06/01/23 07:51 Dose: 5,000 unit Sodium Chloride (Ns) 1,000 mls @ 150 mls/hr IVCONT .Q6H40M [facility] Last Infusion: 06/01/23 12:12 Dose: 150 mls/hr Morphine Sulfate (Morphine Sulfate 2 Mg/Ml Cartridge) 4 mg IVPUSH Q4H PRN; Protocol PRN Reason: Pain, Severe (Pain Scale 7-10) Ondansetron HCl (Ondansetron Hcl 4 Mg/2 Ml Vial) 4 mg IVPUSH Q8H PRN PRN Reason: Nausea and Vomiting Last Admin: 05/30/23 12:49 Dose: 4 mg Oxycodone HCl (Oxycodone Hcl Immed Release 5 Mg Tablet) 5 mg PO Q4H PRN PRN Reason: Pain, Moderate(Pain Scale 4-6) Senna (Sennosides 8.6 Mg Tablet) 17.2 mg PO BEDTIME PRN PRN Reason: Constipation Sodium Chloride (0.9 % Sodium Chloride Flush 3 Ml Syringe) 3 ml IVFLUSH QSHIFT [facility] Last Admin: 06/01/23 07:52 Dose: 3 ml Tiotropium [place] (Tiotropium [place] 2.5 Mcg 1 Puff/2.5 Mcg Mist.Inhal) 2 puff INHALE DAILY [facility] Last Admin: 06/01/23 07:45 Dose: 2 puff Vitamin D (Cholecalciferol (Vitamin D3) 25 Mcg Tablet) 50 mcg PO BID [facility] Last Admin: 06/01/23 07:52 Dose: 50 mcg Home Medications Medication Instructions Recorded Confirmed Type alendronate 70 mg tablet 70 mg PO SA@0900 04/09/21 05/27/23 History fluticasone furoate 200 1 puff PO BEDTIME 04/09/21 05/27/23 History mcg-vilanterol 25 mcg/dose inhalation powder (Breo Ellipta) umeclidinium 62.5 mcg/actuation 1 puff PO DAILY 04/09/21 05/27/23 History blister powder for inhalation (Incruse Ellipta) amlodipine 10 mg tablet 1 tab PO DAILY 01/03/22 05/27/23 History aspirin 81 mg tablet,delayed 1 tab PO DAILY 01/03/22 05/27/23 History release clopidogrel 75 mg tablet 1 tab PO Q OTHER DAY 01/03/22 05/27/23 History cholecalciferol (vitamin D3) 50 50 mcg PO BID 08/04/22 05/27/23 History mcg (2,000 unit) capsule ferrous sulfate 325 mg (65 mg 325 mg PO Q48H 08/04/22 05/27/23 History iron) tablet (FeroSul) lisinopril 40 mg tablet 40 mg PO DAILY 08/04/22 05/27/23 History atorvastatin 40 mg tablet 80 mg PO BEDTIME 09/03/22 05/27/23 History cephalexin 250 mg capsule 250 mg PO DAILY recurrent UTI's 03/11/23 05/27/23 History famotidine 20 mg tablet 20 mg PO BID@0630,1630 05/27/23 05/27/23 History Allergies Allergy/AdvReac Type Severity Reaction Status Date / Time milk [MILK] Allergy Intermediate DIARRHEA Verified 03/11/23 10:08 Exam Vital signs: Vital Signs Temp 97.5 F 06/01/23 10:58 Pulse 67 06/01/23 10:58 Resp 18 06/01/23 10:58 BP 100/53 L 06/01/23 10:58 Pulse Ox 94 06/01/23 10:58 O2 Del Method Nasal Cannula 06/01/23 10:58 O2 Flow Rate 2 06/01/23 10:58 Intake & Output 05/31/23 06/01/23 06/01/23 18:59 06:59 18:59 Intake Total 480 / 630 150 / 630 191.667 / 191.667 Output Total 135 / 135 Balance 480 / 495 15 / 495 191.667 / 191.667 Urine Output (Average ml/kg/hr) 0.13 0.13 Intake: Intake, Oral Amount 480 / 630 150 / 630 Intake, IV Amount 191.667 / 191.667 0.9 % Sodium Chloride 1,000 ml 191.667 / 191.667 @ 150 mls/hr IVCONT .Q6H40M [facility] Rx#:[id number] Output: Output, Urine Amount 100 / 100 Output, Chest Tube Drainage 35 / 35 Amount Right Posterior Chest 35 / 35 Other: NPO Yes Breakfast % Eaten 50% Lunch % Eaten 50% Number of Unmeasured Voids 1 1 Urine Bedside Commode Bedside Commode Urine Color Yellow Yellow Last Bowel Movement 05/29/23 05/29/23 Weight 64.1 kg BMI result Body Mass Index 30.6 - Constitutional Present: no acute distress - Routine HEENT Exam Head: Present: atraumatic - Routine Neck Exam Present: full ROM - Routine Chest/Breast/Axilla Exam Chest wall: Present: tenderness - Routine Respiratory Exam Present: CTAB, wheezes - Routine Cardiovascular Exam Cardiovascular: Present: RRR, S1, S2 - Routine Abdominal Exam Present: diminished bowel sounds, soft - Routine Extremities Exam Absent: calf tenderness Data - Labs CBC & Chem 7: 05/30/23 07:23 06/01/23 10:06 - Imaging Radiologist's impression: ITS Impressions Chest X-Ray 05/27/23 16:50 IMPRESSION: 1. Slight increase in right pleural effusion likely moderate in size with underlying right lower lobe atelectasis. 2. No pneumothorax seen. 3. Mild cardiomegaly. Thoracentesis/Paracentesis US 05/28/23 10:20 Impression: Ultrasound-guided right chest tube placement yielding yellow fluid. This procedures performed by Mauri Sr PA-C and supervised by Dr. Blake. Chest X-Ray 05/28/23 14:55 IMPRESSION: There appears to be trace residual pleural fluid after the drainage catheter placement. This represents significant improvement compared to 05/27/2023. Chest X-Ray 05/29/23 06:01 IMPRESSION: 1. The patient's right thoracostomy tube is unchanged in position. No right pleural effusion or pneumothorax is presently seen. 2. There is pulmonary vascular congestion, without overt pulmonary edema. Chest X-Ray 05/31/23 06:15 IMPRESSION: Right basilar pigtail catheter without significant pleural effusion. Patchy right basilar probable atelectasis. No significant pneumothorax. Assessment and Plan Patient Active problem list reviewed?: Yes (1) Lung cancer Status: Acute Assessment and plan: 1. This is a 72-year-old woman diagnosed with metastatic lung adenocarcinoma in April 2023. She presented with right malignant effusion, pleural fluid cytology revealed adenocarcinoma consistent with lung primary. IHC positive for MOC31, CK7 and TTF1. Negative for CK20, CDX2, GATA3 and PAX8. Tumor cells in cell block insufficient for molecular studies. CEA elevated at 17.5 NG/mL LDH 268/L. She presented with recurrent malignant effusion for which she underwent drainage by chest tube and pleurodesis. I discussed above diagnosis of advanced or stage IV lung cancer with patient and her daughter Rufina by telephone. She will need further workup including PET scan and repeat pleural fluid evaluation for possible NGS testing. If pleural fluid is inadequate, tissue biopsy would be considered. CT chest performed on 05/14/2023 showed multiple subcentimeter lung nodule in addition to moderate-sized right pleural effusion. There is a 1.7 cm hypodensity seen in the right lobe of liver and 0.9 cm hepatic hypodensity not seen previously. If 1 of these lesions is PET avid, biopsy of this can be considered. Depending on molecular studies, further recommendations about systemic/palliative therapy will be made. Cellblock for NGS testing has been ordered. 2. Acute renal insufficiency. Patient is receiving IV fluids. Nephrology consult pending. - Time Spent With Patient Time Spent with Patient (in minutes): 10
--- NOTE | 2023-06-01 13:12 | MHC.SL.SWA ---
Speech Pathologist Impression: Oral phase dysphagia Risk of Aspiration Due to: Medically Fragile History of Pneumonia Dysphasia Diet Status: UPGRADE from NPO Liquid Consistency and Strategies for Safe Swallow: Liquid Intake Recommendation: Thin Liquid Intake Strategies: Small Sips No Straws Solid Food Consistency: Dietary Recommendations: Regular Additional Modifications to Solid Foods: Pt and daughter report intermittent coughing/choking during meals. No difficulties were observed today with PO trials. Pt w/ mildly delayed oral phase. No overt s/s of aspiration with intake of mariajose crackers and water. Recommend direct supervision during meals, close monitoring, and aspiration precautions. These strategies were reviewed with the pt and her daughter. Should concerns persist, recommend further assessment with outpatient MBSS. Oral Medication Intake: Whole with Puree Please contact the pharmacy regarding appropriate crushable or liquid drug formulations that are available whenever modified delivery is recommended. Compensatory Strategies and Precautions to be Taken for Safe Swallow: Sitting Upright (90 deg) Double Swallow No Straw Small Bites and Sips Alternate Liquids/Solids Rate of Ingestion Change Avoid Specific Foods Supervision While Eating and Drinking for Safe Swallow: Total Supervision (1:1) Foods to Avoid: Mixed consistencies Swallowing Recommended Treatments: Compens. Strategy Educat. Recommendation for Speech: Inpatient Speech Therapy Modified Barium Swallow Study - Outpatient Comment: ROOM MANAGER to f/u 1-2x during hospitalization Frequency/Duration: Date Range for Service Req: Timeline to reassess: Garment Supervisor Clinican/Clinical Fellow: No Supervisory Statement: I have reviewed and agree with the student/clinical fellow's documentation: N/A Speech Language Pathologist: Gillian Harris M.A., CCC-ROOM MANAGER
--- NOTE | 2023-06-01 14:26 | MHC.CM.PN ---
CM MET W/PT AND HCP/[facility] AT BEDSIDE TO DISCUSS STR PREFERENCES, [facility] REPORTS PT WOULD NOT WANT [facility] AND WOULD LIKE FACILITIES CLOSE TO [place], NO PREFERENCES AND REF WILL BE PLACED TO [facility]AC[facility] INCLUDING [facility], CM WILL CONT TO FOLLOW DC NEEDS.
--- NOTE | 2023-06-01 15:59 | P.CONNP_ITS ---
History of Present Illness Reason for Consult Consult date: 06/02/23 Reason for consult: SANTA Chief Complaint Chief complaint: recurrent pleural effusion, lung cancer, hypoxia History of Present Illness Narrative: 72-year-old female with history of left bundle branch block, hypertension, COPD, lacunar infarction, unspecified dementia, and osteoporosis as well as newly diagnosed adenocarcinoma of the lung presented to the ED earlier today at the recommendation of her son for evaluation of dyspnea. The patient underwent thoracentesis due to right pleural effusion on 05/14 with associated dyspnea. Baseline serum creatinine was 0.9. She has had episodes of hypotension. She was on lisinopril 40 mg a day. Creatinine is bumped up to 3.44 and hence this consultation. Review of Systems Constitutional: Denies anorexia, Denies fever(s) and Denies weakness Eyes: Denies blurry vision Cardiovascular: Denies no additional cardiovascular complaints and Denies dyspnea Respiratory: Reports no additional respiratory complaints, Reports cough and Denies dyspnea Gastrointestinal: Denies melena and Denies diarrhea Genitourinary: Denies hematuria Musculoskeletal: Denies tingling Skin/Breast: Denies rash Denies focal weakness, Denies tingling, Denies tremor(s) and Denies weakness PMFSH Past Medical History Medical History (Updated 06/01/23 @ 16:00 by Eduard Azul MD) Tubular adenoma Gastritis BBB (bundle branch block) DVT (deep venous thrombosis) Anemia Multifactorial dementia Lacunar infarction Osteoporosis HTN (hypertension) COPD (chronic obstructive pulmonary disease) Family History Family History Other No family history of coronary artery disease Surgical History Surgical History (Updated 05/29/23 @ 07:15 by Roseanna Gonzales MD) History of carotid endarterectomy History of esophagogastroduodenoscopy (EGD) Hx of colonoscopy No pertinent past surgical history Social History Social History Household Members: None Housing: Assisted Living Facility Housing Other:: [place] Do you presently have visiting nurse or other home services: No Alcohol intake: current Alcohol intake frequency: does not drink Patient Tobacco Use Status: Former Tobacco user Quit Date: 2 years ago Cigarette Packs Per Day: 1 Years Smoked: 54 e-Cigarette/Vaping Use: Former Use Second Hand Smoke Exposure: No Advance Directives Date on File: 04/09/21 service: No Current occupational status: retired Meds Allergies Allergy/AdvReac Type Severity Reaction Status Date / Time milk [MILK] Allergy Intermediate DIARRHEA Verified 03/11/23 10:08 Active Medications: Current Medications Acetaminophen (Acetaminophen 325 Mg Tablet) 650 mg PO Q6H PRN PRN Reason: Pain, Mild (Pain Scale 1-3) Last Admin: 05/30/23 08:04 Dose: 650 mg Albuterol/Ipratropium (Albuterol/Iprat 2.5/0.5mg 3 Ml Ampul.Neb) 3 ml INHALE Q4H PRN PRN Reason: wheezing Aspirin (Aspirin Enteric Coated 81 Mg Tablet.) 81 mg PO DAILY [facility] Last Admin: 06/01/23 07:52 Dose: 81 mg Atorvastatin Calcium (Atorvastatin Calcium 80 Mg Tablet) 80 mg PO BEDTIME [facility] Last Admin: 05/31/23 21:48 Dose: 80 mg Clopidogrel Bisulfate (Clopidogrel Bisulfate 75 Mg Tablet) 75 mg PO Q48H [facility] Last Admin: 06/01/23 07:52 Dose: 75 mg Famotidine (Famotidine 20 Mg Tablet) 10 mg PO DAILY [facility] Ferrous Sulfate (Ferrous Sulfate 324 Mg Tablet.) 324 mg PO Q48H [facility] Last Admin: 06/01/23 07:52 Dose: 324 mg Fluticasone/Vilanterol (Fluticasone/Vilanterol 200/25 Blst.W.Dev) 1 puff INHALE BEDTIME [facility] Last Admin: 05/31/23 19:12 Dose: 1 puff Heparin Sodium (Porcine) (Heparin Sodium,Porcine 5,000 Unit/Ml Vial) 5,000 unit SUBCUT BID [facility] Last Admin: 06/01/23 07:51 Dose: 5,000 unit Sodium Chloride (Ns) 1,000 mls @ 150 mls/hr IVCONT .Q6H40M [facility] Last Infusion: 06/01/23 15:31 Dose: 125 mls/hr Morphine Sulfate (Morphine Sulfate 2 Mg/Ml Cartridge) 4 mg IVPUSH Q4H PRN; Protocol PRN Reason: Pain, Severe (Pain Scale 7-10) Ondansetron HCl (Ondansetron Hcl 4 Mg/2 Ml Vial) 4 mg IVPUSH Q8H PRN PRN Reason: Nausea and Vomiting Last Admin: 05/30/23 12:49 Dose: 4 mg Oxycodone HCl (Oxycodone Hcl Immed Release 5 Mg Tablet) 5 mg PO Q4H PRN PRN Reason: Pain, Moderate(Pain Scale 4-6) Senna (Sennosides 8.6 Mg Tablet) 17.2 mg PO BEDTIME PRN PRN Reason: Constipation Sodium Chloride (0.9 % Sodium Chloride Flush 3 Ml Syringe) 3 ml IVFLUSH QSHIFT [facility] Last Admin: 06/01/23 15:26 Dose: Not Given Tiotropium [place] (Tiotropium [place] 2.5 Mcg 1 Puff/2.5 Mcg Mist.Inhal) 2 puff INHALE DAILY [facility] Last Admin: 06/01/23 07:45 Dose: 2 puff Vitamin D (Cholecalciferol (Vitamin D3) 25 Mcg Tablet) 50 mcg PO BID [facility] Last Admin: 06/01/23 07:52 Dose: 50 mcg Home Medications Medication Instructions Recorded Confirmed Last Taken Type alendronate 70 mg tablet 70 mg PO SA@0900 04/09/21 05/27/23 05/27/23 History fluticasone furoate 200 1 puff PO BEDTIME 04/09/21 05/27/23 05/27/23 History mcg-vilanterol 25 mcg/dose inhalation powder (Breo Ellipta) umeclidinium 62.5 mcg/actuation 1 puff PO DAILY 04/09/21 05/27/23 05/27/23 History blister powder for inhalation (Incruse Ellipta) amlodipine 10 mg tablet 1 tab PO DAILY 01/03/22 05/27/23 05/27/23 History aspirin 81 mg tablet,delayed 1 tab PO DAILY 01/03/22 05/27/23 05/27/23 History release clopidogrel 75 mg tablet 1 tab PO Q OTHER DAY 01/03/22 05/27/23 05/27/23 History cholecalciferol (vitamin D3) 50 50 mcg PO BID 08/04/22 05/27/23 05/27/23 History mcg (2,000 unit) capsule ferrous sulfate 325 mg (65 mg 325 mg PO Q48H 08/04/22 05/27/23 05/27/23 History iron) tablet (FeroSul) lisinopril 40 mg tablet 40 mg PO DAILY 08/04/22 05/27/23 05/27/23 History atorvastatin 40 mg tablet 80 mg PO BEDTIME 09/03/22 05/27/23 05/27/23 History cephalexin 250 mg capsule 250 mg PO DAILY recurrent UTI's 03/11/23 05/27/23 05/27/23 History famotidine 20 mg tablet 20 mg PO BID@0630,1630 05/27/23 05/27/23 05/27/23 History Physical Exam Vital Signs: Last Vital Signs Temp 97.1 F 06/01/23 14:55 Pulse 84 06/01/23 14:55 Resp 20 06/01/23 14:55 BP 107/55 L 06/01/23 14:55 Pulse Ox 91 L 06/01/23 14:55 O2 Del Method Nasal Cannula 06/01/23 14:55 O2 Flow Rate 1.5 06/01/23 14:55 Oxygen Flow Rate 2 05/27/23 19:41 BMI result Body Mass Index 30.6 Const General: comfortable Nutritional Appearance: well nourished Orientation/consciousness: patient oriented x3 HEENT Head: No normal to inspection Mouth: moist mucous membranes Neck Neck: Yes supple and Yes no JVD Resp Auscultation: clear to auscultation bilaterally, no rales and rub present Cardio Jugular venous distension: no JVD Palpation: no palpable S3 and no palpable S4 Heart sounds: no rubs GI Palpation (GI): Soft to palpation and nontender Percussion: No Fluid wave present General: Yes no CVA tenderness Back/Spine/Pelvis Back: no CVA tenderness Skin General skin exam: no rashes or lesions noted Neuro General: patient oriented x3 Extrem General: Yes no pedal edema and No clubbing Results Lab Results 05/30/23 07:23 06/02/23 06:35 Lab results: Chemistry 05/30/23 06/01/23 07:23 10:06 Sodium 134 L 133 L Potassium 4.7 5.0 Carbon Dioxide 21 L 19 L BUN 42 H 73 H Creatinine 3.44 H 3.34 H Calcium 9.3 9.1 Hematology 05/30/23 07:23 WBC 14.6 H Hgb 11.1 L Plt Count 330 Assessment and Plan (1) SANTA (acute kidney injury): Status: Acute Plan Acute kidney injury in this elderly woman is most likely due to hypoperfusion/hypotension. She was on MARY ANNE inhibitor which could have contributed to hypoperfusion. Other possibilities including obstruction should be considered. No reason to believe that she has any active glomerulonephritis or interstitial disease at this time. Recommendation Check urine for sodium and creatinine, protein. Hold lisinopril. Avoid hypotension. Agree with IV hydration with normal saline to keep intake more than output. Watch urine output closely. If renal function does not improve we will obtain a renal ultrasonogram. At present no indication for dialysis. Further workup will be based on the outcome of the above baseline medication. We will follow her closely with the team. Thank you Procedures Date of Service Date of Service: 06/02/23
[2023-06-01] MEDS: guaiFENesin 100 MG/5 ML LIQUID PO (18:41)
[2023-06-01] MEDS: Fluticasone/Vilanterol 200/25 BLST.W.DEV 1 PUFF INHALE (19:20)
[2023-06-01] MEDS: Atorvastatin Calcium 80 MG TABLET PO (20:38)
[2023-06-02] VITALS (8 sets, daily range): BP systolic 122–149; BP diastolic 52–74; PULSE 69–80; RESP 15–18; TEMP 36.1–36.8; O2SAT 95–99
[2023-06-02] MEDS: 0.9 % Sodium Chloride 1,000 ML 125 ML IVCONT (05:16)
[2023-06-02] MEDS: Tiotropium Bromide 2.5 mcg 1 PUFF/2.5 MCG MIST.INHAL 2 PUFF INHALE (07:41)
[2023-06-02 07:44] LABS: Anion Gap 15 (12-20); Blood Urea Nitrogen 52 mg/dL (9-16); Calcium 8.8 mg/dL (8.4-10.2); Carbon Dioxide 21 mmol/L (22-29); Chloride 109 mmol/L (96-108); Creatinine Clr Calc Pharmacy 37.6; Estimated Glomerular Filt Rate 54; Glucose Random 95 mg/dL (60-115); Potassium 4.7 mmol/L (3.3-5.1); Sodium 140 mmol/L (135-145)
[2023-06-02] MEDS: Famotidine 20 MG TABLET 10 MG PO (07:49)
[2023-06-02] MEDS: Aspirin Enteric Coated 81 MG TABLET.DR PO (07:49)
[2023-06-02] MEDS: Heparin Sodium,Porcine 5,000 UNIT/ML VIAL 5000 UNIT SUBCUT ×2 (07:50→21:40)
[2023-06-02] MEDS: Cholecalciferol (Vitamin D3) 25 MCG TABLET 50 MCG PO ×2 (07:50→21:40)
--- NOTE | 2023-06-02 11:24 | PM.HEMONCPN ---
Medical Summary - Medical Summary Date of Service: 06/02/23 Chief complaint: Weakness Primary Care Provider: Lyn French MD Medical Summary: Diagnosis: Lung adenocarcinoma 04/2023 Interval History Interval history: Clarissa Walsh is a 72 year old female who presented to emergency department with complaints of dyspnea on exertion. She was recently diagnosed with lung cancer in April 2023 when she presented to ED after a fall. Chest x-ray showed right pleural effusion, further evaluation with CT chest revealed small to moderate size right pleural effusion with right middle lobe and right lower lobe atelectasis/collapse. Multiple pulmonary nodules largest measuring 8 mm in the right upper lobe. Mediastinal lymph nodes increased in size compared to prior study as well as new hepatic hypodensities suspicious for metastatic disease. This was compared to prior CT chest performed in June 2022, stable enlarged thyroid gland was also noted. Her past medical history significant for COPD, left bundle branch block, hypertension and osteoporosis as well as anemia. She had therapeutic and diagnostic thoracentesis performed on 05/14/2023 which revealed adenocarcinoma consistent with lung primary. She is feeling better today. Denies chest pain or shortness of breath. Review of Systems - Neurologic Denies dizziness, Denies focal weakness, Denies tingling, Denies tremor(s), Denies weakness PMFSH Medical History: Medical History (Last Reviewed 05/27/23 @ 21:01 by RUBEN Candelario) Anemia BBB (bundle branch block) COPD (chronic obstructive pulmonary disease) DVT (deep venous thrombosis) Gastritis HTN (hypertension) Lacunar infarction Multifactorial dementia Osteoporosis Tubular adenoma Family History: Family History (Last Reviewed 05/27/23 @ 21:01 by RUBEN Candelario) Other No family history of coronary artery disease Surgical History: Surgical History (Last Updated 05/28/23 @ 09:00 by Julieta Nguyen PA-C) History of carotid endarterectomy History of esophagogastroduodenoscopy (EGD) Hx of colonoscopy No pertinent past surgical history Social History: Social History (Last Reviewed 05/27/23 @ 21:01 by RUBEN Candelario) Living Situation History: Household Members: None Housing: Assisted Living Facility Housing Other:: [place] Do you presently have visiting nurse or other home services: No Tobacco History: Patient Tobacco Use Status: Former Tobacco user Cigarette Packs Per Day: 1 Years Smoked: 54 Smoke Quit Date: 2 years ago e-Cigarette/Vaping Use: Former Use Second Hand Smoke Exposure: No Advance Directives: Advance Directives Date on File: 04/09/21 Occupation Assessmet: service: No Current occupational status: retired Home Medications and Allergies Current Medications: Current Medications Acetaminophen (Acetaminophen 325 Mg Tablet) 650 mg PO Q6H PRN PRN Reason: Pain, Mild (Pain Scale 1-3) Last Admin: 05/30/23 08:04 Dose: 650 mg Albuterol/Ipratropium (Albuterol/Iprat 2.5/0.5mg 3 Ml Ampul.Neb) 3 ml INHALE Q4H PRN PRN Reason: wheezing Aspirin (Aspirin Enteric Coated 81 Mg Tablet.) 81 mg PO DAILY [facility] Last Admin: 06/02/23 07:49 Dose: 81 mg Atorvastatin Calcium (Atorvastatin Calcium 80 Mg Tablet) 80 mg PO BEDTIME [facility] Last Admin: 06/01/23 20:38 Dose: 80 mg Clopidogrel Bisulfate (Clopidogrel Bisulfate 75 Mg Tablet) 75 mg PO Q48H [facility] Last Admin: 06/01/23 07:52 Dose: 75 mg Famotidine (Famotidine 20 Mg Tablet) 10 mg PO DAILY [facility] Last Admin: 06/02/23 07:49 Dose: 10 mg Ferrous Sulfate (Ferrous Sulfate 324 Mg Tablet.) 324 mg PO Q48H [facility] Last Admin: 06/01/23 07:52 Dose: 324 mg Fluticasone/Vilanterol (Fluticasone/Vilanterol 200/25 Blst.W.Dev) 1 puff INHALE BEDTIME [facility] Last Admin: 06/01/23 19:20 Dose: 1 puff Guaifenesin (Guaifenesin 100 Mg/5 Ml Liquid) 5 ml PO Q6H PRN PRN Reason: cough Last Admin: 06/01/23 18:41 Dose: 5 ml Heparin Sodium (Porcine) (Heparin Sodium,Porcine 5,000 Unit/Ml Vial) 5,000 unit SUBCUT BID [facility] Last Admin: 06/02/23 07:50 Dose: 5,000 unit Morphine Sulfate (Morphine Sulfate 2 Mg/Ml Cartridge) 4 mg IVPUSH Q4H PRN; Protocol PRN Reason: Pain, Severe (Pain Scale 7-10) Ondansetron HCl (Ondansetron Hcl 4 Mg/2 Ml Vial) 4 mg IVPUSH Q8H PRN PRN Reason: Nausea and Vomiting Last Admin: 05/30/23 12:49 Dose: 4 mg Oxycodone HCl (Oxycodone Hcl Immed Release 5 Mg Tablet) 5 mg PO Q4H PRN PRN Reason: Pain, Moderate(Pain Scale 4-6) Senna (Sennosides 8.6 Mg Tablet) 17.2 mg PO BEDTIME PRN PRN Reason: Constipation Sodium Chloride (0.9 % Sodium Chloride Flush 3 Ml Syringe) 3 ml IVFLUSH QSHIFT [facility] Last Admin: 06/02/23 07:53 Dose: Not Given Tiotropium [place] (Tiotropium [place] 2.5 Mcg 1 Puff/2.5 Mcg Mist.Inhal) 2 puff INHALE DAILY [facility] Last Admin: 06/02/23 07:41 Dose: 2 puff Vitamin D (Cholecalciferol (Vitamin D3) 25 Mcg Tablet) 50 mcg PO BID [facility] Last Admin: 06/02/23 07:50 Dose: 50 mcg Home Medications Medication Instructions Recorded Confirmed Type alendronate 70 mg tablet 70 mg PO SA@0900 04/09/21 05/27/23 History fluticasone furoate 200 1 puff PO BEDTIME 04/09/21 05/27/23 History mcg-vilanterol 25 mcg/dose inhalation powder (Breo Ellipta) umeclidinium 62.5 mcg/actuation 1 puff PO DAILY 04/09/21 05/27/23 History blister powder for inhalation (Incruse Ellipta) amlodipine 10 mg tablet 1 tab PO DAILY 01/03/22 05/27/23 History aspirin 81 mg tablet,delayed 1 tab PO DAILY 01/03/22 05/27/23 History release clopidogrel 75 mg tablet 1 tab PO Q OTHER DAY 01/03/22 05/27/23 History cholecalciferol (vitamin D3) 50 50 mcg PO BID 08/04/22 05/27/23 History mcg (2,000 unit) capsule ferrous sulfate 325 mg (65 mg 325 mg PO Q48H 08/04/22 05/27/23 History iron) tablet (FeroSul) lisinopril 40 mg tablet 40 mg PO DAILY 08/04/22 05/27/23 History atorvastatin 40 mg tablet 80 mg PO BEDTIME 09/03/22 05/27/23 History cephalexin 250 mg capsule 250 mg PO DAILY recurrent UTI's 03/11/23 05/27/23 History famotidine 20 mg tablet 20 mg PO BID@0630,1630 05/27/23 05/27/23 History Allergies Allergy/AdvReac Type Severity Reaction Status Date / Time milk [MILK] Allergy Intermediate DIARRHEA Verified 03/11/23 10:08 Exam Vital signs: Vital Signs Temp 97.9 F 06/02/23 07:45 Pulse 74 06/02/23 07:45 Resp 18 06/02/23 07:45 BP 149/74 H 06/02/23 07:45 Pulse Ox 97 06/02/23 07:45 O2 Del Method Nasal Cannula 06/02/23 07:45 O2 Flow Rate 2 06/02/23 07:45 Intake & Output 06/01/23 06/02/23 06/02/23 18:59 06:59 18:59 Intake Total 871.667 / 3300.000 2428.333 / 3300.000 Output Total 300 / 1200 900 / 1200 Balance 571.667 / 2100.000 1528.333 / 2100.000 Urine Output (Average ml/kg/hr) 0.39 1.17 Intake: Intake, Oral Amount 480 / 1300 820 / 1300 Intake, IV Amount 391.667 / 2000.000 1608.333 / 2000.000 0.9 % Sodium Chloride 1,000 ml 391.667 / 2000.000 1608.333 / 2000.000 @ 150 mls/hr IVCONT .Q6H40M [facility] Rx#:[id number] Output: Output, Urine Amount 300 / 1200 900 / 1200 Other: Meal Refused No NPO No Breakfast % Eaten 75% Lunch % Eaten 75% Dinner % Eaten 25% 50% Urine Bedside Commode Bedside Commode Urine Color Yellow Yellow Last Bowel Movement 05/29/23 Weight 64.1 kg BMI result Body Mass Index 30.6 - Constitutional Present: no acute distress - Routine HEENT Exam Head: Present: atraumatic - Routine Neck Exam Present: full ROM - Routine Chest/Breast/Axilla Exam Chest wall: Present: tenderness - Routine Respiratory Exam Present: CTAB, wheezes - Routine Cardiovascular Exam Cardiovascular: Present: RRR, S1, S2 - Routine Abdominal Exam Present: diminished bowel sounds, soft - Routine Extremities Exam Absent: calf tenderness Data - Labs CBC & Chem 7: 05/30/23 07:23 06/02/23 06:35 - Imaging Radiologist's impression: ITS Impressions Chest X-Ray 05/27/23 16:50 IMPRESSION: 1. Slight increase in right pleural effusion likely moderate in size with underlying right lower lobe atelectasis. 2. No pneumothorax seen. 3. Mild cardiomegaly. Thoracentesis/Paracentesis US 05/28/23 10:20 Impression: Ultrasound-guided right chest tube placement yielding yellow fluid. This procedures performed by Mauri Sr PA-C and supervised by Dr. Blake. Chest X-Ray 05/28/23 14:55 IMPRESSION: There appears to be trace residual pleural fluid after the drainage catheter placement. This represents significant improvement compared to 05/27/2023. Chest X-Ray 05/29/23 06:01 IMPRESSION: 1. The patient's right thoracostomy tube is unchanged in position. No right pleural effusion or pneumothorax is presently seen. 2. There is pulmonary vascular congestion, without overt pulmonary edema. Chest X-Ray 05/31/23 06:15 IMPRESSION: Right basilar pigtail catheter without significant pleural effusion. Patchy right basilar probable atelectasis. No significant pneumothorax. Chest X-Ray 06/01/23 11:23 IMPRESSION: Interval removal of right basilar pigtail catheter. No significant pleural effusion or sizable pneumothorax. Head CT 06/01/23 16:33 IMPRESSION: No acute intracranial hemorrhage or territorial loss of browning-white differentiation. Chronic encephalomalacia/gliosis in the right frontal and parietal lobes. Assessment and Plan Patient Active problem list reviewed?: Yes (1) Lung cancer Status: Acute Assessment and plan: 1. This is a 72-year-old woman diagnosed with metastatic lung adenocarcinoma in April 2023. She presented with right malignant effusion, pleural fluid cytology revealed adenocarcinoma consistent with lung primary. IHC positive for MOC31, CK7 and TTF1. Negative for CK20, CDX2, GATA3 and PAX8. Tumor cells in cell block insufficient for molecular studies. CEA elevated at 17.5 NG/mL LDH 268/L. She presented with recurrent malignant effusion for which she underwent drainage by chest tube and pleurodesis. I discussed above diagnosis of advanced or stage IV lung cancer with patient and her daughter Rufina by telephone. She will need further workup including PET scan and repeat pleural fluid evaluation for possible NGS testing. If pleural fluid is inadequate, tissue biopsy would be considered. CT chest performed on 05/14/2023 showed multiple subcentimeter lung nodule in addition to moderate-sized right pleural effusion. There is a 1.7 cm hypodensity seen in the right lobe of liver and 0.9 cm hepatic hypodensity not seen previously. If 1 of these lesions is PET avid, biopsy of this can be considered. Depending on molecular studies, further recommendations about systemic/palliative therapy will be made. Cellblock for NGS testing has been ordered. 2. Acute renal insufficiency. Patient is receiving IV fluids. Creatinine has improved with IV hydration. She has appointment scheduled next week in oncology clinic. - Time Spent With Patient Time Spent with Patient (in minutes): 8
--- NOTE | 2023-06-02 12:45 | MHC.SL.DTX ---
Dysphagia Diet modifications: Last documented Solid diet consistencies: Regular (Ground Meats) Last documented Liquid consistency: Thin Changes made to current diet?: No Liquid Consistency and Strategies: Liquid Intake Recommendation: Thin Compensatory Strategies for Safe Swallow: Small Sips No Straws Compensatory Strategies for Safe Swallow(b): Sitting Upright (90 deg) Double Swallow No Straw Small Bites and Sips Alternate Liquids/Solids Rate of Ingestion Change Avoid Specific Foods Solid Food Consistency: Dietary Recommendations: Regular Additional Modifications to Solids: No overt s/s of aspiration with intake of mariajose crackers and water. Recommend direct supervision during meals, close monitoring, and aspiration precautions. These strategies were reviewed with the pt and her daughter. Should concerns persist, recommend further assessment with outpatient MBSS. Oral Medication Intake: Whole with Puree Strategies and Precautions to be Taken for Safe Swallow: Sitting Upright (90 deg) Double Swallow No Straw Small Bites and Sips Alternate Liquids/Solids Rate of Ingestion Change Avoid Specific Foods Supervision While Eating and/Drinking: Total Supervision (1:1) Foods to Avoid: Mixed consistencies, difficult to chew solids. Swallowing Recommended Treatments: Compens. Strategy Educat. Level of Impact on: Daily activities: Interpersonal interactions: Education: Employment: Community: Prognosis for Improvement: Recommendation for Speech: Inpatient Speech Therapy Modified Barium Swallow Study - Outpatient Comment: [place] ANALYST to f/u 1-2x during hospitalization Frequency/Duration: Date Range for Service Req: Timeline to reassess: Additional Comments: Treatment: Assessment: Customer Assistance Associate Clinican/Clinical Fellow: No Supervisory Statement: I have reviewed and agree with the student/clinical fellow's documentation: N/A Speech Language Pathologist: Kaleb Mendoza M.A., [facility] ANA[facility]
--- NOTE | 2023-06-02 12:54 | P.PNIM_ITS ---
Subjective Subjective Date of Service: 06/02/23 Interval History: f/u sob d/t recurrent p effusion, s/p thoracentes with pig tail cath yesterday. No sob, no chest pain, overall feels better Review of Systems no new c/o no fever or chills Physical Exam 2 Vital Signs: Vital Signs: Last Vital Signs Temp 97.9 F 06/02/23 11:54 Pulse 75 06/02/23 11:54 Resp 18 06/02/23 11:54 BP 135/61 06/02/23 11:54 Pulse Ox 99 06/02/23 11:54 O2 Del Method Nasal Cannula 06/02/23 11:54 O2 Flow Rate 2 06/02/23 11:54 Oxygen Flow Rate 2 05/27/23 19:41 BMI result Body Mass Index 30.6 General: AO X 3, no acute distress Resp: CTA bilateral, right chest tube in place with minimal output CVS: S1,S2,RRR GI: +BS, NT, no distention Skin: No rash Neuro: motor grossly intact Psych: appropriate affect Objective Data Active Medications Acetaminophen (Acetaminophen 325 Mg Tablet) 650 mg PO Q6H PRN PRN Reason: Pain, Mild (Pain Scale 1-3) Last Admin: 05/30/23 08:04 Dose: 650 mg Documented By: TIFFANY Albuterol/Ipratropium (Albuterol/Iprat 2.5/0.5mg 3 Ml Ampul.Neb) 3 ml INHALE Q4H PRN PRN Reason: wheezing Aspirin (Aspirin Enteric Coated 81 Mg Tablet.) 81 mg PO DAILY [facility] Last Admin: 06/02/23 07:49 Dose: 81 mg Documented By: PANCHITO Atorvastatin Calcium (Atorvastatin Calcium 80 Mg Tablet) 80 mg PO BEDTIME [facility] Last Admin: 06/01/23 20:38 Dose: 80 mg Documented By: MAGALI Clopidogrel Bisulfate (Clopidogrel Bisulfate 75 Mg Tablet) 75 mg PO Q48H [facility] Last Admin: 06/01/23 07:52 Dose: 75 mg Documented By: KIA Famotidine (Famotidine 20 Mg Tablet) 10 mg PO DAILY [facility] Last Admin: 06/02/23 07:49 Dose: 10 mg Documented By: PANCHITO Ferrous Sulfate (Ferrous Sulfate 324 Mg Tablet.) 324 mg PO Q48H [facility] Last Admin: 06/01/23 07:52 Dose: 324 mg Documented By: KIA Fluticasone/Vilanterol (Fluticasone/Vilanterol 200/25 Blst.W.Dev) 1 puff INHALE BEDTIME [facility] Last Admin: 06/01/23 19:20 Dose: 1 puff Documented By: AMBER Guaifenesin (Guaifenesin 100 Mg/5 Ml Liquid) 5 ml PO Q6H PRN PRN Reason: cough Last Admin: 06/01/23 18:41 Dose: 5 ml Documented By: KIA Heparin Sodium (Porcine) (Heparin Sodium,Porcine 5,000 Unit/Ml Vial) 5,000 unit SUBCUT BID [facility] Last Admin: 06/02/23 07:50 Dose: 5,000 unit Documented By: PANCHITO Morphine Sulfate (Morphine Sulfate 2 Mg/Ml Cartridge) 4 mg IVPUSH Q4H PRN; Protocol PRN Reason: Pain, Severe (Pain Scale 7-10) Ondansetron HCl (Ondansetron Hcl 4 Mg/2 Ml Vial) 4 mg IVPUSH Q8H PRN PRN Reason: Nausea and Vomiting Last Admin: 05/30/23 12:49 Dose: 4 mg Documented By: STEFANY Oxycodone HCl (Oxycodone Hcl Immed Release 5 Mg Tablet) 5 mg PO Q4H PRN PRN Reason: Pain, Moderate(Pain Scale 4-6) Senna (Sennosides 8.6 Mg Tablet) 17.2 mg PO BEDTIME PRN PRN Reason: Constipation Sodium Chloride (0.9 % Sodium Chloride Flush 3 Ml Syringe) 3 ml IVFLUSH QSHIFT [facility] Last Admin: 06/02/23 07:53 Dose: Not Given Documented By: PANCHITO Non-Admin Reason: IV Running Tiotropium [place] (Tiotropium [place] 2.5 Mcg 1 Puff/2.5 Mcg Mist.Inhal) 2 puff INHALE DAILY [facility] Last Admin: 06/02/23 07:41 Dose: 2 puff Documented By: BERNIE Vitamin D (Cholecalciferol (Vitamin D3) 25 Mcg Tablet) 50 mcg PO BID [facility] Last Admin: 06/02/23 07:50 Dose: 50 mcg Documented By: PANCHITO Labs 05/30/23 07:23 06/02/23 06:35 Labs: Laboratory Results - last 24 hr 06/02/23 06:35 Anion Gap 15 Estim Creat Clear Calc 37.6 Estimated GFR 54 Random Glucose 95 Calcium 8.8 Microbiology Microbiology Results: Microbiology 05/28/23 10:06 Gram Stain - Final Thoracentesis Fluid Anaerobic Culture - Final NO GROWTH AFTER 5 DAYS Body Fluid Culture - Final No growth after 2 days Assessment and Plan (1) Lung cancer: Status: Acute (2) Pleural effusion, right: Status: Acute Assessment and Plan: 72-year-old female with history of left bundle branch block, hypertension, COPD, lacunar infarction, unspecified dementia, and osteoporosis who is a former smoker with 47 pack year history (quit 2 years ago) admitted for further management of R sided malignant pleural effusion with acute hypoxemic respiratory failure. acute hypoxemic respiratory failure secondary to recurrent right-sided malignant pleural effusion -chest tube inserted 05/28, pleurodesis with doxycyline 05/[address] surgery, minimal output in chest tube removed 06/01/23,cxr: seems fine.taper oxygen -oncology to following HTN: BP on lower side. Hold lisinopril, norvasc HLD-statin PAD--resume Plavix and ASA Unspecified dementia-mentation baseline COPD- no acute exacerbation continue maintenance inhalers, albuterol p.r.n. DVT prophylaxis- SCPs, heparin Full code need for inpt: symptomatic P. effusion s/p chest tube removal and now needs pleurodesis,still ocygen dependent -need to taper oxygen PT eval before dc, out of bed to chair, discussed with pat and daughter at the bedside Quality Stroke Does the patient have a stroke diagnosis?: No VTE Prior VTE?: No VTE Risk Level:: Medical - moderate - high VTE Device Contraindication: Treatment Not Indicated VTE Drug Contraindication: N/A - Med Ordered
--- NOTE | 2023-06-02 13:34 | P.PNNP_ITS ---
Subjective Subjective Date of Service: 06/03/23 Interval history: events noted. Comfortable. Physical Exam 2 Vital Signs: Vital Signs: Last Vital Signs Temp 97.9 F 06/02/23 11:54 Pulse 75 06/02/23 11:54 Resp 18 06/02/23 11:54 BP 135/61 06/02/23 11:54 Pulse Ox 99 06/02/23 11:54 O2 Del Method Nasal Cannula 06/02/23 11:54 O2 Flow Rate 2 06/02/23 11:54 Oxygen Flow Rate 2 05/27/23 19:41 BMI result Body Mass Index 30.6 Const: General: ill appearing Neck: Neck: Yes supple Resp: Auscultation: clear to auscultation bilaterally Cardio: Palpation: no palpable S3 Heart sounds: no rubs GI: Palpation (GI): Soft to palpation Auscultation: normal bowel sounds Neuro: Motor exam (neuro): no asterixis Objective Data Labs 05/30/23 07:23 06/03/23 06:39 Labs: Laboratory Results - last 24 hr 06/02/23 06:35 Sodium 140 Potassium 4.7 Chloride 109 H Carbon Dioxide 21 L Anion Gap 15 BUN 52 H Creatinine 1.01 Estim Creat Clear Calc 37.6 Estimated GFR 54 Random Glucose 95 Calcium 8.8 Microbiology Microbiology Results: Microbiology 05/28/23 10:06 Thoracentesis Fluid Gram Stain - Final 05/28/23 10:06 Thoracentesis Fluid Anaerobic Culture - Final NO GROWTH AFTER 5 DAYS 05/28/23 10:06 Thoracentesis Fluid Body Fluid Culture - Final No growth after 2 days Procedures Date of Service Date of Service: 06/03/23 Assessment & Plan Assessment and plan (1) SANTA (acute kidney injury): Status: Acute Plan SANTA most likely due to hypoperfusion. With IV hydration creatinine is promptly decreased to baseline. At this point I would keep intake more than output. No need for further IV fluids unless her p.o. intake is poor. No need for diuretics for now and reassess in 24-48 hours Hold MARY ANNE inhibitor his and watch blood pressure for now Time Spent With Patient Time: Total time managing care of this patient today ____ minutes. Progress Note: Quality Stroke Does the patient have a stroke diagnosis?: No
[2023-06-02] MEDS: 0.9 % Sodium Chloride Flush 3 ML SYRINGE IVFLUSH (18:56)
[2023-06-02] MEDS: Fluticasone/Vilanterol 200/25 BLST.W.DEV 1 PUFF INHALE (20:20)
[2023-06-02] MEDS: Atorvastatin Calcium 80 MG TABLET PO (21:40)
[2023-06-03] MEDS: 0.9 % Sodium Chloride Flush 3 ML SYRINGE IVFLUSH ×2 (00:48→07:59)
[2023-06-03 04:00] VITALS: BP 140/64; PULSE 81; RESP 18; TEMP 37.3; O2SAT 97
[2023-06-03 07:28] VITALS: BP 144/65; PULSE 69; RESP 23; TEMP 36.7; O2SAT 96
[2023-06-03 07:54] LABS: Anion Gap 11 (12-20); Blood Urea Nitrogen 25 mg/dL (9-16); Calcium 9.2 mg/dL (8.4-10.2); Carbon Dioxide 25 mmol/L (22-29); Chloride 110 mmol/L (96-108); Creatinine Clr Calc Pharmacy 66.6; Estimated Glomerular Filt Rate > 60; Glucose Random 90 mg/dL (60-115); Potassium 4.7 mmol/L (3.3-5.1); Sodium 141 mmol/L (135-145)
[2023-06-03] MEDS: Heparin Sodium,Porcine 5,000 UNIT/ML VIAL 5000 UNIT SUBCUT (07:58)
[2023-06-03] MEDS: Clopidogrel Bisulfate 75 MG TABLET PO (07:59)
[2023-06-03] MEDS: Famotidine 20 MG TABLET 10 MG PO (07:59)
[2023-06-03] MEDS: Cholecalciferol (Vitamin D3) 25 MCG TABLET 50 MCG PO (07:59)
[2023-06-03] MEDS: Ferrous Sulfate 324 MG TABLET.DR PO (07:59)
[2023-06-03] MEDS: Aspirin Enteric Coated 81 MG TABLET.DR PO (07:59)
[2023-06-03] MEDS: Tiotropium Bromide 2.5 mcg 1 PUFF/2.5 MCG MIST.INHAL 2 PUFF INHALE (08:05)
[2023-06-03 08:06] VITALS: PULSE 71; RESP 18; O2SAT 95
--- NOTE | 2023-06-03 10:10 | MHC.CM.PN ---
Per ROUNDS discussion, Patient is medically cleared for dc to SNF/STR today; CM has asked [facility] to initiate auth with [facility]. CM will follow.
--- NOTE | 2023-06-03 10:42 | P.PNNP_ITS ---
Subjective Subjective Date of Service: 06/03/23 Interval history: events noted. Comfortable. BP noted Physical Exam 2 Vital Signs: Vital Signs: Last Vital Signs Temp 98.0 F 06/03/23 07:28 Pulse 71 06/03/23 08:06 Resp 18 06/03/23 08:06 BP 144/65 H 06/03/23 07:28 Pulse Ox 96 06/03/23 07:28 O2 Del Method Nasal Cannula 06/03/23 07:28 O2 Flow Rate 2 06/03/23 07:28 Oxygen Flow Rate 2 05/27/23 19:41 BMI result Body Mass Index 30.6 Const: General: comfortable Nutritional Appearance: well nourished O rientation/consciousness: patient oriented x3 HEENT: Head: No normal to inspection Mouth: moist mucous membranes Neck: Neck: Yes supple and Yes no JVD Resp: Auscultation: diminished lung sounds Cardio: Jugular venous distension: no JVD Palpation: no palpable S3 and no palpable S4 Heart sounds: no rubs GI: Palpation (GI): Soft to palpation and nontender Percussion: No Fluid wave present Auscultation: normal bowel sounds : General: Yes no CVA tenderness Back/Spine/Pelvis: Back: no CVA tenderness Skin: General skin exam: no rashes or lesions noted Neuro: General: patient oriented x3 Motor exam (neuro): no asterixis Extrem: General: Yes no pedal edema and No clubbing Objective Data Labs 05/30/23 07:23 06/03/23 06:39 Labs: Laboratory Results - last 24 hr 06/03/23 06:39 Hold Purple Top SEE NOTE Sodium 141 Potassium 4.7 Chloride 110 H Carbon Dioxide 25 Anion Gap 11 L BUN 25 H Creatinine 0.57 Estim Creat Clear Calc 66.6 Estimated GFR > 60 Random Glucose 90 Calcium 9.2 Microbiology Microbiology Results: Microbiology 05/28/23 10:06 Thoracentesis Fluid Gram Stain - Final 05/28/23 10:06 Thoracentesis Fluid Anaerobic Culture - Final NO GROWTH AFTER 5 DAYS 05/28/23 10:06 Thoracentesis Fluid Body Fluid Culture - Final No growth after 2 days Procedures Date of Service Date of Service: 06/03/23 Assessment & Plan Assessment and plan (1) SANTA (acute kidney injury): Status: Acute Plan SANTA most likely due to hypoperfusion. With IV hydration creatinine is promptly decreased to baseline. At this point I would keep intake more than output. No need for further IV fluids unless her p.o. intake is poor. No need for diuretics for now and reassess in 24 hours Hold MARY ANNE inhibitor his and watch blood pressure for now Time Spent With Patient Time: Total time managing care of this patient today ____ minutes. Progress Note: Quality Stroke Does the patient have a stroke diagnosis?: No
[2023-06-03 11:20] VITALS: BP 147/73; PULSE 79; RESP 22; TEMP 36.7; O2SAT 96
--- NOTE | 2023-06-03 11:50 | MHC.CM.PN ---
Patient has been medically cleared for dc to SNF/STR today. Patient will dc [facility] today at 3 PM, via [facility]. Patient/Son/HCP/Néstor at [phone] are aware of and in agreement with the dc plan. IMM addressed and original will be mailed certified letter to Néstor and a copy has been placed on the chart.
--- NOTE | 2023-06-03 12:11 | P.DS_ITS ---
DS: Providers Provider Date of Service: 06/03/23 Date of admission: 05/27/23 20:51 Date of discharge: 06/03/23 Primary care physician: Lyn French MD Consults: 05/27/23 20:54 Consult to Hematology / Oncology Routine Consulting Provider: Roseanna Gonzales Reason for consultation: new dx adenocarcinoma lung Consult to Thoracic Surgery Routine Consulting Provider: Chuy Tavarez Reason for consultation: recurrent pleural effusion, new dx adenocarcinoma lung 06/01/23 10:19 Consult to Nephrology Routine Consulting Provider: [facility] Reason for consultation: Santa Has provider been notified: No Attending physician on discharge: Jannet Bravo Discharging clinician: Jannet Bravo DS: Diagnosis Discharge Diagnosis (1) SANTA (acute kidney injury): Status: Acute DS: Summary Hospital Course Hospital Course: 72-year-old female with history of left bundle branch block, hypertension, COPD, lacunar infarction, unspecified dementia, and osteoporosis as well as newly diagnosed adenocarcinoma of the lung presented to the ED earlier today at the recommendation of her son for evaluation of dyspnea. The patient underwent thoracentesis due to right pleural effusion on 05/14 with associated dyspnea. She reports that about 1 day after the procedure, redeveloped dyspnea both at rest and with exertion. No associated lightheadedness, palpitations, chest pain. No recent illness. No known history of congestive heart failure. Pathology report did reveal a new adenocarcinoma of the lung. She was unaware of this diagnosis until arrival at the ED today. Patient arrived to the ED on supplemental O2 and has been maintaining oximetry 94-96% on 2 L supplemental O2. There is slight tachypnea. Vitals otherwise stable. There is a leukocytosis of 13.1. Renal function baseline, electrolyte levels normal except CO2 of 21. CXR shows slight increase in right pleural effusion likely moderate in size with underlying right lower lobe atelectasis. Hospital course: Patient was admitted for shortness of breath-found to have acute hypoxemic respiratory failure and right-sided pleural effusion: Patient had thoracentesis, has metastatic lung adenocarcinoma since April 2023: Cytology is sent as well as NGS testing: Patient is to follow-up with oncology and surgery-patient had pleurodesis with doxycycline-patient tolerated it well, in addition patient is to follow-up with Oncology Dr. Gonzales out patiently for further workup as well as management.Patient hypoxia seems to be improving, oxygen demand also improving, slowly taper oxygen in rehab. Patient had SANTA: Likely due to decreased p.o. intake, encouraged for p.o. hydration as well as intake and patient SANTA seems to be improved with hydration. Monitor renal function electrolytes outpatient. hold MARY ANNE until repeat renal function and electrolytes as well as p.o. intake improves. throat soarness seems improving ,consider checking rapid throat test/cultures outpatient as needed. plan: Follow-up with surgery and Oncology out patiently for further management of metastatic lung cancer. Monitor renal function electrolyte out patiently, hold MARY ANNE until repeat renal function and electrolytes as well as p.o. intake improves. Assessment plan discussed with the patient and her family in detail length, time spent 50 minute. Time Attestation Discharge coordination time: Greater than 30 minutes Quality: Safe Use of Opioids Does Pt have an Active Cancer Diagnosis on the Problem List?: No Quality: Stroke Does the patient have a stroke diagnosis?: No Physical Exam Vital Signs: Vital Signs: Last Vital Signs Temp 98.1 F 06/03/23 11:20 Pulse 79 06/03/23 11:20 Resp 22 H 06/03/23 11:20 BP 147/73 H 06/03/23 11:20 Pulse Ox 96 06/03/23 11:20 O2 Del Method Nasal Cannula 06/03/23 11:20 O2 Flow Rate 2 06/03/23 11:20 Oxygen Flow Rate 2 05/27/23 19:41 BMI result Body Mass Index 30.6 General: AO X 3, no acute distress Resp: air entry improving ,no rales or wheezing CVS: S1,S2,RRR GI: +BS, NT, no distention Skin: No rash Neuro: motor grossly intact Psych: appropriate affect DS: Data Data Completed and Pending Completed studies during hospitalization [Text1]: Pending at discharge 05/29/23 10:38 Cytology [PTH] Urgent Labs on day of discharge: Laboratory Results - last 24 hr 06/03/23 06:39 Hold Purple Top SEE NOTE Sodium 141 Potassium 4.7 Chloride 110 H Carbon Dioxide 25 Anion Gap 11 L BUN 25 H Creatinine 0.57 Estim Creat Clear Calc 66.6 Estimated GFR > 60 Random Glucose 90 Calcium 9.2 Imaging Chest x-ray: Radiologist's impression: ITS Impressions Chest X-Ray 05/27/23 16:50 IMPRESSION: 1. Slight increase in right pleural effusion likely moderate in size with underlying right lower lobe atelectasis. 2. No pneumothorax seen. 3. Mild cardiomegaly. Thoracentesis/Paracentesis US 05/28/23 10:20 Impression: Ultrasound-guided right chest tube placement yielding yellow fluid. This procedures performed by Mauri Sr PA-C and supervised by Dr. Blake. Chest X-Ray 05/28/23 14:55 IMPRESSION: There appears to be trace residual pleural fluid after the drainage catheter placement. This represents significant improvement compared to 05/27/2023. Chest X-Ray 05/29/23 06:01 IMPRESSION: 1. The patient's right thoracostomy tube is unchanged in position. No right pleural effusion or pneumothorax is presently seen. 2. There is pulmonary vascular congestion, without overt pulmonary edema. Chest X-Ray 05/31/23 06:15 IMPRESSION: Right basilar pigtail catheter without significant pleural effusion. Patchy right basilar probable atelectasis. No significant pneumothorax. Chest X-Ray 06/01/23 11:23 IMPRESSION: Interval removal of right basilar pigtail catheter. No significant pleural effusion or sizable pneumothorax. Head CT 06/01/23 16:33 IMPRESSION: No acute intracranial hemorrhage or territorial loss of browning-white differentiation. Chronic encephalomalacia/gliosis in the right frontal and parietal lobes. Discharge Plan Discharge Anticipated Discharge Date/Time: 06/02/23 11:38 Patient Disposition: [facility] SNF Discharge Diagnosis: Acute hypoxemic respiratory failure secondary to right- sided malignant pleural effusion. Referrals: [facility] [Outside] - 1 Week Lyn French MD [Primary Care Provider] - 1 Week Roseanna Gonzales MD [Physician] - 1 Week (follow up outpatient) Chuy Tavarez MD [Physician] - 1 Week Discharge Medications: Continued alendronate 70 mg tablet 70 mg PO SA@0900 Incruse Ellipta 62.5 mcg/actuation blister with device 1 puff PO DAILY fluticasone furoate-vilanterol [Breo Ellipta] 200-25 mcg/dose blister with device 1 puff PO BEDTIME clopidogrel 75 mg tablet 1 tab PO Q OTHER DAY Hold Instructions: Resume on 11/23/22. Resume Plavix on 11/23/22 amlodipine 10 mg tablet 1 tab PO DAILY aspirin 81 mg tablet,delayed release (DR/EC) 1 tab PO DAILY atorvastatin 40 mg tablet 80 mg PO BEDTIME famotidine 20 mg tablet 20 mg PO BID@0630,1630 lisinopril 40 mg tablet 40 mg PO DAILY ferrous sulfate [FeroSul] 325 mg (65 mg iron) tablet 325 mg PO Q48H cholecalciferol (vitamin D3) 50 mcg (2,000 unit) capsule 50 mcg PO BID ipratropium-albuterol 0.5 mg-3 mg(2.5 mg base)/3 mL solution for nebulization 3 ml inhalation Q4-6H PRN (Reason: wheezing) 30 Days Qty: 270 6RF Discontinued cephalexin 250 mg capsule 250 mg PO DAILY Discharge Orders: Discharge Order (Routine); Ordered 06/03/23 Ordered By: Jannet Bravo Diet: Advance to usual diet Activity on Discharge: No heavy lifting Stand Alone Forms: Patient Portal Discharge page Other Ambulatory Orders: PET CT fusion skull to thigh (Routine) Timeframe: [id number] Facility: [facility] - Location: PET Scan Ordered By: Roseanna Gonzales Activity Restrictions/Additional Instructions: Chest tube site dressing change with xeroform and dry sterile sponge, tape to be changed every other day while open. Care Plan Goals: Patient was admitted for shortness of breath-found to have acute hypoxemic respiratory failure and right-sided pleural effusion: Patient had thoracentesis, has metastatic lung adenocarcinoma since April 2023: Cytology is sent as well as NGS testing: Patient is to follow-up with oncology out patiently for further workup as well as management. Patient hypoxia seems to be improving, oxygen demand also improving, slowly taper oxygen in rehab. Patient had SANTA: Likely due to decreased p.o. intake, encouraged for p.o. hydration as well as intake and patient SANTA seems to be improved with hydration. Monitor renal function electrolytes outpatient. throat soarness seems improving ,consider checking rapid throat test/cultures outpatient as needed. Health Concerns: As above. Plan of Treatment: As above. Assessment: As above.
== END 2023-06-03 15:06 | disposition skilled nursing facility (03) | DRG 180 ==
LOC: HO.ED 19:33 → HO.EDOVER 21:08 → HO.IMC 05-28 00:28
PROVIDERS: Internal Medicine; Physician Assistant Surgical; Radiology Vascular & Interventional Radiology; Admitting Provider Physician Assistant; Emergency Provider Student in an Organized Health Care Education/Training Program; PCP Pediatrics; Visit Provider Internal Medicine
PROC: (CPT 32551; principal; 2023-05-28 09:30)
DX: C34.11 Malignant neoplasm of upper lobe, right bronchus or lung (principal); J96.01 Acute respiratory failure with hypoxia; J91.0 Malignant pleural effusion; J98.11 Atelectasis; C78.7 Secondary malignant neoplasm of liver and intrahepatic bile duct; N17.9 Acute kidney failure, unspecified; F03.90 Unspecified dementia, unspecified severity, without behavioral disturbance, psychotic disturbance, mood disturbance, and anxiety; I10 Essential (primary) hypertension; E78.5 Hyperlipidemia, unspecified; Z87.891 Personal history of nicotine dependence; Z79.51 Long term (current) use of inhaled steroids; Z79.02 Long term (current) use of antithrombotics/antiplatelets; Z79.82 Long term (current) use of aspirin; Z79.899 Other long term (current) drug therapy
CPT/HCPCS: 32557; 36415; 70450; 71045; 71046; 80048; 80053; 81445; 81479; 82378; 83615; 85025; 85027; 86704; 86706; 87070; 87073; 87205; 87340; 88112; 88305; 88342; 88360; 88377; 89051; 92507; 92610; 93005; 94640; 97162; 97530; 99285; A7041; J0131; J1644; J2270; J2405; Q4186

== ENCOUNTER → 2023-05-27 14:39 | Outpatient (BNV) | payer OTHER, SELFPAY | PROVIDERS: Admitting Provider Physician Assistant; Emergency Provider Student in an Organized Health Care Education/Training Program; PCP Pediatrics; Visit Provider Internal Medicine Cardiovascular Disease | DX: I49.3 Ventricular premature depolarization (principal); I44.7 Left bundle-branch block, unspecified | CPT/HCPCS: 93010 ==

== ENCOUNTER 2023-05-27 20:51 | Outpatient (BNV) | payer OTHER, SELFPAY | END 2023-05-28 09:44 | PROVIDERS: Admitting Provider Physician Assistant; Emergency Provider Student in an Organized Health Care Education/Training Program; PCP Pediatrics; Visit Provider Radiology Diagnostic Radiology | DX: J90 Pleural effusion, not elsewhere classified (principal) | CPT/HCPCS: 32557 ==

== ENCOUNTER → 2023-05-27 20:51 | Outpatient (BNV) | payer OTHER, SELFPAY | PROVIDERS: Admitting Provider Physician Assistant; Emergency Provider Student in an Organized Health Care Education/Training Program; PCP Pediatrics; Visit Provider Internal Medicine Hypertension Specialist | DX: N17.9 Acute kidney failure, unspecified (principal) | CPT/HCPCS: 99223; 99232 ==

== ENCOUNTER → 2023-05-27 20:51 | Outpatient (BNV) | payer OTHER, SELFPAY | PROVIDERS: Admitting Provider Physician Assistant; Emergency Provider Student in an Organized Health Care Education/Training Program; PCP Pediatrics; Visit Provider Physician Assistant Surgical | DX: J90 Pleural effusion, not elsewhere classified (principal); C34.90 Malignant neoplasm of unspecified part of unspecified bronchus or lung | CPT/HCPCS: 99223; 99232; 99499 ==

== ENCOUNTER → 2023-05-27 20:51 | Outpatient (BNV) | payer OTHER, SELFPAY | PROVIDERS: Admitting Provider Physician Assistant; Emergency Provider Student in an Organized Health Care Education/Training Program; PCP Pediatrics; Visit Provider Internal Medicine | DX: C34.81 Malignant neoplasm of overlapping sites of right bronchus and lung (principal) | CPT/HCPCS: 99222; 99231 ==

== ENCOUNTER → 2023-05-27 20:51 | Outpatient (BNV) | payer OTHER, SELFPAY | PROVIDERS: Admitting Provider Physician Assistant; Emergency Provider Student in an Organized Health Care Education/Training Program; PCP Pediatrics; Visit Provider Physician Assistant | DX: J96.01 Acute respiratory failure with hypoxia (principal); C34.90 Malignant neoplasm of unspecified part of unspecified bronchus or lung; J90 Pleural effusion, not elsewhere classified | CPT/HCPCS: 99223; 99232; 99238 ==

== ENCOUNTER 2023-06-10 13:44 | Outpatient (REF) | payer OTHER, SELFPAY ==
--- NOTE | ~2023-06-10 | XR_ITS ---
EXAMINATION: XR CHEST CLINICAL INFORMATION: Pleural effusion, not elsewhere classified COMPARISON: Chest 06/01/2023 TECHNIQUE: 2 views of the chest were obtained. FINDINGS: The patient is rotated on the PA view. There is marked increase in opacity at the right lung base consistent with a subpulmonic effusion. There is also fluid seen within the right minor fissure. There also may be fluid within the right major fissure. Slight opacity at the right lung base likely represents compressive atelectasis, less likely pneumonia. There is also slight opacity superior to the minor fissure which also likely represents atelectasis, less likely pneumonia. No focal consolidation within the left lobe. No left pleural effusion appreciated. Evaluation of the cardiac silhouette is limited by the patient's rotation on the PA view. XR/XR chest 2V IMPRESSION: 1. Moderate right pleural effusion, significantly increased since 06/01/2023. 2. Right basilar and right midlung opacities likely representing atelectasis, less likely pneumonia. 3. No left pleural effusion.
== END 2023-06-10 13:45 | disposition home or self-care (01) ==
LOC: HO.XRAY 13:44
PROVIDERS: PCP Pediatrics; Visit Provider Internal Medicine Pulmonary Disease
DX: C34.90 Malignant neoplasm of unspecified part of unspecified bronchus or lung (principal); J90 Pleural effusion, not elsewhere classified; J43.9 Emphysema, unspecified; Z99.81 Dependence on supplemental oxygen
CPT/HCPCS: 71046; 94618; 99212

== ENCOUNTER 2023-06-10 13:44 | Outpatient (AMB) | payer OTHER, SELFPAY ==
--- NOTE | 2023-06-10 13:45 | MHC.OFFVIS ---
Intake Vital Signs 06/10/23 13:46 Height 5 ft 1 in Weight 136 lb 10.986 oz BMI 25.8 BP 98/57 L Blood Pressure Location Lt brachial Position Sitting Pulse 90 Pulse Source Doppler Pulse Oximetry (%) 91 L Oxygen Delivery Method Room Air Intake Visit Reasons: COPD Allergies milk [MILK] Allergy (Intermediate, Verified 06/10/23 13:49) DIARRHEA HPI COPD HPI Details 72-year-old lady, recent 40+ pack-year smoker, with prior admission to [facility] for CVAs now status post carotid endarterectomy, followed for severe COPD, dyspnea on exertion, and pulmonary nodules.? Patient has been using Incruse, Breo, albuterol MDI/nebs previous with good control of her underlying COPD symptoms.? Patient was recently hospitalized with recurrent pleural effusion with pleural studies positive for lung malignancy. Now she is under oncology care. Today she is complaining of significant dyspnea on exertion in her house. [facility] Medical History (Updated 06/10/23 @ 14:24 by Kiet Gerber MD) Tubular adenoma Gastritis BBB (bundle branch block) DVT (deep venous thrombosis) Anemia Multifactorial dementia Lacunar infarction Osteoporosis HTN (hypertension) COPD (chronic obstructive pulmonary disease) Surgical History (Updated 05/29/23 @ 07:15 by Roseanna Gonzales MD) History of carotid endarterectomy History of esophagogastroduodenoscopy (EGD) Hx of colonoscopy No pertinent past surgical history Family History Other No family history of coronary artery disease Social History Household Members: None Housing: Assisted Living Facility Housing Other:: [place] Do you presently have visiting nurse or other home services: No Alcohol intake: current Alcohol intake frequency: does not drink Patient Tobacco Use Status: Former Tobacco user Quit Date: 2 years ago Cigarette Packs Per Day: 1 Years Smoked: 54 e-Cigarette/Vaping Use: Former Use Second Hand Smoke Exposure: No Advance Directives Date on File: 04/09/21 service: No Current occupational status: retired Review of Systems Const Denies daytime sleepiness, Denies excessive sweating, Denies fatigue, Denies fever(s), Denies lethargy, Denies malaise, Denies night sweats, Denies snoring and Denies weight loss Eyes Denies blurry vision and Denies itchy eyes ENT Denies nasal congestion, Denies post nasal drip, Denies sinus pain, Denies sinus pressure and Denies other ( Thrush) Card Denies chest pain, Denies pedal edema, Denies dyspnea, Reports dyspnea on exertion, Denies orthopnea and Denies paroxysmal nocturnal dyspnea Resp Denies cough, Denies hemoptysis, Denies excessive phlegm production, Denies dyspnea, Reports dyspnea on exertion, Denies snoring and Denies wheezing GI Denies abdominal pain and Denies heartburn Musc Denies myalgias, Denies arthralgias and Denies joint swelling Skin/Breast Denies rash Neuro Denies memory loss and Denies seizure-like activity Psych Denies abnormal sleep pattern, Denies anxiety and Denies memory loss Endo Denies excessive sweating, Denies fatigue and Denies heat intolerance Negro/Lymph Denies easy bruising Aller/Immun Denies itchy eyes, Denies seasonal rhinorrhea and Denies wheezing Physical Exam Vital Signs: Last Vital Signs Pulse 90 06/10/23 13:46 BP 98/57 L 06/10/23 13:46 Pulse Ox 91 L 06/10/23 13:46 Oxygen Delivery Method Room Air 06/10/23 13:46 BMI result Body Mass Index 25.8 Const General: no acute distress and alert Nutritional Appearance: not obese Orientation/consciousness: Other orientation findings ( oriented) HEENT Head: Yes atraumatic Eyes General: appearance normal, both eyes and all related structures Sclerae: sclerae normal EOM: EOMs intact bilaterally Neck Neck: Yes supple Lymphatic: no lymphadenopathy noted Resp Effort & Inspection: normal respiratory effort and no use of accessory muscles Auscultation: other (Poor air movement at the right base) Cardio Rate: regular rate Rhythm: regular rhythm Heart sounds: no gallops, no murmurs and no rubs Skin General skin exam: other ( warm) Extrem General: No clubbing, No cyanosis and No edema Assessment & Plan Assessment & Plan (1) COPD (chronic obstructive pulmonary disease): Code(s): J44.9 - Chronic obstructive pulmonary disease, unspecified Qualifiers: COPD type: emphysema Emphysema type: unspecified Qualified Code(s): J43.9 - Emphysema, unspecified Plan: Baseline controlled on Breo, Incruse, duo nebs, and albuterol MDI. Continue current regimen. (2) Supplemental oxygen dependent: Code(s): Z99.81 - Dependence on supplemental oxygen Plan: 6 minute walk test/supplemental oxygen evaluation performed in office today. Patient requires 2 L of continuous flow of supplemental oxygen to maintain normal oximetry with exertion. Oxygen order placed. (3) Pleural effusion, right: Code(s): J90 - Pleural effusion, not elsewhere classified Plan: Concern for reoccurrence of right-sided pleural effusion. X-rays ordered, if patient does have significant pleural effusion, will refer for PleurX catheter placement. (4) Lung cancer: Code(s): C34.90 - Malignant neoplasm of unspecified part of unspecified bronchus or lung Qualifiers: Lung location: unspecified part of lung Plan: No changes underlying parenchymal nodules, but diagnosed on cytologic analysis of recurrent pleural effusion. Now under oncology care. Orders: Orders XR chest 2V Today J90 - Pleural effusion, not elsewhere classified Coding Level of Care Code Est Pt Level 5 (97902) Diagnoses Pulmonary emphysema, unspecified emphysema type J43.9 COPD type: emphysema Emphysema type: unspecified Supplemental oxygen dependent Z99.81 Pleural effusion, right J90 Lung cancer C34.90 Lung location: unspecified part of lung
[2023-06-10 13:46] VITALS: BP 98/57; PULSE 90; O2SAT 91; BMI 25.8
[2023-06-10 14:35] VITALS: PULSE 87; O2SAT 91
== END 2023-06-10 14:25 | disposition home or self-care (01) ==
PROVIDERS: PCP Pediatrics; Visit Provider Internal Medicine Pulmonary Disease
DX: J43.9 Emphysema, unspecified (principal); Z99.81 Dependence on supplemental oxygen; J90 Pleural effusion, not elsewhere classified; C34.90 Malignant neoplasm of unspecified part of unspecified bronchus or lung
CPT/HCPCS: 94618; 99214

== ENCOUNTER 2023-06-16 11:54 | Outpatient (REF) | payer OTHER, SELFPAY ==
--- NOTE | ~2023-06-16 | PE_ITS ---
EXAMINATION: FLUORINE-18 FDG PET/CT SCAN CLINICAL INFORMATION: Initial treatment management. Metastatic right lung cancer. TECHNIQUE: 72 minutes following the intravenous administration of 17.2 mCi of fluorine 18 FDG, images from the base of skull to mid-thigh were obtained using a combined PET/CT scanner with CT scan based attenuation correction. No intravenous contrast was administered. Transverse, coronal, sagittal, and volume reconstruction projections were obtained. The patient's blood glucose as determined by a finger stick, was 79 mg/dL immediately prior to injection. The radiotracer was injected intravenously through the left forearm, without any complications. Total CT exam dose-length product 511.62 mGy-cm. * These CT images were obtained using dose optimization techniques as appropriate, variously including the following: Automated exposure control * Adjustment of mA and/or kV according to patient size (this includes techniques or standardized protocols for targeted exams where dose is matched to indication/reason for exam; i.e. extremities or head) * Use of iterative reconstruction technique COMPARISON: CT of the chest done on 05/14/2023. FINDINGS: SUV max REFERENCE: Blood: 3.4 (77/223). Liver: 4.5 (111/223). HEAD AND NECK: There are focal tracer avidity is noted at the right posterior paraspinal region at the level of C4 vertebral body with SUV max of 12.5, associated with subtle underlying focal soft tissue asymmetry, suspicious for soft tissue metastases. No large intracranial hemorrhage, acute territorial infarct or significant shift of midline structures. CHEST: Ports and Devices: None Lungs: Focal intense tracer avidity is also noted at the origin of the right upper lobe bronchus with SUV max of 10.2 (65/223), producing near complete collapse consolidation of the right upper lobe of the lung, likely represent the site of primary lung malignancy. Partial collapse consolidation of the right lower lobe of the lung is seen. The aerated part of the right hemithoracic lung shows prominent interlobular septal thickening, may represent interstitial edema versus interstitial spread of malignancy. The contralateral left lung is well-aerated and is free of any tracer avid lung nodule and/or mass. Pleura: Large partially loculated right-sided mild tracer avid pleural effusion is noted. Most of the loculation is seen at mid to lower posterior and posterolateral hemithorax. Lymph Nodes: There are multiple tracer avid abnormal enlarged lymphadenopathy present starting at the level of the right superior middle mediastinum and extending along the right paratracheal region as well as in the prevascular region and in the subcarinal region. The dominant subcarinal lymph node measures approximately 2.1 cm at its maximum short axis dimension with SUV max of 17.6 (71/223). Focal intense tracer avid disease is noted at right infrahilar region with SUV max of 12.9, consistent with additional site of lymphadenopathy. Mediastinum: There is no significant pericardial effusion/thickening. Breasts/Chest Wall: Moderate linear tracer avid disease along the right posterior, posterolateral mid to lower hemithorax with most intense tracer avid disease seen between the right 11th and 12 rib posterolaterally with SUV max of 9.1 (114/223), highly suspicious for metastatic disease involvement. ABDOMEN/PELVIS: Liver/Biliary System: Multifocal tracer avid disease with the dominant lesion seen within the central superior part of the subdiaphragmatic surface of the right lobe, measures approximately 2 cm at its maximum dimension with SUV max of 13.6 (102/223), highly suspicious for metastatic disease. The gallbladder appears unremarkable. Pancreas: Normal.No pancreatic ductal dilatation or tracer avid disease. Spleen: No abnormal radiotracer uptake. No evidence of splenomegaly. Adrenal Glands: No abnormal radiotracer uptake. Kidneys: No hydronephrosis, hydroureter or renal calculi bilaterally. Bowel: There is no significant bowel dilatation to suggest obstruction. Variable tracer avidity is noted within the large bowel. However, there is intense focal tracer avidity seen in the region of the cecum associated with nonspecific subtle soft tissue fullness with SUV max of 12.9 (163/223), for which direct visualization/colonoscopy is recommended for further characterization, if not recently performed. Lymph Nodes: No tracer avid retroperitoneal, mesenteric or pelvic and/or groin lymphadenopathy. Pelvic Organs: The urinary bladder is underdistended. MUSCULOSKELETAL: Focal intense tracer avidity at posterior wall associated with subtle underlying sclerosis with SUV max of 8.6, highly suspicious for metastatic disease. Additional tracer avidity involving the right iliac bone adjacent to the superior part of the right SI joint with SUV max of 6.5, linear tracer avidity along the inferior endplate of L4 vertebral body with SUV max of 7.2 are indeterminate. The right acetabulum VASCULAR: Calcific atherosclerotic disease of the aorta including carotid and coronary artery calcifications. No evidence of aneurysm. THE SITE(S) OF MOST INTENSE FDG AVIDITY AND SUV MAX: Subcarinal hypermetabolic lymphadenopathy with SUV max of 17.6. Subdiaphragmatic 2.0 cm maximum dimension hypermetabolic focal liver lesion with SUV max of 13.6. Focal tracer avidity involving the cecum with SUV max of 12.9. PET/PET CT fusion skull to thigh IMPRESSION: 1. Abnormal study. Intense hypermetabolic disease is present around the region of the right upper lobe of the lung with SUV max of 10.2, producing near complete collapse consolidation of the right upper lobe, highly suspicious for the site of primary lung neoplasm. Multiple additional hypermetabolic ipsilateral hilar and mediastinal lymphadenopathy also noted with the dominant lymph node seen in the subcarinal region with SUV max of 17.6, highly suspicious for presumed metastatic lymphadenopathy. 2. Note is also made of mild tracer avid partially loculated right-sided pleural effusion, presumably represent metastatic pleural disease. 3. Interlobular septal thickening is noted within the aerated part of the visualized right lung, highly suspicious for interstitial spread of neoplasm and less likely to be interstitial edema or combination thereof. 4. No evidence of contralateral lung parenchymal hypermetabolic disease or supraclavicular lymphadenopathy. However, note is made of focal hypermetabolism at right upper paraspinal region with SUV max of 12.5, associated with underlying soft tissue asymmetry, suspicious for soft tissue metastases. 5. Multifocal hypermetabolic liver lesions with the dominant lesion seen at along the subdiaphragmatic surface of the right lobe with SUV max of 13.6, highly suspicious for liver metastasis. 6. Focal intense tracer avidity involving the cecum, may represent underlying colonic malignancy, for which direct visualization/colonoscopy is usually recommended if not recently performed for further clarification. 7. Focal tracer avidity at posterior wall of the right acetabulum with SUV max of 8.6, suspicious for metastatic disease. Few additional sites of tracer avidity within the bones as described above are nonspecific, indeterminate in etiology. Attention to follow-up is recommended.
== END 2023-06-16 11:55 | disposition home or self-care (01) ==
LOC: HO.PET 11:54
PROVIDERS: PCP Pediatrics; Visit Provider Internal Medicine
DX: Z13.89 Encounter for screening for other disorder (principal)

== ENCOUNTER 2023-06-22 11:22 | Day surgery (SDC) | payer OTHER, SELFPAY ==
--- NOTE | ~2023-06-22 | IR_ITS ---
PROCEDURE: Image guided placement of tunneled pleural drainage catheter right chest (Pleurx) HISTORY/INDICATION. Malignant right pleural effusion SEDATION: Medications for conscious sedation: The patient received intravenous conscious sedation under my direct supervision. A registered nurse monitored the patient and the patient's vital signs throughout the procedure. The total sedation was 40 minutes. Versed and fentanyl were given for good effect. PROCEDURE: Preliminary ultrasound demonstrates moderate right pleural effusion. There is a loculated superior effusion which appears separate. This finding was discussed with the referring pier worker as well as the patient and it was agreed to place the Pleurx within the lower right pleural effusion. A site on the right lateral chest wall was selected, marked and sterilely prepped and draped. Following the administration of 1% lidocaine for local anesthesia, the right pleural space was accessed with a 19-gauge needle under direct and continuous ultrasound guidance. A 0.035 guidewire was placed. The tract was dilated and a peel-away sheath was placed under fluoroscopic guidance. Then, a site inferior and medial to the access site was selected and local anesthesia was administered between the 2 areas. A dermatotomy was made with an 11 blade and the Pleurx catheter was tunneled from this location to the access site and then the Pleurx catheter was placed through the peel-away sheath into the pleural space. The initial access was closed with a 4 -0 absorbable suture. The external portion of the Pleurx catheter was secured in place with a 3-0 pursestring suture. A sterile dressing was applied. The catheter was placed to suction initially and approximately 750 mL of clear fluid was aspirated. The catheter was then detached from drainage and capped. Patient tolerated procedure well with no immediate complications. Estimated blood loss: Minimal IR/IR insert pleurx catheter IMPRESSION: Placement of right-sided Pleurx
[2023-06-22 12:14] VITALS: BMI 28.5
[2023-06-22 14:50] VITALS: BP 148/63; PULSE 90; RESP 20; TEMP 36.5; O2SAT 88
[2023-06-22 15:05] VITALS: BP 123/42; RESP 18; O2SAT 89
[2023-06-22 15:20] VITALS: BP 134/59; PULSE 87; RESP 19; O2SAT 91
[2023-06-22 15:49] VITALS: BP 131/58; PULSE 90; RESP 20; TEMP 36.2; O2SAT 92
== END 2023-06-22 15:58 | disposition home or self-care (01) ==
PROVIDERS: Student in an Organized Health Care Education/Training Program; PCP Pediatrics; Visit Provider Internal Medicine Pulmonary Disease
DX: J90 Pleural effusion, not elsewhere classified (principal); C34.90 Malignant neoplasm of unspecified part of unspecified bronchus or lung; I10 Essential (primary) hypertension; J43.9 Emphysema, unspecified; Z99.81 Dependence on supplemental oxygen; F03.90 Unspecified dementia, unspecified severity, without behavioral disturbance, psychotic disturbance, mood disturbance, and anxiety; I44.7 Left bundle-branch block, unspecified; Z87.891 Personal history of nicotine dependence; R06.09 Other forms of dyspnea; Z79.51 Long term (current) use of inhaled steroids; Z79.899 Other long term (current) drug therapy
CPT/HCPCS: 32550; 99152; 99153; J0690; J2250; J2310; J3010

== ENCOUNTER → 2023-06-22 13:25 | Outpatient (BNV) | payer OTHER, SELFPAY | PROVIDERS: PCP Pediatrics; Visit Provider Student in an Organized Health Care Education/Training Program | DX: J90 Pleural effusion, not elsewhere classified (principal) | CPT/HCPCS: 32550; 75989 ==

== ENCOUNTER 2023-06-23 10:20 | Outpatient (AMB) | payer OTHER, SELFPAY ==
--- NOTE | 2023-06-23 10:22 | A.OFFVIS_ITS ---
Intake Vital Signs 06/23/23 10:25 Height 4 ft 9 in Weight 136 lb BMI 29.4 BP 98/58 L Blood Pressure Location Lt brachial Position Sitting Pulse 85 Pulse Source Doppler Pulse Oximetry (%) 94 Oxygen Delivery Method Nasal Cannula Oxygen Flow Rate 3 Intake Visit Reasons: Per Dr Gerber Allergies milk [MILK] Allergy (Intermediate, Verified 06/23/23 10:28) DIARRHEA HPI Per Dr Gerber HPI Details 72-year-old lady, recent 40+ pack-year s moker, with prior admission to [facility] for CVAs now status post carotid endarterectomy, followed for severe COPD, dyspnea on exertion, and pulmonary nodules. Patient has been using Incruse, Breo, albuterol MDI/nebs previous with good control of her underlying COPD symptoms. Patient was recently hospitalized with recurrent pleural effusion with pleural studies positive for lung malignancy. Now she is under oncology care. She has had PleurX catheter placed yesterday with drainage of approximately 700 cc of fluid with significant improvement in her dyspnea. Patient was trialed on portable oxygen concentrator, however it is insufficient for her to maintain normal oximetry. [facility] Medical History (Updated 06/19/23 @ 09:08 by Rayna Fulton MD) Tubular adenoma Gastritis BBB (bundle branch block) DVT (deep venous thrombosis) Anemia Multifactorial dementia Lacunar infarction Osteoporosis HTN (hypertension) COPD (chronic obstructive pulmonary disease) Surgical History (Updated 05/29/23 @ 07:15 by Roseanna Gonzales MD) History of carotid endarterectomy History of esophagogastroduodenoscopy (EGD) Hx of colonoscopy No pertinent past surgical history Family History Other No family history of coronary artery disease Social History Household Members: None Housing: Assisted Living Facility Housing Other:: [place] Do you presently have visiting nurse or other home services: No Alcohol intake: current Alcohol intake frequency: does not drink Patient Tobacco Use Status: Former Tobacco user Quit Date: 2 years ago Cigarette Packs Per Day: 1 Years Smoked: 54 e-Cigarette/Vaping Use: Former Use Second Hand Smoke Exposure: No Advance Directives Date on File: 04/09/21 service: No Current occupational status: retired Review of Systems Const Denies daytime sleepiness, Denies excessive sweating, Denies fatigue, Denies fever(s), Denies lethargy, Denies malaise, Denies night sweats, Denies snoring and Denies weight loss Eyes Denies blurry vision and Denies itchy eyes ENT Denies nasal congestion, Denies post nasal drip, Denies sinus pain, Denies sinus pressure and Denies other ( Thrush) Card Denies chest pain, Denies pedal edema, Denies dyspnea, Reports dyspnea on exertion, Denies orthopnea and Denies paroxysmal nocturnal dyspnea Resp Denies cough, Denies hemoptysis, Denies excessive phlegm production, Denies dyspnea, Reports dyspnea on exertion, Denies snoring and Denies wheezing GI Denies abdominal pain and Denies heartburn Musc Denies myalgias, Denies arthralgias and Denies joint swelling Skin/Breast Denies rash Neuro Denies memory loss and Denies seizure-like activity Psych Denies abnormal sleep pattern, Denies anxiety and Denies memory loss Endo Denies excessive sweating, Denies fatigue and Denies heat intolerance Negro/Lymph Denies easy bruising Aller/Immun Denies itchy eyes, Denies seasonal rhinorrhea and Denies wheezing Physical Exam Vital Signs: Last Vital Signs Pulse 85 06/23/23 10:25 BP 98/58 L 06/23/23 10:25 Pulse Ox 94 06/23/23 10:25 Oxygen Delivery Method Nasal Cannula 06/23/23 10:25 Oxygen Flow Rate 3 06/23/23 10:25 BMI result Body Mass Index 29.4 Const General: no acute distress and alert Nutritional Appearance: not obese Orientation/consciousness: Other orientation findings ( oriented) HEENT Head: Yes atraumatic Eyes General: appearance normal, both eyes and all related structures Sclerae: sclerae normal EOM: EOMs intact bilaterally Neck Neck: Yes supple Lymphatic: no lymphadenopathy noted Resp Effort & Inspection: normal respiratory effort and no use of accessory muscles Auscultation: clear to auscultation bilaterally Cardio Rate: regular rate Rhythm: regular rhythm Heart sounds: no gallops, no murmurs and no rubs Skin General skin exam: other ( warm) Extrem General: No clubbing, No cyanosis and No edema Assessment & Plan Assessment & Plan (1) COPD (chronic obstructive pulmonary disease): Code(s): J44.9 - Chronic obstructive pulmonary disease, unspecified Qualifiers: COPD type: emphysema Emphysema type: unspecified Qualified Code(s): J43.9 - Emphysema, unspecified Plan: Baseline controlled on Breo, Incruse, duo nebs and albuterol MDI. Continue current regimen. (2) Supplemental oxygen dependent: Code(s): Z99.81 - Dependence on supplemental oxygen Plan: Portable oxygen concentrator trial performed, patient can not maintain normal oximetry on portable oxygen concentrator. Continue with continuous flow oxygen from oxygen cylinders. (3) Recurrent pleural effusion on right: Code(s): J90 - Pleural effusion, not elsewhere classified Plan: Now status post placement of right PleurX catheter. VNA services being arranged. Continue with weekly drainage. (4) Lung cancer: Code(s): C34.90 - Malignant neoplasm of unspecified part of unspecified bronchus or lung Qualifiers: Lung location: unspecified part of lung Plan: Now under oncology care. Coding Level of Care Code Est Pt Level 4 (37511) Diagnoses Pulmonary emphysema, unspecified emphysema type J43.9 COPD type: emphysema Emphysema type: unspecified Supplemental oxygen dependent Z99.81 Recurrent pleural effusion on right J90 Lung cancer C34.90 Lung location: unspecified part of lung
[2023-06-23 10:25] VITALS: BP 98/58; PULSE 85; O2SAT 94; BMI 29.4
== END 2023-06-23 10:58 | disposition home or self-care (01) ==
PROVIDERS: PCP Pediatrics; Visit Provider Internal Medicine Pulmonary Disease
DX: J43.9 Emphysema, unspecified (principal); Z99.81 Dependence on supplemental oxygen; J90 Pleural effusion, not elsewhere classified; C34.90 Malignant neoplasm of unspecified part of unspecified bronchus or lung
CPT/HCPCS: 99214

== ENCOUNTER → 2023-06-23 10:20 | Outpatient (BNVA) | payer OTHER, SELFPAY | PROVIDERS: PCP Pediatrics; Visit Provider Internal Medicine Pulmonary Disease | DX: J43.9 Emphysema, unspecified (principal); J90 Pleural effusion, not elsewhere classified; C34.90 Malignant neoplasm of unspecified part of unspecified bronchus or lung; Z99.81 Dependence on supplemental oxygen | CPT/HCPCS: 99212 ==

== ENCOUNTER 2023-06-24 10:41 | Outpatient (REF) | payer OTHER, SELFPAY ==
--- NOTE | ~2023-06-24 | US_ITS ---
EXAMINATION: US RETROPERITONEAL LIMITED (RENAL ONLY) CLINICAL INFORMATION: Pyelonephritis. COMPARISON: CT abdomen and pelvis 01/26/2023. TECHNIQUE: Real-time imaging of the kidneys. FINDINGS: RIGHT KIDNEY: 10.1 x 5.8 x 4.2 cm (SAG x AP x TRV). The kidney is normal in size, contour, and echogenicity. Renal cortical thickness is normal. No renal calculi or hydronephrosis. At the upper pole, a 2.0 cm benign, simple cyst is seen, which requires no imaging follow-up. LEFT KIDNEY: 11.3 x 4.7 x 3.9 cm (SAG x AP x TRV). The kidney is normal in size, contour, and echogenicity. Renal cortical thickness is normal. No calculi or focal parenchymal lesions. No hydronephrosis. US/US renal BI IMPRESSION: Unremarkable examination..
== END 2023-06-24 10:42 | disposition home or self-care (01) ==
LOC: HO.US 10:41
PROVIDERS: PCP Pediatrics; Visit Provider Urology
DX: Z87.448 Personal history of other diseases of urinary system (principal)
CPT/HCPCS: 76775

== ENCOUNTER 2023-06-26 15:06 | Outpatient (REF) | payer OTHER, SELFPAY ==
--- NOTE | ~2023-06-26 | MR_ITS ---
EXAMINATION: MR ABDOMEN WITHOUT AND WITH CONTRAST CLINICAL INFORMATION: New hepatic lesions seen on CT. Stage IV lung cancer. Abdominal pain. COMPARISON: PET/CT 06/16/2023 CT urogram 01/26/2023 TECHNIQUE: MR abdomen was performed without and with use of 6.5 mL intravenous Gadavist gadolinium contrast. Postcontrast images are performed in multiphase dynamic sequences. Imaging was performed in 3 planes. FINDINGS: LUNG BASES: Marked airspace consolidation of the right hemithorax. Large complex right pleural effusion. There is a catheter terminating in the right posterior pleural space. LIVER, GALLBLADDER, AND BILIARY TREE: There are numerous ill-defined T2 hyperintense hepatic lesions that demonstrate peripheral enhancement on postcontrast images. The largest right hepatic lobe lesion measures 3.3 x 3.7 cm. Hepatic steatosis. The liver contour is smooth. No biliary ductal dilatation. The gallbladder is unremarkable. PANCREAS: Atrophic. No ductal dilatation. SPLEEN: Not enlarged. ADRENAL GLANDS: No adrenal mass. KIDNEYS AND URETERS: The kidneys are symmetric in size and enhancement. No hydronephrosis or perinephric fluid collection. 1.9 cm midpole right renal cyst. No further routine follow-up is necessary. GASTROINTESTINAL TRACT: Imaged loops of small and large bowel are nonobstructed. ABDOMINAL WALL: Right lateral abdominal wall edema. 1.2 cm enhancing lesion in the right dorsal paraspinal musculature on image 39 of series 102. 0.8 cm enhancing lesion within the left flank/abdominal wall on image 39 of series 2. Asymmetric enhancement in the right posterior chest wall on image 41 of series 102. LYMPH NODES: No bulky lymphadenopathy. VASCULAR: Unremarkable. OSSEOUS STRUCTURES: Moderate compression fracture of T8. Mild compression fractures of T7 and T11 and L3. MR/MR abdomen wo/w con IMPRESSION: Multiple rim-enhancing hepatic lesions with the largest measuring 3.2 x 3.7 cm in the right hepatic lobe. This most likely represents hepatic metastatic disease. Enhancing nodules in the right dorsal paraspinal musculature as well as the left flank/abdominal wall most likely representing additional metastatic foci. Age-indeterminate compression fractures of T7, T8, T11 and L3.
[2023-06-26] MEDS: gadobutroL 7.5 ML VIAL IVPUSH (16:06)
== END 2023-06-26 15:07 | disposition home or self-care (01) ==
LOC: HO.MRI 15:06
PROVIDERS: PCP Pediatrics; Visit Provider Pediatrics
DX: K76.9 Liver disease, unspecified (principal); J41.1 Mucopurulent chronic bronchitis; I10 Essential (primary) hypertension
CPT/HCPCS: 74183; A9585

== ENCOUNTER 2023-07-28 10:00 | Outpatient (RCR) | payer OTHER, SELFPAY ==
[2022-09-24 09:52] VITALS: BP 123/63; PULSE 68; RESP 15; TEMP 36.2; O2SAT 99; BMI 26.0
--- NOTE | 2022-09-24 10:10 | P.CNHO_ITS ---
Subjective - Subjective Chief complaint: Weakness Patient: new to practice Consult date: 09/24/22 Primary Care Provider: Lyn French MD Medical Summary: Diagnosis: Normocytic anemia HPI - Consult Narrative Reason for consult: Anemia Narrative: Clarissa Walsh is a 71 year old female referred for evaluation of chronic anemia. She has had gradual worsening of hemoglobin since December 2021. In March 2021 her hemoglobin was normal at 13.3 gram/dL. She has had normal iron studies, vitamin B12 and folic acid levels. Normal kidney and liver functions. Her only chronic medical issue has been recurrent urinary tract infections for the last 6-8 months. She was recently discharged from the hospital in August 2022, she received her 1st ever blood transfusion in August 2022. She lives alone at home. She reports loss of appetite but no weight loss. She has chronic COPD but denies any recent pulmonary infections. She denies any hematochezia melena. She is being scheduled for EGD and colonoscopy. She is taking oral iron and tolerating it well. She has been scheduled by CT scan of her abdomen by her urologist. Review of Systems - Constitutional Reports as per HPI, Denies fatigue, Reports lack of energy, Reports malaise, Denies poor appetite, Denies weight loss - Cardiovascular Reports no additional cardiovascular complaints - Respiratory Reports no additional respiratory complaints - Gastrointestinal Reports no additional gastrointestinal complaints, Denies abdominal pain, Denies black, tarry stools, Denies bloating Oncology Screenings - ECOG Performance Status ECOG Performance Status: 1 [facility] Medical History: Medical History (Last Reviewed 09/24/22 @ 09:55 by Keisha Pedro) COPD (chronic obstructive pulmonary disease) HTN (hypertension) Lacunar infarction Multifactorial dementia Osteoporosis Family History: Family History (Last Reviewed 09/03/22 @ 14:29 by RUBEN Candelario) Other No family history of coronary artery disease Surgical History: Surgical History (Last Reviewed 09/24/22 @ 09:55 by Keisha Pedro) No pertinent past surgical history Social History: Social History (Last Updated 09/24/22 @ 09:56 by Keisha Pedro) Living Situation History: Household Members: None Housing: Apartment Do you presently have visiting nurse or other home services: No Alcohol History Details: 1. How often do you have a drink containing alcohol?: b. Monthly or less 2. How many drinks containing alcohol do you have on a typical day when you are drinking?: a. 1 or 2 Tobacco History: Patient Tobacco Use Status: Former Tobacco user e-Cigarette/Vaping Use: Former Use Second Hand Smoke Exposure: No Substance Use History: Use of substances other than those prescribed or required for medical reasons : No Domestic Abuse History: Have you been hit, kicked, punched, or otherwise hurt by someone within the past year? If so, by whom?: No Do you feel safe in your current relationship?: No Current Relationship Advance Directives: Advance Directives Date on File: 04/09/21 Homicidal Assessment: Do you have thoughts of harming others: None Do you have a plan to hurt others: No Plan Do you have the means to hurt others: No Occupation Assessmet: service: No Current occupational status: retired Home Medications and Allergies Home Medications Medication Instructions Recorded Confirmed Type albuterol sulfate 90 mcg/actuation 2 inh inhalation Q4H PRN Wheezing 04/09/21 09/24/22 History aerosol inhaler alendronate 70 mg tablet 70 mg PO SA@0900 04/09/21 09/24/22 History fluticasone furoate 200 1 puff PO BEDTIME 04/09/21 09/24/22 History mcg-vilanterol 25 mcg/dose inhalation powder (Breo Ellipta) umeclidinium 62.5 mcg/actuation 1 puff PO DAILY 04/09/21 09/24/22 History blister powder for inhalation (Incruse Ellipta) amlodipine 10 mg tablet 1 tab PO DAILY 01/03/22 09/24/22 History aspirin 81 mg tablet,delayed 1 tab PO DAILY 01/03/22 09/24/22 History release clopidogrel 75 mg tablet 1 tab PO Q OTHER DAY 01/03/22 09/24/22 History cholecalciferol (vitamin D3) 50 50 mcg PO BID 08/04/22 09/24/22 History mcg (2,000 unit) capsule ferrous sulfate 325 mg (65 mg 325 mg PO BID 08/04/22 09/24/22 History iron) tablet (FeroSul) lisinopril 40 mg tablet 40 mg PO DAILY 08/04/22 09/24/22 History atorvastatin 40 mg tablet 40 mg PO BID 09/03/22 09/24/22 History Allergies Allergy/AdvReac Type Severity Reaction Status Date / Time milk [MILK] Allergy Intermediate DIARRHEA Verified 09/03/22 09:25 Physical Exam Vital signs: Vital Signs Temp 97.2 F 09/24/22 09:52 Pulse 68 09/24/22 09:52 Resp 15 09/24/22 09:52 BP 123/63 09/24/22 09:52 Pulse Ox 99 09/24/22 09:52 O2 Del Method Room Air 09/24/22 09:52 Intake & Output 09/23/22 09/24/22 09/24/22 18:59 06:59 18:59 Other: Weight 62.5 kg Weight in Grams [id number] Weight 62.5 kg - Constitutional Present: no acute distress - Routine HEENT Exam Head: Present: normal inspection Eye: Present: normal appearance, PERRL - Routine Neck Exam Present: supple. Absent: lymphadenopathy - Routine Respiratory Exam Present: CTAB - Routine Cardiovascular Exam Cardiovascular: Present: RRR, S1, S2 - Routine Abdominal Exam Present: soft - Routine Skin Exam Present: intact. Absent: pallor Hem/Onc Consult Result - Labs CBC & Chem 7: 09/24/22 10:18 Assessment and Plan Patient Active problem list reviewed?: Yes (1) Normocytic anemia Status: Chronic Assessment and plan: 1. This is a pleasant 71-year-old woman who was been diagnosed with chronic normocytic anemia. Her hemoglobin has gradually been worsening since 2021. She has no hematinic deficiencies, no evidence of hemolysis or renal disease. She has had chronic recurrent urinary tract infections for over 6 months. She denies hematuria or of this gastrointestinal blood losses. She is being evaluated with CT abdomen/pelvis for UTIs and is also being scheduled for EGD/colonoscopy. She is on oral iron and appears to be responding to this. Anemia is probably multifactorial. Could be a combination of blood loss, chronic recurrent urinary tract infections and use of antibiotics. Underlying malignancy is also possibility. For now she will continue with oral iron supplementation. LDH is normal. Serum protein electrophoresis and immunofixation is pending. Further recommendations to follow. I thank you very much for this consultation. Follow-up in 1 month. - Time Spent With Patient Time Spent with Patient (in minutes): 35
[2022-09-24 10:19] LABS: MANUAL DIFF FLAG NO
[2022-09-24 10:31] LABS: Basophils Percent Auto 0.4 % (0-2); Eosinophils Absolute Auto 0.1 X10*3/uL (0.0-0.4); Eosinophils Percent Auto 1.6 % (0-4); Hematocrit 31.2 % (37.0-47.0); Hemoglobin 9.5 g/dl (12.0-16.0); Imm Gran Abs Auto 0.05 X10*3/uL (0.00-0.03); Imm Gran Pct Auto 0.6 % (0.0-0.4); Immature Retic Fraction 12.5 % (3.0-15.9); Lymphocytes Percent Auto 10.7 % (20-40); Mean Corpuscular HGB Conc 30.4 g/dl (31.0-35.0); Mean Corpuscular Hemoglobin 30.2 pg (27.0-33.0); Mean Platelet Volume 9.3 fL (9.4-12.3); Monocytes Absolute Auto 0.8 X10*3/uL (0.1-1.2); Monocytes Percent Auto 8.3 % (2-11); Neutrophils Absolute Auto 7.1 x10*3/uL (2.0-8.3); Neutrophils Percent Auto 78.4 % (45-73); Platelet Count 346 X10*3/uL (160-400); Red Blood Count 3.15 X10*6/uL (4.20-5.50); Red Cell Distribution Width 15.6 % (11.0-16.0); Reticulocyte Percent 4.1 % (0.5-1.8); Reticulocytes Absolute 0.129 X10*6/uL (0.026-0.095)
--- NOTE | 2022-09-24 10:31 | MHC.HEMONCMA ---
Patient seen today for new consult for anemia, VSS, labs, 1 month followup.
[2022-09-24 10:57] LABS: Lactate Dehydrogenase 196 U/L (122-220)
[2022-09-26 17:08] LABS: Haptoglobin 251 mg/dL (43-212)
[2022-09-29 00:03] LABS: Prot Elec - Albumin 3.8 g/dL (3.8-4.8); Prot Elec - Alpha1 0.4 g/dL (0.2-0.3); Prot Elec - Alpha2 0.9 g/dL (0.5-0.9); Prot Elec - Beta 1 0.5 g/dL (0.4-0.6); Prot Elec - Beta 2 0.4 g/dL (0.2-0.5); Prot Elec - Gamma 0.5 g/dL (0.8-1.7); Prot Elec - Total Protein 6.4 g/dL (6.1-8.1)
[2022-09-29 20:49] LABS: IgA 270 mg/dL (70-320); IgG 438 mg/dL (600-1540); IgM 46 mg/dL (50-300)
--- NOTE | 2022-10-29 08:03 | PM.HEMONCPN ---
Medical Summary - Medical Summary Date of Service: 10/29/22 Chief complaint: Follow-up Primary Care Provider: Lyn French MD Medical Summary: Diagnosis: Normocytic anemia She has had gradual worsening of hemoglobin since December 2021. In March 2021 her hemoglobin was normal at 13.3 gram/dL. She has had normal iron studies, vitamin B12 and folic acid levels. Normal kidney and liver functions. Her only chronic medical issue has been recurrent urinary tract infections for the last 6-8 months. She was recently discharged from the hospital in August 2022, she received her 1st ever blood transfusion in August 2022. Interval History Interval history: Patient is here in follow-up, she is accompanied by her daughter. She denies any new or acute complaints today. She reports mild chronic fatigue. She is now taking 3 iron tablets a day and tolerating it well. She denies hematuria, hematochezia melena. She has gained weight ever since she started diet supplement, boost. No recent infections. Review of Systems - Constitutional Reports as per HPI, Denies anorexia, Denies chills, Denies lack of energy, Denies malaise - Cardiovascular Reports no additional cardiovascular complaints - Respiratory Reports no additional respiratory complaints - Gastrointestinal Reports no additional gastrointestinal complaints PMFSH Medical History: Medical History (Last Reviewed 10/29/22 @ 08:49 by Keisha Pedro) COPD (chronic obstructive pulmonary disease) HTN (hypertension) Lacunar infarction Multifactorial dementia Osteoporosis Family History: Family History (Last Reviewed 10/06/22 @ 20:16 by Narciso Aguilera MD) Other No family history of coronary artery disease Surgical History: Surgical History (Last Reviewed 10/29/22 @ 08:49 by Keisha Pedro) No pertinent past surgical history Social History: Social History (Last Reviewed 10/29/22 @ 08:49 by Keisha Pedro) Living Situation History: Household Members: None Housing: Apartment Do you presently have visiting nurse or other home services: No Alcohol History Details: 1. How often do you have a drink containing alcohol?: b. Monthly or less 2. How many drinks containing alcohol do you have on a typical day when you are drinking?: a. 1 or 2 Tobacco History: Patient Tobacco Use Status: Former Tobacco user e-Cigarette/Vaping Use: Former Use Second Hand Smoke Exposure: No Substance Use History: Use of substances other than those prescribed or required for medical reasons: No Domestic Abuse History: Have you been hit, kicked, punched, or otherwise hurt by someone within the past year? If so, by whom?: No Do you feel safe in your current relationship?: No Current Relationship Advance Directives: Advance Directives Date on File: 04/09/21 Homicidal Assessment: Do you have thoughts of harming others: None Do you have a plan to hurt others: No Plan Do you have the means to hurt others: No Occupation Assessmet: service: No Current occupational status: retired Home Medications and Allergies Home Medications Medication Instructions Recorded Confirmed Type albuterol sulfate 90 mcg/actuation 2 inh inhalation Q4H PRN Wheezing 04/09/21 10/29/22 History aerosol inhaler alendronate 70 mg tablet 70 mg PO SA@0900 04/09/21 10/29/22 History fluticasone furoate 200 1 puff PO BEDTIME 04/09/21 10/29/22 History mcg-vilanterol 25 mcg/dose inhalation powder (Breo Ellipta) umeclidinium 62.5 mcg/actuation 1 puff PO DAILY 04/09/21 10/29/22 History blister powder for inhalation (Incruse Ellipta) amlodipine 10 mg tablet 1 tab PO DAILY 01/03/22 10/29/22 History aspirin 81 mg tablet,delayed 1 tab PO DAILY 01/03/22 10/29/22 History release clopidogrel 75 mg tablet 1 tab PO Q OTHER DAY 01/03/22 10/29/22 History cholecalciferol (vitamin D3) 50 50 mcg PO BID 08/04/22 10/29/22 History mcg (2,000 unit) capsule ferrous sulfate 325 mg (65 mg 325 mg PO BID 08/04/22 10/29/22 History iron) tablet (FeroSul) lisinopril 40 mg tablet 40 mg PO DAILY 08/04/22 10/29/22 History atorvastatin 40 mg tablet 40 mg PO BID 09/03/22 10/29/22 History Allergies Allergy/AdvReac Type Severity Reaction Status Date / Time milk [MILK] Allergy Intermediate DIARRHEA Verified 09/03/22 09:25 Exam Vital signs: Vital Signs Temp 97.2 F 09/24/22 09:52 Pulse 68 09/24/22 09:52 Resp 15 09/24/22 09:52 BP 123/63 09/24/22 09:52 Pulse Ox 99 09/24/22 09:52 O2 Del Method Room Air 09/24/22 09:52 Weight 62.5 kg BMI result Body Mass Index 26.0 - Constitutional Present: no acute distress - Routine HEENT Exam Head: Present: normal inspection - Routine Respiratory Exam Present: CTAB - Routine Cardiovascular Exam Cardiovascular: Present: RRR, S1, S2 - Routine Abdominal Exam Present: soft - Routine Skin Exam Present: intact. Absent: pallor Data - Labs CBC & Chem 7: 10/29/22 08:30 Labs: 09/24/22 10:18 Complete Blood Count Auto Diff Stat Haptoglobin Routine Immunofixation Pnl, Serum Routine LDH [Lactate Dehydrogenase] Routine Protein Electrophoresis, Serum Routine Reticulocyte Count Routine Laboratory Last Values WBC 9.0 X10*3/uL (4.8-10.8) 09/24/22 10:18 RBC 3.15 X10*6/uL (4.20-5.50) L 09/24/22 10:18 Hgb 9.5 g/dl (12.0-16.0) L 09/24/22 10:18 Hct 31.2 % (37.0-47.0) L 09/24/22 10:18 MCV 99.0 fL (80.0-98.0) H 09/24/22 10:18 MCH 30.2 pg (27.0-33.0) 09/24/22 10:18 MCHC 30.4 g/dl (31.0-35.0) L 09/24/22 10:18 RDW 15.6 % (11.0-16.0) 09/24/22 10:18 Plt Count 346 X10*3/uL (160-400) 09/24/22 10:18 MPV 9.3 fL (9.4-12.3) L 09/24/22 10:18 Immature Gran % (Auto) 0.6 % (0.0-0.4) H 09/24/22 10:18 Neut % (Auto) 78.4 % (45-73) H 09/24/22 10:18 Lymph % (Auto) 10.7 % (20-40) L 09/24/22 10:18 Rabun % (Auto) 8.3 % (2-11) 09/24/22 10:18 Eos % (Auto) 1.6 % (0-4) 09/24/22 10:18 Baso % (Auto) 0.4 % (0-2) 09/24/22 10:18 Lymph # (Auto) 1.0 X10*3/uL (1.2-4.9) L 09/24/22 10:18 Rabun # (Auto) 0.8 X10*3/uL (0.1-1.2) 09/24/22 10:18 Eos # (Auto) 0.1 X10*3/uL (0.0-0.4) 09/24/22 10:18 Baso # (Auto) 0.0 X10*3/uL (0.0-0.2) 09/24/22 10:18 Abs Immat Gran (auto) 0.05 X10*3/uL (0.00-0.03) H 09/24/22 10:18 Absolute Neuts (auto) 7.1 x10*3/uL (2.0-8.3) 09/24/22 10:18 Absolute Nucleated RBC 0.000 X10*3/uL (0.0-0.012) 09/24/22 10:18 Nucleated RBC % (auto) 0.0 /100WBC (0.0-0.2) 09/24/22 10:18 Absolute Retic 0.129 X10*6/uL (0.026-0.095) H 09/24/22 10:18 Percent Retic 4.1 % (0.5-1.8) H 09/24/22 10:18 Immature Retic Fraction 12.5 % (3.0-15.9) 09/24/22 10:18 Retic Hgb Equivalent 32.0 pg (30.0-35.0) 09/24/22 10:18 Haptoglobin 251 mg/dL (43-212) H 09/24/22 10:18 Lactate Dehydrogenase 196 U/L (122-220) 09/24/22 10:18 Total Protein (PEP) 6.4 g/dL (6.1-8.1) 09/24/22 10:18 Albumin (PEP) 3.8 g/dL (3.8-4.8) 09/24/22 10:18 Lqhgg-9-Sjwmnwcsw 0.4 g/dL (0.2-0.3) H 09/24/22 10:18 Wdpdm-9-Nqblqavor 0.9 g/dL (0.5-0.9) 09/24/22 10:18 Qdli-0-Arvmangn 0.5 g/dL (0.4-0.6) 09/24/22 10:18 Qwwz-1-Xeajvumv 0.4 g/dL (0.2-0.5) 09/24/22 10:18 Gamma Globulins 0.5 g/dL (0.8-1.7) L 09/24/22 10:18 Abnorm Protein Band 1 TNP 09/24/22 10:18 Abnorm Protein Band 2 TNP 09/24/22 10:18 Abnorm Protein Band 3 TNP 09/24/22 10:18 PEP Interpretation SEE NOTE 09/24/22 10:18 IgG Total 438 mg/dL (600-1540) L 09/24/22 10:18 IgA Total 270 mg/dL (70-320) 09/24/22 10:18 IgM 46 mg/dL (50-300) L 09/24/22 10:18 SELWYN Interpretation SEE NOTE 09/24/22 10:18 Assessment and Plan Patient Active problem list reviewed?: Yes (1) Normocytic anemia Status: Chronic Assessment and plan: 1. This is a pleasant 72-year-old woman who was been diagnosed with chronic normocytic anemia. Her hemoglobin has gradually been worsening since 2021. She has no hematinic deficiencies, no evidence of hemolysis or renal disease. She has had chronic recurrent urinary tract infections for over 6 months. She denies hematuria or of this gastrointestinal blood losses. CT abdomen/pelvis performed September 2022 showed diffuse irregularity of bladder wall with mild bilateral ureteral dilatation. Urine cytology was negative. Cystoscopy showed bladder wall thickening but no focal lesions. Anemia is probably multifactorial. Could be a combination of blood loss, chronic recurrent urinary tract infections and use of antibiotics. Underlying malignancy is also possibility. For now she will continue with oral iron supplementation. Serum protein electrophoresis and immunofixation showed no monoclonal protein. LDH is slightly elevated. Anemia has improved slightly. Follow-up in 3 months. - Time Spent With Patient Time Spent with Patient (in minutes): 15
[2022-10-29 08:46] VITALS: BP 159/70; PULSE 84; RESP 15; TEMP 36.4; O2SAT 97; BMI 26.2
--- NOTE | 2022-10-29 09:02 | MHC.HEMONCMA ---
Patient seen today for followup anemia, VSS, labs, 3 month followup.
[2023-02-04 08:23] VITALS: BP 84/51; PULSE 75; TEMP 36.2; O2SAT 95; BMI 26.4
--- NOTE | 2023-02-04 08:39 | PM.HEMONCPN ---
Medical Summary - Medical Summary Date of Service: 02/04/23 Chief complaint: Follow-up Primary Care Provider: Lyn French MD Medical Summary: Diagnosis: Normocytic anemia She has had gradual worsening of hemoglobin since December 2021. In March 2021 her hemoglobin was normal at 13.3 gram/dL. She has had normal iron studies, vitamin B12 and folic acid levels. Normal kidney and liver functions. Her only chronic medical issue has been recurrent urinary tract infections for the last 6-8 months. She was recently discharged from the hospital in August 2022, she received her 1st ever blood transfusion in August 2022. Interval History Interval history: Patient is here in follow-up, she is accompanied by her son today. She denies any new or acute complaints today. She reports mild chronic fatigue. She is now taking 3 iron tablets a day and tolerating it well. She denies hematuria, hematochezia melena. No recent infections. Review of Systems - Constitutional Reports as per HPI, Denies fatigue, Denies fever(s), Denies lack of energy, Denies malaise, Denies weakness, Denies weight loss - Cardiovascular Reports no additional cardiovascular complaints - Respiratory Reports no additional respiratory complaints - Gastrointestinal Reports no additional gastrointestinal complaints [facility] Medical History: Medical History (Last Updated 12/30/22 @ 21:04 [facility]) Anemia BBB (bundle branch block) COPD (chronic obstructive pulmonary disease) DVT (deep venous thrombosis) Gastritis HTN (hypertension) Lacunar infarction Multifactorial dementia Osteoporosis Tubular adenoma Family History: Family History (Last Reviewed 02/04/23 @ 08:27 by Keisha Pedro) Other No family history of coronary artery disease Surgical History: Surgical History (Last Reviewed 02/04/23 @ 08:27 by Keisha Pedro) History of esophagogastroduodenoscopy (EGD) Hx of colonoscopy No pertinent past surgical history Social History: Social History (Last Reviewed 02/04/23 @ 08:27 by Keisha Pedro) Living Situation History: Household Members: None Housing: Apartment Do you presently have visiting nurse or other home services: No Alcohol History Details: 1. How often do you have a drink containing alcohol?: b. Monthly or less 2. How many drinks containing alcohol do you have on a typical day when you are drinking?: a. 1 or 2 Tobacco History: Patient Tobacco Use Status: Former Tobacco user e-Cigarette/Vaping Use: Former Use Second Hand Smoke Exposure: No Substance Use History: Use of substances other than those prescribed or required for medical reasons: No Domestic Abuse History: Have you been hit, kicked, punched, or otherwise hurt by someone within the past year? If so, by whom?: No Do you feel safe in your current relationship?: No Current Relationship Advance Directives: Advance Directives Date on File: 04/09/21 Homicidal Assessment: Do you have thoughts of harming others: None Do you have a plan to hurt others: No Plan Do you have the means to hurt others: No Occupation Assessmet: service: No Current occupational status: retired Home Medications and Allergies Home Medications Medication Instructions Recorded Confirmed Type albuterol sulfate 90 mcg/actuation 2 inh inhalation Q4H PRN Wheezing 04/09/21 10/29/22 History aerosol inhaler alendronate 70 mg tablet 70 mg PO SA@0900 04/09/21 10/29/22 History fluticasone furoate 200 1 puff PO BEDTIME 04/09/21 02/04/23 History mcg-vilanterol 25 mcg/dose inhalation powder (Breo Ellipta) umeclidinium 62.5 mcg/actuation 1 puff PO DAILY 04/09/21 02/04/23 History blister powder for inhalation (Incruse Ellipta) amlodipine 10 mg tablet 1 tab PO DAILY 01/03/22 02/04/23 History aspirin 81 mg tablet,delayed 1 tab PO DAILY 01/03/22 02/04/23 History release clopidogrel 75 mg tablet 1 tab PO Q OTHER DAY 01/03/22 11/17/22 History cholecalciferol (vitamin D3) 50 50 mcg PO BID 08/04/22 02/04/23 History mcg (2,000 unit) capsule ferrous sulfate 325 mg (65 mg 325 mg PO BID 08/04/22 02/04/23 History iron) tablet (FeroSul) lisinopril 40 mg tablet 40 mg PO DAILY 08/04/22 02/04/23 History atorvastatin 40 mg tablet 40 mg PO BID 09/03/22 02/04/23 History Allergies Allergy/AdvReac Type Severity Reaction Status Date / Time milk [MILK] Allergy Intermediate DIARRHEA Verified 12/04/22 11:00 Exam Vital signs: Vital Signs Temp 97.1 F 02/04/23 08:23 Pulse 75 02/04/23 08:23 Resp 15 10/29/22 08:46 BP 84/51 L 02/04/23 08:23 Pulse Ox 95 02/04/23 08:23 O2 Del Method Room Air 02/04/23 08:23 Intake & Output 02/03/23 02/04/23 02/04/23 18:59 06:59 18:59 Other: Weight 63.4 kg Weight in Grams [id number] Weight 63.4 kg BMI result Body Mass Index 26.4 - Constitutional Present: no acute distress - Routine HEENT Exam Head: Present: normal inspection - Routine Respiratory Exam Present: CTAB - Routine Cardiovascular Exam Cardiovascular: Present: RRR, S1, S2 - Routine Abdominal Exam Present: soft - Routine Skin Exam Present: intact. Absent: pallor Data - Labs CBC & Chem 7: 02/04/23 08:21 02/04/23 08:21 Assessment and Plan Patient Active problem list reviewed?: Yes (1) Normocytic anemia Status: Chronic Assessment and plan: 1. This is a pleasant 72-year-old woman who was been diagnosed with chronic normocytic anemia. Her hemoglobin has gradually been worsening since 2021. She has no hematinic deficiencies, no evidence of hemolysis or renal disease. She has had chronic recurrent urinary tract infections for over 6 months. She denies hematuria or of this gastrointestinal blood losses. CT abdomen/pelvis performed September 2022 showed diffuse irregularity of bladder wall with mild bilateral ureteral dilatation. Urine cytology was negative. Cystoscopy showed bladder wall thickening but no focal lesions. Anemia is probably multifactorial. Could be a combination of blood loss, chronic recurrent urinary tract infections and use of antibiotics. Serum protein electrophoresis and immunofixation showed no monoclonal protein. LDH is slightly elevated. Anemia has improved. I have asked her to cut back iron supplementation to twice a day. Follow-up in 4 months. - Time Spent With Patient Time Spent with Patient (in minutes): 15
[2023-02-04 08:50] LABS: Alanine Aminotransferase 18 U/L (0-31); Albumin Level 4.3 g/dL (3.5-5.0); Alkaline Phosphatase 130 U/L (39-117); Anion Gap 16 (12-20); Aspartate Amino Transferase 23 U/L (5-31); Bilirubin Total 0.6 mg/dL (0.0-1.0); Blood Urea Nitrogen 13 mg/dL (9-16); Calcium 10.2 mg/dL (8.4-10.2); Carbon Dioxide 25 mmol/L (22-29); Chloride 105 mmol/L (96-108); Creatinine Clr Calc Pharmacy 65.8; Estimated Glomerular Filt Rate > 60; Glucose Random 90 mg/dL (60-115); Lactate Dehydrogenase 258 U/L (122-220); Potassium 4.5 mmol/L (3.3-5.1); Sodium 141 mmol/L (135-145); Total Protein 7.6 g/dL (6.5-8.0)
--- NOTE | 2023-02-04 08:55 | MHC.HEMONCMA ---
Patient seen today for followup anemia, oral iron medication being taken, labs, VSS, 4 month followup.
[2023-02-04 09:40] LABS: Ferritin 116 ng/mL (10-250)
--- NOTE | 2023-05-29 12:20 | MHC.HEMONCMA ---
Addendum entered by Erich Robertson RN 05/29/23 12:25: Pt already had existing Hem appt for 06/08/23, pt's dtr spoke w/ Dr. Gonzales, pt will still plan on coming to meet regardless of whether PET and MRI can be completed by then. Original Note: Dr. Gonzales spoke w/ pt's dtr about her new dx Lung Ca while pt is still inpatient at [facility]. Pt apparently wishes to have some time to rest after her upcoming d/c, so Dr. Gonzales plans to meet w/ her in June after she returns from time off. Dr. Gonzales would like pt to have PET scan and brain MRI in the interim, placed orders, PA specialist Anitha was asked to request PA for both.
--- NOTE | 2023-05-29 15:29 | HO.HEMONCPA ---
Addendum entered by Anitha King 06/01/23 09:11: RUBEN APPROVED FOR PET/CT SKULL TO THIGH [id number] AUTH # [id number] 06/02/23 - 08/26/23 Original Note: PA PENDING FOR PETCT [id number] AWAITING DECISION FROM [facility]
--- NOTE | 2023-06-08 08:01 | P.PNHO-ONC_ITS ---
Medical Summary - Medical Summary Date of Service: 06/08/23 Chief complaint: Recently diagnosed lung cancer Primary Care Provider: Lyn French MD Medical Summary: Diagnosis: Lung adenocarcinoma 04/2023 Interval History Interval history: Patient is here in follow-up, she is accompanied by her son and [id number]. She has been discharged from hospital and is undergoing rehabilitation in [place]. She is here to discuss recent diagnosis of lung cancer and further management. She feels tired but denies any acute complaints such as shortness of breath, cough fever or chills. Review of Systems - Constitutional Reports as per HPI, Reports fatigue, Reports lack of energy - Cardiovascular Reports no additional cardiovascular complaints - Respiratory Reports no additional respiratory complaints - Gastrointestinal Reports no additional gastrointestinal complaints - Neurologic Denies weakness [facility] Medical History: Medical History (Last Reviewed 05/27/23 @ 21:01 by RUBEN Candelario) Anemia BBB (bundle branch block) COPD (chronic obstructive pulmonary disease) DVT (deep venous thrombosis) Gastritis HTN (hypertension) Lacunar infarction Multifactorial dementia Osteoporosis Tubular adenoma Family History: Family History (Last Reviewed 05/27/23 @ 21:01 by RUBEN Candelario) Other No family history of coronary artery disease Surgical History: Surgical History (Last Updated 05/28/23 @ 09:00 by Julieta Nguyen PA-C) History of carotid endarterectomy History of esophagogastroduodenoscopy (EGD) Hx of colonoscopy No pertinent past surgical history Social History: Social History (Last Reviewed 05/27/23 @ 21:01 by RUBEN Candelario) Living Situation History: Household Members: None Housing: Assisted Living Facility Housing Other:: [facility] Do you presently have visiting nurse or other home services: No Tobacco History: Patient Tobacco Use Status: Former Tobacco user Cigarette Packs Per Day: 1 Years Smoked: 54 Smoke Quit Date: 2 years ago e-Cigarette/Vaping Use: Former Use Second Hand Smoke Exposure: No Advance Directives: Advance Directives Date on File: 04/09/21 Occupation Assessmet: service: No Current occupational status: retired Oncology Screenings - ECOG Performance Status ECOG Performance Status: 2 Home Medications and Allergies Home Medications Medication Instructions Recorded Confirmed Type alendronate 70 mg tablet 70 mg PO SA@0900 04/09/21 06/08/23 History fluticasone furoate 200 1 puff PO BEDTIME 04/09/21 06/08/23 History mcg-vilanterol 25 mcg/dose inhalation powder (Breo Ellipta) umeclidinium 62.5 mcg/actuation 1 puff PO DAILY 04/09/21 06/08/23 History blister powder for inhalation (Incruse Ellipta) amlodipine 10 mg tablet 1 tab PO DAILY 01/03/22 06/08/23 History aspirin 81 mg tablet,delayed 1 tab PO DAILY 01/03/22 06/08/23 History release clopidogrel 75 mg tablet 1 tab PO Q OTHER DAY 01/03/22 06/08/23 History cholecalciferol (vitamin D3) 50 50 mcg PO BID 08/04/22 06/08/23 History mcg (2,000 unit) capsule ferrous sulfate 325 mg (65 mg 325 mg PO Q48H 08/04/22 06/08/23 History iron) tablet (FeroSul) lisinopril 40 mg tablet 40 mg PO DAILY 08/04/22 06/08/23 History atorvastatin 40 mg tablet 80 mg PO BEDTIME 09/03/22 06/08/23 History famotidine 20 mg tablet 20 mg PO BID@0630,1630 05/27/23 06/08/23 History Allergies Allergy/AdvReac Type Severity Reaction Status Date / Time milk [MILK] Allergy Intermediate DIARRHEA Verified 06/08/23 08:04 Exam Vital signs: Vital Signs Temp 97.1 F 02/04/23 08:23 Pulse 75 02/04/23 08:23 Resp 15 10/29/22 08:46 BP 84/51 L 02/04/23 08:23 Pulse Ox 95 02/04/23 08:23 O2 Del Method Room Air 02/04/23 08:23 Weight 63.4 kg BMI result Body Mass Index 26.4 - Constitutional Present: no acute distress - Routine HEENT Exam Head: Present: normal inspection - Routine Respiratory Exam Present: CTAB - Routine Cardiovascular Exam Cardiovascular: Present: RRR, S1, S2 - Routine Abdominal Exam Present: soft - Routine Skin Exam Present: intact. Absent: pallor Data - Labs CBC & Chem 7: 02/04/23 08:21 02/04/23 08:21 Assessment and Plan Patient Active problem list reviewed?: Yes (1) Non-small cell carcinoma of lung Status: Acute Assessment and plan: 1. This is a 72-year-old woman diagnosed with metastatic lung adenocarcinoma in April 2023. CT chest performed on 05/14/2023 showed multiple subcentimeter lung nodule in addition to moderate-sized right pleural effusion. There is a 1.7 cm hypodensity seen in the right lobe of liver and 0.9 cm hepatic hypodensity not seen previously. She presented with right malignant effusion, pleural fluid cytology revealed adenocarcinoma consistent with lung primary. IHC positive for MOC31, CK7 and TTF1. Negative for CK20, CDX2, GATA3 and PAX8. Tumor cells in cell block insufficient for molecular studies. CEA elevated at 17.5 NG/mL LDH 268/L. She presented with recurrent malignant effusion for which she underwent drainage by chest tube and pleurodesis. Cellblock for NGS testing is pending. I have discussed diagnosis with patient and family. She has stage IV metastatic lung cancer, there is no role of curative intent surgery or radiation therapy. She would be a candidate for palliative systemic therapy. I have advised patient to scheduled her PET-CT. We discussed that if she has any of the molecular markers or PDL1 that make her a candidate for targeted therapies or immunotherapy that would be preferred over chemotherapy or chemo immunotherapy. Depending on molecular tests, further recommendations will be made. Follow-up in week to 10 days. - Time Spent With Patient Time Spent with Patient (in minutes): 30
[2023-06-08 08:03] VITALS: BP 148/64; PULSE 89; RESP 18; TEMP 36.3; O2SAT 93; BMI 25.6
--- NOTE | 2023-06-08 08:11 | MHC.HEMONC ---
Pt here for Hem follow up with Dr Gonzales. Clinical summary updated by nurse. Pt states she is currently in rehab-present today with family. Dr Gonzales into see pt. Plan for PET SCAN-Anitha King to facilitate. Pt to follow up with Dr Fulton after scan (Dr Gonzales will be away) Follow up appointment scheduled.
--- NOTE | 2023-06-08 09:15 | MHC.HEMONC ---
I met with patient following her f/u with Dr Gonzales. She had been seen initially when she was inpatient during Apr-May. She was accompanied by her son and daughter. She has been diagnosed with adenocarcinoma via pleural fluid analysis as she came to ED with SOB and had pleral effusions. She says that she has 5 grown children living in the area who are great supports. I did nutritional screening with her and at this point she does not express any appetite/eating challenges. She is currently at [facility] but does have an apartment where she is assisted with homemaking. She has a HCP scanned in. I explained my role and gave her my contact information. She is aware that PET will be scheduled and NGS testing will be done on her pleural fluid for treatment planning. Dr Fulton will cover her in next couple of weeks and will make plan based on workup.
--- NOTE | 2023-06-08 11:00 | HO.HEMONCSCH ---
Patient scheduled for PET/CT skull to thigh [id number] with [facility] on June 16 at 1:15 pm
[2023-06-19 09:04] LABS: MANUAL DIFF FLAG NO
[2023-06-19 09:05] VITALS: BP 154/65; PULSE 90; RESP 18; TEMP 36.4; O2SAT 95
--- NOTE | 2023-06-19 09:07 | P.PNHO-ONC_ITS ---
Medical Summary - Medical Summary Date of Service: 06/19/23 Chief complaint: Follow-up for: Jlq-iohsb-oelu lung carcinoma. Primary Care Provider: Lyn French MD Medical Summary: Diagnosis: Lung adenocarcinoma 04/2023 Interval History Interval history: 72-year-old lady, she is here in follow-up. She is accompanied by her son and [id number]. She was in house between 05/27 and 06/03. Discharge summary: Patient was admitted for shortness of breath-found to have acute hypoxemic respiratory failure and right-sided pleural effusion. Patient had s/p chest tube placement on 05/28/23, pleurodesis with doxycycline, chest tube removed. She has metastatic lung adenocarcinoma since April 2023: Cytology is sent as well as NGS testing.Patient's hypoxia seems to be improving, oxygen demand also improving, slowly taper oxygen. Going to rehab. She has been discharged from hospital and is undergoing rehabilitation in [place]. She is here to discuss recent diagnosis of lung cancer and further management. She has had shortness of breath. She had felt better after the thoracentesis however that only lasted about 4 days. Unfortunately the pleurodesis did not work. The fluid started reaccumulating. She is now scheduled for a PleurX catheter placement on Thursday 06/22 by IR. She has been walking with the help of a walker, she feels rather tired. She still has chest pain in the lower back from coughing. She has shortness of breath. She is on oxygen 3 liters/minute. Sats were 95%. Denies headache but she does get dizzy at times. She gets some abdominal pain, no nausea vomiting heartburn indigestion. Bowels are working without any gross blood in it. She did get diarrhea for a few days but that has resolved now. Appetite is not there. They just started giving her Advil gummies and that appears to be helping. In addition she is taking boost. She can not sleep at night. Part of it is shortness of breath but also she has thoughts in her mind. No fever or chills. Her spirits are down. Rest of the review of systems is unremarkable Medical History: Tubular adenoma Gastritis BBB (bundle branch block) DVT (deep venous thrombosis) Anemia Multifactorial dementia Lacunar infarction Osteoporosis HTN (hypertension) COPD (chronic obstructive pulmonary disease) Surgical History: History of esophagogastroduodenoscopy (EGD) Hx of colonoscopy No pertinent past surgical history. Family Histor; Other No family history of coronary artery disease Social History: Household Members: None Housing: Apartment Do you presently have visiting nurse or other home services: No Alcohol intake: current Alcohol intake frequency: does not drink Patient Tobacco Use Status: Former Tobacco user Review of Systems - Constitutional Reports no additional constitutional complaints, Reports difficulty sleeping, Reports lack of energy, Reports malaise, Reports poor appetite, Reports weight loss - Eyes Reports no additional eye complaints - ENT Reports no additional ear, nose, mouth, and throat complaints - Cardiovascular Reports no additional cardiovascular complaints, Reports chest pain - Respiratory Reports no additional respiratory complaints, Reports cough, Reports dyspnea, Reports dyspnea on exertion - Gastrointestinal Reports no additional gastrointestinal complaints - Genitourinary Reports no additional female genitourinary complaints - Musculoskeletal Reports no additional musculoskeletal complaints - Integumentary/Breasts Skin/Breast: Reports no additional skin complaints - Neurologic Denies weakness - Psychiatric Reports no additional psychiatric complaints - Endocrine Reports no additional endocrine complaints - Hematologic/Lymphatic Reports no additional hematologic/lymphatic complaints - Allergic/Immunologic Reports no additional allergic/immunologic complaints [facility] Medical History: Medical History (Last Reviewed 05/27/23 @ 21:01 by RUBEN Candelario) Anemia BBB (bundle branch block) COPD (chronic obstructive pulmonary disease) DVT (deep venous thrombosis) Gastritis HTN (hypertension) Lacunar infarction Multifactorial dementia Osteoporosis Tubular adenoma Functional capacity: uses cane/walker Patient : No Family History: Family History (Last Reviewed 05/27/23 @ 21:01 by RUBEN Candelario) Other No family history of coronary artery disease Surgical History: Surgical History (Last Updated 05/28/23 @ 09:00 by Julieta Nguyen PA-C) History of carotid endarterectomy History of esophagogastroduodenoscopy (EGD) Hx of colonoscopy No pertinent past surgical history Social History: Social History (Last Reviewed 06/10/23 @ 13:51 by ZO Mendoza) Living Situation History: Household Members: None Housing: Assisted Living Facility Housing Other:: [place] Do you presently have visiting nurse or other home services: No Tobacco History: Patient Tobacco Use Status: Former Tobacco user Cigarette Packs Per Day: 1 Years Smoked: 54 Smoke Quit Date: 2 years ago e-Cigarette/Vaping Use: Former Use Second Hand Smoke Exposure: No Advance Directives: Advance Directives Date on File: 04/09/21 Occupation Assessmet: service: No Current occupational status: retired Oncology Screenings - ECOG Performance Status ECOG Performance Status: 1 Home Medications and Allergies Home Medications Medication Instructions Recorded Confirmed Type alendronate 70 mg tablet 70 mg PO SA@0900 04/09/21 06/19/23 History fluticasone furoate 200 1 puff PO BEDTIME 04/09/21 06/19/23 History mcg-vilanterol 25 mcg/dose inhalation powder (Breo Ellipta) umeclidinium 62.5 mcg/actuation 1 puff PO DAILY 04/09/21 06/19/23 History blister powder for inhalation (Incruse Ellipta) amlodipine 10 mg tablet 1 tab PO DAILY 01/03/22 06/19/23 History clopidogrel 75 mg tablet 1 tab PO Q OTHER DAY 01/03/22 06/19/23 History ferrous sulfate 325 mg (65 mg 325 mg PO Q48H 08/04/22 06/19/23 History iron) tablet (FeroSul) lisinopril 40 mg tablet 40 mg PO DAILY 08/04/22 06/19/23 History atorvastatin 40 mg tablet 80 mg PO BEDTIME 09/03/22 06/19/23 History famotidine 20 mg tablet 20 mg PO BID@0630,1630 05/27/23 06/19/23 History Allergies Allergy/AdvReac Type Severity Reaction Status Date / Time milk [MILK] Allergy Intermediate DIARRHEA Verified 06/10/23 13:49 Exam Vital signs: Vital Signs Temp 97.5 F 06/19/23 09:05 Pulse 90 06/19/23 09:05 Resp 18 06/19/23 09:05 BP 154/65 H 06/19/23 09:05 Pulse Ox 95 06/19/23 09:05 O2 Del Method Nasal Cannula 06/19/23 09:05 O2 Flow Rate 3 06/19/23 09:05 Weight 61.4 kg BMI result Body Mass Index 25.6 - Constitutional Present: no acute distress - Routine HEENT Exam Head: Present: normal inspection Eye: Present: normal appearance ENT: Present: mucous membranes moist - Routine Neck Exam Present: full ROM - Routine Respiratory Exam Present: CTAB - Routine Cardiovascular Exam Cardiovascular: Present: RRR, S1, S2 - Routine Abdominal Exam Present: soft - Routine Rectal Exam Patient deferred: digital exam - Routine Extremities Exam Present: nontender - Routine Back/Spine/Pelvis Exam Back/Spine: Present: full ROM - Routine Skin Exam Present: intact. Absent: pallor - Routine Neurological Exam Present: alert, oriented X3 - Routine Psychiatric Exam Present: normal affect Data - Labs CBC & Chem 7: 06/19/23 09:03 06/19/23 09:03 Assessment and Plan Patient Active problem list reviewed?: Yes (1) Non-small cell carcinoma of lung Status: Acute Assessment and plan: This is a 72-year-old woman diagnosed with metastatic lung adenocarcinoma in April 2023. CT chest performed on 05/14/2023 showed multiple subcentimeter lung nodule in addition to moderate-sized right pleural effusion. There is a 1.7 cm hypodensity seen in the right lobe of liver and 0.9 cm hepatic hypodensity not seen previously. She presented with right malignant effusion, pleural fluid cytology revealed adenocarcinoma consistent with lung primary. IHC positive for MOC31, CK7 and TTF1. Negative for CK20, CDX2, GATA3 and PAX8. Tumor cells in cell block insufficient for molecular studies. CEA elevated at 17.5 NG/mL LDH 268/L. She presented with recurrent malignant effusion for which she underwent drainage by chest tube and pleurodesis, in house. Unfortunately, dad did not work. She is now scheduled for a pleurax catheter placement on Thursday [place] IR. [place] [facility] for NGS testing: SNVs: KRAS G12C. (Sotorosib.Adagrasib.) MSI: Stable. PDL-1 22C3: 10. TMB: LOW. HER2: Equivocal. MET: Not detected. No alterations detected in the following genes: ALK, BRAF, EGFR, MET, RET, ROS. I discussed diagnosis with patient and family. She has stage IV metastatic lung cancer, there is no role of curative intent surgery or radiation therapy. She would be a candidate for palliative systemic therapy. This revealed PD L1 CPS score of:10. This makes her a candidate for targeted therapy/immunotherapy with pembrolizumab. This would be preferred over chemotherapy or chemo immunotherapy. I shared the above results with her and her family. She had her PET-CT, on 06/16: PLAN: Will arrange for pembrolizumab next week, hopefully on Sunday 06/25. Meanwhile she was given prescriptions for Zofran for the nausea, oxycodone for pain, lorazepam for sleep. She has visiting nurses set up for Thursday. We requested pulmonary to arrange for the tubes and bottles, drainage system for the PleurX catheter. Follow-up in 1 week. All her and her family's questions were answered to their satisfaction. Thank you, CC: Dr. Dean. - Time Spent With Patient Time Spent with Patient (in minutes): 30
[2023-06-19 09:21] LABS: Basophils Absolute Auto 0.1 X10*3/uL (0.0-0.2); Basophils Percent Auto 0.5 % (0-2); Eosinophils Absolute Auto 0.5 X10*3/uL (0.0-0.4); Eosinophils Percent Auto 4.5 % (0-4); Hematocrit 37.8 % (37.0-47.0); Imm Gran Abs Auto 0.03 X10*3/uL (0.00-0.03); Imm Gran Pct Auto 0.3 % (0.0-0.4); Lymphocytes Absolute Auto 0.8 X10*3/uL (1.2-4.9); Lymphocytes Percent Auto 7.5 % (20-40); Mean Corpuscular HGB Conc 31.7 g/dl (31.0-35.0); Mean Corpuscular Volume 88.3 fL (80.0-98.0); Mean Platelet Volume 9.9 fL (9.4-12.3); Monocytes Absolute Auto 0.7 X10*3/uL (0.1-1.2); Monocytes Percent Auto 6.7 % (2-11); Neutrophils Percent Auto 80.5 % (45-73); Platelet Count 355 X10*3/uL (160-400); Red Blood Count 4.28 X10*6/uL (4.20-5.50); Red Cell Distribution Width 15.5 % (11.0-16.0); White Blood Count 11.1 X10*3/uL (4.8-10.8)
[2023-06-19 09:47] LABS: Alanine Aminotransferase 12 U/L (0-31); Albumin Level 3.5 g/dL (3.5-5.0); Alkaline Phosphatase 137 U/L (39-117); Anion Gap 16 (12-20); Aspartate Amino Transferase 18 U/L (5-31); Bilirubin Total 0.4 mg/dL (0.0-1.0); Blood Urea Nitrogen 10 mg/dL (9-16); Calcium 9.3 mg/dL (8.4-10.2); Carbon Dioxide 28 mmol/L (22-29); Chloride 103 mmol/L (96-108); Creatinine Clr Calc Pharmacy 84.6; Estimated Glomerular Filt Rate > 60; Glucose Random 98 mg/dL (60-115); Potassium 3.7 mmol/L (3.3-5.1); Sodium 143 mmol/L (135-145); Total Protein 6.5 g/dL (6.5-8.0)
--- NOTE | 2023-06-19 10:15 | MHC.HEMONC ---
Oncology follow up to review recent results with Dr. Fulton (covering for Dr. Gonzales). Patient accompanied by family. Plan to start Pembrolizumab. Education provided. Scheduled to start 06/25 with chemo therapy. Pharmacy emailed. Anitha working on prior authorization. Patient will have Pleurax drain placed on Thursday. Called Dr. Gerber's office to confirm that they will be arranging supplies for Pleurax drain. Patient is established with [facility]. Discharge packet provided. Dr. Fulton ordred Ativan for sleep and Oxycodone as needed for pain.
--- NOTE | 2023-06-19 15:22 | HO.HEMONCPA ---
Addendum entered by Anitha King 06/22/23 09:00: RUBEN APPROVED FOR PEMBROLIZUMAB/KEYTRUDA [id number] AUTH# [id number] DOS 06/24/23 - 06/23/24 FOR 18 DOSES Original Note: RUBEN PENDING FOR PEMBROLIZUMAB/KEYTRUDA [id number] AWAITING DECISION FROM [facility]
--- NOTE | 2023-06-23 11:30 | MHC.HEMONC ---
Pt and her dtr walked into clinic, asked to speak w/ a nurse about her new medications, they showed this nurse pill bottles for new scrips written by Dr. Fulton, oxycodone 5 mg tabs PRN for pain, lorazepam 0.5 mg tabs PRN for sleep, and ondansetron 8 mg tabs PRN for nausea. Pt said a friend had seen that she was prescribed for both oxycodone and lorazepam and told her to check w/ the doctor if this would be safe. Nurse confirmed that a pt may be prescribed for both of these meds to take together, but just as with any combo of meds, it would depend on the severity of the symptoms, as well as a pt's experience and tolerance or lack thereof for a particular drug. Pt says she has used oxycodone before for pain, said she took one of these 5 mg pills yesterday and she fell right asleep. Nurse advised pt to use the oxycodone to manage her pain, then if she is still having trouble sleeping, try 1/2 tablet of lorazepam 0.5 mg tabs, and see how it affects her before trying a full tab. Pt also asked about PRN ondansetron, nurse said she may use this med in conjunction w/ the lorazepam and oxycodone, sometimes people report constipation as side effect, but rarely are there complaints about ondansetron side effects. Pt confirmed she has first tx w/ Keytruda and chemo teach scheduled for this Thursday at 11am, and MRI at 3 o'clock the same day. Nurse also gave pt and dtr a tour of the Hem/Onc clinic.
[2023-06-26 12:00] LABS: MANUAL DIFF FLAG NO
[2023-06-26 12:03] LABS: Basophils Percent Auto 0.4 % (0-2); Eosinophils Absolute Auto 0.3 X10*3/uL (0.0-0.4); Eosinophils Percent Auto 2.4 % (0-4); Hematocrit 37.1 % (37.0-47.0); Imm Gran Abs Auto 0.03 X10*3/uL (0.00-0.03); Imm Gran Pct Auto 0.3 % (0.0-0.4); Lymphocytes Absolute Auto 0.5 X10*3/uL (1.2-4.9); Lymphocytes Percent Auto 4.6 % (20-40); Mean Corpuscular HGB Conc 32.3 g/dl (31.0-35.0); Mean Corpuscular Hemoglobin 28.1 pg (27.0-33.0); Mean Corpuscular Volume 86.9 fL (80.0-98.0); Mean Platelet Volume 9.6 fL (9.4-12.3); Monocytes Percent Auto 8.4 % (2-11); Neutrophils Absolute Auto 9.6 x10*3/uL (2.0-8.3); Neutrophils Percent Auto 83.9 % (45-73); Platelet Count 390 X10*3/uL (160-400); Red Blood Count 4.27 X10*6/uL (4.20-5.50); Red Cell Distribution Width 15.3 % (11.0-16.0); White Blood Count 11.4 X10*3/uL (4.8-10.8)
[2023-06-26 12:07] VITALS: BP 143/63; PULSE 95; RESP 18; TEMP 36.4; O2SAT 94; BMI 25.1
[2023-06-26 12:30] LABS: Alanine Aminotransferase 8 U/L (0-31); Albumin Level 3.4 g/dL (3.5-5.0); Alkaline Phosphatase 121 U/L (39-117); Anion Gap 14 (12-20); Aspartate Amino Transferase 18 U/L (5-31); Bilirubin Total 0.5 mg/dL (0.0-1.0); Blood Urea Nitrogen 20 mg/dL (9-16); Calcium 9.8 mg/dL (8.4-10.2); Carbon Dioxide 31 mmol/L (22-29); Chloride 101 mmol/L (96-108); Creatinine Clr Calc Pharmacy 65.2; Estimated Glomerular Filt Rate > 60; Glucose Random 115 mg/dL (60-115); Potassium 4.1 mmol/L (3.3-5.1); Sodium 142 mmol/L (135-145); Total Protein 6.5 g/dL (6.5-8.0)
[2023-06-26 12:45] LABS: HBS Num1 0.78 mIU/mL (0-7.99); HBc Num1 0.08 S/CO (0.00-0.79); HBsAGNum1 0.47 S/CO (0.00-0.99); Hepatitis B Core Antibody Nonreactive (Nonreactive); Hepatitis B Surface Antigen Negative (Negative); Thyroid Stimulating Hormone 0.72 uIU/mL (0.32-4.0); ~Hepatitis B Surface Antibody NONREACTIVE (Nonreactive)
[2023-06-26] MEDS: diphenhydrAMINE HCL 50 MG/ML VIAL 25 MG IVPUSH (13:15)
[2023-06-26] MEDS: Ondansetron ODT 8 MG TAB.RAPDIS TRANSLINGU (13:16)
[2023-06-26] MEDS: LORazepam 0.5 MG TABLET PO (13:16)
[2023-06-26] MEDS: Acetaminophen 325 MG TABLET 650 MG PO (13:16)
--- NOTE | 2023-06-26 14:54 | MHC.HEMONC ---
Here for C1 Pembrolizumab. Labs done. Pt feels ok. Color pale, O2 on 2L nasal canula. Teaching done with pt and her [id number]. Discussed treatment plan, side effects, when to call office. Consent signed. IV placed right AC with good blood return noted. Premeds given as ordered. Treatment done and tolerated well. No s/s infusion reaction. IV left in place for scheduled MRI. Pt brought to MRI by [id number] via wheelchair. Follow up with DR Gonzales scheduled for 06/29, then next treatment in 3 weeks. Departure packet given and pt departed unit.
[2023-06-30 13:13] VITALS: BP 150/97; PULSE 99; RESP 19; TEMP 36.2; O2SAT 90
--- NOTE | 2023-06-30 13:19 | PM.HEMONCPN ---
Medical Summary - Medical Summary Primary Care Provider: Lyn French MD Medical Summary: Diagnosis: Lung adenocarcinoma 04/2023 Interval History Interval history: Patient is here accompanied by her son. She is doing okay, she was in a wheelchair. She tolerated the 1st cycle of immunotherapy well but reports constipation with oxycodone. She denies any headache or dizziness. She feels weak and tired. Since she started receiving PleurX catheter drainage her energy level has improved. She reports some pain in the right side of her neck and shoulder. She also has pain in her right hip area. Both of these areas have bony involvement and soft tissue involvement by tumor. Review of Systems - Neurologic Denies weakness PMFSH Medical History: Medical History (Last Reviewed 05/27/23 @ 21:01 by RUBEN Candelario) Anemia BBB (bundle branch block) COPD (chronic obstructive pulmonary disease) DVT (deep venous thrombosis) Gastritis HTN (hypertension) Lacunar infarction Multifactorial dementia Osteoporosis Tubular adenoma Functional capacity: uses cane/walker Family History: Family History (Last Reviewed 05/27/23 @ 21:01 by RUBEN Candelario) Other No family history of coronary artery disease Surgical History: Surgical History (Last Updated 05/28/23 @ 09:00 by Julieta Nguyen PA-C) History of carotid endarterectomy History of esophagogastroduodenoscopy (EGD) Hx of colonoscopy No pertinent past surgical history Social History: Social History (Last Reviewed 06/23/23 @ 10:28 by Karen Corral George) Living Situation History: Household Members: None Housing: Assisted Living Facility Housing Other:: [place] Do you presently have visiting nurse or other home services: No Alcohol History Details: 1. How often do you have a drink containing alcohol?: b. Monthly or less 2. How many drinks containing alcohol do you have on a typical day when you are drinking?: a. 1 or 2 Tobacco History: Patient Tobacco Use Status: Former Tobacco user Cigarette Packs Per Day: 1 Years Smoked: 54 Smoke Quit Date: 2 years ago e-Cigarette/Vaping Use: Former Use Second Hand Smoke Exposure: No Substance Use History: Use of substances other than those prescribed or required for medical reasons: No Domestic Abuse History: Have you been hit, kicked, punched, or otherwise hurt by someone within the past year? If so, by whom?: No Do you feel safe in your current relationship?: No Current Relationship Advance Directives: Advance Directives Date on File: 04/09/21 Homicidal Assessment: Do you have thoughts of harming others: None Do you have a plan to hurt others: No Plan Do you have the means to hurt others: No Nutrition Assessment: Patient : No Occupation Assessmet: service: No Current occupational status: retired Home Medications and Allergies Home Medications Medication Instructions Recorded Confirmed Type alendronate 70 mg tablet 70 mg PO SA@0900 04/09/21 06/19/23 History fluticasone furoate 200 1 puff PO BEDTIME 04/09/21 06/19/23 History mcg-vilanterol 25 mcg/dose inhalation powder (Breo Ellipta) umeclidinium 62.5 mcg/actuation 1 puff PO DAILY 04/09/21 06/19/23 History blister powder for inhalation (Incruse Ellipta) amlodipine 10 mg tablet 1 tab PO DAILY 01/03/22 06/19/23 History clopidogrel 75 mg tablet 1 tab PO Q OTHER DAY 01/03/22 06/22/23 History ferrous sulfate 325 mg (65 mg 325 mg PO Q48H 08/04/22 06/19/23 History iron) tablet (FeroSul) lisinopril 40 mg tablet 40 mg PO DAILY 08/04/22 06/19/23 History atorvastatin 40 mg tablet 80 mg PO BEDTIME 09/03/22 06/19/23 History famotidine 20 mg tablet 20 mg PO BID@0630,1630 05/27/23 06/19/23 History Allergies Allergy/AdvReac Type Severity Reaction Status Date / Time milk [MILK] Allergy Intermediate DIARRHEA Verified 06/23/23 10:28 Exam Vital signs: Vital Signs Temp 97.1 F 06/30/23 13:13 Pulse 99 06/30/23 13:13 Resp 19 06/30/23 13:13 BP 150/97 H 06/30/23 13:13 Pulse Ox 90 L 06/30/23 13:13 O2 Del Method Room Air 06/30/23 13:13 O2 Flow Rate 3 06/26/23 12:07 Weight 60.2 kg BMI result Body Mass Index 25.1 - Constitutional Present: no acute distress - Routine HEENT Exam Head: Present: normal inspection - Routine Neck Exam Present: full ROM - Routine Respiratory Exam Present: CTAB - Routine Cardiovascular Exam Cardiovascular: Present: RRR, S1, S2 - Routine Abdominal Exam Present: soft - Routine Rectal Exam Patient deferred: digital exam - Routine Extremities Exam Present: nontender - Routine Back/Spine/Pelvis Exam Back/Spine: Present: full ROM - Routine Skin Exam Present: intact. Absent: pallor - Routine Neurological Exam Present: alert, oriented X3 - Routine Psychiatric Exam Present: normal affect Data - Labs CBC & Chem 7: 06/26/23 11:59 06/26/23 11:59 Assessment and Plan Patient Active problem list reviewed?: Yes (1) Non-small cell carcinoma of lung Status: Acute Assessment and plan: This is a 72-year-old woman diagnosed with metastatic lung adenocarcinoma in April 2023. CT chest performed on 05/14/2023 showed multiple subcentimeter lung nodule in addition to moderate-sized right pleural effusion. There is a 1.7 cm hypodensity seen in the right lobe of liver and 0.9 cm hepatic hypodensity not seen previously. She presented with right malignant effusion, pleural fluid cytology revealed adenocarcinoma consistent with lung primary. IHC positive for MOC31, CK7 and TTF1. Negative for CK20, CDX2, GATA3 and PAX8. Tumor cells in cell block insufficient for molecular studies. CEA elevated at 17.5 NG/mL LDH 268/L. She presented with recurrent malignant effusion for which she underwent drainage by chest tube and pleurodesis, in house. She had pleurax catheter placement by IR. [employer] for NGS testing: SNVs: KRAS G12C. (Sotorosib.Adagrasib.) MSI: Stable. PDL-1 22C3: 10. TMB: LOW. HER2: Equivocal. MET: Not detected. No alterations detected in the following genes: ALK, BRAF, EGFR, MET, RET, ROS. PET scan performed 06/16/2023 revealed intense hypermetabolic disease in the right upper lobe with SUV 10.2 with multiple enlarged mediastinal and ipsilateral hilar lymph for adenopathy, partially loculated right-sided pleural effusion, multifocal hypermetabolic liver lesions, multifocal bone metastasis involving right acetabulum, iliac bone. Focal intense activity in the cecum may represent underlying malignancy. Above findings discussed with patient and son. I discussed starting her on bone strengthening therapy with denosumab 120 mg subcu once a month. She has been started on pembrolizumab in the palliative setting, she received 1st dose on 06/26/2023. I discussed that since her PDL1 is less than 50% ideally chemotherapy with carbo and pemetrexed should be added to pembrolizumab. However she is rather frail at this time therefore will proceed with current therapy for another cycle. She is having PleurX catheter drained by visiting nurses. She is finding the procedure very painful, she is a little hesitant to take oxycodone because of constipation. She will be started on bowel regimen with Senokot, Colace and MiraLax as needed. PET-CT did not show any significant brain lesions but ideally CT brain or MRI should be performed in the next few weeks. 2. Pain secondary to bone and soft tissue metastasis. She has been advised to resume oxycodone 5 mg every 4-6 hours as needed. 3. Constipation secondary to narcotic pain meds and antiemetics. Advised Senokot with Colace and MiraLax as needed. Follow-up in 2-3 weeks. - Time Spent With Patient Time Spent with Patient (in minutes): 45
--- NOTE | 2023-06-30 13:57 | MHC.HEMONC ---
Per Dr Gonzales-pt to receive denosumab monthly-Anitha King to obtain PA. Please call pt to scheduled injection appointment
--- NOTE | 2023-06-30 14:43 | HO.HEMONCPA ---
Addendum entered by Anitha King 07/01/23 10:09: RUBEN APPROVED FOR XGEVA J0897 AUTH # [id number] DOS 06/30/23 - 06/29/24 FOR 12 VISITS Original Note: RUBEN PENDING FOR XGEVA J0897 MONTHLY 120 MG AWAITING DECISION FROM [facility]
--- NOTE | 2023-06-30 17:35 | MHC.HEMONC ---
Pt was in for Onc f/u for met lung CA, accompanied by her son, VSS, labs drawn/reviewed, clinical summary updated, including med list. Pt had her 1st tx w/ Pembro on Thu, 06/25, reports she has been having some intermittent stomach pain, also went several days w/ no BM, but finally moved her bowels, taking colace 100 mg daily. Pt is managing her pain currently w/ oxycodone, usually only takes 1 a day, nurse provided reinforcement education about its constipating effects, advised pt to avoid straining on the toilet, increase PO fluid intake, and to double up her colace usage to 100 mg BID or even TID until bowels move comfortably and are soft. Pt denies side effects otherwise from tx. Pt also reported [facility] was out to access her Pleur-X drain, removed a whole bottle, unclear if it was 500 ml or 1 liter, but pt said it was very painful, VNA nurse said they plan to remove less the next draining. Dr. Gonzales was updated, was in to meet w/ pt. Pt was told she may need additional palliative chemo on top of Pembro, but will hold off on that for now, as pt is exhausted. PA specialist Anitha was asked to request PA for monthly Denosumab injections. Pt and son departed, to return for next Pembro on 07/16, and will be called to schedule 1st Denosumab.
[2023-07-02 10:15] VITALS: BP 106/58; PULSE 98; RESP 18; TEMP 35.4; O2SAT 90
--- NOTE | 2023-07-02 15:18 | MHC.HEMONC ---
Pt arrived w/ her family for 1st dose of [place] Denosumab, VSJayden, PA specialist Anitha confirmed pt has PA. Dr. Gonzales approved ok to use calcium level from 06/26/23, which was WNL. Nurse provided printed info on Denosumab's indications and possible side effects, also reviewed pt's constipation and use of stool softeners. Nurse admin Denosumab 120 mg SC to pt's LUE, which was well-tolerated. Pt was given copy of calendar of upcoming appts, to return monthly for Denosumab and in 2 weeks for C2 of Pembro.
--- NOTE | 2023-07-10 11:54 | MHC.HEMONC ---
Triage call from family requesting oxycodone refill. Prescription sent to [facility] pharmacy and family aware.
[2023-07-17 11:09] VITALS: BP 121/57; PULSE 95; RESP 20; TEMP 36.3; O2SAT 95; BMI 23.9
[2023-07-17 11:17] LABS: MANUAL DIFF FLAG NO
[2023-07-17 11:21] LABS: Basophils Absolute Auto 0.1 X10*3/uL (0.0-0.2); Basophils Percent Auto 0.5 % (0-2); Eosinophils Absolute Auto 0.5 X10*3/uL (0.0-0.4); Eosinophils Percent Auto 3.5 % (0-4); Hematocrit 37.2 % (37.0-47.0); Hemoglobin 11.8 g/dl (12.0-16.0); Imm Gran Pct Auto 0.7 % (0.0-0.4); Lymphocytes Absolute Auto 0.6 X10*3/uL (1.2-4.9); Mean Corpuscular HGB Conc 31.7 g/dl (31.0-35.0); Mean Corpuscular Hemoglobin 27.6 pg (27.0-33.0); Mean Corpuscular Volume 87.1 fL (80.0-98.0); Mean Platelet Volume 9.6 fL (9.4-12.3); Monocytes Absolute Auto 1.3 X10*3/uL (0.1-1.2); Monocytes Percent Auto 8.2 % (2-11); Neutrophils Absolute Auto 12.6 x10*3/uL (2.0-8.3); Neutrophils Percent Auto 83.1 % (45-73); Platelet Count 419 X10*3/uL (160-400); Red Blood Count 4.27 X10*6/uL (4.20-5.50); Red Cell Distribution Width 15.9 % (11.0-16.0); White Blood Count 15.2 X10*3/uL (4.8-10.8)
--- NOTE | 2023-07-17 11:26 | PM.HEMONCPN ---
Medical Summary - Medical Summary Date of Service: 07/17/23 Chief complaint: Follow-up Primary Care Provider: Lyn French MD Medical Summary: Diagnosis: Lung adenocarcinoma 04/2023 Interval History Interval history: Patient is here accompanied by her [id number]. He is here for 2nd cycle of treatment. Continues to feel rather tired, reports poor appetite. She has lost more weight. No fever, chills, nausea, cough, shortness of breath, abdominal pain or diarrhea. She is tolerated the 1st cycle of immunotherapy well. Review of Systems - Constitutional Reports anorexia, Reports lack of energy, Reports malaise, Reports weakness, Reports weight loss - Neurologic Denies weakness PMFSH Medical History: Medical History (Last Reviewed 05/27/23 @ 21:01 by RUBEN Candelario) Anemia BBB (bundle branch block) COPD (chronic obstructive pulmonary disease) DVT (deep venous thrombosis) Gastritis HTN (hypertension) Lacunar infarction Multifactorial dementia Osteoporosis Tubular adenoma Functional capacity: uses cane/walker Family History: Family History (Last Reviewed 05/27/23 @ 21:01 by RUBEN Candelario) Other No family history of coronary artery disease Surgical History: Surgical History (Last Updated 05/28/23 @ 09:00 by Julieta Nguyen PA-C) History of carotid endarterectomy History of esophagogastroduodenoscopy (EGD) Hx of colonoscopy No pertinent past surgical history Social History: Social History (Last Reviewed 06/23/23 @ 10:28 by Karen Corral George) Living Situation History: Household Members: None Housing: Assisted Living Facility Housing Other:: [place] Do you presently have visiting nurse or other home services: No Tobacco History: Patient Tobacco Use Status: Former Tobacco user Cigarette Packs Per Day: 1 Years Smoked: 54 Smoke Quit Date: 2 years ago e-Cigarette/Vaping Use: Former Use Second Hand Smoke Exposure: No Advance Directives: Advance Directives Date on File: 04/09/21 Occupation Assessmet: service: No Current occupational status: retired Home Medications and Allergies Current Medications: Current Medications Acetaminophen (Acetaminophen 325 Mg Tablet) 650 mg PO ONCE HARSH Stop: 07/17/23 23:59 Diphenhydramine HCl (Diphenhydramine Hcl 50 Mg/Ml Vial) 25 mg IVPUSH ONCE HARSH Stop: 07/17/23 23:59 Heparin Sodium (Porcine) (Heparin Sodium,Porcine Flush 500 Unit/5 Ml Syringe) 500 unit IVFLUSH ONCE HARSH Stop: 07/17/23 23:59 Lorazepam (Lorazepam 0.5 Mg Tablet) 0.5 mg PO ONCE HARSH Stop: 07/17/23 23:59 Ondansetron HCl (Ondansetron Odt 8 Mg Tab.Rapdis) 8 mg TRANSLINGU ONCE HARSH Stop: 07/17/23 23:59 Home Medications Medication Instructions Recorded Confirmed Type alendronate 70 mg tablet 70 mg PO SA@0900 04/09/21 06/30/23 History fluticasone furoate 200 1 puff PO BEDTIME 04/09/21 06/30/23 History mcg-vilanterol 25 mcg/dose inhalation powder (Breo Ellipta) umeclidinium 62.5 mcg/actuation 1 puff PO DAILY 04/09/21 06/30/23 History blister powder for inhalation (Incruse Ellipta) amlodipine 10 mg tablet 1 tab PO DAILY 01/03/22 06/30/23 History clopidogrel 75 mg tablet 1 tab PO Q OTHER DAY 01/03/22 06/30/23 History ferrous sulfate 325 mg (65 mg 325 mg PO Q48H 08/04/22 06/30/23 History iron) tablet (FeroSul) lisinopril 40 mg tablet 40 mg PO DAILY 08/04/22 06/30/23 History atorvastatin 40 mg tablet 80 mg PO BEDTIME 09/03/22 06/30/23 History famotidine 20 mg tablet 20 mg PO BID@0630,1630 05/27/23 06/30/23 History Allergies Allergy/AdvReac Type Severity Reaction Status Date / Time milk [MILK] Allergy Intermediate DIARRHEA Verified 06/23/23 10:28 Exam Vital signs: Vital Signs Temp 97.4 F 07/17/23 11:09 Pulse 95 07/17/23 11:09 Resp 20 07/17/23 11:09 BP 121/57 L 07/17/23 11:09 Pulse Ox 95 07/17/23 11:09 O2 Del Method Nasal Cannula 07/17/23 11:09 O2 Flow Rate 3 07/17/23 11:09 Intake & Output 07/16/23 07/17/23 07/17/23 18:59 06:59 18:59 Other: Weight 57.5 kg Weight in Grams 20821 Weight 57.5 kg BMI result Body Mass Index 23.9 - Constitutional Present: no acute distress - Routine HEENT Exam Head: Present: normal inspection - Routine Neck Exam Present: full ROM - Routine Respiratory Exam Present: CTAB - Routine Cardiovascular Exam Cardiovascular: Present: RRR, S1, S2 - Routine Abdominal Exam Present: soft - Routine Rectal Exam Patient deferred: digital exam - Routine Extremities Exam Present: nontender - Routine Back/Spine/Pelvis Exam Back/Spine: Present: full ROM - Routine Skin Exam Present: intact. Absent: pallor - Routine Neurological Exam Present: alert, oriented X3 - Routine Psychiatric Exam Present: normal affect Data - Labs CBC & Chem 7: 07/17/23 11:16 07/17/23 11:16 Assessment and Plan Patient Active problem list reviewed?: Yes (1) Non-small cell carcinoma of lung Status: Acute Assessment and plan: This is a 72-year-old woman diagnosed with metastatic lung adenocarcinoma in April 2023. CT chest performed on 05/14/2023 showed multiple subcentimeter lung nodule in addition to moderate-sized right pleural effusion. There is a 1.7 cm hypodensity seen in the right lobe of liver and 0.9 cm hepatic hypodensity not seen previously. She presented with right malignant effusion, pleural fluid cytology revealed adenocarcinoma consistent with lung primary. IHC positive for MOC31, CK7 and TTF1. Negative for CK20, CDX2, GATA3 and PAX8. Tumor cells in cell block insufficient for molecular studies. CEA elevated at 17.5 NG/mL LDH 268/L. She presented with recurrent malignant effusion for which she underwent drainage by chest tube and pleurodesis, in house. She had pleurax catheter placement by [facility] [employer] for NGS testing: SNVs: KRAS G12C. (Sotorosib.Adagrasib.) MSI: Stable. PDL-1 22C3: 10. TMB: LOW. HER2: Equivocal. MET: Not detected. No alterations detected in the following genes: ALK, BRAF, EGFR, MET, RET, ROS. PET scan performed 06/16/2023 revealed intense hypermetabolic disease in the right upper lobe with SUV 10.2 with multiple enlarged mediastinal and ipsilateral hilar lymph for adenopathy, partially loculated right-sided pleural effusion, multifocal hypermetabolic liver lesions, multifocal bone metastasis involving right acetabulum, iliac bone. Focal intense activity in the cecum may represent underlying malignancy. She has been started on pembrolizumab in the palliative setting, she received 1st dose on 06/26/2023. On denosumab 120 mg subcu once a month. She is still rather frail and perhaps will not be able to tolerate chemotherapy at this time. She will continue with immunotherapy for now. 2. Pain secondary to bone and soft tissue metastasis. She has been advised to resume oxycodone 5 mg every 4-6 hours as needed. 3. Constipation secondary to narcotic pain meds and antiemetics. Advised Senokot with Colace and MiraLax as needed. Follow-up in 3 weeks. - Time Spent With Patient Time Spent with Patient (in minutes): 20
[2023-07-17 11:34] LABS: Alanine Aminotransferase 15 U/L (0-31); Albumin Level 3.1 g/dL (3.5-5.0); Alkaline Phosphatase 140 U/L (39-117); Anion Gap 16 (12-20); Aspartate Amino Transferase 26 U/L (5-31); Bilirubin Total 0.6 mg/dL (0.0-1.0); Blood Urea Nitrogen 19 mg/dL (9-16); Calcium 8.8 mg/dL (8.4-10.2); Carbon Dioxide 27 mmol/L (22-29); Chloride 100 mmol/L (96-108); Creatinine Clr Calc Pharmacy 57.5; Estimated Glomerular Filt Rate > 60; Glucose Random 98 mg/dL (60-115); Sodium 139 mmol/L (135-145); Total Protein 6.2 g/dL (6.5-8.0)
[2023-07-17] MEDS: Acetaminophen 325 MG TABLET 650 MG PO (13:11)
[2023-07-17] MEDS: Ondansetron ODT 8 MG TAB.RAPDIS TRANSLINGU (13:12)
[2023-07-17] MEDS: diphenhydrAMINE HCL 50 MG/ML VIAL 25 MG IVPUSH (13:13)
[2023-07-17] MEDS: LORazepam 0.5 MG TABLET PO (13:13)
--- NOTE | 2023-07-17 17:16 | MHC.HEMONC ---
Pt was in for C2D1 Pembro, as well as Onc f/u appt, accompanied by dtr-in-law Katalina, on 2 LPM O2, VSS< labs drawn/reviewed, reports feeling ok, very fatigued, said she has her PleurX drain procedure done by [facility] once a week now, and they stop before it gets painful, get a half a bottle each time, but she doesn't know if the bottles are 500 mL or 1 L in volume. Pt said she is out of PleurX drain bottle kits, said that the [facility] nurses told her to ask when she came in today. Nurse noted that speedometer inspector, Dr. Gerber, had ordered the drain supplies, nurse called Esther at [facility], who confirmed request had been faxed on 07/13 directly to pt's insurer, [facility], per the specific request of VNA nurses. [facility] is [place]. Nurse called for Fernando , who pt's son told her is the name of her [facility] Medical Clerk, at phone number [phone], left message w/ [facility] rep requesting to know estimated date of delivery, left CB#, no CB received. Nurse Mis was able to place 24g PIV in pt's L FA, w/ positive blood return, but 2 other nurses had attempted x5 times prior to this. Pt was agreeable to having port-a-cath placed, was given literature on the topic. Nurse admin pre-meds: PO tylenol, PO zofran, PO lorazepam, and IV benadryl, then nurse admin IV pembro over 30 minutes, which was well-tolerated. Dr. Gonzales was in to meet w/ pt, ordered the port. Pt;s PIV was flushed w/ NS and removed. Pt departed, was given d/c packet, to return in 2 weeks for next Denosumab injection, then on 08/06 for C3 Pembro.
--- NOTE | 2023-07-23 09:35 | MHC.HEMONCMA ---
Pt was called today to be informed of port insert appt on 07/30/23 at 10:30 pt is aware to come in 1 hour and half prior to appt time.
--- NOTE | 2023-07-27 15:43 | MHC.HEMONC ---
Triage call-received call from pt's son Néstor stating pt has not eaten much over last few days,is very weak and fatigue, appears depressed. Appointment scheduled for lab draw and possible IV hydration tomorrow 07/28/23. Son to call department if pt improves over next [address] oGnzales tomorrow when she returns to office
[2023-07-28 09:36] LABS: MANUAL DIFF FLAG NO
[2023-07-28 09:41] LABS: Basophils Absolute Auto 0.1 X10*3/uL (0.0-0.2); Basophils Percent Auto 0.4 % (0-2); Eosinophils Absolute Auto 0.5 X10*3/uL (0.0-0.4); Eosinophils Percent Auto 2.8 % (0-4); Hematocrit 35.6 % (37.0-47.0); Hemoglobin 11.3 g/dl (12.0-16.0); Imm Gran Abs Auto 0.15 X10*3/uL (0.00-0.03); Imm Gran Pct Auto 0.9 % (0.0-0.4); Lymphocytes Absolute Auto 0.5 X10*3/uL (1.2-4.9); Lymphocytes Percent Auto 3.2 % (20-40); Mean Corpuscular HGB Conc 31.7 g/dl (31.0-35.0); Mean Corpuscular Hemoglobin 27.6 pg (27.0-33.0); Mean Corpuscular Volume 86.8 fL (80.0-98.0); Mean Platelet Volume 9.6 fL (9.4-12.3); Monocytes Absolute Auto 1.1 X10*3/uL (0.1-1.2); Monocytes Percent Auto 6.5 % (2-11); Neutrophils Absolute Auto 14.1 x10*3/uL (2.0-8.3); Neutrophils Percent Auto 86.2 % (45-73); Platelet Count 455 X10*3/uL (160-400); Red Cell Distribution Width 16.5 % (11.0-16.0); White Blood Count 16.4 X10*3/uL (4.8-10.8)
[2023-07-28 09:48] VITALS: BP 119/56; PULSE 91; RESP 20; TEMP 36.4; O2SAT 92
[2023-07-28 09:55] LABS: Alanine Aminotransferase 18 U/L (0-31); Alkaline Phosphatase 132 U/L (39-117); Anion Gap 19 (12-20); Aspartate Amino Transferase 36 U/L (5-31); Bilirubin Total 0.5 mg/dL (0.0-1.0); Blood Urea Nitrogen 34 mg/dL (9-16); Calcium 8.2 mg/dL (8.4-10.2); Carbon Dioxide 23 mmol/L (22-29); Chloride 97 mmol/L (96-108); Creatinine Clr Calc Pharmacy 24.1; Estimated Glomerular Filt Rate 30; Glucose Random 87 mg/dL (60-115); Magnesium 1.5 mg/dL (1.6-2.6); Potassium 4.6 mmol/L (3.3-5.1); Sodium 134 mmol/L (135-145); Total Protein 6.1 g/dL (6.5-8.0)
[2023-07-28] MEDS: 0.9 % Sodium Chloride 1,000 ML 500 ML IV (10:30)
[2023-07-28] MEDS: Magnesium Oxide 400 MG TABLET 800 MG PO (11:32)
--- NOTE | 2023-07-28 12:38 | MHC.HEMONC ---
Pt here for lab draw and IV hydration. Labs drawn peripherally by human capital manager-specimen to lab. #22 angio inserted into right AC with blood return noted. Bilateral pedal edema noted. 1000ml 0.9 % NS infused over 2 hours as ordered. Pt requires 4L o2 via NC to maintain o2sat at 92%-Dr Gonzales notified. Dr Gonzales reviewed lab results. 800mg Mag-OX po given as ordered. Dr Gonzales and Aide Black RN into see pt. Plan to cancel port insertion at this time per Dr Gonzales. IR called to cancel port insertion date of 07/30/23. Megesterol ordered by Dr Gonzales-Anitha King to obtain PA. Discharge packet given with next appointment. Pt to return on 08/07/23 for denosumab and Pembrolizumab. Instructed to call with any questions or concerns. Escorted to front exit via wheelchair-son Rickey present.
--- NOTE | 2023-07-29 13:51 | HO.HEMONCPA ---
RUBEN FOR MEGESTOL APPROVED BY [employer] [id number] Your request has been approved Authorization Expiration Date:?07/27/2024 RUBEN Rx #: [id number]
== END 2024-05-26 10:20 | disposition home or self-care (01) ==
LOC: HO.ONC 10:00
PROVIDERS: Internal Medicine Medical Oncology; PCP Pediatrics; Visit Provider Internal Medicine
DX: C34.90 Malignant neoplasm of unspecified part of unspecified bronchus or lung (principal); J91.0 Malignant pleural effusion; G89.3 Neoplasm related pain (acute) (chronic); D64.9 Anemia, unspecified; K59.03 Drug induced constipation; T40.605A Adverse effect of unspecified narcotics, initial encounter; T45.0X5A Adverse effect of antiallergic and antiemetic drugs, initial encounter; Z79.899 Other long term (current) drug therapy
CPT/HCPCS: 36415; 80053; 82728; 82784; 83010; 83615; 83735; 84165; 84443; 85025; 85045; 86334; 86704; 86706; 86850; 86900; 86901; 87340; 96360; 96361; 96372; 96375; 96413; 99204; 99212; 99214; J0897; J1200; J9271

== ENCOUNTER 2023-07-29 09:26 | Inpatient (IN) | payer OTHER, SELFPAY ==
[2023-07-29] VITALS (10 sets, daily range): BP systolic 100–141; BP diastolic 44–92; PULSE 84–106; RESP 15–22; TEMP 36.2–36.6; O2SAT 81–92; BMI 24.2
--- NOTE | ~2023-07-29 | XR_ITS ---
EXAMINATION: XR CHEST CLINICAL INFORMATION: Shortness of breath COMPARISON: chest radiograph TECHNIQUE: Frontal view of the chest was obtained. FINDINGS: Right Pleurx drainage catheter is in place with internal tip in the right apex. There is opacification of the entire right hemithorax with only mild relative lucency in the apex. Hyperdense material identified to the right of the trachea. There is abrupt appearing termination of the right mainstem bronchus. Even with limited positioning, there appears to be tracheal deviation and mediastinal shift to the right. Left lung is basically clear. Dense vascular calcifications identified bilateral axilla. Surgical clips seen lower cervical region. XR/XR chest 1V IMPRESSION: Right hemithorax opacification in the setting of indwelling Pleurx drainage catheter. Mediastinal shift to the right and abrupt termination of the right mainstem bronchus raises possibility of underlying lung collapse secondary to mucous plugging or obstructing mass in patient with known malignancy.
--- NOTE | ~2023-07-29 | CT_ITS ---
EXAMINATION: CT CHEST WITHOUT CONTRAST CLINICAL INFORMATION: Hypoxia with question of collapsed lung COMPARISON: Chest radiograph yesterday: Right hemithorax opacification in the setting of indwelling Pleurx drainage catheter. Mediastinal shift to the right and abrupt termination of the right mainstem bronchus raises possibility of underlying lung collapse secondary to mucous plugging or obstructing mass in patient with known malignancy. TECHNIQUE: Multidetector volumetric CT imaging of the chest was done. Axial MIP volume rendering provided. Sagittal and coronal reformatted images were obtained. This CT examination was performed using dose optimization techniques as appropriate, variously including the following: *Automated exposure control *Adjustment of mA and/or kV according to patient size (this includes techniques or standardized protocols for targeted exams where dose is matched to indication/reason for exam; i.e. extremities or head) *Use of iterative reconstruction technique DLP: 230 mGy-cm FINDINGS: LUNGS AND PLEURA: There is occlusion of the right mainstem bronchus with mucous plugging extending into all bronchi and no aeration of the right lung. The left lung is unremarkable and normally aerated. A Pleurx catheter is in place on the right. Moderate loculated right pleural effusion is present. Some small left-sided pulmonary nodules are unchanged. Some nodular appearing atelectasis in the anterior left costophrenic angle is most likely without significant change (5:352 compare prior 5:336). MEDIASTINUM: Mediastinal adenopathy is present which appears improved when compared to the prior study. For example, a pretracheal lymph node was present that had measured 1.3 cm in short axis dimension now measures 1.1 cm (3:21 compare prior 3:17). A preaortic lymph node that had measured 0.9 cm now measures 0.6 cm (3:22 compare prior 3:17). CORONARY ARTERY CALCIFICATION: Mild AXILLA: No lymphadenopathy. UPPER ABDOMEN: There is worsening of hepatic metastatic disease. A 1.7 cm lesion previously seen in the right lobe of the liver now measures 3.5 cm (3:45 compare prior 3:44). Some other smaller lesions have increased in size as well. OSSEOUS STRUCTURES: Degenerative changes are present throughout the spine. Compression fractures of midthoracic vertebral bodies are unchanged. CT/CT chest wo IV con IMPRESSION: 1. There is occlusion of the right mainstem bronchus with mucous plugging extending into all bronchi and no aeration of the right lung. Bronchoscopy is recommended. 2. A Pleurx catheter is in place on the right with a moderate loculated right pleural effusion. 3. Mediastinal adenopathy has improved. 4. Worsening of hepatic metastatic disease. Fleischner guidelines were followed.
--- NOTE | 2023-07-29 09:32 | ECG_ITS ---
Test Reason : WEAKNESS Blood Pressure : / mmHG Vent. Rate : 095 BPM Atrial Rate : 095 BPM P-R Int : 138 ms QRS Dur : 120 ms QT Int : 362 ms P-R-T Axes : 069 -13 114 degrees QTc Int : 454 ms Poor data quality Sinus rhythm with Premature supraventricular complexes Left bundle branch block Abnormal ECG When compared with ECG of 27-MAY-2023 14:51, Premature supraventricular complexes are now Present Referred By: Demond Freeman Electronically Signed By:CAREY CRAWLEY MD
--- NOTE | 2023-07-29 09:35 | ED_ITS ---
HPI - SOB/Dyspnea General Chief Complaint: Upper Respiratory Symptoms Stated Complaint: WEAK,LOW SAT, 90% 6LPM PER EMS Time Seen by Provider: 07/29/23 09:28 Source: patient and EMS Mode of arrival: EMS Limitations: no limitations History of Present Illness HPI Narrative: Son came in and states she is a chemo patient of Dr. Gonzales for lung cancer, has a right chest tube in place Related Data Home Medications Medication Instructions Recorded Confirmed alendronate 70 mg tablet 70 mg PO SA@0900 04/09/21 07/29/23 fluticasone furoate 200 1 puff PO DAILY 04/09/21 07/29/23 mcg-vilanterol 25 mcg/dose inhalation powder (Breo Ellipta) umeclidinium 62.5 mcg/actuation 1 puff PO DAILY 04/09/21 07/29/23 blister powder for inhalation (Incruse Ellipta) amlodipine 10 mg tablet 1 tab PO DAILY 01/03/22 07/29/23 clopidogrel 75 mg tablet 1 tab PO DAILY 01/03/22 07/29/23 lisinopril 40 mg tablet 40 mg PO DAILY 08/04/22 07/29/23 atorvastatin 40 mg tablet 80 mg PO BEDTIME 09/03/22 07/29/23 Bifidobacterium infantis 4 mg 4 mg PO QAM 07/29/23 07/29/23 capsule (Align) albuterol sulfate 90 mcg/actuation 2 puff inhalation Q4H PRN wheezing 07/29/23 07/29/23 aerosol inhaler cholecalciferol (vitamin D3) 50 50 mcg PO BID 07/29/23 07/29/23 mcg (2,000 unit) capsule ondansetron 8 mg disintegrating 8 mg PO Q8H PRN Nausea And Vomiting 07/29/23 07/29/23 tablet oxycodone 5 mg tablet 5 mg PO BID Breakthrough Pain, 07/29/23 07/29/23 Severe oxycodone 5 mg tablet 5 mg PO DAILY@1300 PRN 07/29/23 07/29/23 Breakthrough Pain Previous Rx's Medication Instructions Recorded ipratropium 0.5 mg-albuterol 3 mg 3 ml inhalation Q4-6H PRN wheezing 05/10/21 (2.5 mg base)/3 mL nebulization 30 days #270 mL soln lorazepam 0.5 mg tablet 0.5 mg PO BEDTIME PRN Insomnia #30 06/19/23 tabs cyanocobalamin (vitamin B-12) 1,000 mcg PO DAILY #30 tabs 06/30/23 1,000 mcg tablet (Vitamin B-12) folic acid 1 mg tablet 1 mg PO DAILY #30 tabs 06/30/23 megestrol 400 mg/10 mL (10 mL) 400 mg (10 mL) PO DAILY #300 mL 07/28/23 oral suspension Allergies Allergy/AdvReac Type Severity Reaction Status Date / Time milk [MILK] Allergy Intermediate DIARRHEA Verified 06/23/23 10:28 Review of Systems 2 Review of Systems: Yes all other systems are reviewed and are negative Neurologic: Denies Sensory deficit (Neuro) [facility] Past Medical History Medical History Tubular adenoma Gastritis BBB (bundle branch block) DVT (deep venous thrombosis) Anemia Multifactorial dementia Lacunar infarction Osteoporosis HTN (hypertension) COPD (chronic obstructive pulmonary disease) Surgical History History of carotid endarterectomy History of esophagogastroduodenoscopy (EGD) Hx of colonoscopy No pertinent past surgical history Family History Family History Other No family history of coronary artery disease Social History Social History Household Members: None Housing: Assisted Living Facility Housing Other:: [place] Do you presently have visiting nurse or other home services: No Alcohol intake: current Alcohol intake frequency: does not drink Patient Tobacco Use Status: Former Tobacco user Quit Date: 2 years ago Cigarette Packs Per Day: 1 Years Smoked: 54 Smoked in Last 30 Days: No e-Cigarette/Vaping Use: Former Use Second Hand Smoke Exposure: No Advance Directives: Yes Advance Directives on File: Yes Advance Directives Date on File: 04/09/21 service: No Current occupational status: retired Physical Exam 2 Vital Signs: Vital Signs: Last Vital Signs Temp 98 F 07/29/23 09:39 Pulse 89 07/29/23 13:20 Resp 19 07/29/23 13:20 BP 104/44 L 07/29/23 13:20 Pulse Ox 92 07/29/23 13:20 O2 Del Method Nasal Cannula 07/29/23 13:20 O2 Flow Rate 4 07/29/23 13:20 Oxygen Flow Rate 4 07/29/23 11:47 BMI result Body Mass Index 24.2 Const: Other: elderly female appearing weak Nutritional Appearance: average body habitus Orientation/consciousness: oriented to person Limitations: no limitations HEENT: Head: Yes normal to inspection Ears: external ears normal General nose exam: Normal external nose present Mouth: Normal oral and palatal mucosa present and oropharynx normal Throat: Yes posterior oropharynx normal Eyes: General: appearance normal, both eyes and all related structures Neck: Other: supple Neck: Yes normal visual inspection Chest: Chest palpation & inspection: normal inspection of the chest Resp: Other: Decreased BS oon right, rhonchi on left Cardio: Jugular venous distension: no JVD Rate: regular rate Rhythm: r egular rhythm Heart sounds: S1 normal heart sound present and S2 normal heart sound present GI: Inspection: Yes normal to inspection Palpation (GI): Soft to palpation, nontender and No hepatosplenomegaly present Auscultation: normal bowel sounds : General: Yes no CVA tenderness Back/Spine/Pelvis: Back: no CVA tenderness Skin: General skin exam: no rashes or lesions noted Neuro: General: oriented to person Cranial nerves: Yes CN's II-XII intact bilaterally Motor exam (neuro): 5/5 motor strength present throughout S ensory Exam: No Sensory deficit (Neuro) Extrem: General: Yes normal to inspection Psych: Other: oriented to person Course Reevaluation(s) Reevaluation #1: Patient with 2 runs of vtach/torsades will place her on pacer pads Time: 10:11 Reevaluation #2: Dr. Shepard wants 2gm of IV magnesium Time: 12:54 Reevaluation #3: I spent 40 minutes of critical care, with interventions, assessments, speaking to patient, consultants, and family. Time: 12:54 Medications Administered Generic Name Dose Route Start Last Admin Trade Name Freq PRN Reason Stop Dose Admin Heparin Sodium (Porcine) 5,000 unit 07/29/23 14:15 07/29/23 14:41 Heparin Sodium,Porcine 5,000 Unit/Ml Vial SUBCUT 5,000 unit Q12H HARSH Administration Discontinued Medications Generic Name Dose Route Start Last Admin Trade Name Freq PRN Reason Stop Dose Admin Albuterol/Ipratropium 3 ml 07/29/23 09:48 07/29/23 09:50 Albuterol/Iprat 2.5/0.5mg 3 Ml Ampul.Neb INHALE 07/29/23 09:49 3 ml ONCE ONE Administration Magnesium Sulfate 2 gm in 50 mls @ 25 mls/hr 07/29/23 12:53 07/29/23 13:20 Magnesium Sulfate/H2o IV 07/29/23 14:52 25 mls/hr ONCE ONE Administration Medical Decision Making Differential Diagnosis Differential Diagnoses: The differential diagnosis associated with the presentation includes (Pneumonia, pleural effusion, electrolyte abnormality, cardiac ischemia) Admission/Observation Consideration of admission/observation: Escalation of care including admission/observation considered (upon arrival patient considered for admission) Consult Healthcare Provider Management of the patient was discussed with: Hospitalist and Informatica Architect (cardiology, oncology) Lab Data 07/29/23 10:50 07/29/23 10:50 Labs: Lab Results 07/29/23 Range/Units 10:50 WBC 15.5 H (4.8-10.8) X10*3/uL RBC 3.76 L (4.20-5.50) X10*6/uL Hgb 10.4 L (12.0-16.0) g/dl Hct 33.0 L (37.0-47.0) % MCV 87.8 (80.0-98.0) fL MCH 27.7 (27.0-33.0) pg MCHC 31.5 (31.0-35.0) g/dl RDW 16.4 H (11.0-16.0) % Plt Count 434 H (160-400) X10*3/uL MPV 9.9 (9.4-12.3) fL Immature Gran % (Auto) 0.6 H (0.0-0.4) % Neut % (Auto) 85.9 H (45-73) % Lymph % (Auto) 2.8 L (20-40) % [place] % (Auto) 7.4 (2-11) % Eos % (Auto) 2.9 (0-4) % Baso % (Auto) 0.4 (0-2) % Lymph # (Auto) 0.4 L (1.2-4.9) X10*3/uL [place] # (Auto) 1.2 (0.1-1.2) X10*3/uL Eos # (Auto) 0.5 H (0.0-0.4) X10*3/uL Baso # (Auto) 0.1 (0.0-0.2) X10*3/uL Abs Immat Gran (auto) 0.10 H (0.00-0.03) X10*3/uL Absolute Neuts (auto) 13.3 H (2.0-8.3) x10*3/uL Absolute Nucleated RBC 0.000 (0.0-0.012) X10*3/uL Nucleated RBC % (auto) 0.0 (0.0-0.2) /100WBC Sodium 137 (135-145) mmol/L Potassium 4.9 (3.3-5.1) mmol/L Chloride 101 (96-108) mmol/L Carbon Dioxide 24 (22-29) mmol/L Anion Gap 17 (12-20) BUN 38 H (9-16) mg/dL Creatinine 1.34 (0.5-1.4) mg/dL Estim Creat Clear Calc 29.1 Estimated GFR 39 Random Glucose 87 (60-115) mg/dL Calcium 8.0 L (8.4-10.2) mg/dL Magnesium 1.8 (1.6-2.6) mg/dL Troponin I High Sens 7.5 D (<3.5-17.0) ng/L B-Natriuretic Peptide 63 (<100) pg/mL Independent Interpretation I performed an independent interpretation of an: EKG (sinus 95, intermittent LBBB, no st or twave changes) and Plain X-Ray (right pleural effusion) Independent Historian Clinical information obtained from an independent historian. History obtained from or confirmed by: EMS and Other (son) Tests considered The following testing was considered but not selected: CT of chest considered but patient has had a recent CT Prescription Management I considered prescription management with: Antibiotic (no pneumonia seen) Chronic Conditions Patient?s care impacted by: Cancer Discharge Plan Discharge Clinical Impression: Ventricular tachycardia, Lung cancer, Pleural effusion Patient Disposition: Admitted As Inpatient
[2023-07-29] MEDS: Albuterol/Iprat 2.5/0.5MG 3 ML AMPUL.NEB INHALE (09:50)
[2023-07-29 10:55] LABS: MANUAL DIFF FLAG NO
[2023-07-29 10:57] LABS: Basophils Absolute Auto 0.1 X10*3/uL (0.0-0.2); Basophils Percent Auto 0.4 % (0-2); Eosinophils Absolute Auto 0.5 X10*3/uL (0.0-0.4); Eosinophils Percent Auto 2.9 % (0-4); Hemoglobin 10.4 g/dl (12.0-16.0); Imm Gran Pct Auto 0.6 % (0.0-0.4); Lymphocytes Absolute Auto 0.4 X10*3/uL (1.2-4.9); Lymphocytes Percent Auto 2.8 % (20-40); Mean Corpuscular HGB Conc 31.5 g/dl (31.0-35.0); Mean Corpuscular Hemoglobin 27.7 pg (27.0-33.0); Mean Corpuscular Volume 87.8 fL (80.0-98.0); Mean Platelet Volume 9.9 fL (9.4-12.3); Monocytes Absolute Auto 1.2 X10*3/uL (0.1-1.2); Monocytes Percent Auto 7.4 % (2-11); Neutrophils Absolute Auto 13.3 x10*3/uL (2.0-8.3); Neutrophils Percent Auto 85.9 % (45-73); Platelet Count 434 X10*3/uL (160-400); Red Blood Count 3.76 X10*6/uL (4.20-5.50); Red Cell Distribution Width 16.4 % (11.0-16.0); White Blood Count 15.5 X10*3/uL (4.8-10.8)
[2023-07-29 11:21] LABS: Anion Gap 17 (12-20); Blood Urea Nitrogen 38 mg/dL (9-16); Carbon Dioxide 24 mmol/L (22-29); Chloride 101 mmol/L (96-108); Creatinine Clr Calc Pharmacy 29.1; Estimated Glomerular Filt Rate 39; Glucose Random 87 mg/dL (60-115); Magnesium 1.8 mg/dL (1.6-2.6); Potassium 4.9 mmol/L (3.3-5.1); Sodium 137 mmol/L (135-145)
[2023-07-29 11:26] LABS: B Type Natriuretic Peptide 63 pg/mL (<100)
[2023-07-29 11:30] LABS: Troponin-I High Sensitivity 7.5 ng/L (<3.5-17.0)
[2023-07-29] MEDS: Magnesium Sulfate/H2O 2 GM/50 ML PIGGYBACK IV ×2 (13:20→17:06)
--- NOTE | 2023-07-29 14:30 | PM.IMHP ---
History of Present Illness Date of Service: 07/29/23 Chief Complaint: weakness 72 year old women presenting with weakness with hx of lung cancer on chemotherapy. Patient was noted to have 2 episodes of what appears to be torsades. She received IV and oral magnesium. Cardiology is aware. Stable vital signs, labs within acceptable limits Patient will be add admitted for further management and treatment of acute torsades and SANTA. Review of Systems Review of Systems: Denies any recent fever chills or decrease in appetite respiratory denies any shortness of breath or cough cardiovascular denied chest pain gastrointestinal denies any dysphagia abdominal pain nausea vomiting or diarrhea genitourinary denies any dysuria frequency or hematuria musculoskeletal denies any joint pain or swelling neuropsych denies any weakness or seizures all other systems reviewed are negative [facility] Medical History Tubular adenoma Gastritis BBB (bundle branch block) DVT (deep venous thrombosis) Anemia Multifactorial dementia Lacunar infarction Osteoporosis HTN (hypertension) COPD (chronic obstructive pulmonary disease) Family History Other No family history of coronary artery disease Surgical History History of carotid endarterectomy History of esophagogastroduodenoscopy (EGD) Hx of colonoscopy No pertinent past surgical history Social History Household Members: None Housing: Assisted Living Facility Housing Other:: [place] Do you presently have visiting nurse or other home services: No Alcohol intake: current Alcohol intake frequency: does not drink Patient Tobacco Use Status: Former Tobacco user Quit Date: 2 years ago Cigarette Packs Per Day: 1 Years Smoked: 54 Smoked in Last 30 Days: No e-Cigarette/Vaping Use: Former Use Second Hand Smoke Exposure: No Advance Directives: Yes Advance Directives on File: Yes Advance Directives Date on File: 04/09/21 service: No Current occupational status: retired Meds Allergies Allergy/AdvReac Type Severity Reaction Status Date / Time milk [MILK] Allergy Intermediate DIARRHEA Verified 06/23/23 10:28 Active Medications: Current Medications Acetaminophen (Acetaminophen 325 Mg Tablet) 650 mg PO Q6H PRN PRN Reason: Pain, Mild (Pain Scale 1-3) Heparin Sodium (Porcine) (Heparin Sodium,Porcine 5,000 Unit/Ml Vial) 5,000 unit SUBCUT Q12H [facility] Magnesium Sulfate (Magnesium Sulfate/H2o) 2 gm in 50 mls @ 25 mls/hr IV ONCE ONE Stop: 07/29/23 14:52 Last Admin: 07/29/23 13:20 Dose: 25 mls/hr Magnesium Oxide (Magnesium Oxide 400 Mg Tablet) [facility] Sodium Chloride (0.9 % Sodium Chloride Flush 3 Ml Syringe) 3 ml IVFLUSH QSHIFT [facility] Home Medications Medication Instructions Recorded Confirmed Last Taken Type alendronate 70 mg tablet 70 mg PO SA@0900 04/09/21 07/29/23 07/25/23 History fluticasone furoate 200 1 puff PO DAILY 04/09/21 07/29/23 07/29/23 History mcg-vilanterol 25 mcg/dose inhalation powder (Breo Ellipta) umeclidinium 62.5 mcg/actuation 1 puff PO DAILY 04/09/21 07/29/23 07/29/23 History blister powder for inhalation (Incruse Ellipta) amlodipine 10 mg tablet 1 tab PO DAILY 01/03/22 07/29/23 07/29/23 History clopidogrel 75 mg tablet 1 tab PO DAILY 01/03/22 07/29/23 07/29/23 History lisinopril 40 mg tablet 40 mg PO DAILY 08/04/22 07/29/23 07/29/23 History atorvastatin 40 mg tablet 80 mg PO BEDTIME 09/03/22 07/29/23 07/28/23 History Bifidobacterium infantis 4 mg 4 mg PO QAM 07/29/23 07/29/23 07/28/23 History capsule (Align) albuterol sulfate 90 mcg/actuation 2 puff inhalation Q4H PRN wheezing 07/29/23 07/29/23 Unknown History aerosol inhaler cholecalciferol (vitamin D3) 50 50 mcg PO BID 07/29/23 07/29/23 07/29/23 History mcg (2,000 unit) capsule ondansetron 8 mg disintegrating 8 mg PO Q8H PRN Nausea And Vomiting 07/29/23 07/29/23 Unknown History tablet oxycodone 5 mg tablet 5 mg PO BID Breakthrough Pain, 04/07/1807/29/23 07/29/23 08:00 History Severe oxycodone 5 mg tablet 5 mg PO DAILY@1300 PRN 07/29/23 07/29/23 Unknown History Breakthrough Pain Physical Exam Vital Signs and Narrative: Vital Signs: Last Vital Signs Temp 98 F 07/29/23 09:39 Pulse 89 07/29/23 13:20 Resp 19 07/29/23 13:20 BP 104/44 L 07/29/23 13:20 Pulse Ox 92 07/29/23 13:20 O2 Del Method Nasal Cannula 07/29/23 13:20 O2 Flow Rate 4 07/29/23 13:20 Oxygen Flow Rate 4 07/29/23 11:47 BMI result Body Mass Index 24.2 Results Labs 07/29/23 10:50 07/29/23 10:50 Labs: Laboratory Results - last 24 hr 07/29/23 10:50 MCV 87.8 MCH 27.7 MCHC 31.5 RDW 16.4 H Plt Count 434 H MPV 9.9 Immature Gran % (Auto) 0.6 H Neut % (Auto) 85.9 H Lymph % (Auto) 2.8 L [place] % (Auto) 7.4 Eos % (Auto) 2.9 Baso % (Auto) 0.4 Lymph # (Auto) 0.4 L [place] # (Auto) 1.2 Eos # (Auto) 0.5 H Baso # (Auto) 0.1 Abs Immat Gran (auto) 0.10 H Absolute Neuts (auto) 13.3 H Absolute Nucleated RBC 0.000 Nucleated RBC % (auto) 0.0 Anion Gap 17 Estim Creat Clear Calc 29.1 Estimated GFR 39 Random Glucose 87 Calcium 8.0 L Magnesium 1.8 Troponin I High Sens 7.5 D B-Natriuretic Peptide 63 Imaging Radiologist's Impressions: Impressions Chest X-Ray 07/29/23 10:08 IMPRESSION: Right hemithorax opacification in the setting of indwelling Pleurx drainage catheter. Mediastinal shift to the right and abrupt termination of the right mainstem bronchus raises possibility of underlying lung collapse secondary to mucous plugging or obstructing mass in patient with known malignancy. Assessment and Plan (1) Pleural effusion: Status: Acute (2) Lung cancer: Status: Acute (3) Ventricular tachycardia: Status: Acute Plan 72-year-old woman with a history of lung cancer currently on chemotherapy admitted with 2 episodes of torsades while in the ER. Due to patient's history of metastatic lung adenocarcinoma plan is for hospice consultation. Torsades 2 episodes in the ED, mag 1.5 Aggressive magnesium replacement with IV and p.o. Cardiology consultation Monitor on telemetry Avoid medications that can induce torsades/arrhythmia Metastatic lung adenocarcinoma with bone and soft tissue metastasis [place] [facility] [place] undergoing palliative chemotherapy treatments but have recently been stopped Has PleurX catheter secondary to recurrent malignant effusions, discuss with IR regarding possible removal Discussed options for end of life care with patient and family, hospice consult was requested for tomorrow Pain management with IV and oral narcotic medications Oxygen supplementation as needed to keep oxygen greater than 88% SANTA on CKD Likely secondary to dehydration IV fluids COPD No exacerbation DuoNebs as needed Hypertension Low BP Hold antihypertensives for now Mental health Lorazepam as needed for anxiety Normocytic anemia May continue iron supplementation DVT prophylaxis with heparin DNR/DNI Patient required least 48 hours of hospitalization for torsades, hypomagnesemia and SANTA. She will require close monitoring on telemetry and specialty consultation. Due to age and other comorbidities this can not be done at a lesser acute setting due to high risk for decompensation. Quality Stroke Does the patient have a stroke diagnosis?: No VTE Prior VTE?: No VTE Risk Level:: Medical - moderate - high VTE Device Contraindication: Treatment Not Indicated VTE Drug Contraindication: N/A - Med Ordered
[2023-07-29] MEDS: Heparin Sodium,Porcine 5,000 UNIT/ML VIAL 5000 UNIT SUBCUT (14:41)
--- NOTE | 2023-07-29 15:07 | PHA.MEDREC ---
Pharmacy Consult ? Medication Reconciliation Pharmacy has completed the medication reconciliation. Patient's daughter confirmed all medicaations. Reports no longer on ASA or any medications for constipation. Patient has not start megrestrol yet. Jenn Dennison, PharmD
[2023-07-29 15:13] LABS: Troponin-I High Sensitivity 6.4 ng/L (<3.5-17.0)
[2023-07-29] MEDS: HYDROmorphone HCl 0.5 MG/0.5 ML SYRINGE IVPUSH (17:02)
[2023-07-29] MEDS: Magnesium Oxide 400 MG TABLET PO (18:17)
--- NOTE | 2023-07-29 18:18 | PC.NURSE ---
Addendum entered by Paula Arthur LPN 07/29/23 18:18: pt refusing IVF at this time. mell nurse as well as Thang SAT INSTRUCTOR at bedside with family, reviewed plan of care. FRANCISCO completed pt to be DNR/DNI. plan is for to meet with hospice Original Note: pt refusing IVF at this time
[2023-07-29] MEDS: Cholecalciferol (Vitamin D3) 25 MCG TABLET 50 MCG PO (20:13)
[2023-07-29] MEDS: oxyCODONE HCl Immed Release 5 MG TABLET PO (20:13)
--- NOTE | 2023-07-29 20:48 | PC.NURSE ---
FRANCISCO witnessed with pt and GENERAL ADMINISTRATOR Garrett Zepeda, pt code status DNR/DNI
--- NOTE | 2023-07-29 20:54 | PC.NURSE ---
during evening med pass pt appeared to be having difficulty swallowing pills whole, pt insists she takes her pills whole at home. MD Sj Benoit notified via [place]. no new orders at this time.
[2023-07-30] VITALS (10 sets, daily range): BP systolic 120–135; BP diastolic 60–69; PULSE 81–110; RESP 16–24; TEMP 36.2–36.6; O2SAT 89–96
--- NOTE | 2023-07-30 00:42 | PC.NURSE ---
Continous fluids held per MD d/t respiratory status/CXR findings
[2023-07-30] MEDS: Heparin Sodium,Porcine 5,000 UNIT/ML VIAL 5000 UNIT SUBCUT (02:01)
[2023-07-30] MEDS: Morphine Sulfate 4 MG/ML CARTRIDGE 3 MG IVPUSH (03:20)
[2023-07-30 06:04] LABS: MANUAL DIFF FLAG NO
[2023-07-30 06:17] LABS: Basophils Absolute Auto 0.1 X10*3/uL (0.0-0.2); Basophils Percent Auto 0.4 % (0-2); Eosinophils Absolute Auto 0.3 X10*3/uL (0.0-0.4); Eosinophils Percent Auto 1.8 % (0-4); Hematocrit 33.1 % (37.0-47.0); Hemoglobin 10.1 g/dl (12.0-16.0); Imm Gran Abs Auto 0.11 X10*3/uL (0.00-0.03); Imm Gran Pct Auto 0.7 % (0.0-0.4); Lymphocytes Absolute Auto 0.3 X10*3/uL (1.2-4.9); Lymphocytes Percent Auto 2.1 % (20-40); Mean Corpuscular HGB Conc 30.5 g/dl (31.0-35.0); Mean Corpuscular Hemoglobin 27.2 pg (27.0-33.0); Mean Platelet Volume 10.4 fL (9.4-12.3); Neutrophils Absolute Auto 14.5 x10*3/uL (2.0-8.3); Platelet Count 484 X10*3/uL (160-400); Red Blood Count 3.72 X10*6/uL (4.20-5.50); Red Cell Distribution Width 16.4 % (11.0-16.0); White Blood Count 16.3 X10*3/uL (4.8-10.8)
[2023-07-30 06:34] LABS: Alanine Aminotransferase 17 U/L (0-31); Albumin Level 2.7 g/dL (3.5-5.0); Alkaline Phosphatase 122 U/L (39-117); Anion Gap 19 (12-20); Aspartate Amino Transferase 32 U/L (5-31); Bilirubin Total 0.4 mg/dL (0.0-1.0); Blood Urea Nitrogen 31 mg/dL (9-16); Calcium 8.3 mg/dL (8.4-10.2); Carbon Dioxide 22 mmol/L (22-29); Chloride 101 mmol/L (96-108); Creatinine Clr Calc Pharmacy 55.8; Estimated Glomerular Filt Rate > 60; Glucose Random 109 mg/dL (60-115); Magnesium 2.6 mg/dL (1.6-2.6); Potassium 3.8 mmol/L (3.3-5.1); Sodium 138 mmol/L (135-145); Total Protein 5.8 g/dL (6.5-8.0)
--- NOTE | 2023-07-30 07:28 | PC.NURSE ---
Around 0315 pt complains of dyspnea. desat to 82% on 4L nc. increased to 8L with recovery to 90%. coarse, labored respirations. unable to clear secretions. MD, charge nurse, RT at bedside. Pt placed on HFNC 65% of 45L. Morphine 3 mg administered per MD order with effect. Pt stable >92%. Plan of care ongoing. Call bates in reach.
[2023-07-30] MEDS: Megestrol Acetate 400 MG/10 ML ORAL.SUSP PO (08:43)
[2023-07-30] MEDS: Magnesium Oxide 400 MG TABLET PO ×2 (08:43→16:23)
[2023-07-30] MEDS: Cyanocobalamin (Vitamin B-12) 1,000 MCG TABLET 1000 MCG PO (08:43)
[2023-07-30] MEDS: Cholecalciferol (Vitamin D3) 25 MCG TABLET 50 MCG PO ×2 (08:43→20:12)
[2023-07-30] MEDS: oxyCODONE HCl Immed Release 5 MG TABLET PO ×2 (08:44→20:13)
[2023-07-30] MEDS: 0.9 % Sodium Chloride Flush 3 ML SYRINGE IVFLUSH ×3 (08:45→20:18)
[2023-07-30] MEDS: Folic Acid 1 MG TABLET PO (08:45)
--- NOTE | 2023-07-30 09:40 | PM.CNPUL ---
History of Present Illness History of Present Illness Consult date: 07/30/23 Chief complaint: Torsades Narrative: This is an inpatient pulmonary consultation. The patient is a 72 year woman with lung cancer with effusion status post catheter. She had been receiving chemotherapy but stopped. The patient was having issues with weakness and I believe she had a fall. Subsequently after that she has been having more shortness of breath. She was brought to the ER. Was found to have torsades de Pointe. She was given magnesium. In addition to that she had a chest x-ray demonstrating complete opacity white out of her right hemithorax. She does have a mediastinal shift to the ipsilateral side. Appears to be possibility of airway obstruction and collapse. Family thinks he thinks is related to the PleurX catheter. He has not draining. The mat showing the last time it was drained however. To better assess that she will need a CT scan of the chest. She is currently on high-flow but we should be able to get her off non-rebreather to do the CT scan. Depending on the findings we can either intervene on the fluid or we can talk about the severity disease is indeed if nursing obstruction. She does have some wheezing on examination so therefore was started on some steroids with the hope that it can decrease some of the swelling of the airways and up in the month. The patient also had an MRI demonstrating a masslike density in her liver which appears to be consistent with metastatic disease again stage IV lung cancer was already diagnosed prior to her arrival. Review of Systems Review of Systems: Denies any recent fever chills or decrease in appetite respiratory denies any shortness of breath or cough cardiovascular denied chest pain gastrointestinal denies any dysphagia abdominal pain nausea vomiting or diarrhea genitourinary denies any dysuria frequency or hematuria musculoskeletal denies any joint pain or swelling neuropsych denies any weakness or seizures all other systems reviewed are negative Neurologic: Denies Sensory deficit (Neuro) [facility] Past Medical History Medical History Tubular adenoma Gastritis BBB (bundle branch block) DVT (deep venous thrombosis) Anemia Multifactorial dementia Lacunar infarction Osteoporosis HTN (hypertension) COPD (chronic obstructive pulmonary disease) Family History Family History Other No family history of coronary artery disease Surgical History Surgical History History of carotid endarterectomy History of esophagogastroduodenoscopy (EGD) Hx of colonoscopy No pertinent past surgical history Social History Social History Household Members: None Housing: Apartment Housing Other:: [place] Do you presently have visiting nurse or other home services: No Alcohol intake: current Alcohol intake frequency: does not drink Patient Tobacco Use Status: Former Tobacco user Quit Date: 2 years ago Cigarette Packs Per Day: 1 Years Smoked: 54 Smoked in Last 30 Days: No e-Cigarette/Vaping Use: Former Use Second Hand Smoke Exposure: No Use of substances other than those prescribed or required for medical reasons: No Currently Displaying Signs/Symptoms of Drug Intoxication Withdrawal: No Have you been hit, kicked, punched, or otherwise hurt by someone within the past year? If so, by whom?: No Do you feel safe in your current relationship?: No Current Relationship Is there a partner from a previous relationship who is making you feel unsafe now?: No Are you made to feel afraid or neglected: No Advance Directives: Yes Advance Directives on File: Yes Advance Directives Date on File: 04/09/21 Do you have thoughts of harming others: None Do you have a plan to hurt others: No Plan Recently lost weight without trying: No Eating poorly because of decreased appetite: No Nutrition Risks: On aspiration precautions Patient : No : No Poor oral hygiene: No service: No Current occupational status: retired Meds Allergies Allergy/AdvReac Type Severity Reaction Status Date / Time milk [MILK] Allergy Intermediate DIARRHEA Verified 06/23/23 10:28 Active Medications: Current Medications Acetaminophen (Acetaminophen 325 Mg Tablet) 650 mg PO Q6H PRN PRN Reason: Pain, Mild (Pain Scale 1-3) Albuterol Sulfate (Albuterol Sulfate 90 Mcg 8 Gm Inhaler) 2 puff INHALE Q4H PRN PRN Reason: wheezing Albuterol Sulfate (Albuterol Sulfate (0.083%) 2.5 Mg/3 Ml Vial.Neb) 2.5 mg INHALE Q6H PRN PRN Reason: wheezing Albuterol/Ipratropium (Albuterol/Iprat 2.5/0.5mg 3 Ml Ampul.Neb) 3 ml INHALE Q4H PRN PRN Reason: wheezing Clopidogrel Bisulfate (Clopidogrel Bisulfate 75 Mg Tablet) 75 mg PO DAILY [facility] Last Admin: 07/30/23 08:50 Dose: Not Given Cyanocobalamin (Cyanocobalamin (Vitamin B-12) 1,000 Mcg Tablet) 1,000 mcg PO DAILY [facility] Last Admin: 07/30/23 08:43 Dose: 1,000 mcg Folic Acid (Folic Acid 1 Mg Tablet) 1 mg PO DAILY [facility] Last Admin: 07/30/23 08:45 Dose: 1 mg Heparin Sodium (Porcine) (Heparin Sodium,Porcine 5,000 Unit/Ml Vial) 5,000 unit SUBCUT Q12H [facility] Last Admin: 07/30/23 02:01 Dose: 5,000 unit Hydromorphone HCl (Hydromorphone Hcl 0.5 Mg/0.5 Ml Syringe) 0.5 mg IVPUSH Q4H PRN; Protocol PRN Reason: Pain, Moderate(Pain Scale 4-6) Last Admin: 07/29/23 17:02 Dose: 0.5 mg Sodium Chloride (Ns) 1,000 mls @ 100 mls/hr IVCONT .Q10H [facility] Last Admin: 07/30/23 00:42 Dose: Not Given Lorazepam (Lorazepam 0.5 Mg Tablet) 0.5 mg PO BEDTIME PRN PRN Reason: Insomnia Magnesium Oxide (Magnesium [facility]ide 400 Mg Tablet) [facility] Last Admin: 07/30/23 08:43 Dose: 400 mg Megestrol Acetate (Megestrol Acetate 400 Mg/10 Ml Oral.Susp) 400 mg PO DAILY [facility] Last Admin: 07/30/23 08:43 Dose: 400 mg Methylprednisolone Sodium Succinate (Methylprednisolone Sod Succ 40 Mg/Ml Vial) 40 mg IVPUSH Q12H [facility] Oxycodone HCl (Oxycodone Hcl Immed Release 5 Mg Tablet) 5 mg PO BID [facility] Last Admin: 07/30/23 08:44 Dose: 5 mg Oxycodone HCl (Oxycodone Hcl Immed Release 5 Mg Tablet) 5 mg PO DAILY@1300 PRN PRN Reason: Breakthrough Pain Sodium Chloride (0.9 % Sodium Chloride Flush 3 Ml Syringe) 3 ml IVFLUSH QSHIFT [facility] Last Admin: 07/30/23 08:45 Dose: 3 ml Tiotropium [place] (Tiotropium [place] 2.5 Mcg 1 Puff/2.5 Mcg Mist.Inhal) 1 puff INHALE RDGUSTAVOY [facility] Last Admin: 07/30/23 08:01 Dose: Not Given Vitamin D (Cholecalciferol (Vitamin D3) 25 Mcg Tablet) 50 mcg PO BID [facility] Last Admin: 07/30/23 08:43 Dose: 50 mcg Home Medications ?Medication ?Instructions ?Recorded ?Confirmed ?Last Taken ?Type alendronate 70 mg tablet 70 mg PO SA@0900 04/09/21 07/29/23 07/25/23 History fluticasone furoate 200 1 puff PO DAILY 04/09/21 07/29/23 07/29/23 History mcg-vilanterol 25 mcg/dose inhalation powder (Breo Ellipta) umeclidinium 62.5 mcg/actuation 1 puff PO DAILY 04/09/21 07/29/23 07/29/23 History blister powder for inhalation (Incruse Ellipta) amlodipine 10 mg tablet 1 tab PO DAILY 01/03/22 07/29/23 07/29/23 History clopidogrel 75 mg tablet 1 tab PO DAILY 01/03/22 07/29/23 07/29/23 History lisinopril 40 mg tablet 40 mg PO DAILY 08/04/22 07/29/23 07/29/23 History atorvastatin 40 mg tablet 80 mg PO BEDTIME 09/03/22 07/29/23 07/28/23 History Bifidobacterium infantis 4 mg 4 mg PO QAM 07/29/23 07/29/23 07/28/23 History capsule (Align) albuterol sulfate 90 mcg/actuation 2 puff inhalation Q4H PRN wheezing 07/29/23 07/29/23 Unknown History aerosol inhaler cholecalciferol (vitamin D3) 50 50 mcg PO BID 07/29/23 07/29/23 07/29/23 History mcg (2,000 unit) capsule ondansetron 8 mg disintegrating 8 mg PO Q8H PRN Nausea And Vomiting 07/29/23 07/29/23 Unknown History tablet oxycodone 5 mg tablet 5 mg PO BID Breakthrough Pain, 07/29/23 07/29/23 07/29/23 08:00 History Severe oxycodone 5 mg tablet 5 mg PO DAILY@1300 PRN 07/29/23 07/29/23 Unknown History Breakthrough Pain Physical Exam Vital Signs: Vital Signs: Last Vital Signs Temp 97.4 F 07/30/23 08:00 Pulse 98 07/30/23 08:00 Resp 16 07/30/23 08:00 BP 135/64 07/30/23 08:00 Pulse Ox 96 07/30/23 08:00 O2 Del Method High Flow Nasal C annula 07/30/23 08:00 O2 Flow Rate 32.1 07/30/23 08:00 FiO2 55.7 07/30/23 08:00 Oxygen Flow Rate 4 07/29/23 11:47 BMI result Body Mass Index 24.2 Const: Other: elderly female appearing weak General: comfortable Orientation/consciousness: oriented to person HEENT: Head: Yes normal to inspection Ears: external ears normal General nose exam: Normal external nose present Mouth: Normal oral and palatal mucosa present and oropharynx normal Throat: Yes posterior oropharynx normal Eyes: General: appearance normal, both eyes and all related structures Neck: Other: supple Neck: Yes normal visual inspection Chest: Chest palpation & inspection: normal inspection of the chest Resp: Other: Decreased BS oon right, rhonchi on left Effort & Inspection: normal respiratory effort Auscultation: wheezes and diminished lung sounds Cardio: Jugular venous distension: no JVD Rate: regular rate Rhythm: regular rhythm Heart sounds: S1 normal heart sound present and S2 normal heart sound present GI: Inspection: Yes normal to inspection Palpation (GI): Soft to palpation, nontender and No hepatosplenomegaly present Auscultation: normal bowel sounds : General: Yes no CVA tenderness Back/Spine/Pelvis: Back: no CVA tenderness Skin: General skin exam: no rashes or lesions noted Neuro: General: oriented to person Cranial nerves: Yes CN's II-XII intact bilaterally Motor exam (neuro): 5/5 motor strength present throughout Sensory Exam: No Sensory deficit (Neuro) Extrem: General: Yes normal to inspection Psych: Other: oriented to person Results Laboratory Findings 07/30/23 05:14 07/30/23 05:14 Abnormal lab findings: Abnormal Labs 07/29/23 07/30/23 10:50 05:14 WBC 15.5 H 16.3 H RBC 3.76 L 3.72 L Hgb 10.4 L 10.1 L Hct 33.0 L 33.1 L MCHC 30.5 L RDW 16.4 H 16.4 H Plt Count 434 H 484 H Immature Gran % (Auto) 0.6 H 0.7 H Neut % (Auto) 85.9 H 89.0 H Lymph % (Auto) 2.8 L 2.1 L Lymph # (Auto) 0.4 L 0.3 L Eos # (Auto) 0.5 H Abs Immat Gran (auto) 0.10 H 0.11 H Absolute Neuts (auto) 13.3 H 14.5 H BUN 38 H 31 H Calcium 8.0 L 8.3 L AST 32 H Alkaline Phosphatase 122 H Total Protein 5.8 L Albumin 2.7 L Assessment and Plan (1) Pleural effusion: Status: Acute (2) Lung cancer: Qualifiers: Laterality: right Lung location: unspecified part of lung Qualified Code(s): C34.91 - Malignant neoplasm of unspecified part of right bronchus or lung Status: Acute (3) Ventricular tachycardia: Status: Acute (4) Recurrent pleural effusion on right: Status: Acute (5) COPD (chronic obstructive pulmonary disease): Qualifiers: COPD type: emphysema Emphysema type: unspecified Qualified Code(s): J43.9 - Emphysema, unspecified Status: Acute Plan CT chest now to assess pleural effusion and lung collapse pleurx catheter start solumedrol goals of care with stage 4 lung cancer. Carries a very poor prognosis Procedures Date of Service Date of Service: 07/30/23
--- NOTE | 2023-07-30 09:55 | MHC.CM.PN ---
IMM 07/30/23, Pt lives in apt. alone, she has a manager of housekeeping 1 hour a day, a MACHINE TAPER, but they have not been there in a while, and a nurse that visits once a week. She has 4 children that are involved in caring for her and are considering her going to live with them if they can care for her. DC plan is for pt to go on Hospice, referral to [facility] in. HCP on file, names her son, Néstor, zachary. CM will follow and assist with DC plan.
--- NOTE | 2023-07-30 11:23 | MHC.CM.PN ---
Pt and family have met with [facility], and have agreed to their services and would like pt to go to a SNF, first choice is [facility], referrals to be submitted today.
[2023-07-30] MEDS: methylPREDNISolone Sod Succ 40 MG/ML VIAL IVPUSH ×2 (11:24→20:13)
--- NOTE | 2023-07-30 11:44 | P.PNIM_ITS ---
Subjective Subjective Date of Service: 07/30/23 Interval History: Seen and examined this morning Follow-up for respiratory failure Overnight patient became more short of breath and was placed on high-flow oxygen This morning patient appears somewhat confused of what appears to be breathing comfortably denies shortness of breath at this time Review of Systems Review of Systems: Yes all other systems are reviewed and are negative Cardiovascular Cardiovascular: Denies chest pain Respiratory Respiratory: Denies cough Gastrointestinal Gastrointestinal: Denies abdominal pain Neurologic Neurologic: Reports confusion Psychiatric Psychiatric: Reports confusion Physical Exam 2 Vital Signs: Vital Signs: Last Vital Signs Temp 97.4 F 07/30/23 08:00 Pulse 98 07/30/23 08:00 Resp 16 07/30/23 11:28 BP 135/64 07/30/23 08:00 Pulse Ox 96 07/30/23 08:00 O2 Del Method High Flow Nasal C annula 07/30/23 08:00 O2 Flow Rate 32.1 07/30/23 08:00 FiO2 55.7 07/30/23 08:00 Oxygen Flow Rate 4 07/29/23 11:47 BMI result Body Mass Index 24.2 Const: General: comfortable, alert, awake and confusion Nutritional Appearance: average body habitus Orientation/consciousness: confusion Resp: Other: appears comfortable, diminished lung sounds right side; expiratory wheezing left Effort & Inspection: no respiratory distress and no use of accessory muscles Cardio: Rate: regular rate GI: Inspection: No distended Palpation (GI): Soft to palpation and nontender Neuro: Other: grossly nonfocal General: moves all extremities and confusion Extrem: Other: 3+ pitting edema Objective Data Active Medications Acetaminophen (Acetaminophen 325 Mg Tablet) 650 mg PO Q6H PRN PRN Reason: Pain, Mild (Pain Scale 1-3) Albuterol Sulfate (Albuterol Sulfate 90 Mcg 8 Gm Inhaler) 2 puff INHALE Q4H PRN PRN Reason: wheezing Albuterol Sulfate (Albuterol Sulfate (0.083%) 2.5 Mg/3 Ml Vial.Neb) 2.5 mg INHALE Q6H PRN PRN Reason: wheezing Albuterol/Ipratropium (Albuterol/Iprat 2.5/0.5mg 3 Ml Ampul.Neb) 3 ml INHALE Q4H PRN PRN Reason: wheezing Clopidogrel Bisulfate (Clopidogrel Bisulfate 75 Mg Tablet) 75 mg PO DAILY [facility] Last Admin: 07/30/23 08:50 Dose: Not Given Documented By: FRANCISCO JAVIER Non-Admin Reason: Physician Held Med Cyanocobalamin (Cyanocobalamin (Vitamin B-12) 1,000 Mcg Tablet) 1,000 mcg PO DAILY [facility] Last Admin: 07/30/23 08:43 Dose: 1,000 mcg Documented By: FRANCISCO JAVIER Folic Acid (Folic Acid 1 Mg Tablet) 1 mg PO DAILY [facility] Last Admin: 07/30/23 08:45 Dose: 1 mg Documented By: FRANCISCO JAVIER Heparin Sodium (Porcine) (Heparin Sodium,Porcine 5,000 Unit/Ml Vial) 5,000 unit SUBCUT Q12H [facility] Last Admin: 07/30/23 02:01 Dose: 5,000 unit Documented By: JEANETTE Hydromorphone HCl (Hydromorphone Hcl 0.5 Mg/0.5 Ml Syringe) 0.5 mg IVPUSH Q4H PRN; Protocol PRN Reason: Pain, Moderate(Pain Scale 4-6) Last Admin: 07/29/23 17:02 Dose: 0.5 mg Documented By: PATRICIA Lorazepam (Lorazepam 0.5 Mg Tablet) 0.5 mg PO BEDTIME PRN PRN Reason: Insomnia Magnesium Oxide (Magnesium Oxide 400 Mg Tablet) 400 mg PO BIDPC [facility] Last Admin: 07/30/23 08:43 Dose: 400 mg Documented By: FRANCISCO JAVIER Megestrol Acetate (Megestrol Acetate 400 Mg/10 Ml Oral.Susp) 400 mg PO DAILY [facility] Last Admin: 07/30/23 08:43 Dose: 400 mg Documented By: FRANCISCO JAVIER Methylprednisolone Sodium Succinate (Methylprednisolone Sod Succ 40 Mg/Ml Vial) 40 mg IVPUSH Q12H [facility] Last Admin: 07/30/23 11:24 Dose: 40 mg Documented By: PINEDA Oxycodone HCl (Oxycodone Hcl Immed Release 5 Mg Tablet) 5 mg PO BID [facility] Last Admin: 07/30/23 08:44 Dose: 5 mg Documented By: FRANCISCO JAVIER Oxycodone HCl (Oxycodone Hcl Immed Release 5 Mg Tablet) 5 mg PO DAILY@1300 PRN PRN Reason: Breakthrough Pain Sodium Chloride (0.9 % Sodium Chloride Flush 3 Ml Syringe) 3 ml IVFLUSH QSHIFT [facility] Last Admin: 07/30/23 08:45 Dose: 3 ml Documented By: FRANCISCO JAVIER Tiotropium [place] (Tiotropium [place] 2.5 Mcg 1 Puff/2.5 Mcg Mist.Inhal) 1 puff INHALE RDAILY [facility] Last Admin: 07/30/23 08:01 Dose: Not Given Documented By: JAROD Non-Admin Reason: Med Not Available Vitamin D (Cholecalciferol (Vitamin D3) 25 Mcg Tablet) 50 mcg PO BID [facility] Last Admin: 07/30/23 08:43 Dose: 50 mcg Documented By: FRANCISCO JAVIER Labs 07/30/23 05:14 07/30/23 05:14 Labs: Laboratory Results - last 24 hr 07/29/23 07/30/23 14:39 05:14 MCV 89.0 MCH 27.2 MCHC 30.5 L RDW 16.4 H Plt Count 484 H MPV 10.4 Immature Gran % (Auto) 0.7 H Neut % (Auto) 89.0 H Lymph % (Auto) 2.1 L [place] % (Auto) 6.0 Eos % (Auto) 1.8 Baso % (Auto) 0.4 Lymph # (Auto) 0.3 L [place] # (Auto) 1.0 Eos # (Auto) 0.3 Baso # (Auto) 0.1 Abs Immat Gran (auto) 0.11 H Absolute Neuts (auto) 14.5 H Absolute Nucleated RBC 0.000 Nucleated RBC % (auto) 0.0 Anion Gap 19 Estim Creat Clear Calc 55.8 Estimated GFR > 60 Random Glucose 109 Calcium 8.3 L Magnesium 2.6 Total Bilirubin 0.4 AST 32 H ALT 17 Alkaline Phosphatase 122 H Troponin I High Sens 6.4 Total Protein 5.8 L Albumin 2.7 L Assessment and Plan (1) Pleural effusion: Status: Acute (2) Lung cancer: Status: Acute (3) Respiratory failure: Status: Acute Plan 72-year-old woman with a history of lung cancer currently on chemotherapy admitted with 2 episodes of torsades while in the ER. Due to patient's history of metastatic lung adenocarcinoma plan is for hospice consultation. Torsades 2 episodes in the ED, mag 1.5 Aggressive magnesium replacement with IV and p.o. Monitor on telemetry Avoid medications that can induce torsades/arrhythmia Metastatic lung adenocarcinoma with bone and soft tissue metastasis [place] [facility] [place]. 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 She will require close monitoring on telemetry and specialty consultation. Due to age and other comorbidities this can not be done at a lesser acute setting due to high risk for decompensation. Quality Stroke Does the patient have a stroke diagnosis?: No VTE Prior VTE?: No VTE Risk Level:: Medical - moderate - high VTE Device Contraindication: Treatment Not Indicated VTE Drug Contraindication: N/A - Med Ordered
--- NOTE | 2023-07-30 15:47 | PC.RT ---
Pt titrated down from HFNC and subsequently transitioned to [place] n/c at 6 lpm. RN aware, Dr. Zepeda notified by uvaldo.
--- NOTE | 2023-07-30 18:12 | MHC.SL.SWA ---
Speech Pathologist Impression: Risk of Aspiration Due to: Medically Fragile Reduced Cognition Dysphasia Diet Status: Liquid Consistency and Strategies for Safe Swallow: Liquid Intake Recommendation: Thin Liquid Intake Strategies: Small Sips No Straws Solid Food Consistency: Dietary Recommendations: Chopped/Advanced (NDD3) Additional Modifications to Solid Foods: Patient quickly fatigues with effort of eating, and would benefit from frequent breaks when being fed. Do not attempt if patient is lethargic, not engaged in meal, and monitor for aspiration signs. Add sauces and gravies to food, blend chopped meats with purees. Due to fatigue, mild confusion, patient would benefit from supervision at meals with assistance as needed. Oral Medication Intake: Whole with Liquid Please contact the pharmacy regarding appropriate crushable or liquid drug formulations that are available whenever modified delivery is recommended. Compensatory Strategies and Precautions to be Taken for Safe Swallow: Sitting Upright (90 deg) No Straw Liquids from Cup Small Bites and Sips Alternate Liquids/Solids Rate of Ingestion Change Supervision While Eating and Drinking for Safe Swallow: Total Supervision (1:1) Foods to Avoid: Difficult to chew solids, too large pieces of food. Swallowing Recommended Treatments: Compens. Strategy Educat. Recommendation for Speech: Inpatient Speech Therapy Comment: Patient presents with mild oral pharyngeal dysphagia, with absent swallow trigger and mild issues with oral management of solids, including c/o soreness of gums and throat. Patient quickly fatigues with the effort of eating, which is pertinent aspiration risk. Recommend Chopped/Advanced (NDD3) for ease of mastication, with thin liquids, pills whole with liquid or puree as preferred by patient. Patient would benefit from frequent rest breaks during meal, and supervision given quick fatigue and mild confusion. FINAL FINISHER FORGING DIES notified ALISSA MIRANDA by secure text of recommendations, advised RN in person, and discussed with family members. FINAL FINISHER FORGING DIES will continue to follow. Frequency/Duration: Date Range for Service Req: Timeline to reassess: Concrete Pump Operator Helper Clinican/Clinical Fellow: No Supervisory Statement: I have reviewed and agree with the student/clinical fellow's documentation: N/A Speech Language Pathologist: Esther Alvarado M.A., [facility]-FINAL FINISHER FORGING DIES
[2023-07-31] VITALS (7 sets, daily range): BP systolic 124–149; BP diastolic 63–76; PULSE 63–111; RESP 14–20; TEMP 36.1–37; O2SAT 92–98
[2023-07-31] MEDS: LORazepam 0.5 MG TABLET PO (03:41)
[2023-07-31] MEDS: Tiotropium Bromide 2.5 mcg 1 PUFF/2.5 MCG MIST.INHAL INHALE (07:55)
[2023-07-31] MEDS: Cholecalciferol (Vitamin D3) 25 MCG TABLET 50 MCG PO (08:10)
[2023-07-31] MEDS: oxyCODONE HCl Immed Release 5 MG TABLET PO ×2 (08:10→21:54)
[2023-07-31] MEDS: Folic Acid 1 MG TABLET PO (08:10)
[2023-07-31] MEDS: Cyanocobalamin (Vitamin B-12) 1,000 MCG TABLET 1000 MCG PO (08:10)
[2023-07-31] MEDS: Magnesium Oxide 400 MG TABLET PO ×2 (08:10→15:30)
[2023-07-31] MEDS: Clopidogrel Bisulfate 75 MG TABLET PO (08:10)
[2023-07-31] MEDS: Megestrol Acetate 400 MG/10 ML ORAL.SUSP PO (08:11)
[2023-07-31] MEDS: 0.9 % Sodium Chloride Flush 3 ML SYRINGE IVFLUSH ×3 (08:12→21:57)
[2023-07-31] MEDS: methylPREDNISolone Sod Succ 40 MG/ML VIAL IVPUSH ×2 (08:12→21:57)
--- NOTE | 2023-07-31 12:01 | MHC.SL.SWA ---
Speech Pathologist Impression: Risk of aspiration, oropharyngeal dysphagia Risk of Aspiration Due to: Medically Fragile Reduced Cognition Dysphasia Diet Status: No changes at this time Liquid Consistency and Strategies for Safe Swallow: Liquid Intake Recommendation: Thin Liquid Intake Strategies: Small Sips Solid Food Consistency: Dietary Recommendations: Chopped/Advanced (NDD3) Additional Modifications to Solid Foods: Continue CHOPPED/ADVANCED (NDD3) diet with THIN liquids. Patient should sit upright, take small bites and sips, alternate liquids/solids to clear residue, check oral cavity periodically for clearance. Oral Medication Intake: Whole with Liquid Please contact the pharmacy regarding appropriate crushable or liquid drug formulations that are available whenever modified delivery is recommended. Compensatory Strategies and Precautions to be Taken for Safe Swallow: Sitting Upright (90 deg) Liquids from Cup Small Bites and Sips Alternate Liquids/Solids Rate of Ingestion Change Oral Check Avoid Specific Foods Supervision While Eating and Drinking for Safe Swallow: Total Supervision (1:1) Foods to Avoid: Difficult to chew solids, too large pieces of food. Swallowing Recommended Treatments: Compens. Strategy Educat. Recommendation for Speech: Inpatient Speech Therapy Comment: Patient presents with mild oral pharyngeal dysphagia, with absent swallow trigger and mild issues with oral management of solids, including c/o soreness of gums and throat. Patient quickly fatigues with the effort of eating, which is pertinent aspiration risk. Recommend Chopped/Advanced (NDD3) for ease of mastication, with thin liquids, pills whole with liquid or puree as preferred by patient. Patient would benefit from frequent rest breaks during meal, and supervision given quick fatigue and mild confusion. FORMING MACHINE UPKEEP MECHANIC will continue to follow. Frequency/Duration: Date Range for Service Req: Timeline to reassess: Elementary School Science Teacher Clinican/Clinical Fellow: Yes: Kay Cunningham Supervisory Statement: I have reviewed and agree with the student/clinical fellow's documentation: Yes Speech Language Pathologist: Gillian Harris M.A., CCC-FORMING MACHINE UPKEEP MECHANIC
[2023-07-31] MEDS: Heparin Sodium,Porcine 5,000 UNIT/ML VIAL 5000 UNIT SUBCUT (14:31)
--- NOTE | 2023-07-31 15:06 | HO.PM.IMPN ---
Subjective Subjective Date of Service: 07/31/23 Interval History: Seen and examined this morning Follow-up for respiratory failure Awake alert and denies shortness of breath at this time Review of Systems Review of Systems: Yes all other systems are reviewed and are negative Constitutional Constitutional: Denies fever(s) Cardiovascular Cardiovascular: Denies chest pain Gastrointestinal Gastrointestinal: Denies abdominal pain Physical Exam Vital Signs: Vital Signs: Last Vital Signs Temp 97.0 F 07/31/23 11:43 Pulse 105 H 07/31/23 11:43 Resp 16 07/31/23 11:43 BP 140/65 H 07/31/23 11:43 Pulse Ox 92 07/31/23 11:43 O2 Del Method Nasal Cannula 07/31/23 11:43 O2 Flow Rate 6 07/31/23 11:43 FiO2 50 07/30/23 11:45 Oxygen Flow Rate 4 07/29/23 11:47 BMI result Body Mass Index 24.2 Const: General: comfortable, alert and awake Nutritional Appearance: average body habitus Resp: Other: appears comfortable, diminished lung sounds right side; expiratory wheezing left Effort & Inspection: no respiratory distress and no use of accessory muscles Cardio: Rate: regular rate GI: Inspection: No distended Palpation (GI): Soft to palpation and nontender Neuro: Other: grossly nonfocal General: moves all extremities Extrem: Other: 3+ pitting edema Objective Data Active Medications Acetaminophen (Acetaminophen 325 Mg Tablet) 650 mg PO Q6H PRN PRN Reason: Pain, Mild (Pain Scale 1-3) Albuterol Sulfate (Albuterol Sulfate 90 Mcg 8 Gm Inhaler) 2 puff INHALE Q4H PRN PRN Reason: wheezing Albuterol Sulfate (Albuterol Sulfate (0.083%) 2.5 Mg/3 Ml Vial.Neb) 2.5 mg INHALE Q6H PRN PRN Reason: wheezing Albuterol/Ipratropium (Albuterol/Iprat 2.5/0.5mg 3 Ml Ampul.Neb) 3 ml INHALE Q4H PRN PRN Reason: wheezing Clopidogrel Bisulfate (Clopidogrel Bisulfate 75 Mg Tablet) 75 mg PO DAILY [facility] Last Admin: 07/31/23 08:10 Dose: 75 mg Documented By: BECCA Cyanocobalamin (Cyanocobalamin (Vitamin B-12) 1,000 Mcg Tablet) 1,000 mcg PO DAILY [facility] Last Admin: 07/31/23 08:10 Dose: 1,000 mcg Documented By: BECCA Folic Acid (Folic Acid 1 Mg Tablet) 1 mg PO DAILY [facility] Last Admin: 07/31/23 08:10 Dose: 1 mg Documented By: BECCA Heparin Sodium (Porcine) (Heparin Sodium,Porcine 5,000 Unit/Ml Vial) 5,000 unit SUBCUT Q12H [facility] Last Admin: 07/31/23 14:31 Dose: 5,000 unit Documented By: BECCA Hydromorphone HCl (Hydromorphone Hcl 0.5 Mg/0.5 Ml Syringe) 0.5 mg IVPUSH Q4H PRN; Protocol PRN Reason: Pain, Moderate(Pain Scale 4-6) Last Admin: 07/29/23 17:02 Dose: 0.5 mg Documented By: PATRICIA Lorazepam (Lorazepam 0.5 Mg Tablet) 0.5 mg PO BEDTIME PRN PRN Reason: Insomnia Last Admin: 07/31/23 03:41 Dose: 0.5 mg Documented By: BECCA Magnesium Oxide (Magnesium Oxide 400 Mg Tablet) 400 mg PO BIDPC [facility] Last Admin: 07/31/23 08:10 Dose: 400 mg Documented By: BECCA Megestrol Acetate (Megestrol Acetate 400 Mg/10 Ml Oral.Susp) 400 mg PO DAILY [facility] Last Admin: 07/31/23 08:11 Dose: 400 mg Documented By: BECCA Methylprednisolone Sodium Succinate (Methylprednisolone Sod Succ 40 Mg/Ml Vial) 40 mg IVPUSH Q12H [facility] Last Admin: 07/31/23 08:12 Dose: 40 mg Documented By: BECCA Oxycodone HCl (Oxycodone Hcl Immed Release 5 Mg Tablet) 5 mg PO BID [facility] Last Admin: 07/31/23 08:10 Dose: 5 mg Documented By: BECCA Oxycodone HCl (Oxycodone Hcl Immed Release 5 Mg Tablet) 5 mg PO DAILY@1300 PRN PRN Reason: Breakthrough Pain Sodium Chloride (0.9 % Sodium Chloride Flush 3 Ml Syringe) 3 ml IVFLUSH QSHIFT [facility] Last Admin: 07/31/23 08:12 Dose: 3 ml Documented By: BECCA Tiotropium [place] (Tiotropium [place] 2.5 Mcg 1 Puff/2.5 Mcg Mist.Inhal) 1 puff INHALE RDAILY [facility] Last Admin: 07/31/23 07:55 Dose: 1 puff Documented By: JAROD Vitamin D (Cholecalciferol (Vitamin D3) 25 Mcg Tablet) 50 mcg PO BID [facility] Last Admin: 07/31/23 08:10 Dose: 50 mcg Documented By: BECCA Labs 07/30/23 05:14 07/30/23 05:14 Assessment and Plan (1) Respiratory failure: Status: Acute (2) Pleural effusion: Status: Acute (3) Lung cancer: Status: Acute Plan 72-year-old woman with a history of lung cancer currently on chemotherapy admitted with 2 episodes of torsades while in the ER. Due to patient's history of metastatic lung adenocarcinoma plan is for hospice consultation. Metastatic lung adenocarcinoma with bone and soft tissue metastasis [place] [facility] [place] Dr. [place] undergoing palliative chemotherapy treatments but have recently been stopped Has PleurX catheter secondary to recurrent malignant effusions seen by pulm, chest CT ordered showing occlusion of the right mainstem bronchus, mucus plugging, no aeration of the right lung, moderate loculated right pleural effusion, worsening of hepatic metastatic disease weaned off of high flow; does not want bronch/procedures - plan to go to SNF on hospice; bed search in place Torsades 2 episodes in the ED, mag 1.5 s/p replacement Avoid medications that can induce torsades/arrhythmia plan for hospice as above SANTA on CKD Likely secondary to dehydration resolved with IVF COPD was started on IV steroids, Hypertension Low BP Hold antihypertensives for now Mental health Lorazepam as needed for anxiety DVT prophylaxis with heparin DNR/DNI Requires ongoing inpatient stay for pain management Quality Stroke Does the patient have a stroke diagnosis?: No VTE Prior VTE?: No VTE Risk Level:: Medical - moderate - high VTE Device Contraindication: Treatment Not Indicated VTE Drug Contraindication: N/A - Med Ordered
[2023-08-01] MEDS: Heparin Sodium,Porcine 5,000 UNIT/ML VIAL 5000 UNIT SUBCUT ×2 (02:35→14:04)
[2023-08-01 03:09] VITALS: BP 148/66; PULSE 111; RESP 22; TEMP 37.1; O2SAT 93
[2023-08-01 07:51] VITALS: BP 140/66; PULSE 97; RESP 20; TEMP 36.4; O2SAT 97
[2023-08-01] MEDS: Tiotropium Bromide 2.5 mcg 1 PUFF/2.5 MCG MIST.INHAL INHALE (07:54)
[2023-08-01] MEDS: methylPREDNISolone Sod Succ 40 MG/ML VIAL IVPUSH ×2 (08:05→21:42)
[2023-08-01] MEDS: Megestrol Acetate 400 MG/10 ML ORAL.SUSP PO (08:05)
[2023-08-01] MEDS: oxyCODONE HCl Immed Release 5 MG TABLET PO ×3 (08:05→19:00)
[2023-08-01] MEDS: Clopidogrel Bisulfate 75 MG TABLET PO (08:05)
[2023-08-01] MEDS: 0.9 % Sodium Chloride Flush 3 ML SYRINGE IVFLUSH ×3 (08:06→21:42)
[2023-08-01] MEDS: Magnesium Oxide 400 MG TABLET PO ×2 (08:06→17:59)
[2023-08-01 08:41] VITALS: PULSE 97; RESP 20; O2SAT 76
--- NOTE | 2023-08-01 08:44 | MHC.CM.PN ---
PT HAS ACCEPTED A BED AT [facility] [place], PT WILL DC THERE TODAY WITH [facility] PENDING INSURANCE AUTH
[2023-08-01 11:15] VITALS: BP 146/63; PULSE 71; RESP 20; TEMP 36.6; O2SAT 94
--- NOTE | 2023-08-01 12:51 | PM.DS ---
DS: Providers Provider Date of Service: 08/01/23 Date of admission: 07/29/23 14:11 Date of discharge: 08/01/23 Primary care physician: Lyn French MD Consults: 07/29/23 16:17 Consult to Pulmonology Routine Consulting Provider: [facility] [place] Pul[facility]ology Services Reason for consultation: lung collapse Attending physician on discharge: Jannet Bravo Discharging clinician: Angélica Benton DS: Diagnosis Discharge Diagnosis (1) Respiratory failure: Status: Acute (2) Pleural effusion: Status: Acute (3) Lung cancer: Status: Acute DS: Summary Hospital Course Hospital Course: From H&P on the day of admission 72 year old women presenting with weakness with hx of lung cancer on chemotherapy. Patient was noted to have 2 episodes of what appears to be torsades. She received IV and oral magnesium. Cardiology is aware. Stable vital signs, labs within acceptable limits Patient will be add admitted for further management and treatment of acute torsades and SANTA. Metastatic lung adenocarcinoma with bone and soft tissue metastasis Follows [facility] [place] Oncology, Dr. Gonzales. undergoing palliative chemotherapy treatments but have recently been stopped. Has PleurX catheter secondary to recurrent malignant effusions typically drained every Thursday. seen by pulmonary, chest CT ordered showing occlusion of the right mainstem bronchus, mucus plugging, no aeration of the right lung, moderate loculated right pleural effusion, worsening of hepatic metastatic disease was able to be weaned off of high flow; does not want bronch/procedures - Discussed with pulmonary, patient and family plan to go to SNF and transition to hospice. All non-essential medications stopped. titrate pain medication as needed. Torsades. no further episodes SANTA on CKD. resolved. Physical Exam Vital Signs: Vital Signs: Last Vital Signs Temp 97.9 F 08/01/23 11:15 Pulse 71 08/01/23 11:15 Resp 20 08/01/23 11:15 BP 146/63 H 08/01/23 11:15 Pulse Ox 94 08/01/23 11:15 O2 Del Method Nasal Cannula 08/01/23 11:15 O2 Flow Rate 4 08/01/23 11:15 FiO2 50 07/30/23 11:45 Oxygen Flow Rate 4 07/29/23 11:47 BMI result Body Mass Index 24.2 DS: Data Data Completed and Pending Completed studies during hospitalization [Text1]: Procedures Drainage of Right Pleural Cavity with Drainage Device, Percutaneous Approach (05/27/23) Introduction of Other Anti-infective into Pleural Cavity, Percutaneous Approach (05/27/23) Discharge Plan Discharge Patient Disposition: Xfer [facility] Discharge Diagnosis: Respiratory failure with hypoxia due to worsening of underlying lung cancer Ventricular tachycardia SANTA Referrals: Lyn French MD [Primary Care Provider] - 1 Week Discharge Medications: New morphine concentrate 100 mg/5 mL (20 mg/mL) solution 5 mg PO Q3H PRN (Reason: pain) Qty: 30 0RF Rx Instructions: Partial Fill upon patient request. HOSPICE Continued Incruse Ellipta 62.5 mcg/actuation blister with device 1 puff PO DAILY fluticasone furoate-vilanterol [Breo Ellipta] 200-25 mcg/dose blister with device 1 puff PO DAILY clopidogrel 75 mg tablet 1 tab PO DAILY Hold Instructions: Resume on 11/23/22. Resume Plavix on 11/23/22 amlodipine 10 mg tablet 1 tab PO DAILY lorazepam 0.5 mg Tablet 0.5 mg PO BEDTIME PRN (Reason: Insomnia) Qty: 30 0RF albuterol sulfate 90 mcg/actuation HFA aerosol inhaler 2 puff INHALATION Q4H PRN (Reason: wheezing) ondansetron 8 mg tablet,disintegrating 8 mg PO Q8H PRN (Reason: Nausea And Vomiting) ipratropium-albuterol 0.5 mg-3 mg(2.5 mg base)/3 mL solution for nebulization 3 ml inhalation Q4-6H PRN (Reason: wheezing) 30 Days Qty: 270 6RF Discontinued alendronate 70 mg tablet 70 mg PO SA@0900 atorvastatin 40 mg tablet 80 mg PO BEDTIME cyanocobalamin (vitamin B-12) [Vitamin B-12] 1,000 mcg Tablet 1,000 mcg PO DAILY Qty: 30 3RF folic acid 1 mg Tablet 1 mg PO DAILY Qty: 30 2RF megestrol 400 mg/10 mL (10 mL) Suspension 400 mg PO DAILY Qty: 300 1RF Align 4 mg capsule 4 mg PO QAM cholecalciferol (vitamin D3) 50 mcg (2,000 unit) capsule 50 mcg PO BID oxycodone 5 mg tablet 5 mg PO DAILY@1300 PRN (Reason: Breakthrough Pain) oxycodone 5 mg tablet 5 mg PO BID Rx Instructions: Partial Fill upon patient request. lisinopril 40 mg tablet 40 mg PO DAILY Hold Instructions: Resume on 06/11/23. Activity on Discharge: As tolerated Stand Alone Forms: Patient Portal Discharge page Print Language: Greek Care Plan Goals: see below Health Concerns: metastatic lung cancer Ventricular tachycardia SANTA Plan of Treatment: Transitioned to hospice at SNF. Discontinue all nonessential medications Pain medication as needed for comfort Assessment: see discharge summary
[2023-08-01 15:23] VITALS: BP 149/67; PULSE 97; RESP 20; TEMP 36.5; O2SAT 96
--- NOTE | 2023-08-01 16:51 | HO.PM.IMPN ---
Subjective Subjective Date of Service: 08/01/23 Interval History: seen and examined this morning follow up for lung mass, respiratory failure awaiting bed placement at SNF for hospice feeling ok, breathing non-labored Review of Systems Review of Systems: Yes all other systems are reviewed and are negative Constitutional Constitutional: Denies fever(s) Cardiovascular Cardiovascular: Denies chest pain and Denies dyspnea Respiratory Respiratory: Denies dyspnea Gastrointestinal Gastrointestinal: Denies abdominal pain Physical Exam Vital Signs: Vital Signs: Last Vital Signs Temp 97.7 F 08/01/23 15:23 Pulse 97 08/01/23 15:23 Resp 20 08/01/23 15:23 BP 149/67 H 08/01/23 15:23 Pulse Ox 96 08/01/23 15:23 O2 Del Method Nasal Cannula 08/01/23 15:23 O2 Flow Rate 6 08/01/23 15:23 FiO2 50 07/30/23 11:45 Oxygen Flow Rate 4 07/29/23 11:47 BMI result Body Mass Index 24.2 Const: Other: elderly female lying in bed General: comfortable, alert and awake Nutritional Appearance: average body habitus Resp: Other: appears comfortable, diminished lung sounds right side; expiratory wheezing left Effort & Inspection: no respiratory distress and no use of accessory muscles Cardio: Rate: regular rate GI: Inspection: No distended Palpation (GI): Soft to palpation and nontender Neuro: Other: grossly nonfocal General: moves all extremities Extrem: Other: 3+ pitting edema Objective Data Active Medications Acetaminophen (Acetaminophen 325 Mg Tablet) 650 mg PO Q6H PRN PRN Reason: Pain, Mild (Pain Scale 1-3) Albuterol Sulfate (Albuterol Sulfate 90 Mcg 8 Gm Inhaler) 2 puff INHALE Q4H PRN PRN Reason: wheezing Albuterol Sulfate (Albuterol Sulfate (0.083%) 2.5 Mg/3 Ml Vial.Neb) 2.5 mg INHALE Q6H PRN PRN Reason: wheezing Albuterol/Ipratropium (Albuterol/Iprat 2.5/0.5mg 3 Ml Ampul.Neb) 3 ml INHALE Q4H PRN PRN Reason: wheezing Clopidogrel Bisulfate (Clopidogrel Bisulfate 75 Mg Tablet) 75 mg PO DAILY [facility] Last Admin: 08/01/23 08:05 Dose: 75 mg Documented By: SJ Heparin Sodium (Porcine) (Heparin Sodium,Porcine 5,000 Unit/Ml Vial) 5,000 unit SUBCUT Q12H [facility] Last Admin: 08/01/23 14:04 Dose: 5,000 unit Documented By: SJ Hydromorphone HCl (Hydromorphone Hcl 0.5 Mg/0.5 Ml Syringe) 0.5 mg IVPUSH Q4H PRN; Protocol PRN Reason: Pain, Moderate(Pain Scale 4-6) Last Admin: 07/29/23 17:02 Dose: 0.5 mg Documented By: PATRICIA Lorazepam (Lorazepam 0.5 Mg Tablet) 0.5 mg PO BEDTIME PRN PRN Reason: Insomnia Last Admin: 07/31/23 03:41 Dose: 0.5 mg Documented By: FOSTEKPritesh Magnesium Oxide (Magnesium Oxide 400 Mg Tablet) 400 mg PO BIDPC [facility] Last Admin: 08/01/23 08:06 Dose: 400 mg Documented By: SJ Megestrol Acetate (Megestrol Acetate 400 Mg/10 Ml Oral.Susp) 400 mg PO DAILY [facility] Last Admin: 08/01/23 08:05 Dose: 400 mg Documented By: SJ Methylprednisolone Sodium Succinate (Methylprednisolone Sod Succ 40 Mg/Ml Vial) 40 mg IVPUSH Q12H [facility] Last Admin: 08/01/23 08:05 Dose: 40 mg Documented By: SJ Oxycodone HCl (Oxycodone Hcl Immed Release 5 Mg Tablet) 5 mg PO Q6H [facility] Last Admin: 08/01/23 14:02 Dose: 5 mg Documented By: SJ Sodium Chloride (0.9 % Sodium Chloride Flush 3 Ml Syringe) 3 ml IVFLUSH QSHIFT [facility] Last Admin: 08/01/23 16:49 Dose: 3 ml Documented By: PHIL Tiotropium [place] (Tiotropium [place] 2.5 Mcg 1 Puff/2.5 Mcg Mist.Inhal) 1 puff INHALE RDAILY [facility] Last Admin: 08/01/23 07:54 Dose: 1 puff Documented By: DAVI Labs 07/30/23 05:14 07/30/23 05:14 Assessment and Plan (1) Respiratory failure: Status: Acute (2) Lung cancer: Status: Acute Plan This is a 72-year-old woman with a history of lung cancer currently on chemotherapy admitted with 2 episodes of torsades while in the ER found to have respiratory failure and right lung collapse with plan to transition to hospice, awaiting bed placement at SNF Metastatic lung adenocarcinoma with bone and soft tissue metastasis Follows [facility] [place] Oncology, Dr. Gonzales undergoing palliative chemotherapy treatments but have recently been stopped Has PleurX catheter secondary to recurrent malignant effusions seen by pulm, chest CT ordered showing occlusion of the right mainstem bronchus, mucus plugging, no aeration of the right lung, moderate loculated right pleural effusion, worsening of hepatic metastatic disease weaned off of high flow; does not want bronch/procedures - plan to go to SNF on hospice; bed search in place will stop non-essential meds Torsades 2 episodes in the ED, mag 1.5 s/p mag repacement replacement continue po mag replacement Avoid medications that can induce torsades/arrhythmia plan for hospice as above SANTA on CKD Likely secondary to dehydration resolved with IVF COPD was started on IV steroids, Hypertension Low BP Hold antihypertensives for now Mental health Lorazepam as needed for anxiety DVT prophylaxis with heparin DNR/DNI Requires ongoing inpatient stay for pain management, SNF placement for hospice Quality Stroke Does the patient have a stroke diagnosis?: No VTE Prior VTE?: No VTE Risk Level:: Medical - moderate - high VTE Device Contraindication: Treatment Not Indicated VTE Drug Contraindication: N/A - Med Ordered
--- NOTE | 2023-08-01 18:09 | PC.NURSE ---
This afternoon pt was looking for for her bottom dentures. RN verified pt's belongings list and was documented on 07/29/23 that she came with partial top dentures and partial bottom dentures . Pt doesn't wear partials , she has full to dentures both but the lower one was not seen by her daughter on Thursday. Pt's daughter stated that she is not sure if pt came to the hospital with the lower one. Pt stated that sometimes her bottom dentures are hurting her and she put them under the pillows . Her room 484 was searched bu [employer] and RN and buttom dentures are not found .
[2023-08-01 20:00] VITALS: BP 138/63; PULSE 104; RESP 16; TEMP 36.7; O2SAT 96
[2023-08-02] VITALS (8 sets, daily range): BP systolic 115–158; BP diastolic 57–77; PULSE 50–106; RESP 16–20; TEMP 36.4–36.9; O2SAT 92–96
[2023-08-02] MEDS: oxyCODONE HCl Immed Release 5 MG TABLET PO ×4 (01:49→19:47)
[2023-08-02] MEDS: Heparin Sodium,Porcine 5,000 UNIT/ML VIAL 5000 UNIT SUBCUT (01:50)
[2023-08-02] MEDS: Tiotropium Bromide 2.5 mcg 1 PUFF/2.5 MCG MIST.INHAL INHALE (08:27)
[2023-08-02] MEDS: Megestrol Acetate 400 MG/10 ML ORAL.SUSP PO (09:40)
[2023-08-02] MEDS: 0.9 % Sodium Chloride Flush 3 ML SYRINGE IVFLUSH ×2 (09:41→15:46)
[2023-08-02] MEDS: Clopidogrel Bisulfate 75 MG TABLET PO (09:41)
[2023-08-02] MEDS: Magnesium Oxide 400 MG TABLET PO ×2 (09:41→17:52)
[2023-08-02] MEDS: HYDROmorphone HCl 0.5 MG/0.5 ML SYRINGE IVPUSH (09:45)
--- NOTE | 2023-08-02 13:12 | P.PNIM_ITS ---
Subjective Subjective Date of Service: 08/02/23 Interval History: seen and examined this morning follow up for respiratory failure no overnight events no specific complaints breathing easy and unlabored Review of Systems Review of Systems: Yes all other systems are reviewed and are negative Constitutional Constitutional: Denies chills and Denies fever(s) Cardiovascular Cardiovascular: Denies chest pain and Denies dyspnea Respiratory Respiratory: Denies dyspnea Gastrointestinal Gastrointestinal: Denies abdominal pain Physical Exam 2 Vital Signs: Vital Signs: Last Vital Signs Temp 97.7 F 08/02/23 11:01 Pulse 94 08/02/23 11:01 Resp 20 08/02/23 11:01 BP 117/59 L 08/02/23 11:01 Pulse Ox 93 08/02/23 11:01 O2 Del Method Nasal Cannula 08/02/23 11:01 O2 Flow Rate 5 08/02/23 11:01 FiO2 50 07/30/23 11:45 Oxygen Flow Rate 4 07/29/23 11:47 BMI result Body Mass Index 24.2 Const: Other: elderly female lying in bed General: comfortable, alert and awake Nutritional Appearance: average body habitus Resp: Other: appears comfortable, diminished lung sounds right side; expiratory wheezing left Effort & Inspection: no respiratory distress and no use of accessory muscles Cardio: Rate: regular rate GI: Inspection: No distended Palpation (GI): Soft to palpation and nontender Neuro: Other: grossly nonfocal General: moves all extremities Extrem: Other: 3+ pitting edema Objective Data Active Medications Acetaminophen (Acetaminophen 325 Mg Tablet) 650 mg PO Q6H PRN PRN Reason: Pain, Mild (Pain Scale 1-3) Albuterol Sulfate (Albuterol Sulfate (0.083%) 2.5 Mg/3 Ml Vial.Neb) 2.5 mg INHALE Q6H PRN PRN Reason: wheezing Albuterol/Ipratropium (Albuterol/Iprat 2.5/0.5mg 3 Ml Ampul.Neb) 3 ml INHALE Q4H PRN PRN Reason: wheezing Clopidogrel Bisulfate (Clopidogrel Bisulfate 75 Mg Tablet) 75 mg PO DAILY [facility] Last Admin: 08/02/23 09:41 Dose: 75 mg Documented By: PINEDA Hydromorphone HCl (Hydromorphone Hcl 0.5 Mg/0.5 Ml Syringe) 0.5 mg IVPUSH Q4H PRN; Protocol PRN Reason: Pain, Moderate(Pain Scale 4-6) Last Admin: 08/02/23 09:45 Dose: 0.5 mg Documented By: PINEDA Lorazepam (Lorazepam 0.5 Mg Tablet) 0.5 mg PO BEDTIME PRN PRN Reason: Insomnia Last Admin: 07/31/23 03:41 Dose: 0.5 mg Documented By: FOSTEKPritesh Magnesium Oxide (Magnesium Oxide 400 Mg Tablet) 400 mg PO BIDPC [facility] Last Admin: 08/02/23 09:41 Dose: 400 mg Documented By: PINEDA Megestrol Acetate (Megestrol Acetate 400 Mg/10 Ml Oral.Susp) 400 mg PO DAILY [facility] Last Admin: 08/02/23 09:40 Dose: 400 mg Documented By: PINEDA Oxycodone HCl (Oxycodone Hcl Immed Release 5 Mg Tablet) 5 mg PO Q6H [facility] Last Admin: 08/02/23 12:15 Dose: 5 mg Documented By: PINEDA Sodium Chloride (0.9 % Sodium Chloride Flush 3 Ml Syringe) 3 ml IVFLUSH QSHIFT [facility] Last Admin: 08/02/23 09:41 Dose: 3 ml Documented By: PINEDA Tiotropium [place] (Tiotropium [place] 2.5 Mcg 1 Puff/2.5 Mcg Mist.Inhal) 1 puff INHALE RDAILY [facility] Last Admin: 08/02/23 08:27 Dose: 1 puff Documented By: AMBER Labs 07/30/23 05:14 07/30/23 05:14 Assessment and Plan (1) Respiratory failure: Status: Acute (2) Pleural effusion: Status: Acute (3) Lung cancer: Status: Acute Plan This is a 72-year-old woman with a history of lung cancer currently on chemotherapy admitted with 2 episodes of torsades while in the ER found to have respiratory failure and right lung collapse with plan to transition to hospice, awaiting bed placement at [facility] Metastatic lung adenocarcinoma with bone and soft tissue metastasis [place] [facility] [place], Dr. Gonzales undergoing palliative chemotherapy treatments but have recently been stopped Has PleurX catheter secondary to recurrent malignant effusions seen by pulm, chest CT ordered showing occlusion of the right mainstem bronchus, mucus plugging, no aeration of the right lung, moderate loculated right pleural effusion, worsening of hepatic metastatic disease weaned off of high flow; does not want bronch/procedures - plan to go to SNF on hospice; bed search in place will stop non-essential meds Torsades 2 episodes in the ED, mag 1.5 s/p IV mag replacement continue po magnesium Avoid medications that can induce torsades/arrhythmia plan for hospice as above SANTA on CKD Likely secondary to dehydration resolved with IVF COPD continue inhalers, breathing treatments Hypertension Low BP Hold antihypertensives for now Mental health Lorazepam as needed for anxiety DVT prophylaxis with heparin DNR/DNI Requires ongoing inpatient stay for pain management, SNF placement for hospice Quality Stroke Does the patient have a stroke diagnosis?: No VTE Prior VTE?: No VTE Risk Level:: Medical - moderate - high VTE Device Contraindication: Treatment Not Indicated VTE Drug Contraindication: N/A - Med Ordered
[2023-08-03] MEDS: 0.9 % Sodium Chloride Flush 3 ML SYRINGE IVFLUSH ×2 (00:35→07:27)
[2023-08-03] MEDS: oxyCODONE HCl Immed Release 5 MG TABLET PO ×2 (00:36→07:27)
[2023-08-03 03:12] VITALS: BP 144/66; PULSE 91; RESP 20; TEMP 36.4; O2SAT 95
[2023-08-03 07:12] VITALS: BP 147/65; PULSE 102; RESP 20; TEMP 36.8; O2SAT 93
[2023-08-03] MEDS: Magnesium Oxide 400 MG TABLET PO (07:27)
[2023-08-03] MEDS: Megestrol Acetate 400 MG/10 ML ORAL.SUSP PO (07:27)
[2023-08-03] MEDS: Tiotropium Bromide 2.5 mcg 1 PUFF/2.5 MCG MIST.INHAL INHALE (08:28)
[2023-08-03 08:30] VITALS: PULSE 88; RESP 18; O2SAT 95
--- NOTE | 2023-08-03 08:40 | MHC.CM.PN ---
CM RECEIVED A MESSAGE FROM [facility] REPORTING THEY RECEIVED INSURANCE AUTH, CM HAS [facility]CTED [facility] AND AWAITING PHARMACISTS/MESSAGE BACK TO COORDINATE DC TIME, ONCE TIME RECEIVED CM WILL CONTACT FAMILY. PT TO TRANSPORT TO [facility] TODAY VIA [employer].
--- NOTE | 2023-08-03 09:27 | MHC.CM.PN ---
Addendum entered by Esther Gregorio RN 08/03/23 10:50: PT BOOKED FOR 12:30PM VIA [facility], SON/HCP KEHINDE AWARE AND IMM SENT VIA EMAIL TO [email or web address] Addendum entered by Esther Gregorio RN 08/03/23 09:50: cm received a message from [facility] that they do not have an appropriate hospice bed for pt, cm attempted to contact pt's hcp kehinde at number on file however number busy, cm will reattempt. Original Note: cm received call from pt's hcp kehinde requesting cm contact [facility] to see if they can take pt as she has been their in the past, cm sent message via [employer] and called liaison on cell phone who reports they can check in to hospice bed availability however it is not likely as they are mainly taking rehab pts now. cm will cont to follow.
--- NOTE | 2023-08-03 09:42 | PM.DS ---
DS: Providers Provider Date of Service: 08/03/23 Date of admission: 07/29/23 14:11 Primary care physician: Lyn French MD Consults: 07/29/23 16:17 Consult to Pulmonology Routine Consulting Provider: [facility] Pulmonology Services Reason for consultation: lung collapse DS: Diagnosis Discharge Diagnosis (1) Respiratory failure: Status: Acute (2) Pleural effusion: Status: Acute (3) Lung cancer: Status: Acute DS: Summary Hospital Course Hospital Course: 72 year old women presenting with weakness with hx of lung cancer on pallitative chemotherapy, recently stopped. She has been feeling unwell as of late and have had discussions regarding hospice. CT scan showed near collapse of right lung with pleurx catheter in place. Patient was noted to have 2 episodes of what appears to be torsades on telemetry. She received IV and oral magnesium. Cardiology is aware. Stable vital signs, labs within acceptable limits. Patient will be add admitted for further management and treatment of acute torsades and SANTA. Metastatic lung adenocarcinoma with bone and soft tissue metastasis Follows [facility] Oncology, Dr. Gonzales. undergoing palliative chemotherapy treatments but have recently been stopped. Has PleurX catheter secondary to recurrent malignant effusions typically drained every Thursday. seen by pulmonary, chest CT ordered showing occlusion of the right mainstem bronchus, mucus plugging, no aeration of the right lung, moderate loculated right pleural effusion, worsening of hepatic metastatic disease was able to be weaned off of high flow; does not want bronch/procedures - Discussed with pulmonary, patient and family plan to go to SNF and transition to hospice. All non-essential medications stopped. titrate pain medication as needed. Torsades. no further episodes SANTA on CKD. resolved. Time Attestation Discharge Coordination Time (in mins): 40 Quality: Safe Use of Opioids Does Pt have an Active Cancer Diagnosis on the Problem List?: No Quality: Stroke Does the patient have a stroke diagnosis?: No Physical Exam Vital Signs: Vital Signs: Last Vital Signs Temp 98.2 F 08/03/23 07:12 Pulse 88 08/03/23 08:30 Resp 18 08/03/23 08:30 BP 147/65 H 08/03/23 07:12 Pulse Ox 93 08/03/23 07:12 O2 Del Method Nasal Cannula 08/03/23 07:12 O2 Flow Rate 4 08/03/23 07:12 FiO2 50 07/30/23 11:45 Oxygen Flow Rate 4 07/29/23 11:47 BMI result Body Mass Index 24.2 Appearing in no acute distress head is normocephalic atraumatic eyes pupils are PERRLA sclera is anicteric mouth throat mucous membranes are intact and moist neck is supple no lymphadenopathy, no JVD noted lung sounds are clear to auscultation heart regular rate rhythm, clear S1, S2 positive bowel sounds, abdomen is soft, nontender neuro patient is alert x3, no focal deficits DS: Data Data Completed and Pending Completed studies during hospitalization [Text1]: Procedures Drainage of Right Pleural Cavity with Drainage Device, Percutaneous Approach (05/27/23) Introduction of Other Anti-infective into Pleural Cavity, Percutaneous Approach (05/27/23) Discharge Plan Discharge Anticipated Discharge Date/Time: 08/03/23 09:36 Patient Disposition: Xfer SNF Discharge Diagnosis: Respiratory failure with hypoxia due to worsening of underlying lung cancer Ventricular tachycardia SANTA Referrals: Lyn French MD [Primary Care Provider] - 1 Week Discharge Medications: New morphine concentrate 100 mg/5 mL (20 mg/mL) solution 5 mg PO Q3H PRN (Reason: pain) Qty: 30 0RF Rx Instructions: Partial Fill upon patient request. HOSPICE Continued Incruse Ellipta 62.5 mcg/actuation blister with device 1 puff PO DAILY fluticasone furoate-vilanterol [Breo Ellipta] 200-25 mcg/dose blister with device 1 puff PO DAILY clopidogrel 75 mg tablet 1 tab PO DAILY Hold Instructions: Resume on 11/23/22. Resume Plavix on 11/23/22 amlodipine 10 mg tablet 1 tab PO DAILY lorazepam 0.5 mg Tablet 0.5 mg PO BEDTIME PRN (Reason: Insomnia) Qty: 30 0RF albuterol sulfate 90 mcg/actuation HFA aerosol inhaler 2 puff INHALATION Q4H PRN (Reason: wheezing) ondansetron 8 mg tablet,disintegrating 8 mg PO Q8H PRN (Reason: Nausea And Vomiting) ipratropium-albuterol 0.5 mg-3 mg(2.5 mg base)/3 mL solution for nebulization 3 ml inhalation Q4-6H PRN (Reason: wheezing) 30 Days Qty: 270 6RF Discontinued alendronate 70 mg tablet 70 mg PO SA@0900 atorvastatin 40 mg tablet 80 mg PO BEDTIME cyanocobalamin (vitamin B-12) [Vitamin B-12] 1,000 mcg Tablet 1,000 mcg PO DAILY Qty: 30 3RF folic acid 1 mg Tablet 1 mg PO DAILY Qty: 30 2RF megestrol 400 mg/10 mL (10 mL) Suspension 400 mg PO DAILY Qty: 300 1RF Align 4 mg capsule 4 mg PO QAM cholecalciferol (vitamin D3) 50 mcg (2,000 unit) capsule 50 mcg PO BID oxycodone 5 mg tablet 5 mg PO DAILY@1300 PRN (Reason: Breakthrough Pain) oxycodone 5 mg tablet 5 mg PO BID Rx Instructions: Partial Fill upon patient request. lisinopril 40 mg tablet 40 mg PO DAILY Hold Instructions: Resume on 06/11/23. Discharge Orders: Discharge Order (Routine); Ordered 08/03/23 Ordered By: Viviane Zepeda Diet: Advance to usual diet Activity on Discharge: As tolerated Stand Alone Forms: Patient Portal Discharge page Print Language: Cuban Care Plan Goals: see below Health Concerns: metastatic lung cancer Ventricular tachycardia SANTA Plan of Treatment: Transitioned to hospice at SNF. Discontinue all nonessential medications Pain medication as needed for comfort Assessment: see discharge summary
--- NOTE | 2023-08-03 10:39 | MHC.CM.PN ---
[facility] BOOKING ID #[id number], PT BOOKED FOR 12:30PM.
--- NOTE | 2023-08-03 11:08 | MHC.SL.SWA ---
Speech Pathologist Impression: Risk of aspiration, oral phase dysphagia Risk of Aspiration Due to: Medically Fragile Reduced Cognition Dysphasia Diet Status: No changes at this time Liquid Consistency and Strategies for Safe Swallow: Liquid Intake Recommendation: Thin Liquid Intake Strategies: Small Sips Solid Food Consistency: Dietary Recommendations: Chopped/Advanced (NDD3) Additional Modifications to Solid Foods: Continue CHOPPED/ADVANCED (NDD3) diet with THIN liquids. Patient should sit upright, take small bites and sips, alternate liquids/solids to clear residue, check oral cavity periodically for clearance. Oral Medication Intake: Whole with Liquid Please contact the pharmacy regarding appropriate crushable or liquid drug formulations that are available whenever modified delivery is recommended. Compensatory Strategies and Precautions to be Taken for Safe Swallow: Sitting Upright (90 deg) Liquids from Cup Small Bites and Sips Alternate Liquids/Solids Rate of Ingestion Change Oral Check Avoid Specific Foods Supervision While Eating and Drinking for Safe Swallow: Total Supervision (1:1) Foods to Avoid: Difficult to chew solids, too large pieces of food. Swallowing Recommended Treatments: Compens. Strategy Educat. Recommendation for Speech: Inpatient Speech Therapy Comment: Patient presents with mild oral pharyngeal dysphagia, with absent swallow trigger and mild issues with oral management of solids, including c/o soreness of gums and throat. Patient quickly fatigues with the effort of eating, which is pertinent aspiration risk. Recommend Chopped/Advanced (NDD3) for ease of mastication, with thin liquids, pills whole with liquid or puree as preferred by patient. Patient would benefit from frequent rest breaks during meal, and supervision given quick fatigue and mild confusion. CIRCULAR SAW FILER will continue to follow. Frequency/Duration: Date Range for Service Req: Timeline to reassess: Cap Cutter Clinican/Clinical Fellow: No Supervisory Statement: I have reviewed and agree with the student/clinical fellow's documentation: N/A Speech Language Pathologist: Gillian Harris M.A., CCC-CIRCULAR SAW FILER
== END 2023-08-03 12:47 | disposition skilled nursing facility (03) | DRG 308 ==
LOC: HO.ED 13:06 → HO.EDOVER 14:17 → HO.IMC 20:49
PROVIDERS: Admitting Provider Nurse Practitioner Acute Care; Emergency Provider Emergency Medicine; PCP Pediatrics; Visit Provider Nurse Practitioner Acute Care
DX: I47.21 Torsades de pointes (principal); J96.90 Respiratory failure, unspecified, unspecified whether with hypoxia or hypercapnia; C34.91 Malignant neoplasm of unspecified part of right bronchus or lung; C79.51 Secondary malignant neoplasm of bone; N17.9 Acute kidney failure, unspecified; C78.7 Secondary malignant neoplasm of liver and intrahepatic bile duct; J98.19 Other pulmonary collapse; J91.0 Malignant pleural effusion; J43.9 Emphysema, unspecified; Z66 Do not resuscitate; E86.0 Dehydration; D63.0 Anemia in neoplastic disease; F03.90 Unspecified dementia, unspecified severity, without behavioral disturbance, psychotic disturbance, mood disturbance, and anxiety; Z87.891 Personal history of nicotine dependence; Z79.02 Long term (current) use of antithrombotics/antiplatelets; Z79.51 Long term (current) use of inhaled steroids; Z79.899 Other long term (current) drug therapy
CPT/HCPCS: 36415; 71045; 71250; 80048; 80053; 83735; 83880; 84484; 85025; 92526; 92610; 93005; 94640; 99285; J1170; J1644; J2270; J2920; J3475

== ENCOUNTER → 2023-07-29 09:32 | Outpatient (BNV) | payer OTHER, SELFPAY | PROVIDERS: Admitting Provider Nurse Practitioner Acute Care; Emergency Provider Emergency Medicine; PCP Pediatrics; Visit Provider Internal Medicine Cardiovascular Disease | DX: I47.20 Ventricular tachycardia, unspecified (principal) | CPT/HCPCS: 93010 ==

== ENCOUNTER → 2023-07-29 14:11 | Outpatient (BNV) | payer OTHER, SELFPAY | PROVIDERS: Admitting Provider Nurse Practitioner Acute Care; Emergency Provider Emergency Medicine; PCP Pediatrics; Visit Provider Hospitalist | DX: J90 Pleural effusion, not elsewhere classified (principal); C34.91 Malignant neoplasm of unspecified part of right bronchus or lung; I47.20 Ventricular tachycardia, unspecified; J43.9 Emphysema, unspecified | CPT/HCPCS: 99223 ==

== ENCOUNTER → 2023-07-29 14:11 | Outpatient (BNV) | payer OTHER, SELFPAY | PROVIDERS: Admitting Provider Nurse Practitioner Acute Care; Emergency Provider Emergency Medicine; PCP Pediatrics; Visit Provider Physician Assistant Medical | DX: J96.90 Respiratory failure, unspecified, unspecified whether with hypoxia or hypercapnia (principal); C34.91 Malignant neoplasm of unspecified part of right bronchus or lung; J90 Pleural effusion, not elsewhere classified | CPT/HCPCS: 99223; 99231; 99232; 99233; 99239 ==